=== PATIENT | female | born 1965 | race Two or more races ===

== ENCOUNTER 2018-08-15 09:27 | Inpatient (IN) | payer MEDICARE, MEDICAID ==
[~2018-08-15] VITALS: Ht 149.9 cm; Wt 43.1 kg
[2018-08-15 09:24] VITALS: BP 175/76
--- NOTE | 2018-08-15 09:27 | NUR ---
ED Nurse Note: PT BROUGHT IN BY RA 68 DUE TO SEVERE HEADACHE AND ELEVATED BLOOD PRESSURE 190/90MMHG. PT IS ON DIALYSIS M/W/F. LAST SESSION WAS YESTERDAY. PT IS AAO X4 AMBULATORY WITH NON LABORED BREATHING. AV FISTULA NOTED ON RIGHT FOREARM.
[2018-08-15] MEDS ORDERED: Morphine Sulfate 4mg/ml Inj (IV USE ONLY) IVP ONE (09:30)
[2018-08-15] MEDS ORDERED: DiphenhydrAMINE 50mg/ml Inj IVP ONE (09:30)
--- NOTE | 2018-08-15 09:33 | Emergency Room Report ---
History of Present Illness General Chief Complaint: Headache Source: Patient Present Illness HPI Patient presents emergency department today complaining of headache. Patient states that she has had some headache intermittently for the last couple weeks but it progressively became worse since yesterday. The headache is localized to the left side of her face involving the back of her head and part of her left neck. She denies any trauma. Denies sudden onset of headache. Denies any prior history of headache this severe. Denies any fever. Complains of nausea but denies vomiting. Denies any chest pain or shortness of breath. Complains of some chills. She does have photophobia. No other complaints are noted. Symptoms noted to be severe. Patient has not had prior work-up for this in the past. Patient has not had a CT scan. Patient denies any other complaints. Patient does have a history of renal failure and is on dialysis Sunday. Patient had dialysis yesterday. Patient is usually followed up at [facility]. No other modifying factors. No other associated signs and symptoms. No other complaints were noted. Allergies: Coded Allergies: No Known Allergies (Unverified , 08/15/18) Patient History Past Medical History: DM, HTN, renal disease, dialysis - Right upper extremity AV fistula Past Surgical History: other - Right upper extremity AV fistula Social History: Denies: smoking, alcohol use, drug use Now: No Reviewed Nursing Documentation: PMH: Agreed; PSxH: Agreed Nursing Documentation-PM Past Medical History: No History, Except For Hx Cardiac Problems: No - CKD Hx Hypertension: Yes Hx Diabetes: Yes Review of Systems All Other Systems: negative except mentioned in HPI Physical Exam Vital Signs Date Time Temp Pulse Resp B/P (MAP) Pulse Ox O2 Delivery O2 Flow Rate FiO2 08/15/18 09:14 97.9 66 19 190/90 (123) 95 Room Air Sp02 EP Interpretation: reviewed, normal General Appearance: alert, moderate distress Head: atraumatic Eyes: bilateral eye normal inspection ENT: normal ENT inspection, hearing grossly normal, normal voice Neck: normal inspection, full range of motion, supple, no bony tend Respiratory: normal inspection, lungs clear, normal breath sounds, no respiratory distress, no retraction, no wheezing Cardiovascular #1: regular rate, rhythm, no edema Gastrointestinal: normal inspection, normal bowel sounds, non tender, soft, no guarding, no hernia Genitourinary: no CVA tenderness Musculoskeletal: normal inspection, back normal, normal range of motion, other - Right upper extremity AV fistula Neurologic: normal inspection, alert, responsive, speech normal Psychiatric: normal inspection, judgement/insight normal, depressed affect, anxious Skin: normal inspection, normal color, no rash Medical Decision Making Diagnostic Impression: Primary Impression: Intractable headache ER Course Patient presents to the emergency department today complaining of severe headache. Differential diagnoses include acute migraine headache, meningitis, subarachnoid hemorrhage, intracranial hemorrhage just name a few. Given the severity of the patient's presentation I felt this is a highly complex patient. This patient required extensive workup. Patient's laboratory work-up was not impressive. Head CT was negative. Patient was given pain medications with some improvement in symptoms. Given patient's persistent headache however I feel the patient require admission for pain control. Patient did not have a sudden onset headache and CAT scan again was negative therefore I do not feel that a lumbar puncture is indicated at this time. However I felt the patient require admission and evaluation and observation. Patient will be placed on observation status. Labs Test 08/15/18 09:35 White Blood Count 5.8 K/UL (4.8-10.8) Red Blood Count 4.44 M/UL (4.20-5.40) Hemoglobin 11.9 G/DL (12.0-16.0) Hematocrit 40.2 % (37.0-47.0) Mean Corpuscular Volume 90 FL (80-99) Mean Corpuscular Hemoglobin 26.7 PG (27.0-31.0) Mean Corpuscular Hemoglobin Concent 29.5 G/DL (32.0-36.0) Red Cell Distribution Width 15.5 % (11.6-14.8) Platelet Count 108 K/UL (150-450) Mean Platelet Volume 9.9 FL (6.5-10.1) Neutrophils (%) (Auto) 71.4 % (45.0-75.0) Lymphocytes (%) (Auto) 14.9 % (20.0-45.0) Monocytes (%) (Auto) 9.8 % (1.0-10.0) Eosinophils (%) (Auto) 3.2 % (0.0-3.0) Basophils (%) (Auto) 0.6 % (0.0-2.0) Prothrombin Time 12.4 SEC (9.30-11.50) Prothromb Time International Ratio 1.2 (0.9-1.1) Activated Partial Thromboplast Time 27 SEC (23-33) Sodium Level 140 MMOL/L (136-145) Potassium Level 4.8 MMOL/L (3.5-5.1) Chloride Level 102 MMOL/L (98-107) Carbon Dioxide Level 29 MMOL/L (21-32) Anion Gap 10 mmol/L (5-15) Blood Urea Nitrogen 36 mg/dL (7-18) Creatinine 6.9 MG/DL (0.55-1.30) Estimat Glomerular Filtration Rate 6.2 mL/min (>60) Glucose Level 101 MG/DL (74-106) Calcium Level 9.1 MG/DL (8.5-10.1) Total Bilirubin 0.9 MG/DL (0.2-1.0) Aspartate Amino Transf (AST/SGOT) 21 U/L (15-37) Alanine Aminotransferase (ALT/SGPT) 16 U/L (12-78) Alkaline Phosphatase 216 U/L (46-116) Total Protein 8.5 G/DL (6.4-8.2) Albumin 3.6 G/DL (3.4-5.0) Globulin 4.9 g/dL Albumin/Globulin Ratio 0.7 (1.0-2.7) EKG Diagnostic Results Rate: normal Rhythm: NSR ST Segments: no acute changes Rhythm Strip Diag. Results EP Interpretation: yes Rate: 61 Rhythm: NSR, no PVC's, no ectopy CT/MRI/US Diagnostic Results CT/MRI/US Diagnostic Results : Imaging Test Ordered: CT head: Negative Last Vital Signs Date Time Temp Pulse Resp B/P (MAP) Pulse Ox O2 Delivery O2 Flow Rate FiO2 08/15/18 09:24 97.9 64 13 175/76 98 Room Air Status: improved Disposition: PLACE IN OBSERVATION Condition: Serious Justin Sandoval MD August 15, 2018 09:33
--- NOTE | 2018-08-15 09:40 | NUR ---
ED Nurse Note: COLLECTED BLOOD THEN SENT TO LAB.
--- NOTE | 2018-08-15 09:44 | NUR ---
ED Nurse Note: PT TAKEN TO CT VIA MERNA. MEDS GIVEN.
[2018-08-15 09:52] LABS: BASOPHILS % (AUTO) 0.6 % (0.0-2.0); EOSINOPHILS % (AUTO) 3.2 % (0.0-3.0); HEMATOCRIT 40.2 % (37.0-47.0); HEMOGLOBIN 11.9 G/DL (12.0-16.0); LYMPHOCYTES % (AUTO) 14.9 % (20.0-45.0); MEAN CORPUSCULAR VOLUME 90 FL (80-99); MONOCYTES % (AUTO) 9.8 % (1.0-10.0); NEUTROPHILS % (AUTO) 71.4 % (45.0-75.0); PLATELET COUNT 108 K/UL (150-450); RED BLOOD COUNT 4.44 M/UL (4.20-5.40); RED CELL DISTRIBUTION WIDTH 15.5 % (11.6-14.8); WHITE BLOOD COUNT 5.8 K/UL (4.8-10.8)
--- NOTE | 2018-08-15 10:04 | NUR ---
ED Nurse Note: PT CAME BACK FROM CT. STILL IN PAIN AND WAITING FOR BLOOD RESULTS TO COME BACK.
[2018-08-15 10:14] LABS: INR 1.2 (0.9-1.1)
[2018-08-15 10:18] LABS: ANION GAP 10 mmol/L (5-15); BLOOD UREA NITROGEN 36 mg/dL (7-18); CALCIUM 9.1 MG/DL (8.5-10.1); CARBON DIOXIDE 29 MMOL/L (21-32); CHLORIDE 102 MMOL/L (98-107); CREATININE 6.9 MG/DL (0.55-1.30); POTASSIUM 4.8 MMOL/L (3.5-5.1); SODIUM 140 MMOL/L (136-145)
[2018-08-15] MEDS ORDERED: RENVELA0.8 GM ORAL (10:21)
[2018-08-15 10:22] LABS: ALANINE AMINOTRANSFERASE 16 U/L (12-78); ALBUMIN 3.6 G/DL (3.4-5.0); ALBUMIN/GLOBULIN RATIO 0.7 (1.0-2.7); ALKALINE PHOSPHATASE 216 U/L (46-116); ASPARTATE AMINO TRANSFERASE 21 U/L (15-37); BILIRUBIN,TOTAL 0.9 MG/DL (0.2-1.0)
--- NOTE | 2018-08-15 10:23 | Diagnostic Imaging Report ---
Indications: Headache Technique: Spiral acquisitions obtained through the brain. Angled axial and coronal 5 x 5 mm slices were reconstructed. Total dose length product 1319.38 mGycm. CTDI vol(s) 70.38 mGy. Dose reduction achieved using automated exposure control Comparison: None. Findings: No acute intracranial hemorrhage nor edema. No mass effect nor midline shift. There is mild age-related prominence of the ventricles and extra axial CSF spaces. There is periventricular low-attenuation. Otherwise normal hare-white differentiation. In intact calvarium. Visualized orbits are unremarkable. There is left sphenoid sinus disease Impression: Cerebral volume loss and periventricular deep white matter low-attenuation, somewhat advanced for patient age. Negative for acute intracranial bleed or mass effect Minimal sinus disease The CT scanner at [facility] is accredited by the [employer] and the scans are performed using protocols designed to limit radiation exposure to as low as reasonably achievable to attain images of sufficient resolution adequate for diagnostic evaluation.
[2018-08-15] MEDS ORDERED: ACETAMINOPHEN325 M1 ORAL (10:25)
[2018-08-15] MEDS ORDERED: CALCIUM500 M3 PO (10:25)
[2018-08-15] MEDS ORDERED: ZOLOFT50 MG ORAL (10:25)
[2018-08-15] MEDS ORDERED: ATORVASTATIN CA80 MG ORAL (10:25)
[2018-08-15] MEDS ORDERED: REGLAN5 MG ORAL (10:25)
[2018-08-15] MEDS ORDERED: BIDIL TABLET1 EACH PO (10:25)
[2018-08-15] MEDS ORDERED: IMODIUM2 MG ORAL (10:27)
[2018-08-15] MEDS ORDERED: NORCO 5-325 TA1 EACH ORAL (10:27)
[2018-08-15] MEDS ORDERED: GABAPENTIN400 MG ORAL (10:27)
[2018-08-15] MEDS ORDERED: CARVEDILOL12.5 MG ORAL (10:27)
[2018-08-15 11:05] VITALS: BP 148/61
--- NOTE | 2018-08-15 11:10 | NUR ---
HAND-OFF: Report given to zunilda WING.
--- NOTE | 2018-08-15 12:07 | NUR ---
ED Nurse Note: report given to MACIEJ colon from [facility].
--- NOTE | 2018-08-15 12:27 | NUR ---
ED Nurse Note: PT TRANSFERRED TO [facility], ALL BELONGINGS SENT W/ PT, VSS, IV INTACT AND PATENT, CARE ENDORSED TO MACIEJ SOARES.
--- NOTE | 2018-08-15 13:00 | NUR ---
NURSE NOTES: Pt received from ER with of of SAMANTHA on 2 liters . Dialysis pt dialyzed yesterday, [employer] speaker . Desires vaccinations on discharge
[2018-08-15] MEDS ORDERED: Loperamide 2mg cap ORAL PRN (14:00)
[2018-08-15] MEDS ORDERED: LORazepam Inj 2mg/ml 1ml IV PRN (14:00)
[2018-08-15] MEDS ORDERED: oxyCODONE HCL/Acetaminophen 5/325mg ORAL PRN (14:00)
--- NOTE | 2018-08-15 14:08 | History and Physical ---
History of Present Illness General Date patient seen: August 15, 2018 Time patient seen: 14:00 Reason for Hospitalization: Headache Present Illness HPI 53 year old woman with ESRD on HD MWF, HTN, type 2 DM who presented to the ED today with complaints of headache. Patient states that she has had some headache intermittently for the last couple weeks but it progressively became worse since yesterday. The headache is localized to the left side of her face involving the back of her head and part of her left neck. Pain reported to be severe and sharp She denies any trauma. Denies sudden onset of headache. Denies any prior history of headache this severe. Denies any fever or chills. Complains of nausea, vomiting and diarrhea Denies any chest pain or shortness of breath. She does have photophobia. No other complaints are noted. Social Hx: No alcohol or tobacco Family History: No CAD Allergies: Coded Allergies: No Known Allergies (Unverified , 08/15/18) Medication History Scheduled Atorvastatin Calcium* (Lipitor*), 80 MG ORAL BEDTIME, (Reported) Carvedilol* (Carvedilol*), 12.5 MG ORAL EVERY 12 HOURS, (Reported) Gabapentin* (Gabapentin*), 400 MG ORAL THREE TIMES A DAY, (Reported) Hydrocodone Bit/Acetaminophen 5-325* (Aurora 5-325*), 1 TAB ORAL TWICE A DAY, ( Reported) Loperamide HCl (Loperamide), 2 MG ORAL Q4H, (Reported) Metoclopramide Hcl* (Reglan*), 5 MG ORAL EVERY 6 HOURS, (Reported) Sertraline Hcl* (Zoloft*), 150 MG ORAL DAILY, (Reported) Sevelamer Carbonate* (Renvela*), 800 MG ORAL THREE TIMES A DAY, (Reported) Scheduled PRN Acetaminophen* (Acetaminophen 325MG Tablet*), 325 MG ORAL Q6H PRN for For Pain, (Reported) Miscellaneous Medications Calcium Carbonate (Calcium), 500 MG PO, (Reported) Isosorb Dinit/Hydralazine Hcl (Bidil Tablet), 1 EACH PO, (Reported) Patient History Healthcare decision maker Resuscitation status Advanced Directive on File Review of Systems Constitutional: Denies: chills Eye: Denies: eye pain, blurred vision, tearing ENT: Denies: ear pain Respiratory: Denies: cough Cardiovascular: Denies: chest pain, edema Gastrointestinal: Reports: diarrhea, nausea; Denies: abdominal pain Genitourinary: Denies: discharge, dysuria Musculoskeletal: Denies: back pain Physical Exam General Appearance: no apparent distress, alert HEENT: atraumatic, anicteric Neck: normal alignment, supple Respiratory/Chest: lungs clear, normal breath sounds, no respiratory distress Cardiovascular/Chest: normal rate, regular rhythm Abdomen: soft, no organomegaly, other - Mild diffuse tenderness Extremities: non-tender, normal inspection Neurologic: tombstone polisher II-XII grossly normal, no motor/sensory deficits, alert, oriented x 3, responsive Last 24 Hour Vital Signs Date Time Temp Pulse Resp B/P (MAP) Pulse Ox O2 Delivery O2 Flow Rate FiO2 08/15/18 11:05 98.2 57 18 148/61 100 Room Air 08/15/18 11:00 98.2 08/15/18 09:24 97.9 64 13 175/76 98 Room Air 08/15/18 09:14 97.9 66 19 190/90 (123) 95 Room Air Laboratory Tests Test 08/15/18 09:35 White Blood Count 5.8 K/UL (4.8-10.8) Red Blood Count 4.44 M/UL (4.20-5.40) Hemoglobin 11.9 G/DL (12.0-16.0) L Hematocrit 40.2 % (37.0-47.0) Mean Corpuscular Volume 90 FL (80-99) Mean Corpuscular Hemoglobin 26.7 PG (27.0-31.0) L Mean Corpuscular Hemoglobin Concent 29.5 G/DL (32.0-36.0) L Red Cell Distribution Width 15.5 % (11.6-14.8) H Platelet Count 108 K/UL (150-450) L Mean Platelet Volume 9.9 FL (6.5-10.1) Neutrophils (%) (Auto) 71.4 % (45.0-75.0) Lymphocytes (%) (Auto) 14.9 % (20.0-45.0) L Monocytes (%) (Auto) 9.8 % (1.0-10.0) Eosinophils (%) (Auto) 3.2 % (0.0-3.0) H Basophils (%) (Auto) 0.6 % (0.0-2.0) Prothrombin Time 12.4 SEC (9.30-11.50) H Prothromb Time International Ratio 1.2 (0.9-1.1) H Activated Partial Thromboplast Time 27 SEC (23-33) Sodium Level 140 MMOL/L (136-145) Potassium Level 4.8 MMOL/L (3.5-5.1) Chloride Level 102 MMOL/L (98-107) Carbon Dioxide Level 29 MMOL/L (21-32) Anion Gap 10 mmol/L (5-15) Blood Urea Nitrogen 36 mg/dL (7-18) H Creatinine 6.9 MG/DL (0.55-1.30) H Estimat Glomerular Filtration Rate 6.2 mL/min (>60) Glucose Level 101 MG/DL (74-106) Calcium Level 9.1 MG/DL (8.5-10.1) Total Bilirubin 0.9 MG/DL (0.2-1.0) Aspartate Amino Transf (AST/SGOT) 21 U/L (15-37) Alanine Aminotransferase (ALT/SGPT) 16 U/L (12-78) Alkaline Phosphatase 216 U/L (46-116) H Total Protein 8.5 G/DL (6.4-8.2) H Albumin 3.6 G/DL (3.4-5.0) Globulin 4.9 g/dL Albumin/Globulin Ratio 0.7 (1.0-2.7) L Height (Feet): 5 Weight (Pounds): 95 Medications Current Medications Medications (Trade) Dose Ordered Sig/Rogelio Route PRN Reason Start Time Stop Time Status Last Admin Dose Admin Heparin Sodium (Porcine) (Heparin 5000 units/ml) 5,000 units EVERY 12 HOURS SUBQ 08/15/18 21:00 09/14/18 20:59 UNV Sodium Chloride 1,000 ml @ 75 mls/hr [id number] IVLG 08/15/18 14:47 09/14/18 14:46 UNV Assessment/Plan Assessment/Plan: #Intractable headache, status migrainosus -admit to medical service -supportive care with anti-emetics, Percocet prn -Neurology eval requested #Nausea, vomiting and diarrhea, more chronic in duration -check stool studies including C. difficile #ESRD on HD -Nephrology consulted for HD management -continue Renagel #HTN #HL -continue Coreg and Lipitor #Type 2 DM -lispro SS #Depression -continue Zoloft Full Code VTE PPx Heparin Ispent 70 minutes on this patient's case, and 35 minutes was dedicated to counseling and/or care coordination. Doug Purvis MD August 15, 2018 14:08
[2018-08-15 16:00] VITALS: BP 149/105
--- NOTE | 2018-08-15 16:00 | NUR ---
NURSE NOTES: Dr Miller here seen pt aware that pt is a dialysis pt, stated he would put orders in. Dr Sierra also here to visit pt verbalized onset of symptoms. Pt states that she takes her blood pressure medicine everyday and does not know why her blood pressure is elevated
--- NOTE | 2018-08-15 16:17 | Consultation ---
Consult Note Consult Note Asked to [facility] at the request of Dr Schultz for dialysis management Patient to ER for RAMÍREZ and high BP ER: Patient presents emergency department today complaining of headache. Patient states that she has had some headache intermittently for the last couple weeks but it progressively became worse since yesterday. The headache is localized to the left side of her face involving the back of her head and part of her left neck. She denies any trauma. Denies sudden onset of headache. Denies any prior history of headache this severe. Denies any fever. Complains of nausea but denies vomiting. Denies any chest pain or shortness of breath. Complains of some chills. She does have photophobia. No other complaints are noted. Symptoms noted to be severe. Patient has not had prior work-up for this in the past. Patient has not had a CT scan. Patient denies any other complaints. Patient does have a history of renal failure and is on dialysis Sunday. Patient had dialysis yesterday. Patient is usually followed up at [facility]. No other modifying factors. No other associated signs and symptoms. No other complaints were noted. No Known Allergies (Unverified , 08/15/18) Past Medical History: DM, HTN, renal disease, dialysis - Right upper extremity AV fistula Past Surgical History: other - Right upper extremity AV fistula dialysis M W Fr interviewed via passenger flagman examined data reviewed discussed with RN . Assessment/Plan ESRD HTN Headache DM ii Nausea, vomiting and diarrhea, more chronic in duration BP meds adjustment Pain meds HD in am per orders Renal diet with medium CHO James Bower MD August 15, 2018 16:17
[2018-08-15] MEDS: NovoLOG Insulin Flexpen SUBQ SCH ×2 (16:30→21:00)
[2018-08-15] MEDS ORDERED: Metoclopramide 10mg/2ml Inj IVP PRN (16:30)
[2018-08-15] MEDS ORDERED: HydrALAZINE 25mg tab ORAL PRN (16:45)
--- NOTE | 2018-08-15 17:17 | NUR ---
percocet reassessed information not saved verbalized effectiveness
--- NOTE | 2018-08-15 18:00 | NUR ---
NURSE NOTES: Pt in stable condition , assisted to restroom also had an incontinent episode of urine. Current plan of care will be followed
[2018-08-15] MEDS: Renvela 800mg Pkt ORAL SCH (18:38)
[2018-08-15] MEDS: Docusate 100mg cap ORAL SCH (18:38)
[2018-08-15] MEDS: D5 1/2NS 1,000 ML IV SCH (18:39)
[2018-08-15 20:00] VITALS: BP 132/62
[2018-08-15 20:01] VITALS: BP 132/62
--- NOTE | 2018-08-15 20:15 | NUR ---
NURSE NOTES: Patient received from Jayne DayPatient Albanian Speaking. family members at bedside.P patient denies any pain . no s/s of distress .LFAg#20 with D5 1/2 ns at 50 cc/hr infusing well Right forearm with shunt . call light within reach .bed in low position . will continue to monitor.
--- NOTE | 2018-08-15 20:15 | NUR ---
HAND-OFF: Report given to Shabana WING.
[2018-08-15] MEDS: Atorvastatin 80mg tab ORAL SCH (20:31)
[2018-08-15] MEDS: Carvedilol 12.5mg tab ORAL SCH (20:32)
[2018-08-15] MEDS: Heparin 5000 units/ml inj SUBQ SCH (20:33)
[2018-08-15] MEDS ORDERED: Carvedilol 12.5mg tab ORAL SCH (21:00)
[2018-08-15] MEDS ORDERED: Docusate 100mg cap ORAL SCH (21:00)
[2018-08-16] VITALS (7 sets, daily range): BP systolic 137–166; BP diastolic 58–70
--- NOTE | 2018-08-16 06:00 | NUR ---
NURSE NOTES:Patient blood sugar 119 patient refused insulin novolog coverage . Explained patient the risk and benefits. will continue to monitor
[2018-08-16 06:28] LABS: HEMATOCRIT 35.5 % (37.0-47.0); HEMOGLOBIN 10.6 G/DL (12.0-16.0); MEAN CORPUSCULAR VOLUME 91 FL (80-99); PLATELET COUNT 79 K/UL (150-450); RED CELL DISTRIBUTION WIDTH 15.6 % (11.6-14.8); WHITE BLOOD COUNT 5.3 K/UL (4.8-10.8)
[2018-08-16] MEDS: NovoLOG Insulin Flexpen SUBQ SCH ×4 (06:30→21:00)
--- NOTE | 2018-08-16 07:10 | NUR ---
NURSE NOTES: Report received from Shabana DUNBAR, rounds made. Patient sleeping in supine position, in bed. No distress noted on O2 2LNC. IVF infusing to LFA at 50 ml/hr. RFA shunt noted, +bruit/thrill. Skin warm. Call light in reach, bed in lowest position, will continue to monitor.
[2018-08-16 07:12] LABS: ALANINE AMINOTRANSFERASE 10 U/L (12-78); ALBUMIN 3.1 G/DL (3.4-5.0); ALBUMIN/GLOBULIN RATIO 0.7 (1.0-2.7); ALKALINE PHOSPHATASE 175 U/L (46-116); ANION GAP 8 mmol/L (5-15); ASPARTATE AMINO TRANSFERASE 15 U/L (15-37); BILIRUBIN,TOTAL 1.1 MG/DL (0.2-1.0); BLOOD UREA NITROGEN 42 mg/dL (7-18); CALCIUM 8.7 MG/DL (8.5-10.1); CARBON DIOXIDE 27 MMOL/L (21-32); CHLORIDE 100 MMOL/L (98-107); CHOLESTEROL 91 MG/DL (< 200); CREATININE 7.5 MG/DL (0.55-1.30); FERRITIN 400 NG/ML (8-388); GAMMA GLUTAMYL TRANSPEPTIDASE 112 U/L (5-85); HDL CHOLESTEROL 56 MG/DL (40-60); PHOSPHORUS 4.2 MG/DL (2.5-4.9); SODIUM 137 MMOL/L (136-145); TRIGLYCERIDES 69 MG/DL (30-150)
[2018-08-16 07:21] LABS: BILIRUBIN,DIRECT 0.4 MG/DL (0.0-0.3)
--- NOTE | 2018-08-16 07:25 | NUR ---
NURSE NOTES: Critical level called from [facility] in LAB, K 6.0. Notified Dr. Sierra of K 6.0, Platelets 79 and Mg 2.6. Orders to hold Heparin SQ. see order.
--- NOTE | 2018-08-16 07:30 | NUR ---
HAND-OFF: Report given to Sydnie Day
[2018-08-16 07:31] LABS: % IRON SATURATION 8 % (15-50); IRON 14 ug/dL (50-175); TOTAL IRON BINDING CAPACITY 180 ug/dL (250-450)
[2018-08-16] MEDS: Docusate 100mg cap ORAL SCH ×3 (08:32→18:59)
[2018-08-16] MEDS: Carvedilol 12.5mg tab ORAL SCH (08:32)
[2018-08-16] MEDS: Renvela 800mg Pkt ORAL SCH ×3 (08:33→18:59)
[2018-08-16] MEDS: Heparin 5000 units/ml inj SUBQ SCH ×2 (08:33→21:00)
[2018-08-16] MEDS: Sertraline 50mg tab ORAL SCH (08:33)
[2018-08-16] MEDS: HYDROmorphone 1mg/ml Carpuject IVP PRN (08:43)
--- NOTE | 2018-08-16 09:27 | NUR ---
CHARGE NURSE NOTES: For urgent hemodialysis today. [facility] called & spoke w/ Semaj.
--- NOTE | 2018-08-16 11:09 | Consultation ---
History of Present Illness General Chief Complaint: Headache Present Illness Allergies: Coded Allergies: No Known Allergies (Unverified , 08/15/18) Medication History Scheduled Atorvastatin Calcium* (Lipitor*), 80 MG ORAL BEDTIME, (Reported) Carvedilol* (Carvedilol*), 12.5 MG ORAL EVERY 12 HOURS, (Reported) Gabapentin* (Gabapentin*), 400 MG ORAL THREE TIMES A DAY, (Reported) Hydrocodone Bit/Acetaminophen 5-325* (Tracy 5-325*), 1 TAB ORAL TWICE A DAY, ( Reported) Loperamide HCl (Loperamide), 2 MG ORAL Q4H, (Reported) Metoclopramide Hcl* (Reglan*), 5 MG ORAL EVERY 6 HOURS, (Reported) Sertraline Hcl* (Zoloft*), 150 MG ORAL DAILY, (Reported) Sevelamer Carbonate* (Renvela*), 800 MG ORAL THREE TIMES A DAY, (Reported) Scheduled PRN Acetaminophen* (Acetaminophen 325MG Tablet*), 325 MG ORAL Q6H PRN for For Pain, (Reported) Miscellaneous Medications Calcium Carbonate (Calcium), 500 MG PO, (Reported) Isosorb Dinit/Hydralazine Hcl (Bidil Tablet), 1 EACH PO, (Reported) Patient History Healthcare decision maker Resuscitation status Full Code Advanced Directive on File No Physical Exam Last 24 Hour Vital Signs Date Time Temp Pulse Resp B/P (MAP) Pulse Ox O2 Delivery O2 Flow Rate FiO2 08/16/18 08:32 62 137/65 08/16/18 08:00 99.8 62 19 137/65 (89) 92 08/16/18 04:00 98.2 57 20 138/70 (92) 97 08/16/18 01:20 98 Nasal Cannula 2.0 28 08/16/18 00:01 98.0 58 18 140/70 (93) 97 08/15/18 21:00 Room Air 08/15/18 20:32 54 132/62 08/15/18 20:01 97.0 54 20 132/62 (85) 97 08/15/18 16:00 97.6 76 20 149/105 (120) 97 08/15/18 12:27 Nasal Cannula 2.0 08/15/18 12:27 98.2 59 18 118/59 100 Nasal Cannula 1.5 08/15/18 11:05 98.2 57 18 148/61 100 Room Air 08/15/18 11:00 98.2 Intake and Output 08/15/18 08/16/18 19:00 07:00 Intake Total 860 ml 1060 ml Balance 860 ml 1060 ml Intake Oral 360 ml 460 ml IV Total 500 ml 600 ml # Voids 1 Laboratory Tests Test 08/16/18 05:30 White Blood Count 5.3 K/UL (4.8-10.8) Red Blood Count 3.90 M/UL (4.20-5.40) L Hemoglobin 10.6 G/DL (12.0-16.0) L Hematocrit 35.5 % (37.0-47.0) L Mean Corpuscular Volume 91 FL (80-99) Mean Corpuscular Hemoglobin 27.0 PG (27.0-31.0) Mean Corpuscular Hemoglobin Concent 29.7 G/DL (32.0-36.0) L Red Cell Distribution Width 15.6 % (11.6-14.8) H Platelet Count 79 K/UL (150-450) L Mean Platelet Volume 8.6 FL (6.5-10.1) Neutrophils (%) (Auto) % (45.0-75.0) Lymphocytes (%) (Auto) % (20.0-45.0) Monocytes (%) (Auto) % (1.0-10.0) Eosinophils (%) (Auto) % (0.0-3.0) Basophils (%) (Auto) % (0.0-2.0) Differential Total Cells Counted 100 Neutrophils % (Manual) 85 % (45-75) H Lymphocytes % (Manual) 7 % (20-45) L Monocytes % (Manual) 7 % (1-10) Eosinophils % (Manual) 1 % (0-3) Basophils % (Manual) 0 % (0-2) Band Neutrophils 0 % (0-8) Platelet Estimate Decreased L Platelet Morphology Normal Hypochromasia 1+ Sodium Level 137 MMOL/L (136-145) Potassium Level 6.0 MMOL/L (3.5-5.1) *H Chloride Level 100 MMOL/L (98-107) Carbon Dioxide Level 27 MMOL/L (21-32) Anion Gap 8 mmol/L (5-15) Blood Urea Nitrogen 42 mg/dL (7-18) H Creatinine 7.5 MG/DL (0.55-1.30) H Estimat Glomerular Filtration Rate 5.6 mL/min (>60) Glucose Level 116 MG/DL (74-106) H Hemoglobin A1c 5.7 % (4.3-6.0) Uric Acid 3.7 MG/DL (2.6-7.2) Calcium Level 8.7 MG/DL (8.5-10.1) Phosphorus Level 4.2 MG/DL (2.5-4.9) Magnesium Level 2.6 MG/DL (1.8-2.4) H Iron Level 14 ug/dL (50-175) L Total Iron Binding Capacity 180 ug/dL (250-450) L Percent Iron Saturation 8 % (15-50) L Unsaturated Iron Binding 166 ug/dL (112-346) Ferritin 400 NG/ML (8-388) H Total Bilirubin 1.1 MG/DL (0.2-1.0) H Direct Bilirubin 0.4 MG/DL (0.0-0.3) H Gamma Glutamyl Transpeptidase 112 U/L (5-85) H Aspartate Amino Transf (AST/SGOT) 15 U/L (15-37) Alanine Aminotransferase (ALT/SGPT) 10 U/L (12-78) L Alkaline Phosphatase 175 U/L (46-116) H C-Reactive Protein, Quantitative 1.2 mg/dL (0.00-0.90) H Pro-B-Type Natriuretic Peptide > 38846 pg/mL (0-125) H Total Protein 7.7 G/DL (6.4-8.2) Albumin 3.1 G/DL (3.4-5.0) L Globulin 4.6 g/dL Albumin/Globulin Ratio 0.7 (1.0-2.7) L Triglycerides Level 69 MG/DL (30-150) Cholesterol Level 91 MG/DL (< 200) LDL Cholesterol 23 mg/dL (<100) HDL Cholesterol 56 MG/DL (40-60) Cholesterol/HDL Ratio 1.6 (3.3-4.4) L Vitamin B12 Level 796 PG/ML (193-986) Folate 9.8 NG/ML (8.6-58.9) Thyroid Stimulating Hormone (TSH) 4.271 uiU/mL (0.358-3.740) Height (Feet): 4 Height (Inches): 11.00 Weight (Pounds): 95 Medications Current Medications Medications (Trade) Dose Ordered Sig/Rogelio Route PRN Reason Start Time Stop Time Status Last Admin Dose Admin Acetaminophen (Tylenol) 650 mg Q4H PRN ORAL Mild Pain (Pain Scale 1-3) 08/15/18 14:00 09/14/18 13:59 Atorvastatin Calcium (Lipitor) 80 mg BEDTIME ORAL 08/15/18 21:00 09/14/18 20:59 08/15/18 20:31 Carvedilol (Coreg) 12.5 mg EVERY 12 HOURS ORAL 08/15/18 21:00 09/14/18 20:59 08/16/18 08:32 Dextrose (Dextrose 50%) 25 ml Q30M PRN IV Hypoglycemia 08/15/18 14:00 09/14/18 13:59 Dextrose (Dextrose 50%) 50 ml Q30M PRN IV Hypoglycemia 08/15/18 14:00 09/14/18 13:59 Dextrose/Sodium Chloride 1,000 ml @ 50 mls/hr Q20H IV 08/15/18 16:30 09/14/18 16:29 08/15/18 18:39 Diphenhydramine HCl (Benadryl) 25 mg Q6H PRN ORAL Itching/Pruritis 08/15/18 14:00 09/14/18 13:59 Docusate Sodium (Colace) 100 mg TID ORAL 08/15/18 18:00 09/14/18 20:59 08/16/18 08:32 Gabapentin (Neurontin) 400 mg THREE TIMES A DAY ORAL 08/15/18 18:00 09/14/18 17:59 08/16/18 08:32 Heparin Sodium (Porcine) (Heparin 5000 units/ml) 5,000 units EVERY 12 HOURS SUBQ 08/15/18 21:00 09/14/18 20:59 Hydralazine HCl (Apresoline) 25 mg Q4H PRN ORAL for bp over 160 syst 08/15/18 16:45 09/14/18 16:44 Hydromorphone HCl (Dilaudid) 0.5 mg Q4H PRN IVP For Pain 7- 10 08/15/18 16:30 08/22/18 16:29 08/16/18 08:43 Insulin Aspart (NovoLOG) BEFORE MEALS AND HS SUBQ 08/15/18 16:30 09/14/18 16:29 Loperamide HCl (Imodium) 2 mg Q4H PRN ORAL DIARRHEA 08/15/18 14:00 09/14/18 13:59 Lorazepam (Ativan 2mg/ml 1ml) 0.5 mg Q4H PRN IV For Anxiety 08/15/18 14:00 08/22/18 13:59 Metoclopramide HCl (Reglan) 5 mg QHS ORAL 08/15/18 21:00 09/14/18 20:59 08/15/18 20:32 Metoclopramide HCl (Reglan) 5 mg TIAC ORAL 08/15/18 16:30 09/14/18 17:59 08/16/18 06:51 Metoclopramide HCl (Reglan) 10 mg Q6H PRN IVP Nausea & Vomiting 08/15/18 16:30 09/14/18 16:29 Pantoprazole (Protonix) 40 mg EVERY 12 HOURS ORAL 08/15/18 21:00 09/14/18 20:59 08/16/18 08:32 Sertraline HCl (Zoloft) 150 mg DAILY ORAL 08/16/18 09:00 09/15/18 08:59 08/16/18 08:33 Sevelamer Carbonate (Renvela) 800 mg THREE TIMES A DAY ORAL 08/15/18 18:00 09/14/18 17:59 08/16/18 08:33 Tramadol HCl (Ultram) 50 mg Q6H PRN ORAL pain 4-6 08/15/18 16:30 08/22/18 16:29 Assessment/Plan Status: stable Assessment/Plan: HEMATOLOGY/ONCOLOGY CONSULTATION DATE OF CONSULT: 08/16/2017 REFERRING PHYSICIAN: Malini Monique REASON FOR CONSULT: Anemia, thrombocytopenia ID [id number] year old woman with ESRD on HD MWF, HTN, type 2 DM who presented to the ED today with complaints of headache. Patient states that she has had some headache intermittently for the last couple weeks but it progressively became worse since yesterday. The headache is localized to the left side of her face involving the back of her head and part of her left neck. Denies any prior history of headache this severe. Denies any fever or chills. Complains of nausea, vomiting and diarrhea. Denies any chest pain or shortness of breath. CBC revealed an Hgb of 10.6 and Plt count of 79. Hematology services were consulted for the evaluation of anemia and thrombocytopenia. Past Medical History: DM, HTN, renal disease, dialysis - Right upper extremity AV fistula Past Surgical History: other - Right upper extremity AV fistula SOCIAL HX: No alcohol or tobacco FAMILY HX: Noncontributory Allergies: No Known Allergies Medication History Scheduled Atorvastatin Calcium* (Lipitor*), 80 MG ORAL BEDTIME, (Reported) Carvedilol* (Carvedilol*), 12.5 MG ORAL EVERY 12 HOURS, (Reported) Gabapentin* (Gabapentin*), 400 MG ORAL THREE TIMES A DAY, (Reported) Hydrocodone Bit/Acetaminophen 5-325* (Tracy 5-325*), 1 TAB ORAL TWICE A DAY, ( Reported) Loperamide HCl (Loperamide), 2 MG ORAL Q4H, (Reported) Metoclopramide Hcl* (Reglan*), 5 MG ORAL EVERY 6 HOURS, (Reported) Sertraline Hcl* (Zoloft*), 150 MG ORAL DAILY, (Reported) Sevelamer Carbonate* (Renvela*), 800 MG ORAL THREE TIMES A DAY, (Reported) Scheduled PRN Acetaminophen* (Acetaminophen 325MG Tablet*), 325 MG ORAL Q6H PRN for For Pain, (Reported) Miscellaneous Medications Calcium Carbonate (Calcium), 500 MG PO, (Reported) Isosorb Dinit/Hydralazine Hcl (Bidil Tablet), 1 EACH PO, (Reported) ROS Constitutional: Denies: chills Eye: Denies: eye pain, blurred vision, tearing ENT: Denies: ear pain Respiratory: Denies: cough Cardiovascular: Denies: chest pain, edema Gastrointestinal: Reports: diarrhea, nausea; Denies: abdominal pain Genitourinary: Denies: discharge, dysuria Musculoskeletal: Denies: back pain PE General Appearance: no apparent distress, alert HEENT: atraumatic, anicteric Neck: normal alignment, supple Respiratory/Chest: lungs clear, normal breath sounds, no respiratory distress Cardiovascular/Chest: normal rate, regular rhythm Abdomen: soft, no organomegaly, other - Mild diffuse tenderness Extremities: non-tender, normal inspection Neurologic: multiple cut off saw operator II-XII grossly normal, no motor/sensory deficits, alert, oriented x 3, responsive IMAGIN/30: CT head --> Cerebral volume loss and periventricular deep white matter low -attenuation, somewhat advanced for patient age. Negative for acute intracranial bleed or mass effect. Minimal sinus disease LABS: 08/16: wbc 5.3 hgb 10.6 plt 79 Assessment/Plan: # Thrombocytopenia - potential causes multifactorial, evaluate liver and viral etiologies to begin, also could be related to underlying medications patient has received. --> Hep panel and HIV ordered --> US abd to evaluate for cirrhosis and hsm ordered --> Peripheral smear ordered to evaluate for blasts /schistocytes --> abx and other meds have been reviewed --> ok for ppx if plt >50k w/ either heparin or lovenox --> Transfuse if Plt < 20k and fever, or if Plt < 10k without fever # Anemia of chronic disease due to underlying chronic medical issues, multifactorial --> Ferritin 400 --> Anemia workup has been ordered, rule out gi bleed --> No evidence of hemolysis is noted, peripheral smear has been reviewed. --> Hgb goal >7. Transfuse prn. --> Epogen or iron at this time is not particularly indicated --> Medications have been reviewed --> low threshold for gi evaluation in case has occult + --> bone marrow biopsy is not indicated given the other more likely causes # Intractable headache, status migrainosus. --> admit to medical service --> supportive care with anti-emetics, Percocet prn --> Neurology eval requested # Nausea, vomiting and diarrhea, more chronic in duration --> check stool studies including C. difficile # ESRD on HD --> Nephrology is following, appreciate recs. Hd as per renal --> continue Renagel # HTN # HL --> continue Coreg and Lipitor # Type 2 DM --> lispro SS # Depression --> continue Zoloft The time note was entered does not reflect time patient was examined. GREATLY APPRECIATE CONSULTATION. Mumtaz Herrera MD August 16, 2018 11:09
[2018-08-16] MEDS: D5 1/2NS 1,000 ML IV SCH (12:11)
--- NOTE | 2018-08-16 12:30 | NUR ---
NURSE NOTES: Patient sleeping, easily arousable, c/o headache, refusing oral pain medication, provided ice pack for head/neck. Will continue to monitor.
--- NOTE | 2018-08-16 13:24 | Nephrology Progress Note ---
Assessment/Plan Problem List: (1) ESRD (end stage renal disease) (2) Hypertensive kidney disease (3) Anemia in CKD (chronic kidney disease) Assessment ESRD HTN Headache DM ii Nausea, vomiting and diarrhea, more chronic in duration Plan DC IV fluids BP meds adjustment Pain meds HD 08/16 per orders Renal diet with medium CHO Subjective ROS Limited/Unobtainable: No Constitutional: Reports: malaise Objective Objective Last 24 Hour Vital Signs Date Time Temp Pulse Resp B/P (MAP) Pulse Ox O2 Delivery O2 Flow Rate FiO2 08/16/18 12:00 99.1 58 18 146/69 (94) 100 08/16/18 09:00 Room Air 2.0 08/16/18 08:32 62 137/65 08/16/18 08:00 99.8 62 19 137/65 (89) 92 08/16/18 04:00 98.2 57 20 138/70 (92) 97 08/16/18 01:20 98 Nasal Cannula 2.0 28 08/16/18 00:01 98.0 58 18 140/70 (93) 97 08/15/18 21:00 Room Air 08/15/18 20:32 54 132/62 08/15/18 20:01 97.0 54 20 132/62 (85) 97 08/15/18 16:00 97.6 76 20 149/105 (120) 97 Intake and Output 08/15/18 08/16/18 19:00 07:00 Intake Total 860 ml 1060 ml Balance 860 ml 1060 ml Intake Oral 360 ml 460 ml IV Total 500 ml 600 ml # Voids 1 Laboratory Tests 08/16/18 05:30: White Blood Count 5.3, Red Blood Count 3.90L, Hemoglobin 10.6L, Hematocrit 35.5L , Mean Corpuscular Volume 91, Mean Corpuscular Hemoglobin 27.0, Mean Corpuscular Hemoglobin Concent 29.7L, Red Cell Distribution Width 15.6H, Platelet Count 79L, Mean Platelet Volume 8.6, Neutrophils (%) (Auto) , Lymphocytes (%) (Auto) , Monocytes (%) (Auto) , Eosinophils (%) (Auto) , Basophils (%) (Auto) , Differential Total Cells Counted 100, Neutrophils % ( Manual) 85H, Lymphocytes % (Manual) 7L, Monocytes % (Manual) 7, Eosinophils % ( Manual) 1, Basophils % (Manual) 0, Band Neutrophils 0, Platelet Estimate DecreasedL, Platelet Morphology Normal, Hypochromasia 1+, Sodium Level 137, Potassium Level 6.0*H, Chloride Level 100, Carbon Dioxide Level 27, Anion Gap 8 , Blood Urea Nitrogen 42H, Creatinine 7.5H, Estimat Glomerular Filtration Rate 5.6, Glucose Level 116H, Hemoglobin A1c 5.7, Uric Acid 3.7, Calcium Level 8.7, Phosphorus Level 4.2, Magnesium Level 2.6H, Iron Level 14L, Total Iron Binding Capacity 180L, Percent Iron Saturation 8L, Unsaturated Iron Binding 166, Ferritin 400H, Total Bilirubin 1.1H, Direct Bilirubin 0.4H, Gamma Glutamyl Transpeptidase 112H, Aspartate Amino Transf (AST/SGOT) 15, Alanine Aminotransferase (ALT/SGPT) 10L, Alkaline Phosphatase 175H, C-Reactive Protein, Quantitative 1.2H, Pro-B-Type Natriuretic Peptide > 93105L, Total Protein 7.7, Albumin 3.1L, Globulin 4.6, Albumin/Globulin Ratio 0.7L, Triglycerides Level 69 , Cholesterol Level 91, LDL Cholesterol 23, HDL Cholesterol 56, Cholesterol/HDL Ratio 1.6L, Vitamin B12 Level 796, Folate 9.8, Thyroid Stimulating Hormone (TSH ) 4.271H Height (Feet): 4 Height (Inches): 11.00 Weight (Pounds): 95 General Appearance: no apparent distress Cardiovascular: bradycardia Respiratory/Chest: decreased breath sounds Abdomen: soft James Bower MD August 16, 2018 13:24
--- NOTE | 2018-08-16 15:55 | Consultation ---
History of Present Illness General Date patient seen: August 15, 2018 Chief Complaint: Headache Referring physician: Dr Monique Present Illness HPI Daina Guzman is a 53 year old woman with a PMH of ESRD on HD MWF, HTN, type 2 DM and migraine who presented to the ED today with complaints of unilateral headache with photophobia. Patient states that she has had some headache intermittently for the last couple weeks but it progressively became worse since yesterday. The headache is localized to the left side of her face involving the back of her head and part of her left neck. Pain reported to be severe and sharp. She denies any trauma. She is neurologically intact and reporting severe headache, photophobia, and nausea with stomach cramping. Allergies: Coded Allergies: No Known Allergies (Unverified , 08/15/18) Medication History Scheduled Atorvastatin Calcium* (Lipitor*), 80 MG ORAL BEDTIME, (Reported) Bacitracin Zinc* (Bacitracin Zinc*), 1 APPLIC TOPIC THREE TIMES A DAY, (Reported ) Calcium Acetate (Calcium Acetate), 1,334 MG PO TID, (Reported) Carvedilol* (Carvedilol*), 12.5 MG ORAL EVERY 12 HOURS, (Reported) Gabapentin* (Gabapentin*), 400 MG ORAL THREE TIMES A DAY, (Reported) Isosorb Dinit/Hydralazine Hcl (Bidil Tablet), 1 EACH PO THREE TIMES A DAY, ( Reported) Sertraline Hcl* (Zoloft*), 150 MG ORAL DAILY, (Reported) Sevelamer Hcl (Renagel), 800 MG ORAL THREE TIMES A DAY, (Reported) Valsartan (Diovan), 80 MG ORAL BID, (Reported) Scheduled PRN Acetaminophen* (Acetaminophen 325MG Tablet*), 325 MG ORAL Q6H PRN for For Pain, (Reported) Docusate Sodium* (Docusate Sodium*), 100 MG ORAL TWICE A DAY PRN for Constipation, (Reported) Hydrocodone Bit/Acetaminophen 5-325* ([place] 5-325*), 1 TAB ORAL BID PRN for For Pain, (Reported) Loperamide Hcl (Loperamide), 2 MG PO QID PRN for Diarrhea, (Reported) Metoclopramide Hcl* (Metoclopramide Hcl*), 5 MG ORAL EVERY 6 HOURS PRN for Nausea & Vomiting, (Reported) Discontinued Medications Calcium Carbonate (Calcium), 500 MG PO, (Reported) Discontinued Reason: Pt stopped taking med Patient History History Provided By: Patient, Medical Record Healthcare decision maker Resuscitation status Full Code Advanced Directive on File No Past Medical/Surgical History Past Medical/Surgical History: (1) History of migraine headaches Review of Systems Constitutional: Reports: malaise, weakness; Denies: no symptoms, see HPI, chills, sweats, fever, other Eye: Denies: no symptoms, see HPI, eye pain, blurred vision, tearing, double vision, nose pain, nose congestion, acuity changes, discharge, other ENT: Denies: no symptoms, see HPI, ear pain, ear discharge, nose pain, nose congestion, throat pain, throat swelling, mouth pain, hearing loss, nasal discharge, other Respiratory: Denies: no symptoms, see HPI, cough, orthopnea, shortness of breath, stridor, wheezing, ABBOTT, sputum, other Cardiovascular: Denies: no symptoms, see HPI, chest pain, edema, palpitations, syncope, PND, other Gastrointestinal: Reports: nausea, vomiting; Denies: no symptoms, see HPI, abdominal pain, constipation, diarrhea, melena, hematemesis, other Genitourinary: Denies: no symptoms, see HPI, discharge, dysuria, frequency, hematuria, pain, retention, incontinence, urgency, vag bleed/dc, other Musculoskeletal: Denies: no symptoms, see HPI, back pain, gout, joint pain, joint swelling, muscle pain, muscle stiffness, other Skin: Denies: no symptoms, see HPI, rash, change in color, change in hair/nails , dryness, lesions, other Psychiatric: Denies: no symptoms, see HPI, prior hx, anxiety, depressed feelings, emotional problems, SI, HI, hallucinations, other Neurological: Reports: headache; Denies: no symptoms, see HPI, numbness, paresthesia, seizure, tingling, tremors, focal weakness, syncope, dizziness, other Endocrine: Denies: no symptoms, see HPI, excessive sweating, flushing, intolerance to temperature, increased thirst, increased urine, unexplained weight loss, other Hematologic/Lymphatic: Denies: no symptoms, see HPI, anemia, blood clots, easy bleeding, easy bruising, swollen glands, diathesis, other Physical Exam General Appearance: WD/WN, alert, moderate distress, thin Lines, tubes and drains: peripheral HEENT: normocephalic, atraumatic, anicteric, mucous membranes moist, PERRL, EOMI, pharynx normal, supple, no JVD Neck: non-tender, normal alignment, supple, normal inspection Respiratory/Chest: normal breath sounds, no respiratory distress, no accessory muscle use Abdomen: guarding, tender Extremities: normal range of motion, non-tender, normal inspection, no calf tenderness, normal capillary refill, non-pitting, no edema, no cyanosis Skin Exam: normal pigmentation, warm/dry, no diaphoresis Neurologic: jury consultant II-XII grossly normal, no motor/sensory deficits, alert, oriented x 3, responsive, normal mood/affect Last 24 Hour Vital Signs Date Time Temp Pulse Resp B/P (MAP) Pulse Ox O2 Delivery O2 Flow Rate FiO2 08/16/18 12:00 99.1 58 18 146/69 (94) 100 08/16/18 09:00 Room Air 2.0 08/16/18 08:32 62 137/65 08/16/18 08:00 99.8 62 19 137/65 (89) 92 08/16/18 04:00 98.2 57 20 138/70 (92) 97 08/16/18 01:20 98 Nasal Cannula 2.0 28 08/16/18 00:01 98.0 58 18 140/70 (93) 97 08/15/18 21:00 Room Air 08/15/18 20:32 54 132/62 08/15/18 20:01 97.0 54 20 132/62 (85) 97 08/15/18 16:00 97.6 76 20 149/105 (120) 97 Intake and Output 08/15/18 08/16/18 19:00 07:00 Intake Total 860 ml 1060 ml Balance 860 ml 1060 ml Intake Oral 360 ml 460 ml IV Total 500 ml 600 ml # Voids 1 Laboratory Tests Test 08/16/18 05:30 White Blood Count 5.3 K/UL (4.8-10.8) Red Blood Count 3.90 M/UL (4.20-5.40) L Hemoglobin 10.6 G/DL (12.0-16.0) L Hematocrit 35.5 % (37.0-47.0) L Mean Corpuscular Volume 91 FL (80-99) Mean Corpuscular Hemoglobin 27.0 PG (27.0-31.0) Mean Corpuscular Hemoglobin Concent 29.7 G/DL (32.0-36.0) L Red Cell Distribution Width 15.6 % (11.6-14.8) H Platelet Count 79 K/UL (150-450) L Mean Platelet Volume 8.6 FL (6.5-10.1) Neutrophils (%) (Auto) % (45.0-75.0) Lymphocytes (%) (Auto) % (20.0-45.0) Monocytes (%) (Auto) % (1.0-10.0) Eosinophils (%) (Auto) % (0.0-3.0) Basophils (%) (Auto) % (0.0-2.0) Differential Total Cells Counted 100 Neutrophils % (Manual) 85 % (45-75) H Lymphocytes % (Manual) 7 % (20-45) L Monocytes % (Manual) 7 % (1-10) Eosinophils % (Manual) 1 % (0-3) Basophils % (Manual) 0 % (0-2) Band Neutrophils 0 % (0-8) Platelet Estimate Decreased L Platelet Morphology Normal Hypochromasia 1+ Sodium Level 137 MMOL/L (136-145) Potassium Level 6.0 MMOL/L (3.5-5.1) *H Chloride Level 100 MMOL/L (98-107) Carbon Dioxide Level 27 MMOL/L (21-32) Anion Gap 8 mmol/L (5-15) Blood Urea Nitrogen 42 mg/dL (7-18) H Creatinine 7.5 MG/DL (0.55-1.30) H Estimat Glomerular Filtration Rate 5.6 mL/min (>60) Glucose Level 116 MG/DL (74-106) H Hemoglobin A1c 5.7 % (4.3-6.0) Uric Acid 3.7 MG/DL (2.6-7.2) Calcium Level 8.7 MG/DL (8.5-10.1) Phosphorus Level 4.2 MG/DL (2.5-4.9) Magnesium Level 2.6 MG/DL (1.8-2.4) H Iron Level 14 ug/dL (50-175) L Total Iron Binding Capacity 180 ug/dL (250-450) L Percent Iron Saturation 8 % (15-50) L Unsaturated Iron Binding 166 ug/dL (112-346) Ferritin 400 NG/ML (8-388) H Total Bilirubin 1.1 MG/DL (0.2-1.0) H Direct Bilirubin 0.4 MG/DL (0.0-0.3) H Gamma Glutamyl Transpeptidase 112 U/L (5-85) H Aspartate Amino Transf (AST/SGOT) 15 U/L (15-37) Alanine Aminotransferase (ALT/SGPT) 10 U/L (12-78) L Alkaline Phosphatase 175 U/L (46-116) H C-Reactive Protein, Quantitative 1.2 mg/dL (0.00-0.90) H Pro-B-Type Natriuretic Peptide > 11226 pg/mL (0-125) H Total Protein 7.7 G/DL (6.4-8.2) Albumin 3.1 G/DL (3.4-5.0) L Globulin 4.6 g/dL Albumin/Globulin Ratio 0.7 (1.0-2.7) L Triglycerides Level 69 MG/DL (30-150) Cholesterol Level 91 MG/DL (< 200) LDL Cholesterol 23 mg/dL (<100) HDL Cholesterol 56 MG/DL (40-60) Cholesterol/HDL Ratio 1.6 (3.3-4.4) L Vitamin B12 Level 796 PG/ML (193-986) Folate 9.8 NG/ML (8.6-58.9) Thyroid Stimulating Hormone (TSH) 4.271 uiU/mL (0.358-3.740) Hepatitis A IgM Antibody Pending Hepatitis B Surface Antigen Pending Hepatitis B Core IgM Antibody Pending Hepatitis C Antibody Pending HIV (1&2) Antibody Rapid Negative (NEGATIVE) Height (Feet): 4 Height (Inches): 11.00 Weight (Pounds): 95 Medications Current Medications Medications (Trade) Dose Ordered Sig/Rogelio Route PRN Reason Start Time Stop Time Status Last Admin Dose Admin Acetaminophen (Tylenol) 650 mg Q4H PRN ORAL Mild Pain (Pain Scale 1-3) 08/15/18 14:00 09/14/18 13:59 Atorvastatin Calcium (Lipitor) 80 mg BEDTIME ORAL 08/15/18 21:00 09/14/18 20:59 5/30/19 20:31 Carvedilol (Coreg) 3.125 mg EVERY 12 HOURS ORAL 08/17/18 09:00 09/14/18 20:59 Dextrose (Dextrose 50%) 25 ml Q30M PRN IV Hypoglycemia 08/15/18 14:00 09/14/18 13:59 Dextrose (Dextrose 50%) 50 ml Q30M PRN IV Hypoglycemia 08/15/18 14:00 09/14/18 13:59 Diphenhydramine HCl (Benadryl) 25 mg Q6H PRN ORAL Itching/Pruritis 08/15/18 14:00 09/14/18 13:59 Docusate Sodium (Colace) 100 mg TID ORAL 08/15/18 18:00 09/14/18 20:59 08/16/18 12:09 Gabapentin (Neurontin) 400 mg THREE TIMES A DAY ORAL 08/15/18 18:00 09/14/18 17:59 08/16/18 12:09 Heparin Sodium (Porcine) (Heparin 5000 units/ml) 5,000 units EVERY 12 HOURS SUBQ 08/15/18 21:00 09/14/18 20:59 Hydralazine HCl (Apresoline) 25 mg Q4H PRN ORAL for bp over 160 syst 08/15/18 16:45 09/14/18 16:44 Hydralazine HCl (Apresoline) 25 mg Q8HR ORAL 08/16/18 14:00 09/15/18 13:59 Hydromorphone HCl (Dilaudid) 0.5 mg Q4H PRN IVP For Pain 7- 10 08/15/18 16:30 08/22/18 16:29 08/16/18 08:43 Insulin Aspart (NovoLOG) BEFORE MEALS AND HS SUBQ 08/15/18 16:30 09/14/18 16:29 Loperamide HCl (Imodium) 2 mg Q4H PRN ORAL DIARRHEA 08/15/18 14:00 09/14/18 13:59 Lorazepam (Ativan 2mg/ml 1ml) 0.5 mg Q4H PRN IV For Anxiety 08/15/18 14:00 08/22/18 13:59 Metoclopramide HCl (Reglan) 5 mg QHS ORAL 08/15/18 21:00 09/14/18 20:59 08/15/18 20:32 Metoclopramide HCl (Reglan) 5 mg TIAC ORAL 08/15/18 16:30 09/14/18 17:59 08/16/18 12:09 Metoclopramide HCl (Reglan) 10 mg Q6H PRN IVP Nausea & Vomiting 08/15/18 16:30 09/14/18 16:29 Pantoprazole (Protonix) 40 mg EVERY 12 HOURS ORAL 08/15/18 21:00 09/14/18 20:59 08/16/18 08:32 Sertraline HCl (Zoloft) 150 mg DAILY ORAL 08/16/18 09:00 09/15/18 08:59 08/16/18 08:33 Sevelamer Carbonate (Renvela) 800 mg THREE TIMES A DAY ORAL 08/15/18 18:00 09/14/18 17:59 08/16/18 12:09 Tramadol HCl (Ultram) 50 mg Q6H PRN ORAL pain 4-6 08/15/18 16:30 08/22/18 16:29 Assessment/Plan Problem List: (1) ESRD (end stage renal disease) ICD Codes: N18.6 - End stage renal disease SNOMED: 88515893 (2) Hypertensive kidney disease ICD Codes: I12.9 - Hypertensive chronic kidney disease with stage 1 through stage 4 chronic kidney disease, or unspecified chronic kidney disease SNOMED: 74851975 (3) Status migrainosus Assessment & Plan: Recommend Triptan Rescue therapy with Imitrex injection 6mg , with one repeated dose of 6mg per day allowed. Maintain : Q4 Hour Neuro Obs Normoglycemia with ISS Muscle Relaxants TID - Soma or Baclofen for muscle spasm in neck and abdomen. Na 135-145 Maintain SBP<140 ICD Codes: G43.901 - Migraine, unspecified, not intractable, with status migrainosus SNOMED: 816710733 (4) History of migraine headaches ICD Codes: Z86.69 - Personal history of other diseases of the nervous system and sense organs SNOMED: 727824547 (5) Anemia in CKD (chronic kidney disease) ICD Codes: N18.9 - Chronic kidney disease, unspecified; D63.1 - Anemia in chronic kidney disease SNOMED: 430975847 Jyoti Blanco.P. August 16, 2018 15:54
--- NOTE | 2018-08-16 16:09 | General Progress Note ---
Assessment/Plan Status: stable Assessment/Plan: #Intractable headache, status migrainosus -continue inpatient level of care -supportive care with anti-emetics, Percocet prn -Neurology eval #Nausea, vomiting and diarrhea, more chronic in duration -no further diarrhea #ESRD on HD #Hyperkalemia -HD today -continue Renagel #HTN #HL -continue Coreg and Lipitor #Type 2 DM -lispro SS #Depression -continue Zoloft Full Code VTE PPx Heparin Subjective Date patient seen: August 16, 2018 Time patient seen: 12:05 ROS Limited/Unobtainable: No Constitutional: Denies: chills Cardiovascular: Denies: chest pain Respiratory: Denies: cough Gastrointestinal/Abdominal: Denies: abdominal pain Allergies: Coded Allergies: No Known Allergies (Unverified , 08/15/18) Subjective Medicine followup for intractable headache, hyperkalemia. Persistent headache Objective Last 24 Hour Vital Signs Date Time Temp Pulse Resp B/P (MAP) Pulse Ox O2 Delivery O2 Flow Rate FiO2 08/16/18 12:00 99.1 58 18 146/69 (94) 100 08/16/18 09:00 Room Air 2.0 08/16/18 08:32 62 137/65 08/16/18 08:00 99.8 62 19 137/65 (89) 92 08/16/18 04:00 98.2 57 20 138/70 (92) 97 08/16/18 01:20 98 Nasal Cannula 2.0 28 08/16/18 00:01 98.0 58 18 140/70 (93) 97 08/15/18 21:00 Room Air 08/15/18 20:32 54 132/62 08/15/18 20:01 97.0 54 20 132/62 (85) 97 08/15/18 16:00 97.6 76 20 149/105 (120) 97 Intake and Output 08/15/18 08/16/18 19:00 07:00 Intake Total 860 ml 1060 ml Balance 860 ml 1060 ml Intake Oral 360 ml 460 ml IV Total 500 ml 600 ml # Voids 1 Laboratory Tests 08/16/18 05:30: White Blood Count 5.3, Red Blood Count 3.90L, Hemoglobin 10.6L, Hematocrit 35.5L , Mean Corpuscular Volume 91, Mean Corpuscular Hemoglobin 27.0, Mean Corpuscular Hemoglobin Concent 29.7L, Red Cell Distribution Width 15.6H, Platelet Count 79L, Mean Platelet Volume 8.6, Neutrophils (%) (Auto) , Lymphocytes (%) (Auto) , Monocytes (%) (Auto) , Eosinophils (%) (Auto) , Basophils (%) (Auto) , Differential Total Cells Counted 100, Neutrophils % ( Manual) 85H, Lymphocytes % (Manual) 7L, Monocytes % (Manual) 7, Eosinophils % ( Manual) 1, Basophils % (Manual) 0, Band Neutrophils 0, Platelet Estimate DecreasedL, Platelet Morphology Normal, Hypochromasia 1+, Sodium Level 137, Potassium Level 6.0*H, Chloride Level 100, Carbon Dioxide Level 27, Anion Gap 8 , Blood Urea Nitrogen 42H, Creatinine 7.5H, Estimat Glomerular Filtration Rate 5.6, Glucose Level 116H, Hemoglobin A1c 5.7, Uric Acid 3.7, Calcium Level 8.7, Phosphorus Level 4.2, Magnesium Level 2.6H, Iron Level 14L, Total Iron Binding Capacity 180L, Percent Iron Saturation 8L, Unsaturated Iron Binding 166, Ferritin 400H, Total Bilirubin 1.1H, Direct Bilirubin 0.4H, Gamma Glutamyl Transpeptidase 112H, Aspartate Amino Transf (AST/SGOT) 15, Alanine Aminotransferase (ALT/SGPT) 10L, Alkaline Phosphatase 175H, C-Reactive Protein, Quantitative 1.2H, Pro-B-Type Natriuretic Peptide > 38457H, Total Protein 7.7, Albumin 3.1L, Globulin 4.6, Albumin/Globulin Ratio 0.7L, Triglycerides Level 69 , Cholesterol Level 91, LDL Cholesterol 23, HDL Cholesterol 56, Cholesterol/HDL Ratio 1.6L, Vitamin B12 Level 796, Folate 9.8, Thyroid Stimulating Hormone (TSH ) 4.271H, Hepatitis A IgM Antibody [Pending], Hepatitis B Surface Antigen [ Pending], Hepatitis B Core IgM Antibody [Pending], Hepatitis C Antibody [Pending ], HIV (1&2) Antibody Rapid Negative Height (Feet): 4 Height (Inches): 11.00 Weight (Pounds): 95 General Appearance: no apparent distress, alert Neck: normal alignment, supple Cardiovascular: normal rate, regular rhythm Respiratory/Chest: lungs clear, normal breath sounds, no respiratory distress Abdomen: non tender, soft Molazadeh-Yazdi,Doug MD August 16, 2018 16:09
--- NOTE | 2018-08-16 16:30 | NUR ---
NURSE NOTES: Hemodialysis started at 1445. Patient sleeping throughout session, no distress. Patient informed to maintain NPO until 1900 for US of ABD, verbalized understanding. Will continue to monitor.
--- NOTE | 2018-08-16 16:57 | NUR ---
CASE MANAGEMENT:REVIEW 53 YR OLD FEMALE BIBA FROM [facility] CC: HEADACHE SI: INTRACTABLE HEADACHE 97.8 66 19 190/90 95% ON RA [id number] IS: IV MORPHINE PERCOCET PO IV ZOFRAN IV BENADRYL CT HEAD : TO TELEMETRY
[2018-08-16] MEDS: HydrALAZINE 25mg tab ORAL SCH ×2 (18:59→22:28)
--- NOTE | 2018-08-16 19:30 | NUR ---
NURSE NOTES: Received report from MACIEJ Otoole. Patient asleep. Reported that patient hasn't eaten much today. Bed in low position, call light within reach. No distress noted.
--- NOTE | 2018-08-16 20:15 | NUR ---
HAND-OFF: Report given to Jessica WING.
--- NOTE | 2018-08-16 21:40 | NUR ---
NURSE NOTES: Patient alert, oriented x4, communicating with nurse in Danish. IV saline lock in LFA, intact, patent. RFA shunt, bruit/thrill positive. Encouraged to eat some of dinner, had cup of fruit. Will continue to monitor.
[2018-08-16] MEDS: Atorvastatin 80mg tab ORAL SCH (22:27)
--- NOTE | 2018-08-16 23:35 | Neurology Progress Note ---
Interim History Interim History ROS Limited/Unobtainable: No Complaints: Migraine Events: Improvement overall with symptoms following Imitrex Interim History This visit was conducted on Aug [address] Adriano Gaines. Objective Physical Exam Last Vital Signs Date Time Temp Pulse Resp B/P (MAP) Pulse Ox O2 Delivery O2 Flow Rate FiO2 08/16/18 22:28 162/69 08/16/18 20:00 95 Room Air 21 08/16/18 15:50 99.0 58 20 08/16/18 09:00 2.0 Laboratory Tests Test 08/16/18 05:30 White Blood Count 5.3 K/UL (4.8-10.8) Red Blood Count 3.90 M/UL (4.20-5.40) L Hemoglobin 10.6 G/DL (12.0-16.0) L Hematocrit 35.5 % (37.0-47.0) L Mean Corpuscular Volume 91 FL (80-99) Mean Corpuscular Hemoglobin 27.0 PG (27.0-31.0) Mean Corpuscular Hemoglobin Concent 29.7 G/DL (32.0-36.0) L Red Cell Distribution Width 15.6 % (11.6-14.8) H Platelet Count 79 K/UL (150-450) L Mean Platelet Volume 8.6 FL (6.5-10.1) Neutrophils (%) (Auto) % (45.0-75.0) Lymphocytes (%) (Auto) % (20.0-45.0) Monocytes (%) (Auto) % (1.0-10.0) Eosinophils (%) (Auto) % (0.0-3.0) Basophils (%) (Auto) % (0.0-2.0) Differential Total Cells Counted 100 Neutrophils % (Manual) 85 % (45-75) H Lymphocytes % (Manual) 7 % (20-45) L Monocytes % (Manual) 7 % (1-10) Eosinophils % (Manual) 1 % (0-3) Basophils % (Manual) 0 % (0-2) Band Neutrophils 0 % (0-8) Platelet Estimate Decreased L Platelet Morphology Normal Hypochromasia 1+ Sodium Level 137 MMOL/L (136-145) Potassium Level 6.0 MMOL/L (3.5-5.1) *H Chloride Level 100 MMOL/L (98-107) Carbon Dioxide Level 27 MMOL/L (21-32) Anion Gap 8 mmol/L (5-15) Blood Urea Nitrogen 42 mg/dL (7-18) H Creatinine 7.5 MG/DL (0.55-1.30) H Estimat Glomerular Filtration Rate 5.6 mL/min (>60) Glucose Level 116 MG/DL (74-106) H Hemoglobin A1c 5.7 % (4.3-6.0) Uric Acid 3.7 MG/DL (2.6-7.2) Calcium Level 8.7 MG/DL (8.5-10.1) Phosphorus Level 4.2 MG/DL (2.5-4.9) Magnesium Level 2.6 MG/DL (1.8-2.4) H Iron Level 14 ug/dL (50-175) L Total Iron Binding Capacity 180 ug/dL (250-450) L Percent Iron Saturation 8 % (15-50) L Unsaturated Iron Binding 166 ug/dL (112-346) Ferritin 400 NG/ML (8-388) H Total Bilirubin 1.1 MG/DL (0.2-1.0) H Direct Bilirubin 0.4 MG/DL (0.0-0.3) H Gamma Glutamyl Transpeptidase 112 U/L (5-85) H Aspartate Amino Transf (AST/SGOT) 15 U/L (15-37) Alanine Aminotransferase (ALT/SGPT) 10 U/L (12-78) L Alkaline Phosphatase 175 U/L (46-116) H C-Reactive Protein, Quantitative 1.2 mg/dL (0.00-0.90) H Pro-B-Type Natriuretic Peptide > 06770 pg/mL (0-125) H Total Protein 7.7 G/DL (6.4-8.2) Albumin 3.1 G/DL (3.4-5.0) L Globulin 4.6 g/dL Albumin/Globulin Ratio 0.7 (1.0-2.7) L Triglycerides Level 69 MG/DL (30-150) Cholesterol Level 91 MG/DL (< 200) LDL Cholesterol 23 mg/dL (<100) HDL Cholesterol 56 MG/DL (40-60) Cholesterol/HDL Ratio 1.6 (3.3-4.4) L Vitamin B12 Level 796 PG/ML (193-986) Folate 9.8 NG/ML (8.6-58.9) Thyroid Stimulating Hormone (TSH) 4.271 uiU/mL (0.358-3.740) Hepatitis A IgM Antibody Pending Hepatitis B Surface Antigen Pending Hepatitis B Core IgM Antibody Pending Hepatitis C Antibody Pending HIV (1&2) Antibody Rapid Negative (NEGATIVE) General: well nourished Head: normocophalic Neck: other EENT: benign Neurologic Exam Mental Status: awake, alert, oriented x4, normal cognition, good mathematical skills, normal recent memory, normal remote memory, preserved visuospatial function Speech: normal speech, no dysarthia Language: normal language, no aphasia Cranial Nerve II: fundus normal, visual ramos, no papilledema Cranial Nerves III, IV, : PERRLA, EOMI, pupils Cranial Nerve V: normal facial sensations, temporales function normal, masseters function normal, pterygoids function normal Cranial Nerve VII: no facial asymmetry, normal facial expressions Cranial Nerve VIII: normal hearing, no nystagmus Cranial Nerve IX: normal palate elevation, gag response Cranial Nerve X: no voice hoarseness Cranial Nerve XI: SCM symmetric, trapezii function normal Cranial Nerve XII: tongue midline, no tongue atrophy/fasciculations Motor System: normal muscle tone, strength 5/5, no involuntary movement, no muscle wasting Sensory: normal pinprick, normal light touch, normal position sense, normal graphesthesia Coordination: normal finger to nose bilaterally, normal heel to viveros bilaterally, negative Romberg test Deep Tendon Reflexes: 2+ bicep (L), 2+ bicep (R), 2+ tricep (L), 2+ tricep (R) , 2+ brachioradialis (L), 2+ brachioradialis (R), 2+ knee (L), 2+ knee (R), 2+ ankle (L), 2+ ankle (R) Stance: normal Gait: stable, normal regular, heel + toe gait Objective Improving neck spasm Impression/Recommendations Status: stable Recommendations Continue Neuro Obs Discuss daily Magnesium 400mg daily SBP<140 Na 135-145 Triptan therapies for rescue SAMIRA when RAMÍREZ strikes. Jyoti Blanco N.P. August 16, 2018 23:35
[2018-08-17] VITALS (8 sets, daily range): BP systolic 123–166; BP diastolic 65–83
--- NOTE | 2018-08-17 01:00 | NUR ---
NURSE NOTES: Pt c/o headache 08/26. Given medication, see eMAR. Applied icepack to head, lights off. Wishes to keep tv on, states it distracts her from her pain. Will continue to monitor.
[2018-08-17] MEDS: traMADol 50mg tab ORAL PRN ×2 (01:01→16:38)
[2018-08-17] MEDS ORDERED: SUMAtriptan 6mg/0.5ml Inj SUBQ PRN (01:30)
--- NOTE | 2018-08-17 01:55 | NUR ---
NURSE NOTES: States feels better, dozing off.
[2018-08-17] MEDS: HydrALAZINE 25mg tab ORAL SCH ×3 (06:20→21:55)
[2018-08-17] MEDS: NovoLOG Insulin Flexpen SUBQ SCH ×4 (06:30→21:00)
--- NOTE | 2018-08-17 07:30 | NUR ---
HAND-OFF: Report given to MACIEJ Pond.
--- NOTE | 2018-08-17 07:43 | NUR ---
NURSE NOTES: ASLEEP. IN NO APPARENT DISTRESS.
[2018-08-17] MEDS: Docusate 100mg cap ORAL SCH ×3 (08:46→17:26)
[2018-08-17] MEDS: Heparin 5000 units/ml inj SUBQ SCH ×2 (08:46→20:42)
[2018-08-17] MEDS: Sertraline 50mg tab ORAL SCH (08:46)
[2018-08-17] MEDS: Renvela 800mg Pkt ORAL SCH ×3 (08:46→17:26)
--- NOTE | 2018-08-17 13:45 | General Progress Note ---
Assessment/Plan Status: stable Assessment/Plan: #Intractable headache, status migrainosus, symptoms improving -continue inpatient level of care -Neurology eval appreciated, continue Imitrex #Nausea, vomiting and diarrhea, more chronic in duration -no further diarrhea #ESRD on HD M/W/F #Hyperkalemia -check BMP today -continue Renagel #HTN #HL -continue Coreg and Lipitor #Type 2 DM -lispro SS #Depression -continue Zoloft Full Code VTE PPx Heparin Subjective Date patient seen: Aug 17, 2018 Time patient seen: 13:32 ROS Limited/Unobtainable: Yes Cardiovascular: Denies: chest pain Respiratory: Denies: cough Gastrointestinal/Abdominal: Denies: abdomen distended, abdominal pain Allergies: Coded Allergies: No Known Allergies (Unverified , 08/15/18) Subjective Medicine followup for intractable headache, hyperkalemia. Headache improved today Had HD yesterday, labs pending for today Objective Last 24 Hour Vital Signs Date Time Temp Pulse Resp B/P (MAP) Pulse Ox O2 Delivery O2 Flow Rate FiO2 08/17/18 12:00 98.7 63 15 166/75 (105) 96 08/17/18 09:27 Nasal Cannula 2.0 08/17/18 08:46 60 150/74 08/17/18 08:00 98.3 60 18 150/74 (99) 98 08/17/18 06:30 123/83 (96) 08/17/18 06:20 123/83 08/17/18 04:00 99.0 61 20 146/69 (94) 96 08/17/18 01:00 98.4 61 18 158/65 (96) 99 08/16/18 22:28 162/69 08/16/18 21:00 98.5 63 16 162/69 (100) 99 08/16/18 21:00 Nasal Cannula 2.0 08/16/18 20:00 95 Room Air 21 08/16/18 18:59 176/70 08/16/18 15:50 99.0 58 20 166/58 (94) 99 Intake and Output 08/16/18 08/17/18 19:00 07:00 Intake Total 1020 ml 240 ml Balance 1020 ml 240 ml Intake Oral 720 ml 240 ml IV Total 300 ml # Bowel Movements 1 Height (Feet): 4 Height (Inches): 11.00 Weight (Pounds): 95 General Appearance: no apparent distress, alert Neck: normal alignment, supple Cardiovascular: normal rate, regular rhythm Respiratory/Chest: lungs clear, normal breath sounds Abdomen: non tender, soft Doug Purvis MD Aug 17, 2018 13:45
--- NOTE | 2018-08-17 14:20 | Nephrology Progress Note ---
Assessment/Plan Problem List: (1) ESRD (end stage renal disease) (2) Hypertensive kidney disease (3) Anemia in CKD (chronic kidney disease) Assessment ESRD HTN Headache DM ii Nausea, vomiting and diarrhea, more chronic in duration Plan DC IV fluids BP meds adjustment Pain meds HD 08/16 per orders Renal diet with medium CHO Subjective ROS Limited/Unobtainable: No Constitutional: Reports: malaise Objective Objective Last 24 Hour Vital Signs Date Time Temp Pulse Resp B/P (MAP) Pulse Ox O2 Delivery O2 Flow Rate FiO2 08/17/18 14:16 63 134/75 (94) 08/17/18 14:15 134/75 08/17/18 12:00 98.7 63 15 166/75 (105) 96 08/17/18 09:27 Nasal Cannula 2.0 08/17/18 08:46 60 150/74 08/17/18 08:00 98.3 60 18 150/74 (99) 98 08/17/18 06:30 123/83 (96) 08/17/18 06:20 123/83 08/17/18 04:00 99.0 61 20 146/69 (94) 96 08/17/18 01:00 98.4 61 18 158/65 (96) 99 08/16/18 22:28 162/69 08/16/18 21:00 98.5 63 16 162/69 (100) 99 08/16/18 21:00 Nasal Cannula 2.0 08/16/18 20:00 95 Room Air 21 08/16/18 18:59 176/70 08/16/18 15:50 99.0 58 20 166/58 (94) 99 Intake and Output 08/16/18 08/17/18 19:00 07:00 Intake Total 1020 ml 240 ml Balance 1020 ml 240 ml Intake Oral 720 ml 240 ml IV Total 300 ml # Bowel Movements 1 Height (Feet): 4 Height (Inches): 11.00 Weight (Pounds): 95 General Appearance: no apparent distress Objective no change James Bower MD Aug 17, 2018 14:20
[2018-08-17 15:10] LABS: ANION GAP 10 mmol/L (5-15); BLOOD UREA NITROGEN 31 mg/dL (7-18); CALCIUM 8.7 MG/DL (8.5-10.1); CARBON DIOXIDE 33 MMOL/L (21-32); CHLORIDE 94 MMOL/L (98-107); CREATININE 6.2 MG/DL (0.55-1.30); POTASSIUM 5.3 MMOL/L (3.5-5.1); SODIUM 137 MMOL/L (136-145)
[2018-08-17] MEDS ORDERED: D5 1/2NS 1000ml IV ONE (16:56)
--- NOTE | 2018-08-17 19:00 | NUR ---
NURSE NOTES: resting. in no distress.
--- NOTE | 2018-08-17 19:00 | NUR ---
NURSE NOTES: resting. in no apparent distress.
--- NOTE | 2018-08-17 19:20 | NUR ---
HAND-OFF: Report given to keri jack rn.
--- NOTE | 2018-08-17 19:21 | NUR ---
NURSE NOTES: dr galaviz called re lab results. left message to return call.
--- NOTE | 2018-08-17 19:27 | NUR ---
HAND-OFF: Report given to DONALDO WING. Addendum: 08/17/18 at 1931 by HENRY CARRASCO RN REPORT GIVEN TO Amarilys NUNEZ RN
--- NOTE | 2018-08-17 19:30 | NUR ---
NURSE NOTES: Received report from MACIEJ Pond. Received pt laying in bed c/o headache 10/26, pt denies dizziness, no nausea or vomiting. Pt is Hebrew speaking only, able to make needs known without any problems. Pt states "I don't like pills because it hurts my stomach". Will medicate for pain. R FA AV shunt with good bruit and thrill. IV L FA # 20 patent and intact, no distress noted. Safety measures maintained. Will continue to monitor.
[2018-08-17] MEDS: HYDROmorphone 1mg/ml Carpuject IVP PRN (19:31)
--- NOTE | 2018-08-17 19:31 | NUR ---
NURSE NOTES: DR MARTINEZ RETURNED CALL GIVEN PT'S LAB RESULTS NO NEW ORDER.
[2018-08-17] MEDS ORDERED: DIOVAN80 MG ORAL (20:01)
[2018-08-17] MEDS ORDERED: METOCLOPRAMIDE H5 M1 ORAL (20:01)
[2018-08-17] MEDS ORDERED: CALCIUM ACETAT667 M1 PO (20:01)
[2018-08-17] MEDS ORDERED: DOCUSATE SODIU100 MG ORAL (20:01)
[2018-08-17] MEDS ORDERED: BACITRACIN ZIN1 EACH TOPIC (20:01)
[2018-08-17] MEDS ORDERED: BIDIL TABLET1 EACH PO (20:01)
[2018-08-17] MEDS ORDERED: RENAGEL800 MG ORAL (20:01)
[2018-08-17] MEDS ORDERED: LOPERAMIDE2 MG PO (20:01)
[2018-08-17] MEDS ORDERED: NORCO 5-325 TA1 EACH ORAL (20:02)
[2018-08-17] MEDS: Atorvastatin 80mg tab ORAL SCH (20:39)
[2018-08-18] VITALS (7 sets, daily range): BP systolic 121–167; BP diastolic 58–77
[2018-08-18] MEDS: HydrALAZINE 25mg tab ORAL SCH ×3 (05:48→22:32)
[2018-08-18] MEDS: NovoLOG Insulin Flexpen SUBQ SCH ×4 (05:50→21:00)
[2018-08-18 06:45] LABS: BASOPHILS % (AUTO) 0.5 % (0.0-2.0); EOSINOPHILS % (AUTO) 1.1 % (0.0-3.0); HEMATOCRIT 39.9 % (37.0-47.0); HEMOGLOBIN 11.8 G/DL (12.0-16.0); LYMPHOCYTES % (AUTO) 12.8 % (20.0-45.0); MEAN CORPUSCULAR VOLUME 91 FL (80-99); MONOCYTES % (AUTO) 9.9 % (1.0-10.0); NEUTROPHILS % (AUTO) 75.7 % (45.0-75.0); PLATELET COUNT 100 K/UL (150-450); RED BLOOD COUNT 4.39 M/UL (4.20-5.40); RED CELL DISTRIBUTION WIDTH 15.6 % (11.6-14.8); WHITE BLOOD COUNT 6.1 K/UL (4.8-10.8)
[2018-08-18 07:15] LABS: ALANINE AMINOTRANSFERASE 10 U/L (12-78); ALBUMIN 3.2 G/DL (3.4-5.0); ALBUMIN/GLOBULIN RATIO 0.7 (1.0-2.7); ALKALINE PHOSPHATASE 169 U/L (46-116); ANION GAP 9 mmol/L (5-15); ASPARTATE AMINO TRANSFERASE 18 U/L (15-37); BILIRUBIN,TOTAL 1.1 MG/DL (0.2-1.0); BLOOD UREA NITROGEN 39 mg/dL (7-18); CALCIUM 8.9 MG/DL (8.5-10.1); CARBON DIOXIDE 31 MMOL/L (21-32); CHLORIDE 94 MMOL/L (98-107); PHOSPHORUS 5.9 MG/DL (2.5-4.9); POTASSIUM 5.6 MMOL/L (3.5-5.1); SODIUM 134 MMOL/L (136-145)
[2018-08-18 07:20] LABS: BILIRUBIN,DIRECT 0.5 MG/DL (0.0-0.3)
--- NOTE | 2018-08-18 07:33 | NUR ---
HAND-OFF: Report written and left for MACIEJ Sepulveda. Pt in stable condition.
--- NOTE | 2018-08-18 08:00 | NUR ---
NURSE NOTES: Received written report from MACIEJ Concepcion. Patient is asleep. Bed in lowest position, call light within reach. Will continue to monitor.
[2018-08-18] MEDS: Heparin 5000 units/ml inj SUBQ SCH ×2 (09:00→21:01)
[2018-08-18] MEDS: Docusate 100mg cap ORAL SCH ×3 (09:01→18:00)
[2018-08-18] MEDS: Sertraline 50mg tab ORAL SCH (09:02)
[2018-08-18] MEDS: Renvela 800mg Pkt ORAL SCH ×3 (09:02→18:00)
--- NOTE | 2018-08-18 10:46 | NUR ---
NURSE NOTES: BP was elevated 167/76 0800 and hydralazine 25mg po was given as MD ordered. BP 166/[address] Sierra aware.
--- NOTE | 2018-08-18 11:16 | General Progress Note ---
Assessment/Plan Status: stable Assessment/Plan: #Intractable headache, status migrainosus -continue inpatient level of care -Neurology eval appreciated, continue Imitrex prn #Nausea, vomiting and diarrhea, more chronic in duration -no further diarrhea #ESRD on HD M/W/F #Hyperkalemia -monitor labs -HD in AM -continue Renagel #HTN, uncontrolled #HL -continue Coreg and Lipitor -add amlodipine #Type 2 DM -lispro SS #Depression -continue Zoloft Full Code VTE PPx Heparin Subjective Date patient seen: Aug 18, 2018 Time patient seen: 11:09 ROS Limited/Unobtainable: No HEENT: Denies: eye pain Cardiovascular: Denies: chest pain Respiratory: Denies: cough Gastrointestinal/Abdominal: Denies: abdomen distended Neurologic/Psychiatric: Denies: anxiety Allergies: Coded Allergies: No Known Allergies (Unverified , 08/15/18) Subjective Medicine followup for intractable headache, hyperkalemia. Headache somewhat improved BP elevated Objective Last 24 Hour Vital Signs Date Time Temp Pulse Resp B/P (MAP) Pulse Ox O2 Delivery O2 Flow Rate FiO2 08/18/18 10:30 166/77 (106) 08/18/18 09:02 64 167/76 08/18/18 09:02 167/76 08/18/18 09:00 Nasal Cannula 2.0 08/18/18 08:00 98.2 64 16 167/76 (106) 97 08/18/18 05:48 158/74 08/18/18 04:00 99.9 66 18 158/74 (102) 97 08/18/18 00:00 99.3 62 18 130/68 (88) 97 08/17/18 21:55 128/60 08/17/18 21:00 Nasal Cannula 2.0 08/17/18 20:39 64 152/71 08/17/18 20:00 99.4 64 20 152/71 (98) 98 08/17/18 17:08 98.7 08/17/18 16:00 98.7 63 16 147/73 (97) 96 08/17/18 14:16 63 134/75 (94) 08/17/18 14:15 134/75 08/17/18 12:00 98.7 63 15 166/75 (105) 96 Intake and Output 08/17/18 08/18/18 18:59 06:59 Intake Total 300 ml 120 ml Output Total 0 ml Balance 300 ml 120 ml Intake Oral 300 ml 120 ml Output Urine Total 0 ml # Bowel Movements 1 Laboratory Tests 08/17/18 14:20: Sodium Level 137, Potassium Level 5.3H, Chloride Level 94L, Carbon Dioxide Level 33H, Anion Gap 10, Blood Urea Nitrogen 31H, Creatinine 6.2H, Estimat Glomerular Filtration Rate 7.0, Glucose Level 116H, Calcium Level 8.7 08/18/18 04:45: Sodium Level 134L, Potassium Level 5.6H, Chloride Level 94L, Carbon Dioxide Level 31, Anion Gap 9, Blood Urea Nitrogen 39H, Creatinine 7.0H, Estimat Glomerular Filtration Rate 6.2, Glucose Level 92, Calcium Level 8.9, White Blood Count 6.1, Red Blood Count 4.39, Hemoglobin 11.8L, Hematocrit 39.9, Mean Corpuscular Volume 91, Mean Corpuscular Hemoglobin 26.9L, Mean Corpuscular Hemoglobin Concent 29.7L, Red Cell Distribution Width 15.6H, Platelet Count 100L , Mean Platelet Volume 8.3, Neutrophils (%) (Auto) 75.7H, Lymphocytes (%) (Auto ) 12.8L, Monocytes (%) (Auto) 9.9, Eosinophils (%) (Auto) 1.1, Basophils (%) ( Auto) 0.5, Uric Acid 4.3, Phosphorus Level 5.9H, Magnesium Level 2.4, Total Bilirubin 1.1H, Direct Bilirubin 0.5H, Aspartate Amino Transf (AST/SGOT) 18, Alanine Aminotransferase (ALT/SGPT) 10L, Alkaline Phosphatase 169H, Total Protein 7.8, Albumin 3.2L, Globulin 4.6, Albumin/Globulin Ratio 0.7L Height (Feet): 4 Height (Inches): 11.00 Weight (Pounds): 95 General Appearance: alert Neck: normal alignment, supple, normal inspection Cardiovascular: normal rate, regular rhythm Respiratory/Chest: lungs clear, normal breath sounds Abdomen: non tender, soft Doug Purvis MD Aug 18, 2018 11:16
--- NOTE | 2018-08-18 11:27 | NUR ---
NURSE NOTES: MRSA (+) from nares which was collected on 08/15/2018. Dr. Schultz was notified.
--- NOTE | 2018-08-18 12:39 | Cardiology Report ---
APPROVED REPORT EXAM: Two-dimensional and M-mode echocardiogram with Doppler and color Doppler. INDICATION Congestive Heart Failure M-Mode DIMENSIONS IVSd1.0 (0.7-1.1cm)Left Atrium (MM)4.0 (1.6-4.0cm) LVDd4.9 (3.5-5.6cm)Aortic Root2.5 (2.0-3.7cm) PWd1.6 (0.7-1.1cm)Aortic Cusp Exc.1.6 (1.5-2.0cm) IVSs1.7 cm LVDs3.1 (2.5-4.0cm) PWs1.9 cm Normal left ventricular chamber size, reduced systolic function and wall motion. Left ventricular ejection fraction estimated to be 50-55%. No evidence of left ventricular hypertrophy . No evidence of pericardial effusion Mild bi-atrial enlargement . Right ventricular size at upper limits of normal. Aortic valve calcification with normal cusp excursion . Mildly thickened mitral valve leaflets with normal excursion. Mild mitral annulus and aortic root calcification. Pulmonic valve not well visualized. IVC dilated at 2.2 cm without physiologic collapse suggestive of increased RA pressure. A color flow and spectral Doppler study was performed and revealed: Trace aortic insufficiency . Mitral inflow velocities indicates possible pseudo normalization pattern implying moderately elevated left atrial pressure (Grade II ) Mild mitral regurgitation. Moderate tricuspid regurgitation. Tricuspid systolic velocities suggests peak right ventricular systolic pressure of 42mmHg,consistent with mild pulmonary hypertension . Trace pulmonic regurgitation .
--- NOTE | 2018-08-18 12:42 | NUR ---
NURSE NOTES: Called [facility] Nephrology and spoke with Riky, [place] customs and border officer regarding that pt will get HD tomorrow.
[2018-08-18] MEDS ORDERED: Sodium Polystyrene Sulfonate 15gm Powder ORAL SCH (12:45)
--- NOTE | 2018-08-18 14:32 | Hematology/Onc Progress Note ---
Assessment/Plan Assessment/Plan Assessment/Plan: # Thrombocytopenia - potential causes multifactorial, evaluate liver and viral etiologies to begin, also could be related to underlying medications patient has received. --> Hep panel and HIV reviewed, both negative --> US abd to evaluate for cirrhosis and hsm --> results pending --> Peripheral smear reviewed to evaluate for blasts /schistocytes: none found --> abx and other meds have been reviewed --> ok for ppx if plt >50k w/ either heparin or lovenox --> Transfuse if Plt < 20k and fever, or if Plt < 10k without fever --> plt trend: 100 # Anemia of chronic disease due to underlying chronic medical issues, multifactorial --> Ferritin 400 --> Anemia workup has been ordered, rule out gi bleed --> No evidence of hemolysis is noted, peripheral smear has been reviewed. --> Hgb goal >7. Transfuse prn. --> Epogen or iron at this time is not particularly indicated --> Medications have been reviewed --> low threshold for gi evaluation in case has occult + --> bone marrow biopsy is not indicated given the other more likely causes # Intractable headache, status migrainosus. --> admit to medical service --> supportive care with anti-emetics, Percocet prn --> Neurology eval requested # Nausea, vomiting and diarrhea, more chronic in duration --> check stool studies including C. difficile # ESRD on HD --> Nephrology is following, appreciate recs. Hd as per renal --> continue Renagel # HTN # HL --> continue Coreg and Lipitor # Type 2 DM --> lispro SS # Depression --> continue Zoloft The time note was entered does not reflect time patient was examined. GREATLY APPRECIATE CONSULTATION. Subjective Allergies: Coded Allergies: No Known Allergies (Unverified , 08/15/18) Subjective 08/18: Pt seen and examined. No acute events Objective Objective Current Medications Medications (Trade) Dose Ordered Sig/Rogelio Route PRN Reason Start Time Stop Time Status Last Admin Dose Admin Acetaminophen (Tylenol) 650 mg Q4H PRN ORAL Mild Pain (Pain Scale 1-3) 08/15/18 14:00 09/14/18 13:59 08/18/18 11:37 Amlodipine Besylate (Norvasc) 5 mg DAILY ORAL 08/18/18 11:30 09/17/18 11:29 08/18/18 11:37 Atorvastatin Calcium (Lipitor) 80 mg BEDTIME ORAL 08/15/18 21:00 09/14/18 20:59 08/17/18 20:39 Carvedilol (Coreg) 3.125 mg EVERY 12 HOURS ORAL 08/17/18 09:00 09/14/18 20:59 08/18/18 09:02 Dextrose (Dextrose 50%) 25 ml Q30M PRN IV Hypoglycemia 08/15/18 14:00 09/14/18 13:59 Dextrose (Dextrose 50%) 50 ml Q30M PRN IV Hypoglycemia 08/15/18 14:00 09/14/18 13:59 Diphenhydramine HCl (Benadryl) 25 mg Q6H PRN ORAL Itching/Pruritis 08/15/18 14:00 09/14/18 13:59 08/17/18 01:00 Docusate Sodium (Colace) 100 mg TID ORAL 08/15/18 18:00 09/14/18 20:59 08/18/18 13:41 Gabapentin (Neurontin) 400 mg THREE TIMES A DAY ORAL 08/15/18 18:00 09/14/18 17:59 08/18/18 13:42 Heparin Sodium (Porcine) (Heparin 5000 units/ml) 5,000 units EVERY 12 HOURS SUBQ 08/15/18 21:00 09/14/18 20:59 Hydralazine HCl (Apresoline) 25 mg Q4H PRN ORAL for bp over 160 syst 08/15/18 16:45 09/14/18 16:44 08/18/18 09:02 Hydralazine HCl (Apresoline) 25 mg Q8HR ORAL 08/16/18 14:00 09/15/18 13:59 08/18/18 13:41 Hydromorphone HCl (Dilaudid) 0.5 mg Q4H PRN IVP For Pain 7- 10 08/15/18 16:30 08/22/18 16:29 08/17/18 19:31 Insulin Aspart (NovoLOG) BEFORE MEALS AND HS SUBQ 08/15/18 16:30 09/14/18 16:29 Loperamide HCl (Imodium) 2 mg Q4H PRN ORAL DIARRHEA 08/15/18 14:00 09/14/18 13:59 Lorazepam (Ativan 2mg/ml 1ml) 0.5 mg Q4H PRN IV For Anxiety 08/15/18 14:00 08/22/18 13:59 Metoclopramide HCl (Reglan) 5 mg QHS ORAL 08/15/18 21:00 09/14/18 20:59 08/17/18 20:39 Metoclopramide HCl (Reglan) 5 mg TIAC ORAL 08/15/18 16:30 09/14/18 17:59 08/18/18 11:37 Metoclopramide HCl (Reglan) 10 mg Q6H PRN IVP Nausea & Vomiting 08/15/18 16:30 09/14/18 16:29 Pantoprazole (Protonix) 40 mg EVERY 12 HOURS ORAL 08/15/18 21:00 09/14/18 20:59 08/18/18 09:01 Sertraline HCl (Zoloft) 150 mg DAILY ORAL 08/16/18 09:00 09/15/18 08:59 08/18/18 09:02 Sevelamer Carbonate (Renvela) 800 mg THREE TIMES A DAY ORAL 08/15/18 18:00 09/14/18 17:59 08/18/18 13:42 Sumatriptan Succinate (Imitrex) 6 mg DAILY PRN SUBQ For Headache 08/17/18 01:30 09/16/18 01:29 08/17/18 04:23 Tramadol HCl (Ultram) 50 mg Q6H PRN ORAL pain 4-6 08/15/18 16:30 08/22/18 16:29 08/17/18 16:38 Last 24 Hour Vital Signs Date Time Temp Pulse Resp B/P (MAP) Pulse Ox O2 Delivery O2 Flow Rate FiO2 08/18/18 13:41 167/77 08/18/18 13:30 98.5 62 16 167/77 (107) 98 08/18/18 11:37 64 166/77 08/18/18 10:30 166/77 (106) 08/18/18 09:02 64 167/76 08/18/18 09:02 167/76 08/18/18 09:00 Nasal Cannula 2.0 08/18/18 08:00 98.2 64 16 167/76 (106) 97 08/18/18 05:48 158/74 08/18/18 04:00 99.9 66 18 158/74 (102) 97 08/18/18 00:00 99.3 62 18 130/68 (88) 97 08/17/18 21:55 128/60 08/17/18 21:00 Nasal Cannula 2.0 08/17/18 20:39 64 152/71 08/17/18 20:00 99.4 64 20 152/71 (98) 98 08/17/18 17:08 98.7 08/17/18 16:00 98.7 63 16 147/73 (97) 96 08/17/18 14:16 63 134/75 (94) 08/17/18 14:15 134/75 08/17/18 12:00 98.7 63 15 166/75 (105) 96 08/17/18 09:27 Nasal Cannula 2.0 08/17/18 08:46 60 150/74 08/17/18 08:00 98.3 60 18 150/74 (99) 98 08/17/18 06:30 123/83 (96) 08/17/18 06:20 123/83 08/17/18 04:00 99.0 61 20 146/69 (94) 96 08/17/18 01:00 98.4 61 18 158/65 (96) 99 08/16/18 22:28 162/69 08/16/18 21:00 98.5 63 16 162/69 (100) 99 08/16/18 21:00 Nasal Cannula 2.0 08/16/18 20:00 95 Room Air 21 08/16/18 18:59 176/70 08/16/18 15:50 99.0 58 20 166/58 (94) 99 Intake and Output 08/17/18 08/18/18 19:00 07:00 Intake Total 300 ml 120 ml Output Total 0 ml Balance 300 ml 120 ml Intake Oral 300 ml 120 ml Output Urine Total 0 ml # Bowel Movements 1 Labs Test 08/16/18 05:30 08/17/18 14:20 08/18/18 04:45 White Blood Count 5.3 K/UL (4.8-10.8) 6.1 K/UL (4.8-10.8) Red Blood Count 3.90 M/UL (4.20-5.40) 4.39 M/UL (4.20-5.40) Hemoglobin 10.6 G/DL (12.0-16.0) 11.8 G/DL (12.0-16.0) Hematocrit 35.5 % (37.0-47.0) 39.9 % (37.0-47.0) Mean Corpuscular Volume 91 FL (80-99) 91 FL (80-99) Mean Corpuscular Hemoglobin 27.0 PG (27.0-31.0) 26.9 PG (27.0-31.0) Mean Corpuscular Hemoglobin Concent 29.7 G/DL (32.0-36.0) 29.7 G/DL (32.0-36.0) Red Cell Distribution Width 15.6 % (11.6-14.8) 15.6 % (11.6-14.8) Platelet Count 79 K/UL (150-450) 100 K/UL (150-450) Mean Platelet Volume 8.6 FL (6.5-10.1) 8.3 FL (6.5-10.1) Neutrophils (%) (Auto) % (45.0-75.0) 75.7 % (45.0-75.0) Lymphocytes (%) (Auto) % (20.0-45.0) 12.8 % (20.0-45.0) Monocytes (%) (Auto) % (1.0-10.0) 9.9 % (1.0-10.0) Eosinophils (%) (Auto) % (0.0-3.0) 1.1 % (0.0-3.0) Basophils (%) (Auto) % (0.0-2.0) 0.5 % (0.0-2.0) Differential Total Cells Counted 100 Neutrophils % (Manual) 85 % (45-75) Lymphocytes % (Manual) 7 % (20-45) Monocytes % (Manual) 7 % (1-10) Eosinophils % (Manual) 1 % (0-3) Basophils % (Manual) 0 % (0-2) Band Neutrophils 0 % (0-8) Platelet Estimate Decreased Platelet Morphology Normal Hypochromasia 1+ Sodium Level 137 MMOL/L (136-145) 137 MMOL/L (136-145) 134 MMOL/L (136-145) Potassium Level 6.0 MMOL/L (3.5-5.1) 5.3 MMOL/L (3.5-5.1) 5.6 MMOL/L (3.5-5.1) Chloride Level 100 MMOL/L (98-107) 94 MMOL/L (98-107) 94 MMOL/L (98-107) Carbon Dioxide Level 27 MMOL/L (21-32) 33 MMOL/L (21-32) 31 MMOL/L (21-32) Anion Gap 8 mmol/L (5-15) 10 mmol/L (5-15) 9 mmol/L (5-15) Blood Urea Nitrogen 42 mg/dL (7-18) 31 mg/dL (7-18) 39 mg/dL (7-18) Creatinine 7.5 MG/DL (0.55-1.30) 6.2 MG/DL (0.55-1.30) 7.0 MG/DL (0.55-1.30) Estimat Glomerular Filtration Rate 5.6 mL/min (>60) 7.0 mL/min (>60) 6.2 mL/min (>60) Glucose Level 116 MG/DL (74-106) 116 MG/DL (74-106) 92 MG/DL (74-106) Hemoglobin A1c 5.7 % (4.3-6.0) Uric Acid 3.7 MG/DL (2.6-7.2) 4.3 MG/DL (2.6-7.2) Calcium Level 8.7 MG/DL (8.5-10.1) 8.7 MG/DL (8.5-10.1) 8.9 MG/DL (8.5-10.1) Phosphorus Level 4.2 MG/DL (2.5-4.9) 5.9 MG/DL (2.5-4.9) Magnesium Level 2.6 MG/DL (1.8-2.4) 2.4 MG/DL (1.8-2.4) Iron Level 14 ug/dL (50-175) Total Iron Binding Capacity 180 ug/dL (250-450) Percent Iron Saturation 8 % (15-50) Unsaturated Iron Binding 166 ug/dL (112-346) Ferritin 400 NG/ML (8-388) Total Bilirubin 1.1 MG/DL (0.2-1.0) 1.1 MG/DL (0.2-1.0) Direct Bilirubin 0.4 MG/DL (0.0-0.3) 0.5 MG/DL (0.0-0.3) Gamma Glutamyl Transpeptidase 112 U/L (5-85) Aspartate Amino Transf (AST/SGOT) 15 U/L (15-37) 18 U/L (15-37) Alanine Aminotransferase (ALT/SGPT) 10 U/L (12-78) 10 U/L (12-78) Alkaline Phosphatase 175 U/L (46-116) 169 U/L (46-116) C-Reactive Protein, Quantitative 1.2 mg/dL (0.00-0.90) Pro-B-Type Natriuretic Peptide > 87613 pg/mL (0-125) Total Protein 7.7 G/DL (6.4-8.2) 7.8 G/DL (6.4-8.2) Albumin 3.1 G/DL (3.4-5.0) 3.2 G/DL (3.4-5.0) Globulin 4.6 g/dL 4.6 g/dL Albumin/Globulin Ratio 0.7 (1.0-2.7) 0.7 (1.0-2.7) Triglycerides Level 69 MG/DL (30-150) Cholesterol Level 91 MG/DL (< 200) LDL Cholesterol 23 mg/dL (<100) HDL Cholesterol 56 MG/DL (40-60) Cholesterol/HDL Ratio 1.6 (3.3-4.4) Vitamin B12 Level 796 PG/ML (193-986) Folate 9.8 NG/ML (8.6-58.9) Thyroid Stimulating Hormone (TSH) 4.271 uiU/mL (0.358-3.740) Hepatitis A IgM Antibody Negative (Negative) Hepatitis B Surface Antigen Negative (Negative) Hepatitis B Core IgM Antibody Negative (Negative) Hepatitis C Antibody <0.1 s/co ratio HIV (1&2) Antibody Rapid Negative (NEGATIVE) Height (Feet): 4 Height (Inches): 11.00 Weight (Pounds): 95 Objective PE General Appearance: no apparent distress, alert HEENT: atraumatic, anicteric Neck: normal alignment, supple Respiratory/Chest: lungs clear, normal breath sounds, no respiratory distress Cardiovascular/Chest: normal rate, regular rhythm Abdomen: soft, no organomegaly, other - Mild diffuse tenderness Extremities: non-tender, normal inspection Neurologic: staffing director II-XII grossly normal, no motor/sensory deficits, alert, oriented x 3, responsive Mumtaz Herrera MD Aug 18, 2018 14:32
--- NOTE | 2018-08-18 15:11 | Nephrology Progress Note ---
Assessment/Plan Problem List: (1) ESRD (end stage renal disease) (2) Hypertensive kidney disease (3) Anemia in CKD (chronic kidney disease) Assessment ESRD HTN Headache DM ii Nausea, vomiting and diarrhea, more chronic in duration Plan DC IV fluids kayexelate po BP meds adjustment Pain meds HD 08/16 next 08/19 per orders Renal diet with medium CHO Subjective ROS Limited/Unobtainable: No Constitutional: Reports: malaise Objective Objective Last 24 Hour Vital Signs Date Time Temp Pulse Resp B/P (MAP) Pulse Ox O2 Delivery O2 Flow Rate FiO2 08/18/18 13:41 167/77 08/18/18 13:30 98.5 62 16 167/77 (107) 98 08/18/18 11:37 64 166/77 08/18/18 10:30 166/77 (106) 08/18/18 09:02 64 167/76 08/18/18 09:02 167/76 08/18/18 09:00 Nasal Cannula 2.0 08/18/18 08:00 98.2 64 16 167/76 (106) 97 08/18/18 05:48 158/74 08/18/18 04:00 99.9 66 18 158/74 (102) 97 08/18/18 00:00 99.3 62 18 130/68 (88) 97 08/17/18 21:55 128/60 08/17/18 21:00 Nasal Cannula 2.0 08/17/18 20:39 64 152/71 08/17/18 20:00 99.4 64 20 152/71 (98) 98 08/17/18 17:08 98.7 08/17/18 16:00 98.7 63 16 147/73 (97) 96 Intake and Output 08/17/18 08/18/18 19:00 07:00 Intake Total 300 ml 120 ml Output Total 0 ml Balance 300 ml 120 ml Intake Oral 300 ml 120 ml Output Urine Total 0 ml # Bowel Movements 1 Laboratory Tests 08/18/18 04:45: White Blood Count 6.1, Red Blood Count 4.39, Hemoglobin 11.8L, Hematocrit 39.9, Mean Corpuscular Volume 91, Mean Corpuscular Hemoglobin 26.9L, Mean Corpuscular Hemoglobin Concent 29.7L, Red Cell Distribution Width 15.6H, Platelet Count 100L , Mean Platelet Volume 8.3, Neutrophils (%) (Auto) 75.7H, Lymphocytes (%) (Auto ) 12.8L, Monocytes (%) (Auto) 9.9, Eosinophils (%) (Auto) 1.1, Basophils (%) ( Auto) 0.5, Sodium Level 134L, Potassium Level 5.6H, Chloride Level 94L, Carbon Dioxide Level 31, Anion Gap 9, Blood Urea Nitrogen 39H, Creatinine 7.0H, Estimat Glomerular Filtration Rate 6.2, Glucose Level 92, Uric Acid 4.3, Calcium Level 8.9, Phosphorus Level 5.9H, Magnesium Level 2.4, Total Bilirubin 1.1H, Direct Bilirubin 0.5H, Aspartate Amino Transf (AST/SGOT) 18, Alanine Aminotransferase (ALT/SGPT) 10L, Alkaline Phosphatase 169H, Total Protein 7.8, Albumin 3.2L, Globulin 4.6, Albumin/Globulin Ratio 0.7L Height (Feet): 4 Height (Inches): 11.00 Weight (Pounds): 95 General Appearance: no apparent distress Objective no change James Bower MD Aug 18, 2018 15:11
--- NOTE | 2018-08-18 16:10 | NUR ---
NURSE NOTES: REC'D FROM 3E A53 YR OLD FEMALE WITH DX OF HEADACHE. AWAKE /ALERT. NO C/O PAIN. IN NO DISTRESS.
--- NOTE | 2018-08-18 16:10 | NUR ---
NURSE NOTES: Patient transferred to room 418-2 in stable condition. Report was given to MACIEJ Pond.
--- NOTE | 2018-08-18 19:05 | NUR ---
NURSE NOTES: RESTING QUIETLY IN BED. IN NO DISTRESS.
--- NOTE | 2018-08-18 19:24 | NUR ---
NURSE NOTES: PATIENT IN BED, ASLEEP, AROUSABLE TO NAME. IV INTACT. NO S/S DISTRESS OR PAIN NOTED. BED IN LOWEST POSITION, CALL LIGHT WITHIN REACH. WILL CONTINUE TO MONITOR.
[2018-08-18] MEDS: Atorvastatin 80mg tab ORAL SCH (20:55)
--- NOTE | 2018-08-18 21:16 | NUR ---
NURSE NOTES: PATIENT ABLE TO SPEAK/UNDERSTAND SIMPLE LAO. BLOOD SUGAR WAS 125, PATIENT REFUSED NOVOLOG. NURSE EXPLAINED BENEFITS VS/ RISKS, PATIENT STILL REFUSED.
[2018-08-19 00:45] VITALS: BP 154/66
[2018-08-19] MEDS: HYDROmorphone 1mg/ml Carpuject IVP PRN (04:57)
[2018-08-19 04:59] VITALS: BP 167/72
[2018-08-19] MEDS: HydrALAZINE 25mg tab ORAL SCH ×2 (05:10→13:35)
[2018-08-19] MEDS: NovoLOG Insulin Flexpen SUBQ SCH ×2 (05:29→11:30)
--- NOTE | 2018-08-19 07:25 | NUR ---
HAND-OFF: Report given to HERMINOI CRUZ RN .
--- NOTE | 2018-08-19 07:48 | NUR ---
NURSE NOTES: Patient received in stable condition, ambulating with steady gait in room. Alert and oriented. Denies SOB or pain at this time. IV site on left arm observed. Call light placed within reach, bed locked in lowest position. Will continue to monitor.
[2018-08-19 08:00] VITALS: BP 155/77
[2018-08-19] MEDS: Sertraline 50mg tab ORAL SCH (08:13)
[2018-08-19] MEDS: Renvela 800mg Pkt ORAL SCH ×2 (08:13→13:35)
[2018-08-19] MEDS: Docusate 100mg cap ORAL SCH ×2 (08:13→13:35)
[2018-08-19] MEDS: Heparin 5000 units/ml inj SUBQ SCH (08:14)
--- NOTE | 2018-08-19 09:26 | Diagnostic Imaging Report ---
Indication: Abdominal pain Technique: Grayscale and duplex Doppler imaging of the abdomen performed. Comparison: None Findings: The liver is unremarkable. Doppler interrogation of the main portal vein shows patency with hepatopedal, monophasic flow. There is no intrahepatic biliary ductal dilitation identified. The CBD measures 3 mm. The gallbladder is unremarkable. There are no gallstones or wall thickening identified. Sonographic arevalo's sign was negative per technologist. The demonstrated part of the pancreas, aorta and IVC show no abnormalities. Kidneys are echogenic bilaterally. There is no hydronephrosis. The spleen is normal in size, contour and echogenicity. There is minimal free fluid adjacent to the liver. IMPRESSION: Trace ascites. Medical renal disease.
--- NOTE | 2018-08-19 10:48 | Nephrology Progress Note ---
Assessment/Plan Problem List: (1) ESRD (end stage renal disease) (2) Hypertensive kidney disease (3) Anemia in CKD (chronic kidney disease) Assessment ESRD HTN Headache DM ii Nausea, vomiting and diarrhea, more chronic in duration Plan On HD now- tolerating well kayexelate po /2 BP meds adjustment Pain meds per orders Renal diet with medium CHO DC planning Subjective ROS Limited/Unobtainable: No Objective Objective Last 24 Hour Vital Signs Date Time Temp Pulse Resp B/P (MAP) Pulse Ox O2 Delivery O2 Flow Rate FiO2 08/19/18 09:00 Nasal Cannula 2.0 08/19/18 08:13 61 167/72 08/19/18 08:13 61 167/72 08/19/18 08:00 97.8 63 19 155/77 (103) 99 08/19/18 05:27 97.5 08/19/18 04:59 97.5 61 18 167/72 (103) 98 08/19/18 00:45 99.1 60 18 154/66 (95) 98 08/18/18 22:32 164/75 08/18/18 21:44 Nasal Cannula 2.0 08/18/18 20:55 60 145/60 08/18/18 20:00 98.4 60 18 145/60 (88) 94 08/18/18 19:44 98 Room Air 21 08/18/18 16:00 98.3 60 18 121/58 (79) 94 08/18/18 13:41 167/77 08/18/18 13:30 98.5 62 16 167/77 (107) 98 08/18/18 11:37 64 166/77 Intake and Output 08/18/18 08/19/18 18:59 06:59 Intake Total 500 ml 370 ml Balance 500 ml 370 ml Intake Oral 500 ml 370 ml # Bowel Movements 2 1 Height (Feet): 4 Height (Inches): 11.00 Weight (Pounds): 95 General Appearance: no apparent distress Cardiovascular: normal rate Respiratory/Chest: decreased breath sounds Abdomen: soft Objective no change James Bower MD Aug 19, 2018 10:48
--- NOTE | 2018-08-19 11:35 | Discharge Summary ---
Discharge Summary Hospital Course Date of Admission August 15, 2018 at 11:00 Date of Discharge 08/19/18 Admitting Diagnosis intractable headache HPI Daina Guzman is a 53 year old female who was admitted on August 15, 2018 at 11 :00 for Headache Consultations Neurology,Nephrology Procedures None Hospital Course #Intractable headache, status migrainosus -Seen by Neurology treated with Imitrex and tramadol with near resolution of symptoms -Patient instructed to follow up with PCP next week #Nausea, vomiting and diarrhea, more chronic in duration -resolved #ESRD on HD M/W/ #Hyperkalemia -Seen by Nephrology, underwent HD as per nephrology recs #HTN, uncontrolled initially #HL -continue Coreg and Lipitor -added Norvasc #Type 2 DM -to continue diabetic diet as outpatient #Depression -continue Zoloft Discharge Medications Continued Medications: Acetaminophen* (Acetaminophen 325MG Tablet*) 325 Mg Tablet 325 MG ORAL Q6H PRN for For Pain, TAB Atorvastatin Calcium* (Lipitor*) 80 Mg Tablet 80 MG ORAL BEDTIME, TAB Bacitracin Zinc* (Bacitracin Zinc*) 1 Each Packet 1 APPLIC TOPIC THREE TIMES A DAY, PACKET Calcium Acetate (Calcium Acetate) 667 Mg Capsule 1334 MG PO TID for supplement, CAP Carvedilol* (Carvedilol*) 12.5 Mg Tablet 12.5 MG ORAL EVERY 12 HOURS, TAB Docusate Sodium* (Docusate Sodium*) 100 Mg Capsule 100 MG ORAL TWICE A DAY PRN for Constipation, CAP Gabapentin* (Gabapentin*) 400 Mg Capsule 400 MG ORAL THREE TIMES A DAY, CAP 0 Refills Hydrocodone Bit/Acetaminophen 5-325* ([place] 5-325*) 1 Each Tablet 1 TAB ORAL BID PRN for For Pain, TAB 0 Refills Isosorb Dinit/Hydralazine Hcl (Bidil Tablet) 1 Each Tablet 1 EACH PO THREE TIMES A DAY, TAB Loperamide Hcl (Loperamide) 2 Mg Capsule 2 MG PO QID PRN for Diarrhea, CAP Metoclopramide Hcl* (Metoclopramide Hcl*) 5 Mg Tablet 5 MG ORAL EVERY 6 HOURS PRN for Nausea & Vomiting, TAB Sertraline Hcl* (Zoloft*) 50 Mg Tablet 150 MG ORAL DAILY, TAB Sevelamer Hcl (Renagel) 800 Mg Tablet 800 MG ORAL THREE TIMES A DAY, #90 TAB 0 Refills Valsartan (Diovan) 80 Mg Tab 80 MG ORAL BID, TAB Discharge Condition Upon Discharge: stable Discharge Disposition Patient was discharged to home with home health Discharge Diagnoses: (1) Status migrainosus (2) ESRD (end stage renal disease) (3) Hypertensive kidney disease (4) Anemia in CKD (chronic kidney disease) Doug Purvis MD Aug 19, 2018 11:35
[2018-08-19 12:00] VITALS: BP 174/74
--- NOTE | 2018-08-19 12:05 | NUR ---
CASE MANAGEMENT:REVIEW 08/19/18 SI: N/V/D. ERSD. UNCONTROLLED HTN 98.0 58 19 174/74 97% ON 2L/NC IS: NORVASC PO QD COREG PO Q12 HYDRALAZINE PO Q8HRS ZOLOFT PO QD HEPARIN SQ Q12 REGLAN PO QHS PROTONIX PO Q12 : MED/SURG STATUS 4 EAST DCP: RETURN TO PRIOR LIVING ARRANGEMENTS
--- NOTE | 2018-08-19 12:19 | NUR ---
Social Service Note VICKY contacted [facility] [phone] opt. 3 and spoke with Callie. VICKY confirmed patient can return to housing program via taxi today after dialysis. Per Callie patient's information doesn't require to be faxed, discharge instructions to be provided to patient. No prescriptions provided. Homeless check list provided to charge nurse. Patient will dc via taxi to [address] [facility], [place] [address].
[2018-08-19 16:00] VITALS: BP 159/82
--- NOTE | 2018-08-19 17:29 | NUR ---
NURSE NOTES: Patient discharged to [facility]. Per MD, home health services not necessary. Belongings reviewed and confirmed by the bedside. IV site safely removed, covered with gauze and tape. Patient accompanied downstairs with her personal walker, transported by taxi service [employer].
--- NOTE | 2018-08-21 14:50 | Cardiology Report ---
APPROVED REPORT EKG Measurement Heart [id number] Normal sinus rhythm Rightward axis Nonspecific ST and T wave abnormality Prolonged QT Abnormal ECG
== END 2018-08-19 17:26 | disposition home health service (06) | DRG 102 ==
LOC: EDBD 09:27 → EMR 10:07 → UNDOADMOB 11:00 → INTOOBSV 11:00 → 3E 11:00 → OBSVTOIN 11:00 → EDBEDREQ 11:33 → 3E 08-18 15:49 → 4E 08-18 15:52
PROC: 5A1D70Z Performance of Urinary Filtration, Intermittent, Less than 6 Hours Per Day (ICD-10-PCS; principal; 2018-08-16)
PROC: 5A1D70Z Performance of Urinary Filtration, Intermittent, Less than 6 Hours Per Day (ICD-10-PCS; 2018-08-17)
DX: G43.911 Migraine, unspecified, intractable, with status migrainosus (principal); N18.6 End stage renal disease; I12.0 Hypertensive chronic kidney disease with stage 5 chronic kidney disease or end stage renal disease; E11.22 Type 2 diabetes mellitus with diabetic chronic kidney disease; Z99.2 Dependence on renal dialysis; E87.5 Hyperkalemia; R11.2 Nausea with vomiting, unspecified; R19.7 Diarrhea, unspecified; F32.9 Major depressive disorder, single episode, unspecified; D69.6 Thrombocytopenia, unspecified; D63.1 Anemia in chronic kidney disease
CPT/HCPCS: 36415; 70450; 76700; 80048; 80053; 80061; 82248; 82607; 82728; 82746; 82962; 82977; 83036; 83540; 83550; 83735; 83880; 84100; 84443; 84550; 85007; 85025; 85610; 85730; 86140; 86703; 86705; 86709; 86803; 87081; 87324; 87340; 93005; 93306; 96374; 96375; 99285; J1815; J2405

== ENCOUNTER 2018-09-16 13:07 | Inpatient (IN) | payer MEDICARE, MEDICAID ==
[~2018-09-16] VITALS: Ht 157.5 cm; Wt 63.0 kg
[~2018-09-16 13:07] MED LIST: ACETAMINOPHEN325 M1 ORAL; ATORVASTATIN CA80 MG ORAL; BACITRACIN ZIN1 EACH TOPIC; BIDIL TABLET1 EACH PO; CALCIUM ACETAT667 M1 PO; CALCIUM500 M3 PO; CARVEDILOL12.5 MG ORAL; DIOVAN80 MG ORAL; DOCUSATE SODIU100 MG ORAL; GABAPENTIN400 MG ORAL; IMODIUM2 MG ORAL; LOPERAMIDE2 MG PO; METOCLOPRAMIDE H5 M1 ORAL; NORCO 5-325 TA1 EACH ORAL; REGLAN5 MG ORAL; RENAGEL800 MG ORAL; RENVELA0.8 GM ORAL; ZOLOFT50 MG ORAL
[2018-09-16] MEDS ORDERED: ZOFRAN4 M1 ORAL (13:15)
[2018-09-16] MEDS ORDERED: LOSARTAN POTASS50 MG ORAL (13:15)
[2018-09-16] MEDS ORDERED: ASPIRIN-LOW81 MG ORAL (13:15)
[2018-09-16] MEDS ORDERED: Morphine Sulfate 2mg/ml Inj(IV/IM USE ONLY) IVP ONE (13:15)
[2018-09-16] MEDS ORDERED: Lidocaine 2% Visc 15ml soln ORAL ONE (13:15)
[2018-09-16] MEDS ORDERED: Mylanta II UD 30ml ORAL ONE (13:15)
[2018-09-16] MEDS ORDERED: Dicyclomine HCl 10mg/5ml oral soln ORAL ONE (13:15)
[2018-09-16] MEDS ORDERED: ZETIA10 MG ORAL (13:15)
[2018-09-16] MEDS ORDERED: AMLODIPINE BESYL5 MG ORAL (13:15)
[2018-09-16] MEDS ORDERED: RENVELA0.8 GM ORAL (13:15)
--- NOTE | 2018-09-16 13:24 | NUR ---
ED Nurse Note: PT. AAOX4. AMBULATORY. BROUGHT IN BY AMBULANCE DUE TO CP AND ABD PAIN X COUPLE HOURS AGO. PT. WAS COMING FROM A TEMPORARY HOUSING. PT. STATED SHE MISSED HER DIALYSIS 3X DUE TO CONFLICT WITH THE TRANSITION MGR RN. SKIN IS INTACT AND WARM. NO S/S OF RESPIRATORY DISTRESS NOTED AT THIS TIME. DIALYSIS SCHEDULE :M,W,F. DIALYSIS ACCESS ON THE R FOREARM
[2018-09-16 13:28] VITALS: BP 150/68
[2018-09-16 13:40] LABS: HEMATOCRIT 37.6 % (37.0-47.0); MEAN CORPUSCULAR VOLUME 89 FL (80-99); PLATELET COUNT 93 K/UL (150-450); RED BLOOD COUNT 4.21 M/UL (4.20-5.40); RED CELL DISTRIBUTION WIDTH 16.4 % (11.6-14.8); WHITE BLOOD COUNT 5.5 K/UL (4.8-10.8)
--- NOTE | 2018-09-16 13:48 | NUR ---
ED Nurse Note: pt medicated for pain. pending labs. pt resting in room with eyes closed
[2018-09-16 13:49] VITALS: BP 171/72
--- NOTE | 2018-09-16 13:55 | NUR ---
ED Nurse Note: pt requests to have NC O2 given O2 sat 96-98% placed on 2L O2 for pt comfort
--- NOTE | 2018-09-16 14:30 | NUR ---
ED Nurse Note: lab requesting pt to have redrawn chemistry labs as K+ level is 9. md aware and lab notified that pt is a dialysis pt that has missed dialysis x 4 sessions. per md no redraw needed
[2018-09-16] MEDS ORDERED: Sodium Polystyrene Sulfonate 15gm Powder ORAL ONE (14:45)
[2018-09-16] MEDS ORDERED: Insulin Human Regular 100units/ml 3ml IV ONE (14:45)
[2018-09-16] MEDS ORDERED: Calcium Gluconate 1gm/10ml vial IVP ONE (14:45)
--- NOTE | 2018-09-16 14:48 | NUR ---
ED Nurse Note: repeat chemistry drawn and sent per md. pt tolerates well. pt to have meds to correct K= prior to resulted chenistry per
[2018-09-16 15:00] VITALS: BP 175/73
[2018-09-16 15:21] LABS: ALANINE AMINOTRANSFERASE 21 U/L (12-78); ALBUMIN 3.5 G/DL (3.4-5.0); ALBUMIN/GLOBULIN RATIO 0.9 (1.0-2.7); ALKALINE PHOSPHATASE 190 U/L (46-116); ANION GAP 15 mmol/L (5-15); ASPARTATE AMINO TRANSFERASE 19 U/L (15-37); BILIRUBIN,TOTAL 0.7 MG/DL (0.2-1.0); BLOOD UREA NITROGEN 118 mg/dL (7-18); CALCIUM 8.6 MG/DL (8.5-10.1); CARBON DIOXIDE 21 MMOL/L (21-32); CHLORIDE 98 MMOL/L (98-107); CKMB 2.4 NG/ML (0.0-3.6); CREATINE KINASE 83 U/L (26-308); CREATININE 14.5 MG/DL (0.55-1.30); SODIUM 135 MMOL/L (136-145)
--- NOTE | 2018-09-16 15:33 | NUR ---
ED Nurse Note: pt with meds sent to [facility]. pt prepared for admission. admission swabs sent
[2018-09-16 15:34] LABS: POTASSIUM 8.5 MMOL/L (3.5-5.1)
--- NOTE | 2018-09-16 15:49 | Diagnostic Imaging Report ---
Indication: Cough Technique: One view of the chest Comparison: none Findings: The heart is enlarged. There is mild interstitial congestion. No focal airspace consolidation. Pleural spaces are clear. Impression: Cardiomegaly. Borderline interstitial congestion
--- NOTE | 2018-09-16 15:49 | Emergency Room Report ---
History of Present Illness General Chief Complaint: Chest Pain Source: Patient Present Illness HPI 53-year-old female presents ED for evaluation. Complaining of chest pain which started today. History of end-stage renal disease. Gets dialysis Sunday. States that she has not had dialysis for over a week because she got into argument with the nurse. Chest pain is sharp, midsternal, 5 out of 10, nonradiating. Denies shortness of breath. Denies fevers or chills. No other aggravating relieving factors. Denies any other associated symptoms Allergies: Coded Allergies: No Known Allergies (Unverified , 08/15/18) Patient History Past Medical History: DM, HTN, renal disease, dialysis Past Surgical History: none Pertinent Family History: none Social History: Denies: smoking, alcohol use, drug use Now: No Immunizations: UTD Reviewed Nursing Documentation: PMH: Agreed; PSxH: Agreed Nursing Documentation-PMH Hx Cardiac Problems: Yes Hx Hypertension: Yes Hx Diabetes: Yes Hx Dialysis: Yes - M,W,F Hx Headaches: Yes Review of Systems All Other Systems: negative except mentioned in HPI Physical Exam Vital Signs Date Time Temp Pulse Resp B/P (MAP) Pulse Ox O2 Delivery O2 Flow Rate FiO2 09/16/18 12:46 97.9 94 19 161/73 (102) 97 Room Air Sp02 EP Interpretation: reviewed, normal General Appearance: no apparent distress, alert, GCS 15, non-toxic Head: normocephalic, atraumatic Eyes: bilateral eye normal inspection, bilateral eye PERRL ENT: hearing grossly normal, normal pharynx, no angioedema, normal voice Neck: full range of motion, supple/symm/no masses Respiratory: chest non-tender, lungs clear, normal breath sounds, speaking full sentences Cardiovascular #1: regular rate, rhythm, no edema Cardiovascular #2: 2+ carotid (R), 2+ carotid (L), 2+ radial (R), 2+ radial (L) , 2+ dorsalis pedis (R), 2+ dorsalis pedis (L) Gastrointestinal: normal bowel sounds, non tender, soft, non-distended, no guarding, no rebound Rectal: deferred Genitourinary: normal inspection, no CVA tenderness Musculoskeletal: back normal, gait/station normal, normal range of motion, non- tender Neurologic: alert, oriented x3, responsive, motor strength/tone normal, sensory intact, speech normal Psychiatric: judgement/insight normal, memory normal, mood/affect normal, no suicidal/homicidal ideation Reflexes: 3+ bicep (R), 3+ bicep (L), 3+ tricep (R), 3+ tricep (L), 3+ knee (R) , 3+ knee (L) Lymphatic: no adenopathy Procedures Critical Care Time Critical Care Time i. I feel this is a highly complex case requiring extensive working including EKG/Rhythm strip, Xray/CT/US, Blood/urine lab work, repeat exams while in ED, and administration of strong opiates/narcotics for pain control, admission to hospital or close patient follow up. Total time: 30 min bedside evaluation and treatment excludes procedures (EKG). Reason for critical care: hyperkalemia Possible complications: hypotension, hypertension, TX, shock, arrhythmias, metabolic acidosis, end organ damage, respiratory failure. Interventions - labs, EKG, CXR, morphien, insulin, calcium, kayexelate, aspirin Course: Presenting with chest pain. History of end-stage renal disease. Missed dialysis x1 week. Potassium 8.5. No peak T waves on EKG. Given calcium , given insulin/D50/Kayexalate. Given aspirin. Consultations: nursing staff, EMS, family Performed by: Dr Judd Tolerated well condition = serious j. because of unstable vital signs this patient had a condition that could potentially threaten life or limb. I feel this is a critical patient who required my full attention while patient was considered critical. Total Critical Care Time excluding procedures was greater than 35 minutes Medical Decision Making Diagnostic Impression: Primary Impression: ESRD (end stage renal disease) Additional Impression: Hyperkalemia, diminished renal excretion ER Course Hospital Course 53 yo F presents with chest pain. missed dialysis x 1 week Differential diagnoses include: TX/unstable angina, V. tach, bradycardia, hyperkalemia, fluid overload Clinical course Patient placed on stretcher. on desk monitor. After initial history and physical I ordered labs, EKG, pain meds labs reviewed- potassium 8.5. BUN/Cr elevated. Hemoglobin/hematocrit normal. EKG - NSR, no acute ischemic changes interpreted by me CXR - no acute process Given Kayexalate and calcium, insulin/D50. Case discussed with Dr. Pratt and he agreed to accept the patient to his service for further care and support I. I feel this is a highly complex case requiring extensive working including EKG/Rhythm strip, Xray/CT/US, Blood/urine lab work, repeat exams while in ED, and administration of strong opiates/narcotics for pain control, admission to hospital or close patient follow up. Diagnosis - hyperkalemia, ESRD admitted to telemetry in serious condition Labs Test 09/16/18 13:15 09/16/18 14:45 White Blood Count 5.5 K/UL (4.8-10.8) Red Blood Count 4.21 M/UL (4.20-5.40) Hemoglobin 11.0 G/DL (12.0-16.0) Hematocrit 37.6 % (37.0-47.0) Mean Corpuscular Volume 89 FL (80-99) Mean Corpuscular Hemoglobin 26.2 PG (27.0-31.0) Mean Corpuscular Hemoglobin Concent 29.3 G/DL (32.0-36.0) Red Cell Distribution Width 16.4 % (11.6-14.8) Platelet Count 93 K/UL (150-450) Mean Platelet Volume 9.1 FL (6.5-10.1) Neutrophils (%) (Auto) % (45.0-75.0) Lymphocytes (%) (Auto) % (20.0-45.0) Monocytes (%) (Auto) % (1.0-10.0) Eosinophils (%) (Auto) % (0.0-3.0) Basophils (%) (Auto) % (0.0-2.0) Differential Total Cells Counted 100 Neutrophils % (Manual) 71 % (45-75) Lymphocytes % (Manual) 16 % (20-45) Monocytes % (Manual) 9 % (1-10) Eosinophils % (Manual) 3 % (0-3) Basophils % (Manual) 1 % (0-2) Band Neutrophils 0 % (0-8) Platelet Estimate Decreased Platelet Morphology Normal Hypochromasia 1+ Anisocytosis 1+ Troponin I 0.018 ng/mL (0.000-0.056) Sodium Level 135 MMOL/L (136-145) Potassium Level 8.5 MMOL/L (3.5-5.1) Chloride Level 98 MMOL/L (98-107) Carbon Dioxide Level 21 MMOL/L (21-32) Anion Gap 15 mmol/L (5-15) Blood Urea Nitrogen 118 mg/dL (7-18) Creatinine 14.5 MG/DL (0.55-1.30) Estimat Glomerular Filtration Rate 2.7 mL/min (>60) Glucose Level 110 MG/DL (74-106) Calcium Level 8.6 MG/DL (8.5-10.1) Total Bilirubin 0.7 MG/DL (0.2-1.0) Aspartate Amino Transf (AST/SGOT) 19 U/L (15-37) Alanine Aminotransferase (ALT/SGPT) 21 U/L (12-78) Alkaline Phosphatase 190 U/L (46-116) Total Creatine Kinase 83 U/L (26-308) Creatine Kinase MB 2.4 NG/ML (0.0-3.6) Creatine Kinase MB Relative Index 2.8 Pro-B-Type Natriuretic Peptide > 97709 pg/mL (0-125) Total Protein 7.4 G/DL (6.4-8.2) Albumin 3.5 G/DL (3.4-5.0) Globulin 3.9 g/dL Albumin/Globulin Ratio 0.9 (1.0-2.7) EKG Diagnostic Results Rate: normal Rhythm: NSR ST Segments: no acute changes ASA given to the pt in ED: Yes Rhythm Strip Diag. Results EP Interpretation: yes Rhythm: NSR, no PVC's, no ectopy Chest X-Ray Diagnostic Results Chest X-Ray Diagnostic Results : Chest X-Ray Ordered: Yes # of Views/Limited/Complete: 1 View Indication: Chest Pain EP Interpretation: Yes Interpretation: no consolidation, no effusion, no pneumothorax, no acute cardiopulmonary disease Impression: No acute disease Electronically Signed by: Electronically signed by Douglas Judd MD Last Vital Signs Date Time Temp Pulse Resp B/P (MAP) Pulse Ox O2 Delivery O2 Flow Rate FiO2 09/16/18 13:49 57 22 171/72 95 Room Air 09/16/18 13:28 97.9 Status: improved Disposition: ADMITTED INPATIENT Condition: Serious Referrals: NON PHYSICIAN (PCP) Douglas Judd MD Sep 16, 2018 15:49
--- NOTE | 2018-09-16 15:52 | NUR ---
ED Nurse Note: report given to nicole on sdu awaits pt. pt prepared for admission
[2018-09-16 16:56] VITALS: BP 151/67
[2018-09-16] MEDS ORDERED: Metoclopramide 10mg/2ml Inj IVP PRN (17:00)
--- NOTE | 2018-09-16 17:01 | Consultation ---
Consult Note Consult Note asked to eval at the request of Dr Woodall ( [facility]) for urgent dialysis management Patient with ESRD past 4-5 years- Did not receive dialysis for one week presents with K of 8 and bradycardia 53-year-old female presents ED for evaluation. Complaining of chest pain which started today. History of end-stage renal disease. Gets dialysis Sunday. States that she has not had dialysis for over a week because she got into argument with the nurse. Chest pain is sharp, midsternal, 5 out of 10, nonradiating. Denies shortness of breath. Denies fevers or chills. No other aggravating relieving factors. Denies any other associated symptoms No Known Allergies (Unverified , 08/15/18) Past Medical History: DM, HTN, renal disease, dialysis Hx Cardiac Problems: Yes Hx Hypertension: Yes Hx Diabetes: Yes Hx Dialysis: Yes - M,W,F Hx Headaches: Yes examined interviewed data reviewed Assessment/Plan ESRD- ni HD one week presents with high K and bradycardia stat HD ordered Hydralazine for high BP Kayexelate until after HD per orders James Bower MD Sep 16, 2018 17:00
[2018-09-16] MEDS: Docusate 100mg cap ORAL SCH (18:06)
[2018-09-16] MEDS: Sodium Polystyrene Sulfonate 15gm Powder ORAL SCH (18:06)
[2018-09-16] MEDS: Renvela 800mg Pkt ORAL SCH (18:07)
--- NOTE | 2018-09-16 19:25 | NUR ---
HAND-OFF: Report given to HE WING, pt still on HD, tolerate well.
--- NOTE | 2018-09-16 19:26 | NUR ---
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
--- NOTE | 2018-09-16 19:30 | NUR ---
NURSE NOTES: Pt c/o headache,Tylenol given and Hydralizine PRN d/t BP 180/94,dialysis nurse at bedside will continue to monitor
[2018-09-16 20:00] VITALS: BP 158/78
--- NOTE | 2018-09-16 20:24 | NUR ---
NURSE NOTES: Rechecked patient's B/P 138/64,tolerated HD well,2L fluid taken out
--- NOTE | 2018-09-16 22:29 | History and Physical ---
History of Present Illness General Date patient seen: Sep 16, 2018 Reason for Hospitalization: Chest Pain Present Illness HPI 53-year-old female with PMH ESRD presented with complaints of chest pain and SOB x 1 day. States chest pain is midsternal, sharp, nonradiating, 4/10, no exacerbating or alleviating factors. States she had missed her hd sessions 3 times due to work obligations. In the ED, pt noted to be in fluid overload, hyperkalemia, Renal consulted and emergent HD ordered. Pt denies fevers, chills , n/v/c/d, abdominal complaints or urinary complaints. Allergies: Coded Allergies: No Known Allergies (Unverified , 08/15/18) Medication History Scheduled Amlodipine Besylate* (Amlodipine Besylate*), 5 MG ORAL DAILY, (Reported) Aspirin (Aspirin EC), 81 MG ORAL DAILY, (Reported) Atorvastatin Calcium* (Lipitor*), 80 MG ORAL BEDTIME, (Reported) Bacitracin Zinc* (Bacitracin Zinc*), 1 APPLIC TOPIC THREE TIMES A DAY, (Reported ) Calcium Acetate (Calcium Acetate), 1,334 MG PO TID, (Reported) Carvedilol* (Carvedilol*), 12.5 MG ORAL EVERY 12 HOURS, (Reported) Ezetimibe (Zetia*), 10 MG ORAL BEDTIME, (Reported) Gabapentin* (Gabapentin*), 400 MG ORAL THREE TIMES A DAY, (Reported) Isosorb Dinit/Hydralazine Hcl (Bidil Tablet), 1 EACH PO THREE TIMES A DAY, ( Reported) Losartan Potassium* (Losartan Potassium*), 50 MG ORAL DAILY, (Reported) Sertraline Hcl* (Zoloft*), 150 MG ORAL DAILY, (Reported) Sevelamer Carbonate* (Renvela*), 500 MG ORAL THREE TIMES A DAY, (Reported) Sevelamer Hcl (Renagel), 800 MG ORAL THREE TIMES A DAY, (Reported) Valsartan (Diovan), 80 MG ORAL BID, (Reported) Scheduled PRN Acetaminophen* (Acetaminophen 325MG Tablet*), 325 MG ORAL Q6H PRN for For Pain, (Reported) Docusate Sodium* (Docusate Sodium*), 100 MG ORAL TWICE A DAY PRN for Constipation, (Reported) Hydrocodone Bit/Acetaminophen 5-325* ([place] 5-325*), 1 TAB ORAL BID PRN for For Pain, (Reported) Loperamide Hcl (Loperamide), 2 MG PO QID PRN for Diarrhea, (Reported) Metoclopramide Hcl* (Metoclopramide Hcl*), 5 MG ORAL EVERY 6 HOURS PRN for Nausea & Vomiting, (Reported) Ondansetron (Zofran), 4 MG ORAL Q6H PRN for Nausea & Vomiting, (Reported) Patient History Healthcare decision maker Resuscitation status Advanced Directive on File No Review of Systems Constitutional: Reports: weakness Eye: Reports: no symptoms ENT: Reports: no symptoms Respiratory: Reports: orthopnea, shortness of breath Cardiovascular: Reports: chest pain Gastrointestinal: Reports: no symptoms Genitourinary: Reports: no symptoms Musculoskeletal: Reports: no symptoms Skin: Reports: no symptoms Psychiatric: Reports: no symptoms Neurological: Reports: no symptoms Endocrine: Reports: no symptoms Hematologic/Lymphatic: Reports: no symptoms Physical Exam General Appearance: WD/WN, alert, mild distress Lines, tubes and drains: peripheral HEENT: normocephalic, atraumatic Neck: non-tender, normal alignment, supple Respiratory/Chest: chest wall non-tender, normal breath sounds, no respiratory distress Cardiovascular/Chest: normal peripheral pulses, normal rate, regular rhythm Abdomen: normal bowel sounds, non tender, soft, no organomegaly Extremities: normal range of motion, other - AV fistula R forearm Skin Exam: normal pigmentation 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 Last 24 Hour Vital Signs Date Time Temp Pulse Resp B/P (MAP) Pulse Ox O2 Delivery O2 Flow Rate FiO2 09/16/18 20:00 98.8 68 18 158/78 (104) 97 09/16/18 20:00 Nasal Cannula 2.0 09/16/18 20:00 2.0 09/16/18 19:32 192/89 09/16/18 19:27 61 09/16/18 18:45 Nasal Cannula 2.0 09/16/18 17:00 55 09/16/18 16:56 97.5 55 19 151/67 (95) 99 09/16/18 15:59 58 14 174/72 98 Nasal Cannula 2.0 09/16/18 15:00 57 22 175/73 97 Nasal Cannula 2.0 09/16/18 13:49 57 22 171/72 95 Room Air 09/16/18 13:28 97.9 57 10 150/68 95 Room Air 09/16/18 13:28 57 10 Room Air 09/16/18 12:46 97.9 94 19 161/73 (102) 97 Room Air Laboratory Tests Test 09/16/18 13:15 09/16/18 14:45 White Blood Count 5.5 K/UL (4.8-10.8) Red Blood Count 4.21 M/UL (4.20-5.40) Hemoglobin 11.0 G/DL (12.0-16.0) L Hematocrit 37.6 % (37.0-47.0) Mean Corpuscular Volume 89 FL (80-99) Mean Corpuscular Hemoglobin 26.2 PG (27.0-31.0) L Mean Corpuscular Hemoglobin Concent 29.3 G/DL (32.0-36.0) L Red Cell Distribution Width 16.4 % (11.6-14.8) H Platelet Count 93 K/UL (150-450) L Mean Platelet Volume 9.1 FL (6.5-10.1) Neutrophils (%) (Auto) % (45.0-75.0) Lymphocytes (%) (Auto) % (20.0-45.0) Monocytes (%) (Auto) % (1.0-10.0) Eosinophils (%) (Auto) % (0.0-3.0) Basophils (%) (Auto) % (0.0-2.0) Differential Total Cells Counted 100 Neutrophils % (Manual) 71 % (45-75) Lymphocytes % (Manual) 16 % (20-45) L Monocytes % (Manual) 9 % (1-10) Eosinophils % (Manual) 3 % (0-3) Basophils % (Manual) 1 % (0-2) Band Neutrophils 0 % (0-8) Platelet Estimate Decreased L Platelet Morphology Normal Hypochromasia 1+ Anisocytosis 1+ Troponin I 0.018 ng/mL (0.000-0.056) Sodium Level 135 MMOL/L (136-145) L Potassium Level 8.5 MMOL/L (3.5-5.1) *H Chloride Level 98 MMOL/L (98-107) Carbon Dioxide Level 21 MMOL/L (21-32) Anion Gap 15 mmol/L (5-15) Blood Urea Nitrogen 118 mg/dL (7-18) H Creatinine 14.5 MG/DL (0.55-1.30) H Estimat Glomerular Filtration Rate 2.7 mL/min (>60) Glucose Level 110 MG/DL (74-106) H Calcium Level 8.6 MG/DL (8.5-10.1) Total Bilirubin 0.7 MG/DL (0.2-1.0) Aspartate Amino Transf (AST/SGOT) 19 U/L (15-37) Alanine Aminotransferase (ALT/SGPT) 21 U/L (12-78) Alkaline Phosphatase 190 U/L (46-116) H Total Creatine Kinase 83 U/L (26-308) Creatine Kinase MB 2.4 NG/ML (0.0-3.6) Creatine Kinase MB Relative Index 2.8 Pro-B-Type Natriuretic Peptide > 30544 pg/mL (0-125) H Total Protein 7.4 G/DL (6.4-8.2) Albumin 3.5 G/DL (3.4-5.0) Globulin 3.9 g/dL Albumin/Globulin Ratio 0.9 (1.0-2.7) L Height (Feet): 5 Height (Inches): 2.00 Weight (Pounds): 151 Medications Current Medications Medications (Trade) Dose Ordered Sig/Rogelio Route PRN Reason Start Time Stop Time Status Last Admin Dose Admin Acetaminophen (Tylenol) 650 mg Q6H PRN ORAL For Pain 09/16/18 17:15 10/16/18 17:14 09/16/18 19:33 Amlodipine Besylate (Norvasc) 5 mg DAILY ORAL 09/17/18 09:00 10/17/18 08:59 Aspirin (Ecotrin) 81 mg DAILY ORAL 09/17/18 09:00 10/17/18 08:59 Docusate Sodium (Colace) 100 mg TID ORAL 09/16/18 18:00 10/16/18 17:59 09/16/18 18:06 Hydralazine HCl (Apresoline) 10 mg Q4H PRN IV bp over 160 syst 09/16/18 17:00 10/16/18 16:59 09/16/18 19:32 Metoclopramide HCl (Reglan) 10 mg Q6H PRN IVP Nausea & Vomiting 09/16/18 17:00 10/16/18 16:59 Pantoprazole (Protonix) 40 mg Q12HR ORAL 09/16/18 21:00 10/17/18 08:59 09/16/18 21:40 Sertraline HCl (Zoloft) 150 mg DAILY ORAL 09/17/18 09:00 10/17/18 08:59 Sevelamer Carbonate (Renvela) 800 mg THREE TIMES A DAY ORAL 09/16/18 18:00 10/16/18 17:59 09/16/18 18:07 Sodium Polystyrene Sulfonate (Kayexalate) 30 gm Q6HR ORAL 09/16/18 18:00 09/17/18 06:00 09/16/18 18:06 Assessment/Plan Assessment/Plan: 53 year old F with PMH of HTN and ESRD on HD admitted for fluid overload and hyperkalemia 2/2 missed HD session #Fluid overload 2/2 ESRD noncomplaince with HD -missed 3 sessions -Renal consult appreciated -urgent HD ordered #Hyperkalemia -2/2 missed HD -received calcium, insulin and kayexcelate -HD today -CTM #ESRD on HD -Nephrology consulted for HD management -continue Renagel #HTN #HL -continue Coreg and Lipitor - cont norvasc #Type 2 DM -lispro SS #Depression -continue Zoloft Full Code VTE PPx Heparin Chloé Nam MD Sep 16, 2018 22:29
--- NOTE | 2018-09-16 23:56 | Consultation ---
History of Present Illness General Date patient seen: Sep 16, 2018 Chief Complaint: Headache Referring physician: Dr. Monique Present Illness HPI Daina Guzman is a 53 year old woman with a history of migraines and ESRD ( on dialysis MWF) who presents with significant unilateral headache, abdominal pain and chest pain [place] [facility] She reports that the chest pain started today, is sharp, midsternal, 5 out of 10, and nonradiating. Of note, she also reports that she has not had dialysis for over a week because she got into argument with the nurse. Her headache is only mildly photophobic but she is exhibiting a mild right lateral gaze nystagmus. However she does endorse unilateral right sided headache at this time. Allergies: Coded Allergies: No Known Allergies (Unverified , 08/15/18) Medication History Scheduled Amlodipine Besylate* (Amlodipine Besylate*), 5 MG ORAL DAILY, (Reported) Aspirin (Aspirin EC), 81 MG ORAL DAILY, (Reported) Atorvastatin Calcium* (Lipitor*), 80 MG ORAL BEDTIME, (Reported) Bacitracin Zinc* (Bacitracin Zinc*), 1 APPLIC TOPIC THREE TIMES A DAY, (Reported ) Calcium Acetate (Calcium Acetate), 1,334 MG PO TID, (Reported) Carvedilol* (Carvedilol*), 12.5 MG ORAL EVERY 12 HOURS, (Reported) Ezetimibe (Zetia*), 10 MG ORAL BEDTIME, (Reported) Gabapentin* (Gabapentin*), 400 MG ORAL THREE TIMES A DAY, (Reported) Isosorb Dinit/Hydralazine Hcl (Bidil Tablet), 1 EACH PO THREE TIMES A DAY, ( Reported) Losartan Potassium* (Losartan Potassium*), 50 MG ORAL DAILY, (Reported) Sertraline Hcl* (Zoloft*), 150 MG ORAL DAILY, (Reported) Sevelamer Carbonate* (Renvela*), 500 MG ORAL THREE TIMES A DAY, (Reported) Sevelamer Hcl (Renagel), 800 MG ORAL THREE TIMES A DAY, (Reported) Valsartan (Diovan), 80 MG ORAL BID, (Reported) Scheduled PRN Acetaminophen* (Acetaminophen 325MG Tablet*), 325 MG ORAL Q6H PRN for For Pain, (Reported) Docusate Sodium* (Docusate Sodium*), 100 MG ORAL TWICE A DAY PRN for Constipation, (Reported) Hydrocodone Bit/Acetaminophen 5-325* ([place] 5-325*), 1 TAB ORAL BID PRN for For Pain, (Reported) Loperamide Hcl (Loperamide), 2 MG PO QID PRN for Diarrhea, (Reported) Metoclopramide Hcl* (Metoclopramide Hcl*), 5 MG ORAL EVERY 6 HOURS PRN for Nausea & Vomiting, (Reported) Ondansetron (Zofran), 4 MG ORAL Q6H PRN for Nausea & Vomiting, (Reported) Patient History History Provided By: Patient, Medical Record Healthcare decision maker Resuscitation status Advanced Directive on File No Past Medical/Surgical History Past Medical/Surgical History: (1) History of migraine headaches (2) ESRD (end stage renal disease) (3) Hypertensive kidney disease (4) Anemia in CKD (chronic kidney disease) Review of Systems Constitutional: Reports: weakness; Denies: no symptoms, see HPI, chills, sweats , fever, malaise, other Eye: Reports: blurred vision ENT: Denies: no symptoms, see HPI, ear pain, ear discharge, nose pain, nose congestion, throat pain, throat swelling, mouth pain, hearing loss, nasal discharge, other Respiratory: Denies: no symptoms, see HPI, cough, orthopnea, shortness of breath, stridor, wheezing, ABBOTT, sputum, other Cardiovascular: Reports: chest pain; Denies: no symptoms, see HPI, edema, palpitations, syncope, PND, other Gastrointestinal: Reports: abdominal pain, nausea; Denies: no symptoms, see HPI , constipation, diarrhea, vomiting, melena, hematemesis, other Genitourinary: Denies: no symptoms, see HPI, discharge, dysuria, frequency, hematuria, pain, retention, incontinence, urgency, vag bleed/dc, other Musculoskeletal: Denies: no symptoms, see HPI, back pain, gout, joint pain, joint swelling, muscle pain, muscle stiffness, other Neurological: Reports: see HPI, headache; Denies: no symptoms, numbness, paresthesia, seizure, tingling, tremors, focal weakness, syncope, dizziness, other Endocrine: Denies: no symptoms, see HPI, excessive sweating, flushing, intolerance to temperature, increased thirst, increased urine, unexplained weight loss, other Hematologic/Lymphatic: Denies: no symptoms, see HPI, anemia, blood clots, easy bleeding, easy bruising, swollen glands, diathesis, other Physical Exam General Appearance: WD/WN, alert, mild distress, alert oriented x3 Lines, tubes and drains: peripheral HEENT: normocephalic, atraumatic, anicteric, mucous membranes moist, PERRL, EOMI, pharynx normal, supple, no JVD Neck: non-tender, normal alignment, supple, normal inspection Respiratory/Chest: no respiratory distress, no accessory muscle use Cardiovascular/Chest: normal peripheral pulses Extremities: normal range of motion, normal inspection, no calf tenderness, no edema, no cyanosis Skin Exam: normal pigmentation, warm/dry, no diaphoresis 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, no motor/sensory deficits, alert, oriented x 3, responsive, normal mood/affect, other Musculoskeletal: normal muscle bulk, no effusion Last 24 Hour Vital Signs Date Time Temp Pulse Resp B/P (MAP) Pulse Ox O2 Delivery O2 Flow Rate FiO2 09/16/18 20:00 98.8 68 18 158/78 (104) 97 09/16/18 20:00 Nasal Cannula 2.0 09/16/18 20:00 2.0 09/16/18 19:32 192/89 09/16/18 19:27 61 09/16/18 18:45 Nasal Cannula 2.0 09/16/18 17:00 55 09/16/18 16:56 97.5 55 19 151/67 (95) 99 09/16/18 15:59 58 14 174/72 98 Nasal Cannula 2.0 09/16/18 15:00 57 22 175/73 97 Nasal Cannula 2.0 09/16/18 13:49 57 22 171/72 95 Room Air 09/16/18 13:28 97.9 57 10 150/68 95 Room Air 09/16/18 13:28 57 10 Room Air 09/16/18 12:46 97.9 94 19 161/73 (102) 97 Room Air Laboratory Tests Test 09/16/18 13:15 09/16/18 14:45 White Blood Count 5.5 K/UL (4.8-10.8) Red Blood Count 4.21 M/UL (4.20-5.40) Hemoglobin 11.0 G/DL (12.0-16.0) L Hematocrit 37.6 % (37.0-47.0) Mean Corpuscular Volume 89 FL (80-99) Mean Corpuscular Hemoglobin 26.2 PG (27.0-31.0) L Mean Corpuscular Hemoglobin Concent 29.3 G/DL (32.0-36.0) L Red Cell Distribution Width 16.4 % (11.6-14.8) H Platelet Count 93 K/UL (150-450) L Mean Platelet Volume 9.1 FL (6.5-10.1) Neutrophils (%) (Auto) % (45.0-75.0) Lymphocytes (%) (Auto) % (20.0-45.0) Monocytes (%) (Auto) % (1.0-10.0) Eosinophils (%) (Auto) % (0.0-3.0) Basophils (%) (Auto) % (0.0-2.0) Differential Total Cells Counted 100 Neutrophils % (Manual) 71 % (45-75) Lymphocytes % (Manual) 16 % (20-45) L Monocytes % (Manual) 9 % (1-10) Eosinophils % (Manual) 3 % (0-3) Basophils % (Manual) 1 % (0-2) Band Neutrophils 0 % (0-8) Platelet Estimate Decreased L Platelet Morphology Normal Hypochromasia 1+ Anisocytosis 1+ Troponin I 0.018 ng/mL (0.000-0.056) Sodium Level 135 MMOL/L (136-145) L Potassium Level 8.5 MMOL/L (3.5-5.1) *H Chloride Level 98 MMOL/L (98-107) Carbon Dioxide Level 21 MMOL/L (21-32) Anion Gap 15 mmol/L (5-15) Blood Urea Nitrogen 118 mg/dL (7-18) H Creatinine 14.5 MG/DL (0.55-1.30) H Estimat Glomerular Filtration Rate 2.7 mL/min (>60) Glucose Level 110 MG/DL (74-106) H Calcium Level 8.6 MG/DL (8.5-10.1) Total Bilirubin 0.7 MG/DL (0.2-1.0) Aspartate Amino Transf (AST/SGOT) 19 U/L (15-37) Alanine Aminotransferase (ALT/SGPT) 21 U/L (12-78) Alkaline Phosphatase 190 U/L (46-116) H Total Creatine Kinase 83 U/L (26-308) Creatine Kinase MB 2.4 NG/ML (0.0-3.6) Creatine Kinase MB Relative Index 2.8 Pro-B-Type Natriuretic Peptide > 01954 pg/mL (0-125) H Total Protein 7.4 G/DL (6.4-8.2) Albumin 3.5 G/DL (3.4-5.0) Globulin 3.9 g/dL Albumin/Globulin Ratio 0.9 (1.0-2.7) L Height (Feet): 5 Height (Inches): 2.00 Weight (Pounds): 151 Medications Current Medications Medications (Trade) Dose Ordered Sig/Rogelio Route PRN Reason Start Time Stop Time Status Last Admin Dose Admin Acetaminophen (Tylenol) 650 mg Q6H PRN ORAL For Pain 09/16/18 17:15 10/16/18 17:14 09/16/18 19:33 Amlodipine Besylate (Norvasc) 5 mg DAILY ORAL 09/17/18 09:00 10/17/18 08:59 Aspirin (Ecotrin) 81 mg DAILY ORAL 09/17/18 09:00 10/17/18 08:59 Docusate Sodium (Colace) 100 mg TID ORAL 09/16/18 18:00 10/16/18 17:59 09/16/18 18:06 Hydralazine HCl (Apresoline) 10 mg Q4H PRN IV bp over 160 syst 09/16/18 17:00 10/16/18 16:59 09/16/18 19:32 Metoclopramide HCl (Reglan) 10 mg Q6H PRN IVP Nausea & Vomiting 09/16/18 17:00 10/16/18 16:59 Pantoprazole (Protonix) 40 mg Q12HR ORAL 09/16/18 21:00 10/17/18 08:59 09/16/18 21:40 Sertraline HCl (Zoloft) 150 mg DAILY ORAL 09/17/18 09:00 10/17/18 08:59 Sevelamer Carbonate (Renvela) 800 mg THREE TIMES A DAY ORAL 09/16/18 18:00 10/16/18 17:59 09/16/18 18:07 Sodium Polystyrene Sulfonate (Kayexalate) 30 gm Q6HR ORAL 09/16/18 18:00 09/17/18 06:00 09/16/18 18:06 Assessment/Plan Problem List: (1) Hyperkalemia, diminished renal excretion ICD Codes: E87.5 - Hyperkalemia SNOMED: 78981811 (2) ESRD (end stage renal disease) ICD Codes: N18.6 - End stage renal disease SNOMED: 49051040 (3) Hypertensive kidney disease ICD Codes: I12.9 - Hypertensive chronic kidney disease with stage 1 through stage 4 chronic kidney disease, or unspecified chronic kidney disease SNOMED: 16055066 (4) Anemia in CKD (chronic kidney disease) ICD Codes: N18.9 - Chronic kidney disease, unspecified; D63.1 - Anemia in chronic kidney disease SNOMED: 473933003 (5) Status migrainosus ICD Codes: G43.901 - Migraine, unspecified, not intractable, with status migrainosus SNOMED: 712125715 (6) History of migraine headaches ICD Codes: Z86.69 - Personal history of other diseases of the nervous system and sense organs SNOMED: 746838749 (7) Dehydration ICD Codes: E86.0 - Dehydration SNOMED: 26283612 (8) Diarrhea ICD Codes: R19.7 - Diarrhea, unspecified SNOMED: 78809435 (9) Electrolyte imbalance ICD Codes: E87.8 - Other disorders of electrolyte and fluid balance, not elsewhere classified SNOMED: 299151535 (10) Abdominal pain ICD Codes: R10.9 - Unspecified abdominal pain SNOMED: 54361373 Assessment/Plan: DDx Migraine vs Tension Type RAMÍREZ Continue pain mgmt SBP< 140 HD SAMIRA Continue Neuro Obs Treat nausea, consider meclizine/ compazine May also consider Triptan rescue therapy if traditional pain / symptom mgmt unsuccessful in resolving symptoms. Jyoti Blanco N.P. Sep 16, 2018 23:56
[2018-09-17] MEDS: Sodium Polystyrene Sulfonate 15gm Powder ORAL SCH ×2 (00:06→05:38)
[2018-09-17 04:00] VITALS: BP 137/65
[2018-09-17 06:16] LABS: HEMATOCRIT 36.1 % (37.0-47.0); HEMOGLOBIN 10.9 G/DL (12.0-16.0); MEAN CORPUSCULAR VOLUME 87 FL (80-99); PLATELET COUNT 85 K/UL (150-450); RED BLOOD COUNT 4.13 M/UL (4.20-5.40); RED CELL DISTRIBUTION WIDTH 16.3 % (11.6-14.8); WHITE BLOOD COUNT 4.4 K/UL (4.8-10.8)
--- NOTE | 2018-09-17 07:24 | NUR ---
HAND-OFF: Report given to MACIEJ Mendoza.Patient stable,sleeping.
[2018-09-17 07:25] LABS: ALANINE AMINOTRANSFERASE 22 U/L (12-78); ALBUMIN 2.9 G/DL (3.4-5.0); ALBUMIN/GLOBULIN RATIO 0.7 (1.0-2.7); ALKALINE PHOSPHATASE 180 U/L (46-116); ANION GAP 15 mmol/L (5-15); ASPARTATE AMINO TRANSFERASE 19 U/L (15-37); BILIRUBIN,TOTAL 0.7 MG/DL (0.2-1.0); BLOOD UREA NITROGEN 56 mg/dL (7-18); CALCIUM 8.4 MG/DL (8.5-10.1); CARBON DIOXIDE 25 MMOL/L (21-32); CHLORIDE 100 MMOL/L (98-107); CHOLESTEROL 110 MG/DL (< 200); CREATINE KINASE 55 U/L (26-308); CREATININE 9.2 MG/DL (0.55-1.30); FERRITIN 573 NG/ML (8-388); GAMMA GLUTAMYL TRANSPEPTIDASE 153 U/L (5-85); HDL CHOLESTEROL 50 MG/DL (40-60); PHOSPHORUS 5.7 MG/DL (2.5-4.9); POTASSIUM 4.1 MMOL/L (3.5-5.1); SODIUM 140 MMOL/L (136-145); TRIGLYCERIDES 70 MG/DL (30-150)
[2018-09-17 08:00] VITALS: BP 157/84
--- NOTE | 2018-09-17 08:15 | NUR ---
NURSE NOTES: received pt in the bed, awake, alert, oriented, vital signs stable, no co pain, no SOB, skin warm and dry to touch, AV shunt on RT FA, HD done on 09/16 out 2000cc, K 4.1, bed in low position, call light within reach.
[2018-09-17 08:21] LABS: % IRON SATURATION 36 % (15-50); IRON 67 ug/dL (50-175); TOTAL IRON BINDING CAPACITY 184 ug/dL (250-450)
[2018-09-17] MEDS: Renvela 800mg Pkt ORAL SCH ×3 (08:46→18:06)
[2018-09-17] MEDS: Docusate 100mg cap ORAL SCH ×3 (08:46→18:07)
[2018-09-17] MEDS ORDERED: Aspirin EC 81mg tab ORAL SCH (09:00)
[2018-09-17] MEDS ORDERED: Sertraline 50mg tab ORAL SCH (09:00)
--- NOTE | 2018-09-17 10:41 | NUR ---
CASE MANAGEMENT: INITIAL REVIEW 53 YO F RETA FROM [facility] CC: CP PMHx: ESRD. HD MWF. DM .HTN. SI:CP. ACS. ESRD. T 97.9 HR 94 RR 19 B/P 161/73 SATS 97% ON RA K 8.5 BUN 118 CR 14.5 GLU 110 ALP 190 BNP >35K IS: DICYCLOMINE PO X1 MORPHINE IV X1 PEPCID IV X1 CXR Impression: Cardiomegaly. Borderline interstitial congestion PATIENT ADMITTED TO SDU 09/16/2018 @ 4011 DCP: PATIENT TO BE DISCHARGED TO HOME ONCE MEDICALLY CLEARED. PLAN OF CARE: NEPHRO CONSULT >>> MISSED 3 SESSIONS OF HD 2D ECHO Addendum: 09/17/18 at 1303 by Kika Guillen CM INTERQUAL MET
--- NOTE | 2018-09-17 10:48 | Nephrology Progress Note ---
Assessment/Plan Problem List: (1) Hypertensive kidney disease (2) Anemia in CKD (chronic kidney disease) (3) ESRD (end stage renal disease) (4) Hyperkalemia, diminished renal excretion Plan HD 09/16 now K corrected HD in am 09/18 Adjust BP meds to med surg per orders Subjective ROS Limited/Unobtainable: No Constitutional: Reports: malaise Objective Objective Last 24 Hour Vital Signs Date Time Temp Pulse Resp B/P (MAP) Pulse Ox O2 Delivery O2 Flow Rate FiO2 09/17/18 08:46 69 157/84 09/17/18 08:00 Nasal Cannula 2.0 09/17/18 08:00 68 09/17/18 08:00 98.5 69 20 157/84 (108) 96 09/17/18 04:00 Nasal Cannula 2.0 09/17/18 04:00 97.8 65 16 137/65 (89) 96 09/17/18 03:22 67 09/17/18 00:00 Nasal Cannula 2.0 09/16/18 23:27 68 09/16/18 20:00 98.8 68 18 158/78 (104) 97 09/16/18 20:00 Nasal Cannula 2.0 09/16/18 20:00 2.0 09/16/18 19:32 192/89 09/16/18 19:27 61 09/16/18 18:45 Nasal Cannula 2.0 09/16/18 17:00 55 09/16/18 16:56 97.5 55 19 151/67 (95) 99 09/16/18 15:59 58 14 174/72 98 Nasal Cannula 2.0 09/16/18 15:00 57 22 175/73 97 Nasal Cannula 2.0 09/16/18 13:49 57 22 171/72 95 Room Air 09/16/18 13:28 97.9 57 10 150/68 95 Room Air 09/16/18 13:28 57 10 Room Air 09/16/18 12:46 97.9 94 19 161/73 (102) 97 Room Air Intake and Output 09/16/18 09/17/18 19:00 07:00 Intake Total 240 ml Output Total 0 ml 4000 ml Balance 0 ml -3760 ml Intake Oral 240 ml Output Urine Total 0 ml Hemodialysis UF 4000 ml # Voids 1 1 # Bowel Movements 6 Laboratory Tests 09/16/18 13:15: White Blood Count 5.5, Red Blood Count 4.21, Hemoglobin 11.0L, Hematocrit 37.6, Mean Corpuscular Volume 89, Mean Corpuscular Hemoglobin 26.2L, Mean Corpuscular Hemoglobin Concent 29.3L, Red Cell Distribution Width 16.4H, Platelet Count 93L , Mean Platelet Volume 9.1, Neutrophils (%) (Auto) , Lymphocytes (%) (Auto) , Monocytes (%) (Auto) , Eosinophils (%) (Auto) , Basophils (%) (Auto) , Differential Total Cells Counted 100, Neutrophils % (Manual) 71, Lymphocytes % ( Manual) 16L, Monocytes % (Manual) 9, Eosinophils % (Manual) 3, Basophils % ( Manual) 1, Band Neutrophils 0, Platelet Estimate DecreasedL, Platelet Morphology Normal, Hypochromasia 1+, Anisocytosis 1+, Troponin I 0.018 09/16/18 14:45: Sodium Level 135L, Potassium Level 8.5*H, Chloride Level 98, Carbon Dioxide Level 21, Anion Gap 15, Blood Urea Nitrogen 118H, Creatinine 14.5H, Estimat Glomerular Filtration Rate 2.7, Glucose Level 110H, Calcium Level 8.6, Total Bilirubin 0.7, Aspartate Amino Transf (AST/SGOT) 19, Alanine Aminotransferase ( ALT/SGPT) 21, Alkaline Phosphatase 190H, Total Creatine Kinase 83, Creatine Kinase MB 2.4, Creatine Kinase MB Relative Index 2.8, Pro-B-Type Natriuretic Peptide > 79984B, Total Protein 7.4, Albumin 3.5, Globulin 3.9, Albumin/ Globulin Ratio 0.9L 09/17/18 05:16: White Blood Count 4.4L, Red Blood Count 4.13L, Hemoglobin 10.9L, Hematocrit 36.1L, Mean Corpuscular Volume 87, Mean Corpuscular Hemoglobin 26.4L, Mean Corpuscular Hemoglobin Concent 30.2L, Red Cell Distribution Width 16.3H, Platelet Count 85L, Mean Platelet Volume 9.1, Neutrophils (%) (Auto) , Lymphocytes (%) (Auto) , Monocytes (%) (Auto) , Eosinophils (%) (Auto) , Basophils (%) (Auto) , Differential Total Cells Counted 100, Neutrophils % ( Manual) 66, Lymphocytes % (Manual) 16L, Monocytes % (Manual) 12H, Eosinophils % (Manual) 6H, Basophils % (Manual) 0, Band Neutrophils 0, Platelet Estimate DecreasedL, Platelet Morphology Normal, Hypochromasia 1+, Anisocytosis 1+, Troponin I 0.038, Sodium Level 140, Potassium Level 4.1#, Chloride Level 100, Carbon Dioxide Level 25, Anion Gap 15, Blood Urea Nitrogen 56H, Creatinine 9.2H , Estimat Glomerular Filtration Rate 4.5, Glucose Level 102, Calcium Level 8.4L , Total Bilirubin 0.7, Aspartate Amino Transf (AST/SGOT) 19, Alanine Aminotransferase (ALT/SGPT) 22, Alkaline Phosphatase 180H, Total Creatine Kinase 55, Pro-B-Type Natriuretic Peptide > 67020Q, Total Protein 7.3, Albumin 2.9L, Globulin 4.4, Albumin/Globulin Ratio 0.7L, Hemoglobin A1c 5.9, Uric Acid 3.7, Phosphorus Level 5.7H, Magnesium Level 2.6H, Iron Level 67, Total Iron Binding Capacity 184L, Percent Iron Saturation 36, Unsaturated Iron Binding 117 , Ferritin 573H, Gamma Glutamyl Transpeptidase 153H, C-Reactive Protein, Quantitative < 0.4, Triglycerides Level 70, Cholesterol Level 110, LDL Cholesterol 41, HDL Cholesterol 50, Cholesterol/HDL Ratio 2.2L, Vitamin B12 Level 718, Folate 12.4, Thyroid Stimulating Hormone (TSH) 7.392H Height (Feet): 5 Height (Inches): 2.00 Weight (Pounds): 151 General Appearance: no apparent distress Cardiovascular: normal rate Respiratory/Chest: lungs clear Abdomen: tender - mild James Bower MD Sep 17, 2018 10:48
[2018-09-17 12:00] VITALS: BP 154/71
--- NOTE | 2018-09-17 12:30 | NUR ---
NURSE NOTES: pt transferred to asordered, condition stable, report given to LISETH WING.
--- NOTE | 2018-09-17 12:42 | NUR ---
NURSE NOTES: Patient transferred from [facility]. Report received from MACIEJ Roberts. Belongings reviewed and accounted for. Patient is alert and oriented. No reports of distress at the moment. Call light is within reach. Patient is on 2 liters oxygen via nasal cannula. Will continue to monitor.
[2018-09-17] MEDS ORDERED: Renvela 800mg Pkt ORAL SCH (13:00)
--- NOTE | 2018-09-17 15:06 | NUR ---
NURSE NOTES:WOUND CARE NOTES:Pt presented on admission with reabsorbing blood blister distal/lateral L foot. Pt stated having wound for 4 months .Periwound without erythema ,induration or fluctuance. Pt denied pain when affected area palpated. No other skin concerns noted. Recommendations: Swab wound lateral L foot with Betadine swabs .Cover with Optifoam drsg Daily and PRN.
--- NOTE | 2018-09-17 15:20 | NUR ---
Social Service Note VICKY received a call from Osmani Breaux [phone] (c) [email or web address]. Osmani states [facility] [employer] will not accept patient back into their housing program. VICKY spoke with Arlyn at [facility] who states patient requires a higher level of care [phone] opt. 3. Arlyn also provided Osmani's supervisors contact Zuleika Tan [phone] or [phone]. Message left, no return call at this time.
--- NOTE | 2018-09-17 15:23 | Cardiology Report ---
APPROVED REPORT EXAM: Two-dimensional and M-mode echocardiogram with Doppler and color Doppler. INDICATION Congestive Heart Failure M-Mode DIMENSIONS IVSd1.4 (0.7-1.1cm)Left Atrium (MM)4.4 (1.6-4.0cm) LVDd3.9 (3.5-5.6cm)Aortic Root2.8 (2.0-3.7cm) PWd1.2 (0.7-1.1cm)Aortic Cusp Exc.1.6 (1.5-2.0cm) LVDs2.8 (2.5-4.0cm) PWs1.3 cm Normal left ventricular chamber size, systolic function and wall motion. Left ventricular ejection fraction estimated to be 55 %. Mild left ventricular hypertrophy by 2-D. Trivial posterior pericardial effusion. Right atrial size at upper limits of normal. All other cardiac chamber sizes are within normal limits. Mild focal aortic valve sclerosis with adequate cusp excursion. Mildly thickened mitral valve leaflets with normal excursion. Mild mitral annulus and aortic root calcification. Normal pulmonic valve structure. Normal tricuspid valve structure. IVC dilated at 2.4 cm without physiologic collapse suggestive of increased RA pressure. A color flow and spectral Doppler study was performed and revealed: No aortic regurgitation. Mild mitral regurgitation. Mitral diastolic velocities suggest normal left ventricular diastolic function. Moderate tricuspid regurgitation. Tricuspid systolic velocities suggests peak right ventricular systolic pressure of 59 mmHg, consistent with moderate to severe pulmonary hypertension. Pulmonic regurgitation present.
[2018-09-17 16:00] VITALS: BP 153/71
[2018-09-17] MEDS ORDERED: Metoclopramide 10mg/2ml Inj IVP PRN (17:00)
--- NOTE | 2018-09-17 19:18 | NUR ---
HAND-OFF: Report given to MACIEJ Cowart.
[2018-09-17 20:06] VITALS: BP 178/77
--- NOTE | 2018-09-17 21:00 | General Progress Note ---
Assessment/Plan Assessment/Plan: 53 year old F with PMH of HTN and ESRD on HD admitted for fluid overload and hyperkalemia 2/2 missed HD session #Fluid overload 2/2 ESRD noncomplaince with HD - symptoms improved -missed 3 sessions -Renal consult appreciated -s/p HD yesterday -plan for HD in AM #Hyperkalemia - improved -2/2 missed HD -received calcium, insulin and kayexcelate -HD yesterday -CTM #ESRD on HD -Nephrology consulted for HD management -continue Renagel #HTN #HL -continue Coreg and Lipitor - cont norvasc #Type 2 DM -lispro SS #Depression -continue Zoloft Full Code VTE PPx Heparin Subjective Date patient seen: Sep 17, 2018 Allergies: Coded Allergies: No Known Allergies (Unverified , 08/15/18) All Systems: reviewed and negative except above Subjective s/p HD session last night, states she feels better, plan for HD again in AM, K normalized Objective Last 24 Hour Vital Signs Date Time Temp Pulse Resp B/P (MAP) Pulse Ox O2 Delivery O2 Flow Rate FiO2 09/17/18 20:06 99.2 72 17 178/77 (110) 96 09/17/18 18:07 69 153/71 09/17/18 16:00 98.3 69 18 153/71 (98) 97 09/17/18 12:00 98.4 71 21 154/71 (98) 93 09/17/18 12:00 70 09/17/18 12:00 Nasal Cannula 2.0 09/17/18 11:01 98.5 09/17/18 08:46 69 157/84 09/17/18 08:00 Nasal Cannula 2.0 09/17/18 08:00 68 09/17/18 08:00 98.5 69 20 157/84 (108) 96 09/17/18 04:00 Nasal Cannula 2.0 09/17/18 04:00 97.8 65 16 137/65 (89) 96 09/17/18 03:22 67 09/17/18 00:00 Nasal Cannula 2.0 09/16/18 23:27 68 Intake and Output 09/16/18 09/17/18 19:00 07:00 Intake Total 240 ml Output Total 0 ml 4000 ml Balance 0 ml -3760 ml Intake Oral 240 ml Output Urine Total 0 ml Hemodialysis UF 4000 ml # Voids 1 1 # Bowel Movements 6 Laboratory Tests 09/17/18 05:16: White Blood Count 4.4L, Red Blood Count 4.13L, Hemoglobin 10.9L, Hematocrit 36.1L, Mean Corpuscular Volume 87, Mean Corpuscular Hemoglobin 26.4L, Mean Corpuscular Hemoglobin Concent 30.2L, Red Cell Distribution Width 16.3H, Platelet Count 85L, Mean Platelet Volume 9.1, Neutrophils (%) (Auto) , Lymphocytes (%) (Auto) , Monocytes (%) (Auto) , Eosinophils (%) (Auto) , Basophils (%) (Auto) , Differential Total Cells Counted 100, Neutrophils % ( Manual) 66, Lymphocytes % (Manual) 16L, Monocytes % (Manual) 12H, Eosinophils % (Manual) 6H, Basophils % (Manual) 0, Band Neutrophils 0, Platelet Estimate DecreasedL, Platelet Morphology Normal, Hypochromasia 1+, Anisocytosis 1+, Sodium Level 140, Potassium Level 4.1#, Chloride Level 100, Carbon Dioxide Level 25, Anion Gap 15, Blood Urea Nitrogen 56H, Creatinine 9.2H, Estimat Glomerular Filtration Rate 4.5, Glucose Level 102, Hemoglobin A1c 5.9, Uric Acid 3.7, Calcium Level 8.4L, Phosphorus Level 5.7H, Magnesium Level 2.6H, Iron Level 67, Total Iron Binding Capacity 184L, Percent Iron Saturation 36, Unsaturated Iron Binding 117, Ferritin 573H, Total Bilirubin 0.7, Gamma Glutamyl Transpeptidase 153H, Aspartate Amino Transf (AST/SGOT) 19, Alanine Aminotransferase (ALT/SGPT) 22, Alkaline Phosphatase 180H, Total Creatine Kinase 55, Troponin I 0.038, C-Reactive Protein, Quantitative < 0.4, Pro-B-Type Natriuretic Peptide > 94746D, Total Protein 7.3, Albumin 2.9L, Globulin 4.4, Albumin/Globulin Ratio 0.7L, Triglycerides Level 70, Cholesterol Level 110, LDL Cholesterol 41, HDL Cholesterol 50, Cholesterol/HDL Ratio 2.2L, Vitamin B12 Level 718, Folate 12.4, Thyroid Stimulating Hormone (TSH) 7.392H Height (Feet): 5 Height (Inches): 2.00 Weight (Pounds): 151 Objective General Appearance: WD/WN, alert, mild distress Lines, tubes and drains: peripheral HEENT: normocephalic, atraumatic Neck: non-tender, normal alignment, supple Respiratory/Chest: chest wall non-tender, normal breath sounds, no respiratory distress Cardiovascular/Chest: normal peripheral pulses, normal rate, regular rhythm Abdomen: normal bowel sounds, non tender, soft, no organomegaly Extremities: normal range of motion, other - AV fistula R forearm Skin Exam: normal pigmentation 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
[2018-09-17] MEDS: Atorvastatin 80mg tab ORAL SCH (21:14)
[2018-09-17] MEDS: Carvedilol 12.5mg tab ORAL SCH (21:14)
[2018-09-18] VITALS (7 sets, daily range): BP systolic 139–204; BP diastolic 63–83
--- NOTE | 2018-09-18 07:08 | NUR ---
HAND-OFF: Report given to Omid Saez RN.
--- NOTE | 2018-09-18 08:06 | NUR ---
NURSE NOTES: PT SLEEPING IN BED, AROUSABLE TO VOICE. IN NO APPARENT DISTRESS AT THIS TIME. BED IN LOWEST POSITION WITH BEDSIDE RAILS X2 RAISED. CALL LIGHT WITHIN REACH. WILL CONTINUE TO MONITOR.
--- NOTE | 2018-09-18 08:25 | Neurology Progress Note ---
Interim History Interim History ROS Limited/Unobtainable: Yes Complaints: Reproting worse RAMÍREZ this am Interim History headache worse with valsalva complicated by abd pain Objective Physical Exam Last Vital Signs Date Time Temp Pulse Resp B/P (MAP) Pulse Ox O2 Delivery O2 Flow Rate FiO2 09/18/18 04:08 98.3 64 16 139/63 (88) 96 09/17/18 21:00 Nasal Cannula 2.0 Impression/Recommendations Problems: (1) Status migrainosus (2) History of migraine headaches (3) Hyperkalemia, diminished renal excretion (4) ESRD (end stage renal disease) (5) Hypertensive kidney disease (6) Anemia in CKD (chronic kidney disease) Status: stable Diagnostic Impression Acute encephalopathy - improving Tension type headache Delirium precautions Tylenol PRn for RAMÍREZ Will follow peripherally Adriano Gaines MD Sep 18, 2018 08:25
[2018-09-18] MEDS: Carvedilol 12.5mg tab ORAL SCH ×2 (09:00→21:02)
[2018-09-18] MEDS: Aspirin EC 81mg tab ORAL SCH (09:06)
[2018-09-18] MEDS: Docusate 100mg cap ORAL SCH ×4 (09:06→17:10)
[2018-09-18] MEDS: Renvela 800mg Pkt ORAL SCH ×3 (09:07→17:10)
[2018-09-18] MEDS: Sertraline 50mg tab ORAL SCH (09:07)
--- NOTE | 2018-09-18 09:37 | Nephrology Progress Note ---
Assessment/Plan Problem List: (1) Hypertensive kidney disease (2) Anemia in CKD (chronic kidney disease) (3) ESRD (end stage renal disease) (4) Hyperkalemia, diminished renal excretion Plan HD 09/16 now K corrected HD again 09/18 Adjust BP meds- Add zestril to med surg per orders Subjective ROS Limited/Unobtainable: No Constitutional: Reports: malaise Objective Objective Last 24 Hour Vital Signs Date Time Temp Pulse Resp B/P (MAP) Pulse Ox O2 Delivery O2 Flow Rate FiO2 09/18/18 09:00 64 161/74 09/18/18 09:00 64 161/74 09/18/18 08:00 97.8 64 17 161/74 (103) 95 09/18/18 04:08 98.3 64 16 139/63 (88) 96 09/18/18 00:00 98.2 65 16 151/67 (95) 98 09/17/18 21:14 72 178/77 09/17/18 21:00 Nasal Cannula 2.0 09/17/18 20:06 99.2 72 17 178/77 (110) 96 09/17/18 18:07 69 153/71 09/17/18 16:00 98.3 69 18 153/71 (98) 97 09/17/18 12:00 98.4 71 21 154/71 (98) 93 09/17/18 12:00 70 09/17/18 12:00 Nasal Cannula 2.0 09/17/18 11:01 98.5 Intake and Output 09/17/18 09/18/18 19:00 07:00 Intake Total 240 ml 360 ml Balance 240 ml 360 ml Intake Oral 240 ml 360 ml # Voids 1 4 # Bowel Movements 2 Height (Feet): 5 Height (Inches): 2.00 Weight (Pounds): 146 General Appearance: no apparent distress Objective no change James Bower MD Sep 18, 2018 09:37
[2018-09-18] MEDS: Lisinopril 10mg tab ORAL SCH (09:45)
--- NOTE | 2018-09-18 12:14 | NUR ---
Social Service Note VICKY left second message for Osmani [phone], no return call. VICKY placed follow up call to Zuleika Mcginnis [phone]. Per Zuleika housing option has not be identified at this time. Zuleika requesting PT eval to determine level of service. Patient to show independence with ambulation, possible ability to walk up and down stairs and if DME is required. This will determine placement option. Zuleika inquired if patient could have short stay SNF placement. VICKY discuss possible barriers but CM would explore that option. If patient is unable to be placed in SNF Zuleika can be contacted on her cell at [phone] on Sunday for possible placement. VICKY spoke with charge nurse to obtain an order for PT eval and treat.
--- NOTE | 2018-09-18 15:07 | NUR ---
NURSE NOTES: PT COMPLAINS OF DISCOMFORT FROM DIARRHEA. RN LEFT MESSAGE FOR DR TINAJERO FOR PRN MEDICATIONS FOR DIARRHEA. RN LEFT HAT IN TOILET TO COLLECT STOOL PER C DIFF PROTOCOL. PT CALM AND RESTING IN BED. RECEIVING DIALYSIS AT THIS TIME. IN NO APPARENT DISTRESS AT THIS TIME. WILL CONTINUE TO MONITOR.
--- NOTE | 2018-09-18 15:52 | NUR ---
NURSE NOTES: RN LEFT MESSAGE FOR DR KHOA TINAJERO'S EXCHANGE REGARDING ELEVATED BP 204/83, HEART RATE 63 DURING DIALYSIS.
--- NOTE | 2018-09-18 16:10 | NUR ---
NURSE NOTES: RECEIVED ORDERS FROM DR TINAJERO FOR HYDRALAZINE 25MG PO Q6H PRN SBP>160 AND COLLECT C DIFF FOR DIARRHEA.
--- NOTE | 2018-09-18 16:12 | Cardiology Report ---
APPROVED REPORT EKG Measurement Heart [id number] Sinus bradycardia Right bundle branch block Lateral infarct, age undetermined Abnormal ECG
--- NOTE | 2018-09-18 16:17 | Consultation ---
History of Present Illness General Chief Complaint: Chest Pain Present Illness Allergies: Coded Allergies: No Known Allergies (Unverified , 08/15/18) Medication History Scheduled Amlodipine Besylate* (Amlodipine Besylate*), 5 MG ORAL DAILY, (Reported) Aspirin (Aspirin EC), 81 MG ORAL DAILY, (Reported) Atorvastatin Calcium* (Lipitor*), 80 MG ORAL BEDTIME, (Reported) Bacitracin Zinc* (Bacitracin Zinc*), 1 APPLIC TOPIC THREE TIMES A DAY, (Reported ) Calcium Acetate (Calcium Acetate), 1,334 MG PO TID, (Reported) Carvedilol* (Carvedilol*), 12.5 MG ORAL EVERY 12 HOURS, (Reported) Ezetimibe (Zetia*), 10 MG ORAL BEDTIME, (Reported) Gabapentin* (Gabapentin*), 400 MG ORAL THREE TIMES A DAY, (Reported) Isosorb Dinit/Hydralazine Hcl (Bidil Tablet), 1 EACH PO THREE TIMES A DAY, ( Reported) Losartan Potassium* (Losartan Potassium*), 50 MG ORAL DAILY, (Reported) Sertraline Hcl* (Zoloft*), 150 MG ORAL DAILY, (Reported) Sevelamer Carbonate* (Renvela*), 500 MG ORAL THREE TIMES A DAY, (Reported) Sevelamer Hcl (Renagel), 800 MG ORAL THREE TIMES A DAY, (Reported) Valsartan (Diovan), 80 MG ORAL BID, (Reported) Scheduled PRN Acetaminophen* (Acetaminophen 325MG Tablet*), 325 MG ORAL Q6H PRN for For Pain, (Reported) Docusate Sodium* (Docusate Sodium*), 100 MG ORAL TWICE A DAY PRN for Constipation, (Reported) Hydrocodone Bit/Acetaminophen 5-325* (Herman 5-325*), 1 TAB ORAL BID PRN for For Pain, (Reported) Loperamide Hcl (Loperamide), 2 MG PO QID PRN for Diarrhea, (Reported) Metoclopramide Hcl* (Metoclopramide Hcl*), 5 MG ORAL EVERY 6 HOURS PRN for Nausea & Vomiting, (Reported) Ondansetron (Zofran), 4 MG ORAL Q6H PRN for Nausea & Vomiting, (Reported) Patient History Healthcare decision maker Resuscitation status Advanced Directive on File No Physical Exam Last 24 Hour Vital Signs Date Time Temp Pulse Resp B/P (MAP) Pulse Ox O2 Delivery O2 Flow Rate FiO2 09/18/18 12:00 98.4 63 17 151/71 (97) 94 09/18/18 09:45 161/74 09/18/18 09:00 64 161/74 09/18/18 09:00 64 161/74 09/18/18 09:00 Nasal Cannula 2.0 09/18/18 08:00 97.8 64 17 161/74 (103) 95 09/18/18 04:08 98.3 64 16 139/63 (88) 96 09/18/18 00:00 98.2 65 16 151/67 (95) 98 09/17/18 21:14 72 178/77 09/17/18 21:00 Nasal Cannula 2.0 09/17/18 20:06 99.2 72 17 178/77 (110) 96 09/17/18 18:07 69 153/71 Intake and Output 09/17/18 09/18/18 19:00 07:00 Intake Total 240 ml 360 ml Balance 240 ml 360 ml Intake Oral 240 ml 360 ml # Voids 1 4 # Bowel Movements 2 Laboratory Tests Test 09/18/18 06:00 Hepatitis B Surface Antigen Pending Height (Feet): 5 Height (Inches): 2.00 Weight (Pounds): 146 Medications Current Medications Medications (Trade) Dose Ordered Sig/Rogelio Route PRN Reason Start Time Stop Time Status Last Admin Dose Admin Acetaminophen (Tylenol) 650 mg Q6H PRN ORAL For Pain 09/17/18 17:15 10/16/18 17:14 09/18/18 12:28 Amlodipine Besylate (Norvasc) 5 mg BID ORAL 09/17/18 18:00 10/17/18 08:59 09/17/18 18:07 Aspirin (Ecotrin) 81 mg DAILY ORAL 09/18/18 09:00 10/17/18 08:59 09/18/18 09:06 Atorvastatin Calcium (Lipitor) 80 mg BEDTIME ORAL 09/17/18 21:00 10/17/18 20:59 09/17/18 21:14 Carvedilol (Coreg) 12.5 mg EVERY 12 HOURS ORAL 09/17/18 21:00 10/17/18 20:59 09/17/18 21:14 Docusate Sodium (Colace) 100 mg TID ORAL 09/17/18 13:00 10/16/18 17:59 09/18/18 09:06 Gabapentin (Neurontin) 100 mg THREE TIMES A DAY ORAL 09/17/18 13:00 10/17/18 12:59 09/18/18 12:26 Hydralazine HCl (Apresoline) 25 mg Q6H PRN ORAL SBP>160 09/18/18 16:15 10/18/18 16:14 Levothyroxine Sodium (Synthroid) 50 mcg DAILY@0630 ORAL 09/19/18 06:30 10/19/18 06:29 Lisinopril (Zestril) 10 mg DAILY ORAL 09/18/18 09:45 10/18/18 09:44 Metoclopramide HCl (Reglan) 10 mg Q6H PRN IVP Nausea & Vomiting 09/17/18 17:00 10/16/18 16:59 Pantoprazole (Protonix) 40 mg Q12HR ORAL 09/17/18 21:00 10/17/18 08:59 09/18/18 09:06 Sertraline HCl (Zoloft) 150 mg DAILY ORAL 09/18/18 09:00 10/17/18 08:59 09/18/18 09:07 Sevelamer Carbonate (Renvela) 1,600 mg THREE TIMES A DAY ORAL 09/17/18 13:00 10/16/18 17:59 09/18/18 12:26 Assessment/Plan Assessment/Plan: HEMATOLOGY/ONCOLOGY CONSULTATION DATE OF CONSULT: 09/18/2018 REFERRING PHYSICIAN; irving Nam REASON FOR CONSULT: Anemia, thrombocytopenia ID 53 year old woman with ESRD on HD MWF, HTN, type 2 DM who presented to the ED today with complaints of chest pain x 1 day. Patient states that she has had some headache intermittently for the last couple weeks but it progressively became worse since yesterday. Denies any prior history of headache this severe. Denies any fever or chills. Complains of nausea, vomiting and diarrhea. Denies any chest pain or shortness of breath. CBC revealed an Hgb of 10.6 and Plt count of 79. Hematology services were consulted for the evaluation of anemia and thrombocytopenia. I saw her before and she yang s a history of pancytopenia from prior admission. Past Medical History: DM, HTN, renal disease, dialysis - Right upper extremity AV fistula Past Surgical History: other - Right upper extremity AV fistula SOCIAL HX: No alcohol or tobacco FAMILY HX: Noncontributory Allergies: No Known Allergies Medication History Scheduled Atorvastatin Calcium* (Lipitor*), 80 MG ORAL BEDTIME, (Reported) Carvedilol* (Carvedilol*), 12.5 MG ORAL EVERY 12 HOURS, (Reported) Gabapentin* (Gabapentin*), 400 MG ORAL THREE TIMES A DAY, (Reported) Hydrocodone Bit/Acetaminophen 5-325* (Herman 5-325*), 1 TAB ORAL TWICE A DAY, ( Reported) Loperamide HCl (Loperamide), 2 MG ORAL Q4H, (Reported) Metoclopramide Hcl* (Reglan*), 5 MG ORAL EVERY 6 HOURS, (Reported) Sertraline Hcl* (Zoloft*), 150 MG ORAL DAILY, (Reported) Sevelamer Carbonate* (Renvela*), 800 MG ORAL THREE TIMES A DAY, (Reported) Scheduled PRN Acetaminophen* (Acetaminophen 325MG Tablet*), 325 MG ORAL Q6H PRN for For Pain, (Reported) Miscellaneous Medications Calcium Carbonate (Calcium), 500 MG PO, (Reported) Isosorb Dinit/Hydralazine Hcl (Bidil Tablet), 1 EACH PO, (Reported) ROS Constitutional: Denies: chills Eye: Denies: eye pain, blurred vision, tearing ENT: Denies: ear pain Respiratory: Denies: cough Cardiovascular: Denies: chest pain, edema Gastrointestinal: Reports: diarrhea, nausea; Denies: abdominal pain Genitourinary: Denies: discharge, dysuria Musculoskeletal: Denies: back pain PE General Appearance: no apparent distress, alert HEENT: atraumatic, anicteric Neck: normal alignment, supple Respiratory/Chest: lungs clear, normal breath sounds, no respiratory distress Cardiovascular/Chest: normal rate, regular rhythm Abdomen: soft, no organomegaly, other - Mild diffuse tenderness Extremities: non-tender, normal inspection 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 Negative for acute intracranial bleed or mass effect. Minimal sinus disease LABS: 08/16: wbc 5.3 hgb 10.6 plt 79 Assessment/Plan: # Pancytopenia - potential causes multifactorial, evaluate liver and viral etiologies to begin, also could be related to underlying medications patient has received. Appears to be chronic, hepatitis and hiv are noth negative. US abd to evaluate for cirrhosis and hsm ordered from prior admission shows no cirrhosis --> Peripheral smear ordered to evaluate for blasts /schistocytes --> abx and other meds have been reviewed --> ok for ppx if plt >50k w/ either heparin or lovenox --> Transfuse if Plt < 20k and fever, or if Plt < 10k without fever --> wbc 5.5-->4.4 --> 93-->98k # Anemia of chronic disease due to underlying chronic medical issues, multifactorial --> Ferritin 400 --> Anemia workup has been ordered, rule out gi bleed --> No evidence of hemolysis is noted, peripheral smear has been reviewed. --> Hgb goal >7. Transfuse prn. --> Epogen or iron at this time is not particularly indicated --> Medications have been reviewed --> low threshold for gi evaluation in case has occult + # Intractable headache, status migrainosus. --> admit to medical service --> supportive care with anti-emetics, Percocet prn --> Neurology eval requested # Nausea, vomiting and diarrhea, more chronic in duration --> check stool studies including C. difficile # ESRD on HD --> Nephrology is following, appreciate recs. Hd as per renal --> continue Renagel # HTN # HL --> continue Coreg and Lipitor # Type 2 DM --> lispro SS # Depression --> continue Zoloft The time note was entered does not reflect time patient was examined. GREATLY APPRECIATE CONSULTATION. Mumtaz Herrera MD Sep 18, 2018 16:17
[2018-09-18] MEDS: HydrALAZINE 25mg tab ORAL PRN (16:18)
--- NOTE | 2018-09-18 18:00 | NUR ---
NURSE NOTES: PT FINISHED WITH DIALYSIS. 2L TAKEN OUT.
--- NOTE | 2018-09-18 19:05 | NUR ---
NURSE NOTES: DR TINAJERO MADE AWARE OF BP TRENDING DOWN. CURRENT BP 183/77, PULSE 69 WITH SCHEDULED COREG AT 2100HRS AND PRN HYDRALAZINE DUE AT 2200HRS. NO NEW ORDERS PER DR TINAJERO. MACIEJ DICKENS, MADE AWARE OF ELEVATED BP AND NO NEW ORDERS FROM DR TINAJERO.
--- NOTE | 2018-09-18 19:46 | NUR ---
HAND-OFF: Report given to Sarah MCINTYRE RN.
[2018-09-18] MEDS: Atorvastatin 80mg tab ORAL SCH (21:03)
--- NOTE | 2018-09-18 23:04 | General Progress Note ---
Assessment/Plan Status: stable Assessment/Plan: 53 year old F with PMH of HTN and ESRD on HD admitted for fluid overload and hyperkalemia 2/2 missed HD session #Fluid overload 2/2 ESRD noncomplaince with HD - symptoms improved -missed 3 sessions -Renal consult appreciated -s/p HD today #Hyperkalemia - improved -2/2 missed HD -received calcium, insulin and kayexcelate -HD yesterday -CTM #ESRD on HD -Nephrology consulted for HD management -continue Renagel #HTN #HL -continue Coreg and Lipitor - cont norvasc -Lisinopril added per renal #Type 2 DM -lispro SS #Depression -continue Zoloft Full Code VTE PPx Heparin Subjective Date patient seen: Sep 18, 2018 Allergies: Coded Allergies: No Known Allergies (Unverified , 08/15/18) Subjective s/p HD session last night, states she feels better, hypertensive during HD, hydralazine given with improvement, has no complaints Objective Last 24 Hour Vital Signs Date Time Temp Pulse Resp B/P (MAP) Pulse Ox O2 Delivery O2 Flow Rate FiO2 09/18/18 21:07 Nasal Cannula 2.0 09/18/18 21:02 69 183/81 09/18/18 20:24 98.0 69 18 183/81 (115) 96 09/18/18 18:00 69 183/77 (112) 09/18/18 17:10 64 204/83 09/18/18 16:18 204/83 09/18/18 15:45 64 204/83 (123) 09/18/18 12:00 98.4 63 17 151/71 (97) 94 09/18/18 09:45 161/74 09/18/18 09:00 64 161/74 09/18/18 09:00 64 161/74 09/18/18 09:00 Nasal Cannula 2.0 09/18/18 08:00 97.8 64 17 161/74 (103) 95 09/18/18 04:08 98.3 64 16 139/63 (88) 96 09/18/18 00:00 98.2 65 16 151/67 (95) 98 Intake and Output 09/17/18 09/18/18 19:00 07:00 Intake Total 240 ml 360 ml Balance 240 ml 360 ml Intake Oral 240 ml 360 ml # Voids 1 4 # Bowel Movements 2 Laboratory Tests 09/18/18 06:00: Hepatitis B Surface Antigen [Pending], Hepatitis B Surface Antibody, Quant [ Pending], Hepatitis C Antibody [Pending] Height (Feet): 5 Height (Inches): 2.00 Weight (Pounds): 146 Objective General Appearance: WD/WN, alert, mild distress Lines, tubes and drains: peripheral HEENT: normocephalic, atraumatic Neck: non-tender, normal alignment, supple Respiratory/Chest: chest wall non-tender, normal breath sounds, no respiratory distress Cardiovascular/Chest: normal peripheral pulses, normal rate, regular rhythm Abdomen: normal bowel sounds, non tender, soft, no organomegaly Extremities: normal range of motion, other - AV fistula R forearm Skin Exam: normal pigmentation 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
[2018-09-19 00:25] VITALS: BP 184/79
[2018-09-19] MEDS: HydrALAZINE 25mg tab ORAL PRN (00:29)
[2018-09-19 04:00] VITALS: BP 149/58
[2018-09-19 06:28] LABS: HEMATOCRIT 35.9 % (37.0-47.0); HEMOGLOBIN 10.7 G/DL (12.0-16.0); MEAN CORPUSCULAR VOLUME 89 FL (80-99); PLATELET COUNT 82 K/UL (150-450); RED BLOOD COUNT 4.05 M/UL (4.20-5.40); RED CELL DISTRIBUTION WIDTH 16.5 % (11.6-14.8); WHITE BLOOD COUNT 4.8 K/UL (4.8-10.8)
[2018-09-19 07:01] LABS: ALANINE AMINOTRANSFERASE 7 U/L (12-78); ALBUMIN 3.2 G/DL (3.4-5.0); ALBUMIN/GLOBULIN RATIO 0.8 (1.0-2.7); ALKALINE PHOSPHATASE 162 U/L (46-116); ANION GAP 11 mmol/L (5-15); ASPARTATE AMINO TRANSFERASE 17 U/L (15-37); BILIRUBIN,TOTAL 0.8 MG/DL (0.2-1.0); BLOOD UREA NITROGEN 33 mg/dL (7-18); CALCIUM 8.6 MG/DL (8.5-10.1); CARBON DIOXIDE 30 MMOL/L (21-32); CHLORIDE 96 MMOL/L (98-107); CREATININE 7.2 MG/DL (0.55-1.30); PHOSPHORUS 4.4 MG/DL (2.5-4.9); POTASSIUM 4.3 MMOL/L (3.5-5.1); SODIUM 136 MMOL/L (136-145)
--- NOTE | 2018-09-19 07:10 | NUR ---
HAND-OFF: Report given to Florencia Boyd RN.
--- NOTE | 2018-09-19 07:40 | NUR ---
NURSE NOTES: Received report from MACIEJ Jensen. Pt in bed, asleep, respiration unlabored, no apparent distress noted, bed in lowest position, call light within reach.
[2018-09-19 08:00] VITALS: BP 167/74
[2018-09-19] MEDS: Sertraline 50mg tab ORAL SCH (08:11)
[2018-09-19] MEDS: Renvela 800mg Pkt ORAL SCH ×3 (08:12→16:44)
[2018-09-19] MEDS: Aspirin EC 81mg tab ORAL SCH (08:12)
[2018-09-19] MEDS: Carvedilol 12.5mg tab ORAL SCH ×2 (08:13→21:26)
[2018-09-19] MEDS: Lisinopril 10mg tab ORAL SCH (08:14)
[2018-09-19] MEDS: Docusate 100mg cap ORAL SCH ×3 (08:14→16:44)
--- NOTE | 2018-09-19 10:46 | NUR ---
NURSE NOTES: 0935: Pt states she has urge to eat dirt and has been eating dirt for the last 2 years. She is complaining of abdominal pain and diarrhea. Pt did not eat breakfast this am, discussed importance of eating especially with HD medications. Pt agreed to eat yogurt. Called [facility] for yogurt. Administered Tylenol for pain. 1030: Asked Dr. Bowre for Lactobacillus order, order entered. 1045: Notified Dr. Nam of pt's situation in regards to above, asked about nutrition consult and any other orders. Notified Dr. Nam of last iron level 67 TIBC 184 as of 09/17/2018
--- NOTE | 2018-09-19 11:59 | Nephrology Progress Note ---
Assessment/Plan Problem List: (1) Hypertensive kidney disease (2) Anemia in CKD (chronic kidney disease) (3) ESRD (end stage renal disease) (4) Hyperkalemia, diminished renal excretion Plan HD 09/16 now K corrected HD again 09/18 and 09/20 Adjust BP meds- Add zestril to med surg per orders Subjective ROS Limited/Unobtainable: No Objective Objective Last 24 Hour Vital Signs Date Time Temp Pulse Resp B/P (MAP) Pulse Ox O2 Delivery O2 Flow Rate FiO2 09/19/18 10:03 98.5 09/19/18 09:00 Nasal Cannula 2.0 09/19/18 08:14 167/74 09/19/18 08:13 66 167/74 09/19/18 08:13 66 167/74 09/19/18 08:00 98.5 66 18 167/74 (105) 94 09/19/18 04:00 98.2 64 18 149/58 (88) 94 09/19/18 00:29 184/79 09/19/18 00:25 98.8 70 20 184/79 (114) 96 09/18/18 21:07 Nasal Cannula 2.0 09/18/18 21:02 69 183/81 09/18/18 20:24 98.0 69 18 183/81 (115) 96 09/18/18 18:00 69 183/77 (112) 09/18/18 17:10 64 204/83 09/18/18 16:18 204/83 09/18/18 15:45 64 204/83 (123) 09/18/18 12:00 98.4 63 17 151/71 (97) 94 Intake and Output 09/18/18 09/19/18 19:00 07:00 Intake Total 720 ml Balance 720 ml Intake Oral 720 ml # Voids 2 2 Laboratory Tests 09/19/18 05:12: White Blood Count 4.8, Red Blood Count 4.05L, Hemoglobin 10.7L, Hematocrit 35.9L , Mean Corpuscular Volume 89, Mean Corpuscular Hemoglobin 26.3L, Mean Corpuscular Hemoglobin Concent 29.7L, Red Cell Distribution Width 16.5H, Platelet Count 82L, Mean Platelet Volume 9.2, Neutrophils (%) (Auto) , Lymphocytes (%) (Auto) , Monocytes (%) (Auto) , Eosinophils (%) (Auto) , Basophils (%) (Auto) , Differential Total Cells Counted 100, Neutrophils % ( Manual) 62, Lymphocytes % (Manual) 25, Monocytes % (Manual) 10, Eosinophils % ( Manual) 2, Basophils % (Manual) 1, Band Neutrophils 0, Platelet Estimate DecreasedL, Platelet Morphology Normal, Hypochromasia 1+, Anisocytosis 1+, Sodium Level 136, Potassium Level 4.3, Chloride Level 96L, Carbon Dioxide Level 30, Anion Gap 11, Blood Urea Nitrogen 33H, Creatinine 7.2H, Estimat Glomerular Filtration Rate 5.9, Glucose Level 117H, Uric Acid 2.8, Calcium Level 8.6, Phosphorus Level 4.4, Total Bilirubin 0.8, Aspartate Amino Transf (AST/SGOT) 17 , Alanine Aminotransferase (ALT/SGPT) 7L, Alkaline Phosphatase 162H, C-Reactive Protein, Quantitative < 0.4, Pro-B-Type Natriuretic Peptide > 95670B, Total Protein 7.3, Albumin 3.2L, Globulin 4.1, Albumin/Globulin Ratio 0.8L Height (Feet): 5 Height (Inches): 2.00 Weight (Pounds): 144 General Appearance: no apparent distress Cardiovascular: normal rate Respiratory/Chest: lungs clear Abdomen: soft Objective no change James Bower MD Sep 19, 2018 11:59
[2018-09-19 12:00] VITALS: BP 137/79
[2018-09-19] MEDS: Lactobacillus-GG tablet ORAL SCH ×2 (12:18→16:43)
--- NOTE | 2018-09-19 12:45 | General Progress Note ---
Assessment/Plan Status: stable Assessment/Plan: 53 year old F with PMH of HTN and ESRD on HD admitted for fluid overload and hyperkalemia 2/2 missed HD session #Fluid overload 2/2 ESRD noncomplaince with HD - symptoms improved -missed 3 sessions -Renal consult appreciated -HD per renal #Hyperkalemia - resolved -2/2 missed HD -received calcium, insulin and kayexcelate -HD yesterday -CTM #ESRD on HD -Nephrology consulted for HD management -continue Renagel #HTN #HL -continue Coreg and Lipitor - cont norvasc -Lisinopril added per renal #Type 2 DM -lispro SS #Depression -continue Zoloft Dispo -DC in Am with Full Code VTE PPx Heparin Subjective Date patient seen: Sep 19, 2018 Allergies: Coded Allergies: No Known Allergies (Unverified , 08/15/18) Subjective s/p HD session yesterday, states she feels better, BP improved, has no complaints, plan for DC in AM with Objective Last 24 Hour Vital Signs Date Time Temp Pulse Resp B/P (MAP) Pulse Ox O2 Delivery O2 Flow Rate FiO2 09/19/18 12:00 98.5 70 19 137/79 (98) 96 09/19/18 10:03 98.5 09/19/18 09:00 Nasal Cannula 2.0 09/19/18 08:14 167/74 09/19/18 08:13 66 167/74 09/19/18 08:13 66 167/74 09/19/18 08:00 98.5 66 18 167/74 (105) 94 09/19/18 04:00 98.2 64 18 149/58 (88) 94 09/19/18 00:29 184/79 09/19/18 00:25 98.8 70 20 184/79 (114) 96 09/18/18 21:07 Nasal Cannula 2.0 09/18/18 21:02 69 183/81 09/18/18 20:24 98.0 69 18 183/81 (115) 96 09/18/18 18:00 69 183/77 (112) 09/18/18 17:10 64 204/83 09/18/18 16:18 204/83 09/18/18 15:45 64 204/83 (123) Intake and Output 09/18/18 09/19/18 19:00 07:00 Intake Total 720 ml Balance 720 ml Intake Oral 720 ml # Voids 2 2 Laboratory Tests 09/19/18 05:12: White Blood Count 4.8, Red Blood Count 4.05L, Hemoglobin 10.7L, Hematocrit 35.9L , Mean Corpuscular Volume 89, Mean Corpuscular Hemoglobin 26.3L, Mean Corpuscular Hemoglobin Concent 29.7L, Red Cell Distribution Width 16.5H, Platelet Count 82L, Mean Platelet Volume 9.2, Neutrophils (%) (Auto) , Lymphocytes (%) (Auto) , Monocytes (%) (Auto) , Eosinophils (%) (Auto) , Basophils (%) (Auto) , Differential Total Cells Counted 100, Neutrophils % ( Manual) 62, Lymphocytes % (Manual) 25, Monocytes % (Manual) 10, Eosinophils % ( Manual) 2, Basophils % (Manual) 1, Band Neutrophils 0, Platelet Estimate DecreasedL, Platelet Morphology Normal, Hypochromasia 1+, Anisocytosis 1+, Sodium Level 136, Potassium Level 4.3, Chloride Level 96L, Carbon Dioxide Level 30, Anion Gap 11, Blood Urea Nitrogen 33H, Creatinine 7.2H, Estimat Glomerular Filtration Rate 5.9, Glucose Level 117H, Uric Acid 2.8, Calcium Level 8.6, Phosphorus Level 4.4, Total Bilirubin 0.8, Aspartate Amino Transf (AST/SGOT) 17 , Alanine Aminotransferase (ALT/SGPT) 7L, Alkaline Phosphatase 162H, C-Reactive Protein, Quantitative < 0.4, Pro-B-Type Natriuretic Peptide > 15669U, Total Protein 7.3, Albumin 3.2L, Globulin 4.1, Albumin/Globulin Ratio 0.8L Height (Feet): 5 Height (Inches): 2.00 Weight (Pounds): 144 Objective General Appearance: WD/WN, alert, mild distress Lines, tubes and drains: peripheral HEENT: normocephalic, atraumatic Neck: non-tender, normal alignment, supple Respiratory/Chest: chest wall non-tender, normal breath sounds, no respiratory distress Cardiovascular/Chest: normal peripheral pulses, normal rate, regular rhythm Abdomen: normal bowel sounds, non tender, soft, no organomegaly Extremities: normal range of motion, other - AV fistula R forearm Skin Exam: normal pigmentation 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
--- NOTE | 2018-09-19 14:25 | NUR ---
NURSE NOTES: Called [facility] for scheduled Dialysis tomorrow
[2018-09-19 16:00] VITALS: BP 141/83
--- NOTE | 2018-09-19 18:53 | Neurology Progress Note ---
Interim History Interim History ROS Limited/Unobtainable: Yes Complaints: RAMÍREZ improved, reports weakness generalied Review of Systems All Systems: reviewed and negative except above Objective Physical Exam Last Vital Signs Date Time Temp Pulse Resp B/P (MAP) Pulse Ox O2 Delivery O2 Flow Rate FiO2 09/19/18 16:43 76 141/83 09/19/18 16:00 98.8 19 96 09/19/18 09:00 Nasal Cannula 2.0 Laboratory Tests Test 09/19/18 05:12 White Blood Count 4.8 K/UL (4.8-10.8) Red Blood Count 4.05 M/UL (4.20-5.40) L Hemoglobin 10.7 G/DL (12.0-16.0) L Hematocrit 35.9 % (37.0-47.0) L Mean Corpuscular Volume 89 FL (80-99) Mean Corpuscular Hemoglobin 26.3 PG (27.0-31.0) L Mean Corpuscular Hemoglobin Concent 29.7 G/DL (32.0-36.0) L Red Cell Distribution Width 16.5 % (11.6-14.8) H Platelet Count 82 K/UL (150-450) L Mean Platelet Volume 9.2 FL (6.5-10.1) Neutrophils (%) (Auto) % (45.0-75.0) Lymphocytes (%) (Auto) % (20.0-45.0) Monocytes (%) (Auto) % (1.0-10.0) Eosinophils (%) (Auto) % (0.0-3.0) Basophils (%) (Auto) % (0.0-2.0) Differential Total Cells Counted 100 Neutrophils % (Manual) 62 % (45-75) Lymphocytes % (Manual) 25 % (20-45) Monocytes % (Manual) 10 % (1-10) Eosinophils % (Manual) 2 % (0-3) Basophils % (Manual) 1 % (0-2) Band Neutrophils 0 % (0-8) Platelet Estimate Decreased L Platelet Morphology Normal Hypochromasia 1+ Anisocytosis 1+ Sodium Level 136 MMOL/L (136-145) Potassium Level 4.3 MMOL/L (3.5-5.1) Chloride Level 96 MMOL/L (98-107) L Carbon Dioxide Level 30 MMOL/L (21-32) Anion Gap 11 mmol/L (5-15) Blood Urea Nitrogen 33 mg/dL (7-18) H Creatinine 7.2 MG/DL (0.55-1.30) H Estimat Glomerular Filtration Rate 5.9 mL/min (>60) Glucose Level 117 MG/DL (74-106) H Uric Acid 2.8 MG/DL (2.6-7.2) Calcium Level 8.6 MG/DL (8.5-10.1) Phosphorus Level 4.4 MG/DL (2.5-4.9) Total Bilirubin 0.8 MG/DL (0.2-1.0) Aspartate Amino Transf (AST/SGOT) 17 U/L (15-37) Alanine Aminotransferase (ALT/SGPT) 7 U/L (12-78) L Alkaline Phosphatase 162 U/L (46-116) H C-Reactive Protein, Quantitative < 0.4 mg/dL (0.00-0.90) Pro-B-Type Natriuretic Peptide > 53437 pg/mL (0-125) H Total Protein 7.3 G/DL (6.4-8.2) Albumin 3.2 G/DL (3.4-5.0) L Globulin 4.1 g/dL Albumin/Globulin Ratio 0.8 (1.0-2.7) L Impression/Recommendations Problems: (1) Status migrainosus (2) History of migraine headaches (3) Hyperkalemia, diminished renal excretion (4) ESRD (end stage renal disease) (5) Hypertensive kidney disease (6) Anemia in CKD (chronic kidney disease) Status: stable Diagnostic Impression Acute encephalopathy - improving Tension type headache PT OT Delirium precautions Tylenol PRn for RAMÍREZ Will follow peripherally Adriano Gaines MD Sep 19, 2018 18:53
--- NOTE | 2018-09-19 19:30 | NUR ---
NURSE NOTES: RECEIVED PATIENT LYING IN BED,AWAKE,ALERT/ORIENTED X3, VERBALLY RESPONSIVE, SAMMARINESE SPEAKING, ABLE TO SIMPLE NEEDS KNOWN IN SAMMARINESE, DENIES CHEST PAIN. HD PATIENT/RIGHT FOREARM AV SHUNT, BRUIT AUDIBLE/THRILL PALPABLE, DRESSING DRY AND INTACT, NO SIGNS OF BLEEDING. HD SCHEDULED 09/20/18, PATIENT AWARE. ABDOMEN SOFT/NON DISTENDED, C/O DIARRHEA, MD AWARE, C DIFF NEGATIVE. DRESSING DRY AND INTACT TO LEFT LATERAL FOOT, NURSE REPORTED INTACT BLISTER. CONTINUE WITH CURRENT PLAN OF CARE. SIDE RAILS UP X3/BED IN LOWEST POSITION FOR SAFETY. CALL LIGHT WITHIN REACH. NAD.
--- NOTE | 2018-09-19 19:32 | NUR ---
HAND-OFF: Report given to MANJINDER Hernandez.
[2018-09-19 20:00] VITALS: BP_SYST 116; BP_SYST 157; BP_DIAS 77; BP_DIAS 78
[2018-09-19] MEDS: Atorvastatin 80mg tab ORAL SCH (21:26)
[2018-09-20] VITALS (7 sets, daily range): BP systolic 130–172; BP diastolic 68–77
--- NOTE | 2018-09-20 01:15 | Consultation ---
DATE OF CONSULTATION: 09/19/2018 HISTORY OF PRESENT ILLNESS: The patient is a 53-year-old female with a history of depression. She is Slovenian Speaking. I was asked by Dr. Khalil to see the patient. The patient is presenting with depressed mood, anhedonia, worthlessness, hopelessness, and decreased energy. The patient is having anxiety and is withdrawn. Denied any suicidal or homicidal ideations. No psychotic symptoms. The patient stated that her life "is a mess." The patient is hopeless and helpless. Denied any suicidal or homicidal ideations. PAST PSYCHIATRIC HISTORY: Depression. The patient has been on Zoloft. The patient is denying any suicide attempt. PAST MEDICAL HISTORY: Significant for hyperkalemia, ESRD, hypertensive kidney disease, anemia, and migraine headaches. ALLERGIES: No known drug allergies. SUBSTANCE ABUSE HISTORY: No known history of illicit drug use or alcohol. MENTAL STATUS EXAMINATION: The patient is alert and oriented times self, place, and situation. She is Slovenian speaking. Mood is depressed and anxious. Affect is constricted. Congruent with mood. Thought process is concrete. Thought content, no suicidal or homicidal ideations. ASSESSMENT: AXIS I: Major depressive disorder. PLAN: 1. We will continue with the Zoloft 150 mg in the morning. 2. Start the patient on Wellbutrin 150 mg in the morning. 3. Provide the patient with reality orientation and supportive therapy. 4. We will continue follow and readjust the medications. Edward Jacobo M.D. DR: Shantanu JOB#: [id number] CC:
--- NOTE | 2018-09-20 06:43 | NUR ---
NURSE NOTES: RESTED WELL, NO SIGNIFICANT CHANGE OF CONDITION NOTED THROUGHOUT THE NIGHT. SAFETY MAINTAINED. NAD.
--- NOTE | 2018-09-20 07:30 | NUR ---
NURSE NOTES: RECEIVED PATIENT LYING IN BED,AWAKE,ALERT/ORIENTED X3, ABLE TO VERBALIZE NEEDS. DUTCH SPEAKING, DENIES CHEST PAIN. HD PATIENT/RIGHT FOREARM AV SHUNT, BRUIT AUDIBLE/THRILL PALPABLE PRESENT. DRESSING DRY AND INTACT, NO SIGNS OF BLEEDING. HD SCHEDULED TODAY 09/20/18, PATIENT AWARE. ABDOMEN SOFT/NON DISTENDED, DRESSING DRY AND INTACT TO LEFT LATERAL FOOT, SIDE RAILS UP X3/BED IN LOWEST POSITION FOR SAFETY. CALL LIGHT WITHIN REACH. WILL CONTINUE WITH CURRENT PLAN OF CARE.
--- NOTE | 2018-09-20 07:38 | NUR ---
HAND-OFF: Report given to MANJINDER BREEN.
[2018-09-20] MEDS: Docusate 100mg cap ORAL SCH ×3 (08:48→17:04)
[2018-09-20] MEDS: Carvedilol 12.5mg tab ORAL SCH ×2 (08:48→21:22)
[2018-09-20] MEDS: Lactobacillus-GG tablet ORAL SCH ×3 (08:49→17:03)
[2018-09-20] MEDS: Renvela 800mg Pkt ORAL SCH ×3 (08:50→17:03)
[2018-09-20] MEDS: Lisinopril 10mg tab ORAL SCH (09:00)
[2018-09-20] MEDS: BuPROPion XL 150mg tab ORAL SCH (09:00)
[2018-09-20] MEDS: Aspirin EC 81mg tab ORAL SCH (09:00)
[2018-09-20] MEDS: Sertraline 50mg tab ORAL SCH (09:00)
--- NOTE | 2018-09-20 09:18 | NUR ---
PLUSH BRUSHERRN [employer]GR[employer] SI:FLUID OVERLOAD . ESRD VS: BP 152/73, 62, T 99.3, RR 18, SpO2 92 RBC 4.05, H&H 10.7/35.9, BUN 33, CR 7.2 IS:SYNTHROID 50mcg LIPITOR 80mg ZESTRIL 10mg ZOLOFT 150mg APRESOLINE 25mg MED/SURG STATUS
[2018-09-20] MEDS: Nephrovite tab (Rena-Vite) ORAL SCH (10:45)
--- NOTE | 2018-09-20 11:48 | GI Initial Consult Note ---
History of Present Illness General Date patient seen: Sep 20, 2018 Time patient seen: 11:44 Reason for Hospitalization: Chest Pain Referring physician: CASSI Reason for Consultation: DIARRHEA Present Illness HPI 53-year-old female presents ED for evaluation. Complaining of chest pain which started today. History of end-stage renal disease. Gets dialysis Sunday. States that she has not had dialysis for over a week because she got into argument with the nurse. Chest pain is sharp, midsternal, 5 out of 10, nonradiating. Denies shortness of breath. Denies fevers or chills. No other aggravating relieving factors. Denies any other associated symptoms GI consulted for persistent diarrhea. Patient seen, awake alert no apparent distress with no active signs or symptoms of nausea vomiting. Reported that the patient has been having persistent diarrhea. C. difficile was negative. Labs reviewed; H&H 10.7 and 35.9, alkaline phosphatase 162. Unknown history of endoscopic colonoscopy. Home Meds Reported Medications Sevelamer Carbonate* (RENVELA*) 0.8 Gm Powd.pack, 500 MG ORAL THREE TIMES A DAY , PACK 09/16/18 Losartan Potassium* (LOSARTAN POTASSIUM*) 50 Mg Tablet, 50 MG ORAL DAILY, TAB 09/16/18 Ondansetron (Zofran) 4 Mg Tablet, 4 MG ORAL Q6H PRN for Nausea & Vomiting, TAB 09/16/18 Aspirin (Aspirin EC) 81 Mg Tablet.dr, 81 MG ORAL DAILY, TAB 09/16/18 Ezetimibe (ZETIA*) 10 Mg Tablet, 10 MG ORAL BEDTIME, TAB 09/16/18 Amlodipine Besylate* (AMLODIPINE BESYLATE*) 5 Mg Tablet, 5 MG ORAL DAILY, TAB 09/16/18 Hydrocodone Bit/Acetaminophen 5-325* (NORCO 5-325*) 1 Each Tablet, 1 TAB ORAL BID PRN for For Pain, TAB 0 Refills 08/17/18 Isosorb Dinit/Hydralazine Hcl (BIDIL TABLET) 1 Each Tablet, 1 EACH PO THREE TIMES A DAY, TAB 08/17/18 Loperamide Hcl (LOPERAMIDE) 2 Mg Capsule, 2 MG PO QID PRN for Diarrhea, CAP 08/17/18 Metoclopramide Hcl* (METOCLOPRAMIDE HCL*) 5 Mg Tablet, 5 MG ORAL EVERY 6 HOURS PRN for Nausea & Vomiting, TAB 08/17/18 Sevelamer Hcl (RENAGEL) 800 Mg Tablet, 800 MG ORAL THREE TIMES A DAY, #90 TAB 0 Refills 08/17/18 Docusate Sodium* (DOCUSATE SODIUM*) 100 Mg Capsule, 100 MG ORAL TWICE A DAY PRN for Constipation, CAP 08/17/18 Valsartan (DIOVAN) 80 Mg Tab, 80 MG ORAL BID, TAB 08/17/18 Bacitracin Zinc* (BACITRACIN ZINC*) 1 Each Packet, 1 APPLIC TOPIC THREE TIMES A DAY, PACKET 08/17/18 Calcium Acetate (CALCIUM ACETATE) 667 Mg Capsule, 1334 MG PO TID for supplement , CAP 08/17/18 Carvedilol* (CARVEDILOL*) 12.5 Mg Tablet, 12.5 MG ORAL EVERY 12 HOURS, TAB 08/15/18 Gabapentin* (GABAPENTIN*) 400 Mg Capsule, 400 MG ORAL THREE TIMES A DAY, CAP 0 Refills 08/15/18 Sertraline Hcl* (ZOLOFT*) 50 Mg Tablet, 150 MG ORAL DAILY, TAB 08/15/18 Acetaminophen* (ACETAMINOPHEN 325MG TABLET*) 325 Mg Tablet, 325 MG ORAL Q6H PRN for For Pain, TAB 08/15/18 Atorvastatin Calcium* (LIPITOR*) 80 Mg Tablet, 80 MG ORAL BEDTIME, TAB 08/15/18 Med list reviewed/reconciled: Yes Allergies: Coded Allergies: No Known Allergies (Unverified , 08/15/18) Patient History Limited by: medical condition History Provided By: Medical Record PMH Narrative Past Medical History: DM, HTN, renal disease, dialysis Past Surgical History: none Pertinent Family History: none Social History: Denies: smoking, alcohol use, drug use Now: No Immunizations: UTD Reviewed Nursing Documentation: PMH: Agreed; PSxH: Agreed Nursing Documentation-PMH Hx Cardiac Problems: Yes Hx Hypertension: Yes Hx Diabetes: Yes Hx Dialysis: Yes - M,W,F Hx Headaches: Yes Social History: Denies: smoking, alcohol use, drug use, other Review of Systems All Other Systems: negative except mentioned in HPI Physical Exam Vital Signs Date Time Temp Pulse Resp B/P (MAP) Pulse Ox O2 Delivery O2 Flow Rate FiO2 09/16/18 12:46 97.9 94 19 161/73 (102) 97 Room Air 09/16/18 15:00 2.0 Sp02 EP Interpretation: reviewed, normal General Appearance: well appearing, no apparent distress, alert Head: normocephalic EENT: PERRL/EOMI, normal ENT inspection Neck: supple Respiratory: normal breath sounds, no respiratory distress Cardiovascular: normal rate Gastrointestinal: normal inspection, non tender, soft, normal bowel sounds, non -distended Rectal: deferred Genitourinary: no CVA tenderness Musculoskeletal: normal inspection, back normal Neurologic: normal inspection, alert, oriented x3, responsive Psychiatric: normal inspection, judgement/insight normal, memory normal Skin: normal inspection, normal color, no rash, warm/dry, palpation normal, well hydrated Lymphatic: normal inspection, no adenopathy Current Medications Current Medications Medications (Trade) Dose Ordered Sig/Rogelio Route PRN Reason Start Time Stop Time Status Last Admin Dose Admin Acetaminophen (Tylenol) 650 mg Q6H PRN ORAL For Pain 09/17/18 17:15 10/16/18 17:14 09/19/18 09:33 Amlodipine Besylate (Norvasc) 5 mg BID ORAL 09/17/18 18:00 10/17/18 08:59 09/19/18 16:43 Aspirin (Ecotrin) 81 mg DAILY ORAL 09/18/18 09:00 10/17/18 08:59 09/19/18 08:12 Atorvastatin Calcium (Lipitor) 80 mg BEDTIME ORAL 09/17/18 21:00 10/17/18 20:59 09/19/18 21:26 Bupropion HCl (Wellbutrin XL) 150 mg DAILY ORAL 09/20/18 09:00 10/20/18 08:59 Carvedilol (Coreg) 12.5 mg EVERY 12 HOURS ORAL 09/17/18 21:00 10/17/18 20:59 09/19/18 21:26 Docusate Sodium (Colace) 100 mg TID ORAL 09/17/18 13:00 10/16/18 17:59 09/18/18 09:06 Gabapentin (Neurontin) 100 mg THREE TIMES A DAY ORAL 09/17/18 13:00 10/17/18 12:59 09/19/18 16:43 Hydralazine HCl (Apresoline) 25 mg Q6H PRN ORAL SBP>160 09/18/18 16:15 10/18/18 16:14 09/19/18 00:29 Lactobacillus Acidophilus (Culturelle) 1 tab THREE TIMES A DAY ORAL 09/19/18 13:00 10/19/18 12:59 09/19/18 16:43 Levothyroxine Sodium (Synthroid) 50 mcg DAILY@0630 ORAL 09/19/18 06:30 10/19/18 06:29 09/20/18 06:42 Lisinopril (Zestril) 10 mg DAILY ORAL 09/18/18 09:45 10/18/18 09:44 09/19/18 08:14 Loperamide HCl (Imodium) 2 mg Q4H PRN ORAL Diarrhea 09/20/18 11:00 10/20/18 10:59 Metoclopramide HCl (Reglan) 10 mg Q6H PRN IVP Nausea & Vomiting 09/17/18 17:00 10/16/18 16:59 Pantoprazole (Protonix) 40 mg Q12HR ORAL 09/17/18 21:00 10/17/18 08:59 09/19/18 21:26 Sertraline HCl (Zoloft) 150 mg DAILY ORAL 09/18/18 09:00 10/17/18 08:59 09/19/18 08:11 Sevelamer Carbonate (Renvela) 1,600 mg THREE TIMES A DAY ORAL 09/17/18 13:00 10/16/18 17:59 09/19/18 16:44 Vitamin B Complex/ Vit C/Folic Acid (Nephrovite) 1 tab DAILY ORAL 09/20/18 10:45 10/20/18 10:44 GI: Plan Problems: (1) Diarrhea (2) Dehydration (3) Electrolyte imbalance (4) Anemia in CKD (chronic kidney disease) Plan C. difficile negative Imodium as needed, Lomotil for persistent diarrhea Will consider colonoscopy if still inpatient IV and p.o. hydration Electrolyte correction per nephro Zofran as needed Pain management Discussed with Dr. Go. Thank you for this patient referral, we will follow. The patient was seen and examined at bedside and all new and available data was reviewed in the patients chart. I agree with the above findings, impression and plan. (Patient seen earlier today. Signature stamp does not reflect patient encounter time.). - MD Marge [facility] Sep 20, 2018 11:48
[2018-09-20] MEDS ORDERED: Loperamide 2mg cap ORAL PRN (12:00)
--- NOTE | 2018-09-20 12:01 | Nephrology Progress Note ---
Assessment/Plan Problem List: (1) Hypertensive kidney disease (2) Anemia in CKD (chronic kidney disease) (3) ESRD (end stage renal disease) (4) Hyperkalemia, diminished renal excretion Plan HD 09/16 now K corrected HD again 09/18 and 09/20 next HD 09/23 Adjust BP meds- Add zestril to med surg per orders Subjective ROS Limited/Unobtainable: No Objective Objective Last 24 Hour Vital Signs Date Time Temp Pulse Resp B/P (MAP) Pulse Ox O2 Delivery O2 Flow Rate FiO2 09/20/18 09:00 152/73 09/20/18 09:00 Nasal Cannula 2.0 09/20/18 08:49 60 152/73 09/20/18 08:48 60 152/73 09/20/18 08:00 97.6 60 18 152/73 (99) 92 09/20/18 04:00 98.6 60 18 136/68 (90) 97 09/20/18 01:22 99.3 62 18 132/71 (91) 96 09/20/18 00:00 99.3 62 18 132/71 (91) 96 09/19/18 21:26 62 157/77 09/19/18 20:32 Nasal Cannula 2.0 09/19/18 20:00 98.3 62 19 157/77 (103) 98 09/19/18 16:43 76 141/83 09/19/18 16:00 98.8 76 19 141/83 (102) 96 09/19/18 12:00 98.5 70 19 137/79 (98) 96 Intake and Output 09/19/18 09/20/18 18:59 06:59 Intake Total 800 ml 180 ml Balance 800 ml 180 ml Intake Oral 800 ml 180 ml # Voids 3 # Bowel Movements 1 1 Height (Feet): 5 Height (Inches): 2.00 Weight (Pounds): 138 General Appearance: no apparent distress Cardiovascular: normal rate Respiratory/Chest: decreased breath sounds Abdomen: soft Objective no change James Bower MD Sep 20, 2018 12:01
--- NOTE | 2018-09-20 12:59 | Neurology Progress Note ---
Interim History Interim History ROS Limited/Unobtainable: No Complaints: RAMÍREZ improved, reports weakness generalied Interim History no RAMÍREZ today undergoing HD Oriented Objective Physical Exam Last Vital Signs Date Time Temp Pulse Resp B/P (MAP) Pulse Ox O2 Delivery O2 Flow Rate FiO2 09/20/18 09:00 152/73 09/20/18 09:00 Nasal Cannula 2.0 09/20/18 08:49 60 09/20/18 08:00 97.6 18 92 Impression/Recommendations Problems: (1) Status migrainosus (2) History of migraine headaches (3) Hyperkalemia, diminished renal excretion (4) ESRD (end stage renal disease) (5) Hypertensive kidney disease (6) Anemia in CKD (chronic kidney disease) Status: stable Diagnostic Impression Acute encephalopathy - improving Tension type headache PT OT Delirium precautions Tylenol PRn for RAMÍREZ Will follow peripherally Adriano Gaines MD Sep 20, 2018 12:59
[2018-09-20] MEDS: HydrALAZINE 25mg tab ORAL PRN ×2 (13:03→20:13)
--- NOTE | 2018-09-20 14:10 | Consultation ---
History of Present Illness General Date patient seen: Sep 20, 2018 Reason for Hospitalization: Chest Pain Present Illness HPI This is a very pleasant 53 year old female who presented with CT and headache. Admitted for care and management. during admission began to develop abdominal pain. Intermittent nausea, no emesis. Surgery called to evaluate and assist with care. patient seen, chart reviewed, patient examined. currently states not very hungry. pain cramping abdominal discomfort. labs noted. states has been having diarrhea for a few days now and discomfort mainly with diarrhea. states after meals has diarrhea soon after. Allergies: Coded Allergies: No Known Allergies (Unverified , 08/15/18) Medication History Scheduled Amlodipine Besylate* (Amlodipine Besylate*), 5 MG ORAL DAILY, (Reported) Aspirin (Aspirin EC), 81 MG ORAL DAILY, (Reported) Atorvastatin Calcium* (Lipitor*), 80 MG ORAL BEDTIME, (Reported) Bacitracin Zinc* (Bacitracin Zinc*), 1 APPLIC TOPIC THREE TIMES A DAY, (Reported ) Calcium Acetate (Calcium Acetate), 1,334 MG PO TID, (Reported) Carvedilol* (Carvedilol*), 12.5 MG ORAL EVERY 12 HOURS, (Reported) Ezetimibe (Zetia*), 10 MG ORAL BEDTIME, (Reported) Gabapentin* (Gabapentin*), 400 MG ORAL THREE TIMES A DAY, (Reported) Isosorb Dinit/Hydralazine Hcl (Bidil Tablet), 1 EACH PO THREE TIMES A DAY, ( Reported) Losartan Potassium* (Losartan Potassium*), 50 MG ORAL DAILY, (Reported) Sertraline Hcl* (Zoloft*), 150 MG ORAL DAILY, (Reported) Sevelamer Carbonate* (Renvela*), 500 MG ORAL THREE TIMES A DAY, (Reported) Sevelamer Hcl (Renagel), 800 MG ORAL THREE TIMES A DAY, (Reported) Valsartan (Diovan), 80 MG ORAL BID, (Reported) Scheduled PRN Acetaminophen* (Acetaminophen 325MG Tablet*), 325 MG ORAL Q6H PRN for For Pain, (Reported) Docusate Sodium* (Docusate Sodium*), 100 MG ORAL TWICE A DAY PRN for Constipation, (Reported) Hydrocodone Bit/Acetaminophen 5-325* (Sumner 5-325*), 1 TAB ORAL BID PRN for For Pain, (Reported) Loperamide Hcl (Loperamide), 2 MG PO QID PRN for Diarrhea, (Reported) Metoclopramide Hcl* (Metoclopramide Hcl*), 5 MG ORAL EVERY 6 HOURS PRN for Nausea & Vomiting, (Reported) Ondansetron (Zofran), 4 MG ORAL Q6H PRN for Nausea & Vomiting, (Reported) Patient History History Provided By: Patient, Medical Record, PMD Healthcare decision maker Resuscitation status Advanced Directive on File No Past Medical/Surgical History Past Medical/Surgical History: (1) Abdominal pain (2) Hyperkalemia, diminished renal excretion (3) ESRD (end stage renal disease) (4) Hypertensive kidney disease (5) Anemia in CKD (chronic kidney disease) (6) Status migrainosus (7) History of migraine headaches (8) Dehydration (9) Diarrhea (10) Electrolyte imbalance Review of Systems Review of Symptoms General ROS: no weight loss or fever Psychological ROS: no depression or mood changes, no memory loss Ophthalmic ROS: no visual changes or eye irritation ENT ROS: no nasal congestion, hearing loss, dizziness Allergy and Immunology ROS: no allergic symptoms or urticaria Hematological and Lymphatic ROS: no swollen glands, unusual bleeding or bruising Endocrine ROS: no polyuria, polydipsia, weight changes, temperature intolerance Respiratory ROS: no cough, shortness of breath, or wheezing Cardiovascular ROS: no chest pain or dyspnea on exertion Gastrointestinal ROS: abdominal pain, diarrhea Musculoskeletal ROS: no myalgias or arthralgias Neurological ROS: no TIA or stroke symptoms Dermatological ROS: no new or changing skin lesions, rashes or pruritis Physical Exam Physical Exam General appearance: alert, cooperative, no distress, appears stated age Head: Normocephalic, without obvious abnormality, atraumatic Eyes: conjunctivae/corneas clear. PERRL, EOM's intact. Fundi benign Throat: Lips, mucosa, and tongue normal. Teeth and gums normal Neck: supple, symmetrical, trachea midline, no adenopathy, thyroid: not enlarged, symmetric, no tenderness/mass/nodules, no carotid bruit and no JVD Lungs: clear to auscultation bilaterally Heart: regular rate and rhythm, S1, S2 normal, no murmur, click, rub or gallop Abdomen: soft, non-tender. Bowel sounds normal. No masses, no organomegaly Extremities: extremities normal, atraumatic, no cyanosis or edema Pulses: 2+ and symmetric Skin: Skin color, texture, turgor normal. No rashes or lesions Neurologic: Grossly normal Last 24 Hour Vital Signs Date Time Temp Pulse Resp B/P (MAP) Pulse Ox O2 Delivery O2 Flow Rate FiO2 09/20/18 13:03 170/84 09/20/18 09:00 152/73 09/20/18 09:00 Nasal Cannula 2.0 09/20/18 08:49 60 152/73 09/20/18 08:48 60 152/73 09/20/18 08:00 97.6 60 18 152/73 (99) 92 09/20/18 04:00 98.6 60 18 136/68 (90) 97 09/20/18 01:22 99.3 62 18 132/71 (91) 96 09/20/18 00:00 99.3 62 18 132/71 (91) 96 09/19/18 21:26 62 157/77 09/19/18 20:32 Nasal Cannula 2.0 09/19/18 20:00 98.3 62 19 157/77 (103) 98 09/19/18 16:43 76 141/83 09/19/18 16:00 98.8 76 19 141/83 (102) 96 Intake and Output 09/19/18 09/20/18 19:00 07:00 Intake Total 800 ml 180 ml Balance 800 ml 180 ml Intake Oral 800 ml 180 ml # Voids 3 # Bowel Movements 1 1 Height (Feet): 5 Height (Inches): 2.00 Weight (Pounds): 138 Medications Current Medications Medications (Trade) Dose Ordered Sig/Rogelio Route PRN Reason Start Time Stop Time Status Last Admin Dose Admin Acetaminophen (Tylenol) 650 mg Q6H PRN ORAL For Pain 09/17/18 17:15 10/16/18 17:14 09/19/18 09:33 Amlodipine Besylate (Norvasc) 5 mg BID ORAL 09/17/18 18:00 10/17/18 08:59 09/19/18 16:43 Aspirin (Ecotrin) 81 mg DAILY ORAL 09/18/18 09:00 10/17/18 08:59 09/19/18 08:12 Atorvastatin Calcium (Lipitor) 80 mg BEDTIME ORAL 09/17/18 21:00 10/17/18 20:59 09/19/18 21:26 Bupropion HCl (Wellbutrin XL) 150 mg DAILY ORAL 09/20/18 09:00 10/20/18 08:59 Carvedilol (Coreg) 12.5 mg EVERY 12 HOURS ORAL 09/17/18 21:00 10/17/18 20:59 09/19/18 21:26 Docusate Sodium (Colace) 100 mg TID ORAL 09/17/18 13:00 10/16/18 17:59 09/18/18 09:06 Gabapentin (Neurontin) 100 mg THREE TIMES A DAY ORAL 09/17/18 13:00 10/17/18 12:59 09/19/18 16:43 Hydralazine HCl (Apresoline) 25 mg Q6H PRN ORAL SBP>160 09/18/18 16:15 10/18/18 16:14 09/20/18 13:03 Lactobacillus Acidophilus (Culturelle) 1 tab THREE TIMES A DAY ORAL 09/19/18 13:00 10/19/18 12:59 09/19/18 16:43 Levothyroxine Sodium (Synthroid) 50 mcg DAILY@0630 ORAL 09/19/18 06:30 10/19/18 06:29 09/20/18 06:42 Lisinopril (Zestril) 10 mg DAILY ORAL 09/18/18 09:45 10/18/18 09:44 09/19/18 08:14 Loperamide HCl (Imodium) 2 mg Q4H PRN ORAL Diarrhea 09/20/18 11:00 10/20/18 10:59 Metoclopramide HCl (Reglan) 10 mg Q6H PRN IVP Nausea & Vomiting 09/17/18 17:00 10/16/18 16:59 Pantoprazole (Protonix) 40 mg Q12HR ORAL 09/17/18 21:00 10/17/18 08:59 09/19/18 21:26 Sertraline HCl (Zoloft) 150 mg DAILY ORAL 09/18/18 09:00 10/17/18 08:59 09/19/18 08:11 Sevelamer Carbonate (Renvela) 1,600 mg THREE TIMES A DAY ORAL 09/17/18 13:00 10/16/18 17:59 09/19/18 16:44 Vitamin B Complex/ Vit C/Folic Acid (Nephrovite) 1 tab DAILY ORAL 09/20/18 10:45 10/20/18 10:44 Assessment/Plan Problem List: (1) Hyperkalemia, diminished renal excretion ICD Codes: E87.5 - Hyperkalemia SNOMED: 10620156 (2) ESRD (end stage renal disease) ICD Codes: N18.6 - End stage renal disease SNOMED: 36773300 (3) Hypertensive kidney disease ICD Codes: I12.9 - Hypertensive chronic kidney disease with stage 1 through stage 4 chronic kidney disease, or unspecified chronic kidney disease SNOMED: 75828692 (4) Anemia in CKD (chronic kidney disease) ICD Codes: N18.9 - Chronic kidney disease, unspecified; D63.1 - Anemia in chronic kidney disease SNOMED: 083776047 (5) Status migrainosus ICD Codes: G43.901 - Migraine, unspecified, not intractable, with status migrainosus SNOMED: 630437157 (6) History of migraine headaches ICD Codes: Z86.69 - Personal history of other diseases of the nervous system and sense organs SNOMED: 278363888 (7) Dehydration ICD Codes: E86.0 - Dehydration SNOMED: 04214206 (8) Diarrhea Assessment & Plan: C diff negative possible dietary stop all softeners GI input noted will monitor ICD Codes: R19.7 - Diarrhea, unspecified SNOMED: 79841603 (9) Electrolyte imbalance ICD Codes: E87.8 - Other disorders of electrolyte and fluid balance, not elsewhere classified SNOMED: 584525036 (10) Abdominal pain Assessment & Plan: cramping abdominal discomfort abd soft, nt/nd, bs + Imaging ordered will follow with serial exams thank you ICD Codes: R10.9 - Unspecified abdominal pain SNOMED: 27041720 Jeffy Corona Sep 20, 2018 14:10
--- NOTE | 2018-09-20 14:11 | NUR ---
[employer] REFUGE MANAGER NOTES CALLED [place] NICKERSON [phone] AND CONFIRMED PATIENT HAS DIALYSIS -- AT 3:30pm
--- NOTE | 2018-09-20 15:20 | NUR ---
P.T NOTE: P.T EVALUATION COMPLETED. PATIENT IS INDEPENDENT WITH ADL/FUNCTIONAL MOBILITIES AND GAIT/AMBULATION USING THE FWW. PATIENT'S CURRENT FUNCTIONAL STATUS DOES NOT WARRANT SKILLED P.T SERVICES PATIENT IS BASELINE INDEPENDENT. NO FURTHER SKILLED P.T FOLLOW UP NEEDED . D/C P.T SERVICES. THANK YOU FOR THIS REFERRAL.
[2018-09-20] MEDS: Loperamide 2mg cap ORAL PRN ×2 (17:03→23:24)
--- NOTE | 2018-09-20 18:01 | General Progress Note ---
Assessment/Plan Status: stable Assessment/Plan: 53 year old F with PMH of HTN and ESRD on HD admitted for fluid overload and hyperkalemia 2/2 missed HD session #Fluid overload 2/2 ESRD noncomplaince with HD - symptoms improved -missed 3 sessions -Renal consult appreciated -HD per renal #Hyperkalemia - resolved -2/2 missed HD -received calcium, insulin and kayexcelate -HD per renal -CTM #ESRD on HD -Nephrology consulted for HD management -continue Renagel #HTN #HL -continue Coreg and Lipitor - cont norvasc -Lisinopril added per renal #Type 2 DM -lispro SS #Depression -continue Zoloft Dispo -Placement Full Code VTE PPx Heparin Subjective Date patient seen: Sep 20, 2018 Allergies: Coded Allergies: No Known Allergies (Unverified , 08/15/18) Subjective States she feels better, BP improved, has no complaints, pt unable to go back to custodial due to complex health issues, CM consulted for placement, pt in agreeance. Objective Last 24 Hour Vital Signs Date Time Temp Pulse Resp B/P (MAP) Pulse Ox O2 Delivery O2 Flow Rate FiO2 09/20/18 17:03 68 158/77 09/20/18 16:00 98.2 68 18 158/77 (104) 93 09/20/18 14:00 97.5 62 18 130/75 (93) 95 09/20/18 13:03 170/84 09/20/18 09:00 152/73 09/20/18 09:00 Nasal Cannula 2.0 09/20/18 08:49 60 152/73 09/20/18 08:48 60 152/73 09/20/18 08:00 97.6 60 18 152/73 (99) 92 09/20/18 04:00 98.6 60 18 136/68 (90) 97 09/20/18 01:22 99.3 62 18 132/71 (91) 96 09/20/18 00:00 99.3 62 18 132/71 (91) 96 09/19/18 21:26 62 157/77 09/19/18 20:32 Nasal Cannula 2.0 09/19/18 20:00 98.3 62 19 157/77 (103) 98 Intake and Output 7/4/19 7/5/19 19:00 07:00 Intake Total 800 ml 180 ml Balance 800 ml 180 ml Intake Oral 800 ml 180 ml # Voids 3 # Bowel Movements 1 1 Height (Feet): 5 Height (Inches): 2.00 Weight (Pounds): 138 Objective General Appearance: WD/WN, alert, mild distress Lines, tubes and drains: peripheral HEENT: normocephalic, atraumatic Neck: non-tender, normal alignment, supple Respiratory/Chest: chest wall non-tender, normal breath sounds, no respiratory distress Cardiovascular/Chest: normal peripheral pulses, normal rate, regular rhythm Abdomen: normal bowel sounds, non tender, soft, no organomegaly Extremities: normal range of motion, other - AV fistula R forearm Skin Exam: normal pigmentation 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
--- NOTE | 2018-09-20 19:19 | NUR ---
HAND-OFF: Report given to Dina.
--- NOTE | 2018-09-20 19:45 | NUR ---
NURSE NOTES: RECEIVED PATIENT STANDING IN ROOM, ALERT/ORIENTED X3, VERBALLY RESPONSIVE. S/P HEMODIALYSIS, DRESSING DRY AND INTACT TO AV SHUNT, NO EVIDENCE OF BLEEDING. NO SIGNS AND SYMPTOMS OF ACUTE CARDIO RESPIRATORY DISTRESS/SHORTNESS OF BREATH, DENIES CHEST PAIN, NO PERIPHERAL EDEMA NOTED. NO REPORT OF GI DISCOMFORT, NO NAUSEA/VOMITING. DRESSING TO LEFT LATERAL FOOT DRY AND INTACT. ENCOURAGED PATIENT TO UTILIZE CALL LIGHT FOR ASSISTANCE, VERBALIZED UNDERSTANDING. NAD. CONTINUE WITH CURRENT PLAN OF CARE.
[2018-09-20] MEDS: Atorvastatin 80mg tab ORAL SCH (21:22)
--- NOTE | 2018-09-20 22:28 | NUR ---
NURSE NOTES: PATIENT WITH COMPLAINTS OF VAGINAL BLEEDING, UPON ASSESSMENT, NOTED MINIMAL AMOUNT OF PALE RED SUBSTANCE ON TISSUE, NO CLOTS NOTED; TELEPHONE CALL PLACED TO , TAMMIE COOLEY ROLL WEIGHER; STATED THAT PMD WILL OBTAIN SETTER UP CONSULT IN AM/GAVE ONE TIME ORDER FOR NORCO 5/325MG, PATIENT MADE AWARE, MD ALSO MADE AWARE THAT KUB IN AM SECONDARY TO ABDOMINAL PAIN.
[2018-09-20] MEDS ORDERED: HYDROcodone/Acetamin 5/325 tab ORAL SCH (22:30)
--- NOTE | 2018-09-20 23:33 | NUR ---
HAND-OFF: Report given to MACIEJ PETIT.
[2018-09-21] VITALS: BP 161/73
--- NOTE | 2018-09-21 00:30 | Progress Note ---
DATE: 09/20/2018 SUBJECTIVE: The patient is presenting with depressed mood, anhedonia, worthlessness, hopelessness, low energy, poor memory. MENTAL STATUS EXAMINATION: The patient is alert and oriented times self, place, and situation. Mood is dysphoric. Affect is constricted. Congruent with mood. Thought process is linear. Thought content, no suicidal or homicidal ideation. ASSESSMENT: 1. We will continue the current medication. 2. Continue the Wellbutrin. 3. Provide the patient with reality orientation and supportive therapy. Edward Jacobo M.D. DR: Shantanu JOB#: [id number] CC:
[2018-09-21] MEDS: HydrALAZINE 25mg tab ORAL PRN (02:06)
[2018-09-21 04:00] VITALS: BP 139/71
--- NOTE | 2018-09-21 07:20 | NUR ---
RD ASSESSMENT & RECOMMENDATIONS SEE CARE ACTIVITY FOR COMPLETE ASSESSMENT DAILY ESTIMATED NEEDS: Needs based on HD/ 65kg 25-30 kcals/kg 7762-2426 total kcals 1.2-1.8 g protein/kg 78-117 g total protein 20-22 mL/kg 7825-3345 total fluid mLs NUTRITION DIAGNOSIS: * Altered nutrition related lab values R/T ESRD as evidenced by critically elev K upon adm (8.5*-> now wnl), elev creat (7.2), elev BNP (>21133) * Altered GI function R/T possibly PICA (eating dirt) x 2-3 yrs per pt, as evidenced by c/o persistent diarrhea. CURRENT DIET:RENAL PO DIET RECOMMENDATIONS: RENAL + NEPRO BID + HIGH PROT SNACKS IN B/W MEALS ADDITIONAL RECOMMENDATIONS: * Standing wt for accurate CBW, obtain dry wt post HD * Psych eval for PICA (pt reports eating dirt x 2-3 yrs, about 3-4 times a day, last consumed 09/14) * Monitor renal fxn and lytes * Nephrovite x 1
--- NOTE | 2018-09-21 07:23 | NUR ---
HAND-OFF: Report given to MANJINDER Hutton.
[2018-09-21 07:33] LABS: HEMATOCRIT 38.3 % (37.0-47.0); HEMOGLOBIN 11.3 G/DL (12.0-16.0); MEAN CORPUSCULAR VOLUME 89 FL (80-99); PLATELET COUNT 89 K/UL (150-450); RED BLOOD COUNT 4.29 M/UL (4.20-5.40); RED CELL DISTRIBUTION WIDTH 16.2 % (11.6-14.8); WHITE BLOOD COUNT 5.3 K/UL (4.8-10.8)
--- NOTE | 2018-09-21 07:38 | NUR ---
NURSE NOTES: RECEIVED PATIENT A/A/OX4, VERBALLY RESPONSIVE. ABLE TO AMBULATE WITH STEADY GAIT THOUGH INSTRUCTED TO PRESS THE CALL LIGHT FOR ASSISTANCE. KEPT BED IN THE LOWEST POSITION. SIDERAILS ARE UP X2. AV SHUNT IS INTACT AND BRUIT PRESENT AND PALPATED. NO ACUTE RESP DISTRESS NOTED, NO PAIN/DISCOMFORT NOTED @ THIS TIME. WILL CONT TO MONITOR.
[2018-09-21 08:00] VITALS: BP 153/67
[2018-09-21 08:34] LABS: ALANINE AMINOTRANSFERASE 11 U/L (12-78); ALBUMIN 3.1 G/DL (3.4-5.0); ALBUMIN/GLOBULIN RATIO 0.8 (1.0-2.7); ALKALINE PHOSPHATASE 169 U/L (46-116); ANION GAP 7 mmol/L (5-15); ASPARTATE AMINO TRANSFERASE 17 U/L (15-37); BILIRUBIN,TOTAL 0.8 MG/DL (0.2-1.0); BLOOD UREA NITROGEN 25 mg/dL (7-18); CALCIUM 8.4 MG/DL (8.5-10.1); CARBON DIOXIDE 33 MMOL/L (21-32); CHLORIDE 97 MMOL/L (98-107); CREATININE 5.9 MG/DL (0.55-1.30); POTASSIUM 3.8 MMOL/L (3.5-5.1); SODIUM 137 MMOL/L (136-145)
[2018-09-21] MEDS: Aspirin EC 81mg tab ORAL SCH (08:50)
[2018-09-21] MEDS: Lisinopril 10mg tab ORAL SCH (08:50)
[2018-09-21] MEDS: Sertraline 50mg tab ORAL SCH (08:50)
[2018-09-21] MEDS: Lactobacillus-GG tablet ORAL SCH ×3 (08:51→17:28)
[2018-09-21] MEDS: Nephrovite tab (Rena-Vite) ORAL SCH (08:51)
[2018-09-21] MEDS: Carvedilol 12.5mg tab ORAL SCH ×2 (08:51→20:26)
[2018-09-21] MEDS: BuPROPion XL 150mg tab ORAL SCH (08:51)
[2018-09-21] MEDS: Renvela 800mg Pkt ORAL SCH ×3 (08:51→17:28)
[2018-09-21] MEDS: Docusate 100mg cap ORAL SCH ×3 (08:54→17:21)
--- NOTE | 2018-09-21 11:00 | Hematology/Onc Progress Note ---
Assessment/Plan Assessment/Plan Assessment/Plan: LATE ENTRY 09/20/2018 # Pancytopenia - potential causes multifactorial, evaluate liver and viral etiologies to begin, also could be related to underlying medications patient has received. Appears to be chronic, hepatitis and hiv are noth negative. US abd to evaluate for cirrhosis and hsm ordered from prior admission shows no cirrhosis --> Peripheral smear ordered to evaluate for blasts /schistocytes --> abx and other meds have been reviewed --> ok for ppx if plt >50k w/ either heparin or lovenox --> Transfuse if Plt < 20k and fever, or if Plt < 10k without fever --> wbc 5.5-->4.4 --> 93-->98k # Anemia of chronic disease due to underlying chronic medical issues, multifactorial --> Ferritin 400 --> Anemia workup has been ordered, rule out gi bleed --> No evidence of hemolysis is noted, peripheral smear has been reviewed. --> Hgb goal >7. Transfuse prn. --> Epogen or iron at this time is not particularly indicated --> Medications have been reviewed --> low threshold for gi evaluation in case has occult + # Intractable headache, status migrainosus. --> admit to medical service --> supportive care with anti-emetics, Percocet prn --> Neurology eval requested # Nausea, vomiting and diarrhea, more chronic in duration --> check stool studies including C. difficile # ESRD on HD --> Nephrology is following, appreciate recs. Hd as per renal --> continue Renagel # HTN # HL --> continue Coreg and Lipitor # Type 2 DM --> lispro SS # Depression --> continue Zoloft The time note was entered does not reflect time patient was examined. GREATLY APPRECIATE CONSULTATION. Subjective Allergies: Coded Allergies: No Known Allergies (Unverified , 08/15/18) Subjective Subjective: 09/20: pt resting in bed, no acute events. Objective Objective Current Medications Medications (Trade) Dose Ordered Sig/Rogelio Route PRN Reason Start Time Stop Time Status Last Admin Dose Admin Acetaminophen (Tylenol) 650 mg Q6H PRN ORAL For Pain 09/17/18 17:15 10/16/18 17:14 09/19/18 09:33 Amlodipine Besylate (Norvasc) 5 mg BID ORAL 09/17/18 18:00 10/17/18 08:59 09/21/18 08:51 Aspirin (Ecotrin) 81 mg DAILY ORAL 09/18/18 09:00 10/17/18 08:59 09/21/18 08:50 Atorvastatin Calcium (Lipitor) 80 mg BEDTIME ORAL 09/17/18 21:00 10/17/18 20:59 09/20/18 21:22 Bupropion HCl (Wellbutrin XL) 150 mg DAILY ORAL 09/20/18 09:00 10/20/18 08:59 09/21/18 08:51 Carvedilol (Coreg) 12.5 mg EVERY 12 HOURS ORAL 09/17/18 21:00 10/17/18 20:59 09/21/18 08:51 Docusate Sodium (Colace) 100 mg TID ORAL 09/17/18 13:00 10/16/18 17:59 09/18/18 09:06 Gabapentin (Neurontin) 100 mg THREE TIMES A DAY ORAL 09/17/18 13:00 10/17/18 12:59 09/21/18 08:51 Hydralazine HCl (Apresoline) 25 mg Q6H PRN ORAL SBP>160 09/18/18 16:15 10/18/18 16:14 09/21/18 02:06 Lactobacillus Acidophilus (Culturelle) 1 tab THREE TIMES A DAY ORAL 09/19/18 13:00 10/19/18 12:59 09/21/18 08:51 Levothyroxine Sodium (Synthroid) 50 mcg DAILY@0630 ORAL 09/19/18 06:30 10/19/18 06:29 09/21/18 05:58 Lisinopril (Zestril) 10 mg DAILY ORAL 09/18/18 09:45 10/18/18 09:44 09/21/18 08:50 Loperamide HCl (Imodium) 2 mg Q4H PRN ORAL Diarrhea 09/20/18 11:00 10/20/18 10:59 09/20/18 23:24 Metoclopramide HCl (Reglan) 10 mg Q6H PRN IVP Nausea & Vomiting 09/17/18 17:00 10/16/18 16:59 Pantoprazole (Protonix) 40 mg Q12HR ORAL 09/17/18 21:00 10/17/18 08:59 09/21/18 08:50 Sertraline HCl (Zoloft) 150 mg DAILY ORAL 09/18/18 09:00 10/17/18 08:59 09/21/18 08:50 Sevelamer Carbonate (Renvela) 1,600 mg THREE TIMES A DAY ORAL 09/17/18 13:00 10/16/18 17:59 09/21/18 08:51 Vitamin B Complex/ Vit C/Folic Acid (Nephrovite) 1 tab DAILY ORAL 09/20/18 10:45 10/20/18 10:44 09/21/18 08:51 Last 24 Hour Vital Signs Date Time Temp Pulse Resp B/P (MAP) Pulse Ox O2 Delivery O2 Flow Rate FiO2 09/21/18 09:00 Nasal Cannula 2.0 09/21/18 08:51 69 153/67 09/21/18 08:51 69 153/67 09/21/18 08:50 153/67 09/21/18 08:00 97.3 69 18 153/67 (95) 94 09/21/18 04:00 97.7 66 18 139/71 (93) 98 09/21/18 02:06 165/78 09/21/18 00:00 98.0 68 20 161/73 (102) 98 09/20/18 23:51 99.0 09/20/18 21:22 72 165/78 09/20/18 21:00 Nasal Cannula 2.0 09/20/18 20:13 177/75 09/20/18 20:00 99.0 69 18 172/75 (107) 94 09/20/18 17:03 68 158/77 09/20/18 16:00 98.2 68 18 158/77 (104) 93 09/20/18 14:00 97.5 62 18 130/75 (93) 95 09/20/18 13:03 170/84 09/20/18 09:00 152/73 09/20/18 09:00 Nasal Cannula 2.0 09/20/18 08:49 60 152/73 09/20/18 08:48 60 152/73 09/20/18 08:00 97.6 60 18 152/73 (99) 92 09/20/18 04:00 98.6 60 18 136/68 (90) 97 09/20/18 01:22 99.3 62 18 132/71 (91) 96 09/20/18 00:00 99.3 62 18 132/71 (91) 96 09/19/18 21:26 62 157/77 09/19/18 20:32 Nasal Cannula 2.0 09/19/18 20:00 98.3 62 19 157/77 (103) 98 09/19/18 16:43 76 141/83 09/19/18 16:00 98.8 76 19 141/83 (102) 96 09/19/18 12:00 98.5 70 19 137/79 (98) 96 Intake and Output 09/20/18 09/21/18 18:59 06:59 Intake Total 240 ml 240 ml Balance 240 ml 240 ml Intake Oral 240 ml 240 ml # Bowel Movements 1 1 Labs Test 09/19/18 05:12 09/21/18 05:25 White Blood Count 4.8 K/UL (4.8-10.8) 5.3 K/UL (4.8-10.8) Red Blood Count 4.05 M/UL (4.20-5.40) 4.29 M/UL (4.20-5.40) Hemoglobin 10.7 G/DL (12.0-16.0) 11.3 G/DL (12.0-16.0) Hematocrit 35.9 % (37.0-47.0) 38.3 % (37.0-47.0) Mean Corpuscular Volume 89 FL (80-99) 89 FL (80-99) Mean Corpuscular Hemoglobin 26.3 PG (27.0-31.0) 26.3 PG (27.0-31.0) Mean Corpuscular Hemoglobin Concent 29.7 G/DL (32.0-36.0) 29.5 G/DL (32.0-36.0) Red Cell Distribution Width 16.5 % (11.6-14.8) 16.2 % (11.6-14.8) Platelet Count 82 K/UL (150-450) 89 K/UL (150-450) Mean Platelet Volume 9.2 FL (6.5-10.1) 8.6 FL (6.5-10.1) Neutrophils (%) (Auto) % (45.0-75.0) % (45.0-75.0) Lymphocytes (%) (Auto) % (20.0-45.0) % (20.0-45.0) Monocytes (%) (Auto) % (1.0-10.0) % (1.0-10.0) Eosinophils (%) (Auto) % (0.0-3.0) % (0.0-3.0) Basophils (%) (Auto) % (0.0-2.0) % (0.0-2.0) Differential Total Cells Counted 100 100 Neutrophils % (Manual) 62 % (45-75) 66 % (45-75) Lymphocytes % (Manual) 25 % (20-45) 22 % (20-45) Monocytes % (Manual) 10 % (1-10) 7 % (1-10) Eosinophils % (Manual) 2 % (0-3) 5 % (0-3) Basophils % (Manual) 1 % (0-2) 0 % (0-2) Band Neutrophils 0 % (0-8) 0 % (0-8) Platelet Estimate Decreased Decreased Platelet Morphology Normal Normal Hypochromasia 1+ 1+ Anisocytosis 1+ 1+ Sodium Level 136 MMOL/L (136-145) 137 MMOL/L (136-145) Potassium Level 4.3 MMOL/L (3.5-5.1) 3.8 MMOL/L (3.5-5.1) Chloride Level 96 MMOL/L (98-107) 97 MMOL/L (98-107) Carbon Dioxide Level 30 MMOL/L (21-32) 33 MMOL/L (21-32) Anion Gap 11 mmol/L (5-15) 7 mmol/L (5-15) Blood Urea Nitrogen 33 mg/dL (7-18) 25 mg/dL (7-18) Creatinine 7.2 MG/DL (0.55-1.30) 5.9 MG/DL (0.55-1.30) Estimat Glomerular Filtration Rate 5.9 mL/min (>60) 7.5 mL/min (>60) Glucose Level 117 MG/DL (74-106) 82 MG/DL (74-106) Uric Acid 2.8 MG/DL (2.6-7.2) Calcium Level 8.6 MG/DL (8.5-10.1) 8.4 MG/DL (8.5-10.1) Phosphorus Level 4.4 MG/DL (2.5-4.9) 4.0 MG/DL (2.5-4.9) Total Bilirubin 0.8 MG/DL (0.2-1.0) 0.8 MG/DL (0.2-1.0) Aspartate Amino Transf (AST/SGOT) 17 U/L (15-37) 17 U/L (15-37) Alanine Aminotransferase (ALT/SGPT) 7 U/L (12-78) 11 U/L (12-78) Alkaline Phosphatase 162 U/L (46-116) 169 U/L (46-116) C-Reactive Protein, Quantitative < 0.4 mg/dL (0.00-0.90) Pro-B-Type Natriuretic Peptide > 75985 pg/mL (0-125) Total Protein 7.3 G/DL (6.4-8.2) 6.8 G/DL (6.4-8.2) Albumin 3.2 G/DL (3.4-5.0) 3.1 G/DL (3.4-5.0) Globulin 4.1 g/dL 3.7 g/dL Albumin/Globulin Ratio 0.8 (1.0-2.7) 0.8 (1.0-2.7) Magnesium Level 2.2 MG/DL (1.8-2.4) Height (Feet): 5 Height (Inches): 2.00 Weight (Pounds): 136 Objective PE General Appearance: no apparent distress, alert HEENT: atraumatic, anicteric Neck: normal alignment, supple Respiratory/Chest: lungs clear, normal breath sounds, no respiratory distress Cardiovascular/Chest: normal rate, regular rhythm Abdomen: soft, no organomegaly, other - Mild diffuse tenderness Extremities: non-tender, normal inspection 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
--- NOTE | 2018-09-21 11:28 | General Progress Note ---
Assessment/Plan Status: stable Assessment/Plan: Assessment/Plan Status: stable Assessment/Plan: 53 year old F with PMH of HTN and ESRD on HD admitted for fluid overload and hyperkalemia 2/2 missed HD session #Fluid overload 2/2 ESRD non complaince with HD - symptoms improved -missed 3 sessions -Renal consult appreciated -HD per renal #Hyperkalemia - resolved -2/2 missed HD and k was > 8 on admission -received calcium, insulin and kayexalate -HD per renal -CTM #ESRD on HD -Nephrology consulted for HD management, next session 09/23 -continue Renagel #HTN #HL -continue Coreg and Lipitor - cont norvasc 5 mg BID -Lisinopril added per renal, will increase dose as SBP in the 150 mmHg range. Patient is dialysis dependent. #Type 2 DM -lispro SS #Depression -continue Zoloft Dispo -Placement will be needed. Full Code VTE PPx Heparin Subjective ROS Limited/Unobtainable: Yes Allergies: Coded Allergies: No Known Allergies (Unverified , 08/15/18) Objective Last 24 Hour Vital Signs Date Time Temp Pulse Resp B/P (MAP) Pulse Ox O2 Delivery O2 Flow Rate FiO2 09/21/18 09:00 Nasal Cannula 2.0 09/21/18 08:51 69 153/67 09/21/18 08:51 69 153/67 09/21/18 08:50 153/67 09/21/18 08:00 97.3 69 18 153/67 (95) 94 09/21/18 04:00 97.7 66 18 139/71 (93) 98 09/21/18 02:06 165/78 09/21/18 00:00 98.0 68 20 161/73 (102) 98 09/20/18 23:51 99.0 09/20/18 21:22 72 165/78 09/20/18 21:00 Nasal Cannula 2.0 09/20/18 20:13 177/75 09/20/18 20:00 99.0 69 18 172/75 (107) 94 09/20/18 17:03 68 158/77 09/20/18 16:00 98.2 68 18 158/77 (104) 93 09/20/18 14:00 97.5 62 18 130/75 (93) 95 09/20/18 13:03 170/84 Intake and Output 09/20/18 09/21/18 18:59 06:59 Intake Total 240 ml 240 ml Balance 240 ml 240 ml Intake Oral 240 ml 240 ml # Bowel Movements 1 1 Laboratory Tests 09/21/18 05:25: White Blood Count 5.3, Red Blood Count 4.29, Hemoglobin 11.3L, Hematocrit 38.3, Mean Corpuscular Volume 89, Mean Corpuscular Hemoglobin 26.3L, Mean Corpuscular Hemoglobin Concent 29.5L, Red Cell Distribution Width 16.2H, Platelet Count 89L , Mean Platelet Volume 8.6, Neutrophils (%) (Auto) , Lymphocytes (%) (Auto) , Monocytes (%) (Auto) , Eosinophils (%) (Auto) , Basophils (%) (Auto) , Differential Total Cells Counted 100, Neutrophils % (Manual) 66, Lymphocytes % ( Manual) 22, Monocytes % (Manual) 7, Eosinophils % (Manual) 5H, Basophils % ( Manual) 0, Band Neutrophils 0, Platelet Estimate DecreasedL, Platelet Morphology Normal, Hypochromasia 1+, Anisocytosis 1+, Sodium Level 137, Potassium Level 3.8, Chloride Level 97L, Carbon Dioxide Level 33H, Anion Gap 7, Blood Urea Nitrogen 25H, Creatinine 5.9H, Estimat Glomerular Filtration Rate 7.5 , Glucose Level 82, Calcium Level 8.4L, Phosphorus Level 4.0, Magnesium Level 2.2, Total Bilirubin 0.8, Aspartate Amino Transf (AST/SGOT) 17, Alanine Aminotransferase (ALT/SGPT) 11L, Alkaline Phosphatase 169H, Total Protein 6.8, Albumin 3.1L, Globulin 3.7, Albumin/Globulin Ratio 0.8L Height (Feet): 5 Height (Inches): 2.00 Weight (Pounds): 136 General Appearance: WD/WN, no apparent distress EENT: PERRL/EOMI, normal ENT inspection Neck: non-tender Cardiovascular: normal peripheral pulses, normal rate Respiratory/Chest: lungs clear, normal breath sounds Abdomen: non tender Edema: trace edema 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
[2018-09-21 12:00] VITALS: BP 138/70
[2018-09-21 16:00] VITALS: BP 144/66
--- NOTE | 2018-09-21 16:23 | Nephrology Progress Note ---
Assessment/Plan Problem List: (1) Hypertensive kidney disease (2) Anemia in CKD (chronic kidney disease) (3) ESRD (end stage renal disease) (4) Hyperkalemia, diminished renal excretion Plan HD 09/16 now K corrected HD again 09/18 and 09/20 next HD 09/23 Adjust BP meds- Add zestril to med surg per orders Subjective ROS Limited/Unobtainable: No Constitutional: Reports: malaise Objective Objective Last 24 Hour Vital Signs Date Time Temp Pulse Resp B/P (MAP) Pulse Ox O2 Delivery O2 Flow Rate FiO2 09/21/18 12:00 96.8 61 18 138/70 (92) 94 09/21/18 09:00 Nasal Cannula 2.0 09/21/18 08:51 69 153/67 09/21/18 08:51 69 153/67 09/21/18 08:50 153/67 09/21/18 08:00 97.3 69 18 153/67 (95) 94 09/21/18 04:00 97.7 66 18 139/71 (93) 98 09/21/18 02:06 165/78 09/21/18 00:00 98.0 68 20 161/73 (102) 98 09/20/18 23:51 99.0 09/20/18 21:22 72 165/78 09/20/18 21:00 Nasal Cannula 2.0 09/20/18 20:13 177/75 09/20/18 20:00 99.0 69 18 172/75 (107) 94 09/20/18 17:03 68 158/77 Intake and Output 09/20/18 09/21/18 18:59 06:59 Intake Total 240 ml 240 ml Balance 240 ml 240 ml Intake Oral 240 ml 240 ml # Bowel Movements 1 1 Laboratory Tests 09/21/18 05:25: White Blood Count 5.3, Red Blood Count 4.29, Hemoglobin 11.3L, Hematocrit 38.3, Mean Corpuscular Volume 89, Mean Corpuscular Hemoglobin 26.3L, Mean Corpuscular Hemoglobin Concent 29.5L, Red Cell Distribution Width 16.2H, Platelet Count 89L , Mean Platelet Volume 8.6, Neutrophils (%) (Auto) , Lymphocytes (%) (Auto) , Monocytes (%) (Auto) , Eosinophils (%) (Auto) , Basophils (%) (Auto) , Differential Total Cells Counted 100, Neutrophils % (Manual) 66, Lymphocytes % ( Manual) 22, Monocytes % (Manual) 7, Eosinophils % (Manual) 5H, Basophils % ( Manual) 0, Band Neutrophils 0, Platelet Estimate DecreasedL, Platelet Morphology Normal, Hypochromasia 1+, Anisocytosis 1+, Sodium Level 137, Potassium Level 3.8, Chloride Level 97L, Carbon Dioxide Level 33H, Anion Gap 7, Blood Urea Nitrogen 25H, Creatinine 5.9H, Estimat Glomerular Filtration Rate 7.5 , Glucose Level 82, Calcium Level 8.4L, Phosphorus Level 4.0, Magnesium Level 2.2, Total Bilirubin 0.8, Aspartate Amino Transf (AST/SGOT) 17, Alanine Aminotransferase (ALT/SGPT) 11L, Alkaline Phosphatase 169H, Total Protein 6.8, Albumin 3.1L, Globulin 3.7, Albumin/Globulin Ratio 0.8L Height (Feet): 5 Height (Inches): 2.00 Weight (Pounds): 136 General Appearance: no apparent distress Objective no change James Bower MD Sep 21, 2018 16:23
--- NOTE | 2018-09-21 16:31 | Surgery Progress Note ---
Surgery Progress Note Subjective Additional Comments Patient seen and examined bedside. No acute events. States she is doing well. No nausea vomiting fever chills. Labs identified. States she still having diarrhea. Had 2 episodes yesterday. Objective Last 24 Hour Vital Signs Date Time Temp Pulse Resp B/P (MAP) Pulse Ox O2 Delivery O2 Flow Rate FiO2 09/21/18 12:00 96.8 61 18 138/70 (92) 94 09/21/18 09:00 Nasal Cannula 2.0 09/21/18 08:51 69 153/67 09/21/18 08:51 69 153/67 09/21/18 08:50 153/67 09/21/18 08:00 97.3 69 18 153/67 (95) 94 09/21/18 04:00 97.7 66 18 139/71 (93) 98 09/21/18 02:06 165/78 09/21/18 00:00 98.0 68 20 161/73 (102) 98 09/20/18 23:51 99.0 09/20/18 21:22 72 165/78 09/20/18 21:00 Nasal Cannula 2.0 09/20/18 20:13 177/75 09/20/18 20:00 99.0 69 18 172/75 (107) 94 09/20/18 17:03 68 158/77 I&O Intake and Output 09/20/18 09/21/18 18:59 06:59 Intake Total 240 ml 240 ml Balance 240 ml 240 ml Intake Oral 240 ml 240 ml # Bowel Movements 1 1 Dressing: dry Wound: clean Cardiovascular: RSR Respiratory: clear Abdomen: soft, non-tender, present bowel sounds, non-distended Laboratory Tests Test 09/21/18 05:25 White Blood Count 5.3 K/UL (4.8-10.8) Red Blood Count 4.29 M/UL (4.20-5.40) Hemoglobin 11.3 G/DL (12.0-16.0) L Hematocrit 38.3 % (37.0-47.0) Mean Corpuscular Volume 89 FL (80-99) Mean Corpuscular Hemoglobin 26.3 PG (27.0-31.0) L Mean Corpuscular Hemoglobin Concent 29.5 G/DL (32.0-36.0) L Red Cell Distribution Width 16.2 % (11.6-14.8) H Platelet Count 89 K/UL (150-450) L Mean Platelet Volume 8.6 FL (6.5-10.1) Neutrophils (%) (Auto) % (45.0-75.0) Lymphocytes (%) (Auto) % (20.0-45.0) Monocytes (%) (Auto) % (1.0-10.0) Eosinophils (%) (Auto) % (0.0-3.0) Basophils (%) (Auto) % (0.0-2.0) Differential Total Cells Counted 100 Neutrophils % (Manual) 66 % (45-75) Lymphocytes % (Manual) 22 % (20-45) Monocytes % (Manual) 7 % (1-10) Eosinophils % (Manual) 5 % (0-3) H Basophils % (Manual) 0 % (0-2) Band Neutrophils 0 % (0-8) Platelet Estimate Decreased L Platelet Morphology Normal Hypochromasia 1+ Anisocytosis 1+ Sodium Level 137 MMOL/L (136-145) Potassium Level 3.8 MMOL/L (3.5-5.1) Chloride Level 97 MMOL/L (98-107) L Carbon Dioxide Level 33 MMOL/L (21-32) H Anion Gap 7 mmol/L (5-15) Blood Urea Nitrogen 25 mg/dL (7-18) H Creatinine 5.9 MG/DL (0.55-1.30) H Estimat Glomerular Filtration Rate 7.5 mL/min (>60) Glucose Level 82 MG/DL (74-106) Calcium Level 8.4 MG/DL (8.5-10.1) L Phosphorus Level 4.0 MG/DL (2.5-4.9) Magnesium Level 2.2 MG/DL (1.8-2.4) Total Bilirubin 0.8 MG/DL (0.2-1.0) Aspartate Amino Transf (AST/SGOT) 17 U/L (15-37) Alanine Aminotransferase (ALT/SGPT) 11 U/L (12-78) L Alkaline Phosphatase 169 U/L (46-116) H Total Protein 6.8 G/DL (6.4-8.2) Albumin 3.1 G/DL (3.4-5.0) L Globulin 3.7 g/dL Albumin/Globulin Ratio 0.8 (1.0-2.7) L Plan Problems: (1) Hyperkalemia, diminished renal excretion (2) ESRD (end stage renal disease) (3) Hypertensive kidney disease (4) Anemia in CKD (chronic kidney disease) (5) Status migrainosus (6) History of migraine headaches (7) Dehydration (8) Diarrhea Assessment & Plan: C diff negative possible dietary stop all softeners GI input noted will monitor (9) Electrolyte imbalance (10) Abdominal pain Assessment & Plan: cramping abdominal discomfort abd soft, nt/nd, bs + Imaging ordered will follow with serial exams thank you Jeffy Corona Sep 21, 2018 16:31
--- NOTE | 2018-09-21 18:56 | NUR ---
HAND-OFF: Report given to [facility].
--- NOTE | 2018-09-21 19:37 | NUR ---
NURSE NOTES: Received patient awake in bed, no s/s of acute distress, c/o mild pain at this time. BRP noted. Fall and safety precautions taken.
[2018-09-21 20:00] VITALS: BP 147/69
--- NOTE | 2018-09-21 20:02 | Hematology/Onc Progress Note ---
Assessment/Plan Assessment/Plan Assessment/Plan: # Pancytopenia - potential causes multifactorial, evaluate liver and viral etiologies to begin, also could be related to underlying medications patient has received. Appears to be chronic, hepatitis and hiv are noth negative. US abd to evaluate for cirrhosis and hsm ordered from prior admission shows no cirrhosis --> Peripheral smear ordered to evaluate for no blasts/schistocytes -none --> abx and other meds have been reviewed --> ok for ppx if plt >50k w/ either heparin or lovenox --> Transfuse if Plt < 20k and fever, or if Plt < 10k without fever --> wbc 5.5-->4.4--> 5.3 --> Plt 93-->98k--> 89k # Anemia of chronic disease due to underlying chronic medical issues, multifactorial --> Ferritin 400 --> Anemia workup has been reviewed, rule out gi bleed --> No evidence of hemolysis is noted, peripheral smear has been reviewed. --> Hgb goal >7. Transfuse prn.HGB 11.3 --> Epogen or iron at this time is not particularly indicated --> Medications have been reviewed --> low threshold for gi evaluation in case has occult + # Intractable headache, status migrainosus. --> admit to medical service --> supportive care with anti-emetics, Percocet prn --> Neurology eval requested # Nausea, vomiting and diarrhea, more chronic in duration --> check stool studies including C. difficile # ESRD on HD --> Nephrology is following, appreciate recs. Hd as per renal --> continue Renagel # HTN # HL --> continue Coreg and Lipitor # Type 2 DM --> lispro SS # Depression --> continue Zoloft The time note was entered does not reflect time patient was examined. GREATLY APPRECIATE CONSULTATION. Subjective Allergies: Coded Allergies: No Known Allergies (Unverified , 08/15/18) Subjective Subjective: 09/20: pt resting in bed, no acute events. 09/21:vag bleed yesterday, no further bleeding. Objective Objective Current Medications Medications (Trade) Dose Ordered Sig/Rogelio Route PRN Reason Start Time Stop Time Status Last Admin Dose Admin Acetaminophen (Tylenol) 650 mg Q6H PRN ORAL For Pain 09/17/18 17:15 10/16/18 17:14 09/19/18 09:33 Amlodipine Besylate (Norvasc) 5 mg BID ORAL 09/17/18 18:00 10/17/18 08:59 09/21/18 17:28 Aspirin (Ecotrin) 81 mg DAILY ORAL 09/18/18 09:00 10/17/18 08:59 09/21/18 08:50 Atorvastatin Calcium (Lipitor) 80 mg BEDTIME ORAL 09/17/18 21:00 10/17/18 20:59 09/20/18 21:22 Bupropion HCl (Wellbutrin XL) 150 mg DAILY ORAL 09/20/18 09:00 10/20/18 08:59 09/21/18 08:51 Carvedilol (Coreg) 12.5 mg EVERY 12 HOURS ORAL 09/17/18 21:00 10/17/18 20:59 09/21/18 08:51 Docusate Sodium (Colace) 100 mg TID ORAL 09/17/18 13:00 10/16/18 17:59 09/18/18 09:06 Gabapentin (Neurontin) 100 mg THREE TIMES A DAY ORAL 09/17/18 13:00 10/17/18 12:59 09/21/18 17:28 Hydralazine HCl (Apresoline) 25 mg Q6H PRN ORAL SBP>160 09/18/18 16:15 10/18/18 16:14 09/21/18 02:06 Lactobacillus Acidophilus (Culturelle) 1 tab THREE TIMES A DAY ORAL 09/19/18 13:00 10/19/18 12:59 09/21/18 17:28 Levothyroxine Sodium (Synthroid) 50 mcg DAILY@0630 ORAL 09/19/18 06:30 10/19/18 06:29 09/21/18 05:58 Lisinopril (Zestril) 20 mg DAILY ORAL 09/22/18 09:00 10/18/18 09:44 Loperamide HCl (Imodium) 2 mg Q4H PRN ORAL Diarrhea 09/20/18 11:00 10/20/18 10:59 09/20/18 23:24 Metoclopramide HCl (Reglan) 10 mg Q6H PRN IVP Nausea & Vomiting 09/17/18 17:00 10/16/18 16:59 Pantoprazole (Protonix) 40 mg Q12HR ORAL 09/17/18 21:00 10/17/18 08:59 09/21/18 08:50 Sertraline HCl (Zoloft) 150 mg DAILY ORAL 09/18/18 09:00 10/17/18 08:59 09/21/18 08:50 Sevelamer Carbonate (Renvela) 1,600 mg THREE TIMES A DAY ORAL 09/17/18 13:00 10/16/18 17:59 09/21/18 17:28 Vitamin B Complex/ Vit C/Folic Acid (Nephrovite) 1 tab DAILY ORAL 09/20/18 10:45 10/20/18 10:44 09/21/18 08:51 Last 24 Hour Vital Signs Date Time Temp Pulse Resp B/P (MAP) Pulse Ox O2 Delivery O2 Flow Rate FiO2 09/21/18 17:28 62 144/66 09/21/18 16:00 98.6 62 18 144/66 (92) 93 09/21/18 12:00 96.8 61 18 138/70 (92) 94 09/21/18 09:00 Nasal Cannula 2.0 09/21/18 08:51 69 153/67 09/21/18 08:51 69 153/67 09/21/18 08:50 153/67 09/21/18 08:00 97.3 69 18 153/67 (95) 94 09/21/18 04:00 97.7 66 18 139/71 (93) 98 09/21/18 02:06 165/78 09/21/18 00:00 98.0 68 20 161/73 (102) 98 09/20/18 23:51 99.0 09/20/18 21:22 72 165/78 09/20/18 21:00 Nasal Cannula 2.0 09/20/18 20:13 177/75 09/20/18 20:00 99.0 69 18 172/75 (107) 94 09/20/18 17:03 68 158/77 09/20/18 16:00 98.2 68 18 158/77 (104) 93 09/20/18 14:00 97.5 62 18 130/75 (93) 95 09/20/18 13:03 170/84 09/20/18 09:00 152/73 09/20/18 09:00 Nasal Cannula 2.0 09/20/18 08:49 60 152/73 09/20/18 08:48 60 152/73 09/20/18 08:00 97.6 60 18 152/73 (99) 92 09/20/18 04:00 98.6 60 18 136/68 (90) 97 09/20/18 01:22 99.3 62 18 132/71 (91) 96 09/20/18 00:00 99.3 62 18 132/71 (91) 96 09/19/18 21:26 62 157/77 09/19/18 20:32 Nasal Cannula 2.0 09/19/18 20:00 98.3 62 19 157/77 (103) 98 Intake and Output 09/20/18 09/21/18 19:00 07:00 Intake Total 240 ml 240 ml Balance 240 ml 240 ml Intake Oral 240 ml 240 ml # Bowel Movements 1 1 Labs Test 09/19/18 05:12 09/21/18 05:25 White Blood Count 4.8 K/UL (4.8-10.8) 5.3 K/UL (4.8-10.8) Red Blood Count 4.05 M/UL (4.20-5.40) 4.29 M/UL (4.20-5.40) Hemoglobin 10.7 G/DL (12.0-16.0) 11.3 G/DL (12.0-16.0) Hematocrit 35.9 % (37.0-47.0) 38.3 % (37.0-47.0) Mean Corpuscular Volume 89 FL (80-99) 89 FL (80-99) Mean Corpuscular Hemoglobin 26.3 PG (27.0-31.0) 26.3 PG (27.0-31.0) Mean Corpuscular Hemoglobin Concent 29.7 G/DL (32.0-36.0) 29.5 G/DL (32.0-36.0) Red Cell Distribution Width 16.5 % (11.6-14.8) 16.2 % (11.6-14.8) Platelet Count 82 K/UL (150-450) 89 K/UL (150-450) Mean Platelet Volume 9.2 FL (6.5-10.1) 8.6 FL (6.5-10.1) Neutrophils (%) (Auto) % (45.0-75.0) % (45.0-75.0) Lymphocytes (%) (Auto) % (20.0-45.0) % (20.0-45.0) Monocytes (%) (Auto) % (1.0-10.0) % (1.0-10.0) Eosinophils (%) (Auto) % (0.0-3.0) % (0.0-3.0) Basophils (%) (Auto) % (0.0-2.0) % (0.0-2.0) Differential Total Cells Counted 100 100 Neutrophils % (Manual) 62 % (45-75) 66 % (45-75) Lymphocytes % (Manual) 25 % (20-45) 22 % (20-45) Monocytes % (Manual) 10 % (1-10) 7 % (1-10) Eosinophils % (Manual) 2 % (0-3) 5 % (0-3) Basophils % (Manual) 1 % (0-2) 0 % (0-2) Band Neutrophils 0 % (0-8) 0 % (0-8) Platelet Estimate Decreased Decreased Platelet Morphology Normal Normal Hypochromasia 1+ 1+ Anisocytosis 1+ 1+ Sodium Level 136 MMOL/L (136-145) 137 MMOL/L (136-145) Potassium Level 4.3 MMOL/L (3.5-5.1) 3.8 MMOL/L (3.5-5.1) Chloride Level 96 MMOL/L (98-107) 97 MMOL/L (98-107) Carbon Dioxide Level 30 MMOL/L (21-32) 33 MMOL/L (21-32) Anion Gap 11 mmol/L (5-15) 7 mmol/L (5-15) Blood Urea Nitrogen 33 mg/dL (7-18) 25 mg/dL (7-18) Creatinine 7.2 MG/DL (0.55-1.30) 5.9 MG/DL (0.55-1.30) Estimat Glomerular Filtration Rate 5.9 mL/min (>60) 7.5 mL/min (>60) Glucose Level 117 MG/DL (74-106) 82 MG/DL (74-106) Uric Acid 2.8 MG/DL (2.6-7.2) Calcium Level 8.6 MG/DL (8.5-10.1) 8.4 MG/DL (8.5-10.1) Phosphorus Level 4.4 MG/DL (2.5-4.9) 4.0 MG/DL (2.5-4.9) Total Bilirubin 0.8 MG/DL (0.2-1.0) 0.8 MG/DL (0.2-1.0) Aspartate Amino Transf (AST/SGOT) 17 U/L (15-37) 17 U/L (15-37) Alanine Aminotransferase (ALT/SGPT) 7 U/L (12-78) 11 U/L (12-78) Alkaline Phosphatase 162 U/L (46-116) 169 U/L (46-116) C-Reactive Protein, Quantitative < 0.4 mg/dL (0.00-0.90) Pro-B-Type Natriuretic Peptide > 39241 pg/mL (0-125) Total Protein 7.3 G/DL (6.4-8.2) 6.8 G/DL (6.4-8.2) Albumin 3.2 G/DL (3.4-5.0) 3.1 G/DL (3.4-5.0) Globulin 4.1 g/dL 3.7 g/dL Albumin/Globulin Ratio 0.8 (1.0-2.7) 0.8 (1.0-2.7) Magnesium Level 2.2 MG/DL (1.8-2.4) Height (Feet): 5 Height (Inches): 2.00 Weight (Pounds): 136 Objective PE General Appearance: no apparent distress, alert HEENT: atraumatic, anicteric Neck: normal alignment, supple Respiratory/Chest: lungs clear, normal breath sounds, no respiratory distress Cardiovascular/Chest: normal rate, regular rhythm Abdomen: soft, no organomegaly, other - Mild diffuse tenderness Extremities: non-tender, normal inspection 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
[2018-09-21] MEDS: Atorvastatin 80mg tab ORAL SCH (20:26)
[2018-09-22] VITALS: BP 144/73
[2018-09-22 04:00] VITALS: BP 147/66
--- NOTE | 2018-09-22 05:45 | Progress Note ---
DATE: 09/21/2018 SUBJECTIVE: The patient is presenting with depressed mood, anhedonia, worthlessness, hopelessness, decreased energy, and poor insight. MENTAL STATUS EXAMINATION: The patient is alert, oriented to time, self, place, and situation. Mood is depressed. Affect is constricted. Congruent mood. Thought process is concrete. Thought content, no suicidal or homicidal ideations. ASSESSMENT: Major depressive disorder. PLAN: 1. The patient will be continued on Wellbutrin. 2. Provide the patient with reality orientation and supportive therapy. Edward Jacobo M.D. DR: Kate JOB#: [id number] CC:
--- NOTE | 2018-09-22 06:54 | NUR ---
HAND-OFF: Report given to MANJINDER Quiroz.
--- NOTE | 2018-09-22 07:41 | NUR ---
NURSE NOTES: RECEIVED PATIENT LYING IN BED, CALM AND COMFORTABLE. ALERT/ORIENTEDX3, VERBALLY RESPONSIVE. ABLE TO MAKE THINGS KNOWN. DRESSING DRY AND INTACT TO AV SHUNT. BRUIT PRESENT AND PALPATED, NO EVIDENCE OF BLEEDING. NO SIGNS AND SYMPTOMS OF ACUTE CARDIO-RESPIRATORY DISTRESS/SHORTNESS OF BREATH, DENIES CHEST PAIN, NO PERIPHERAL EDEMA NOTED. NO REPORT OF GI DISCOMFORT, NO NAUSEA/VOMITING. DRESSING TO LEFT LATERAL FOOT DRY AND INTACT. ENCOURAGED PATIENT TO UTILIZE CALL LIGHT FOR ASSISTANCE, VERBALIZED UNDERSTANDING. CONTINUE WITH CURRENT PLAN OF CARE.
[2018-09-22 07:50] LABS: BASOPHILS % (AUTO) 0.6 % (0.0-2.0); HEMATOCRIT 36.5 % (37.0-47.0); HEMOGLOBIN 10.7 G/DL (12.0-16.0); LYMPHOCYTES % (AUTO) 20.5 % (20.0-45.0); MEAN CORPUSCULAR VOLUME 89 FL (80-99); MONOCYTES % (AUTO) 12.4 % (1.0-10.0); NEUTROPHILS % (AUTO) 63.6 % (45.0-75.0); PLATELET COUNT 105 K/UL (150-450); RED CELL DISTRIBUTION WIDTH 16.4 % (11.6-14.8); WHITE BLOOD COUNT 5.3 K/UL (4.8-10.8)
[2018-09-22 08:00] VITALS: BP 126/70
[2018-09-22 08:03] LABS: ANION GAP 8 mmol/L (5-15); BLOOD UREA NITROGEN 36 mg/dL (7-18); CALCIUM 8.6 MG/DL (8.5-10.1); CARBON DIOXIDE 32 MMOL/L (21-32); CHLORIDE 101 MMOL/L (98-107); CREATININE 7.5 MG/DL (0.55-1.30); PHOSPHORUS 4.9 MG/DL (2.5-4.9); POTASSIUM 4.1 MMOL/L (3.5-5.1); SODIUM 141 MMOL/L (136-145)
[2018-09-22] MEDS: Carvedilol 12.5mg tab ORAL SCH ×2 (08:39→22:24)
[2018-09-22] MEDS: BuPROPion XL 150mg tab ORAL SCH (08:40)
[2018-09-22] MEDS: Lisinopril 10mg tab ORAL SCH (08:40)
[2018-09-22] MEDS: Renvela 800mg Pkt ORAL SCH ×3 (08:40→17:24)
[2018-09-22] MEDS: Lactobacillus-GG tablet ORAL SCH ×3 (08:41→17:23)
[2018-09-22] MEDS: Aspirin EC 81mg tab ORAL SCH (08:41)
[2018-09-22] MEDS: Docusate 100mg cap ORAL SCH ×3 (08:41→17:19)
[2018-09-22] MEDS: Nephrovite tab (Rena-Vite) ORAL SCH (08:41)
[2018-09-22] MEDS: Loperamide 2mg cap ORAL PRN (08:41)
[2018-09-22] MEDS: Sertraline 50mg tab ORAL SCH (08:41)
[2018-09-22 12:00] VITALS: BP 132/57
--- NOTE | 2018-09-22 12:11 | Nephrology Progress Note ---
Assessment/Plan Problem List: (1) Hypertensive kidney disease (2) Anemia in CKD (chronic kidney disease) (3) ESRD (end stage renal disease) (4) Hyperkalemia, diminished renal excretion Plan HD 09/16 now K corrected HD again 09/18 and 09/20 next HD 09/23 Adjust BP meds- Add zestril to med surg per orders Subjective ROS Limited/Unobtainable: No Objective Objective Last 24 Hour Vital Signs Date Time Temp Pulse Resp B/P (MAP) Pulse Ox O2 Delivery O2 Flow Rate FiO2 09/22/18 09:00 Nasal Cannula 2.0 09/22/18 08:40 126/70 09/22/18 08:40 65 126/70 09/22/18 08:39 65 126/70 09/22/18 08:00 98.7 65 18 126/70 (88) 97 09/22/18 06:40 98.9 09/22/18 04:00 98.9 63 20 147/66 (93) 97 09/22/18 00:00 97.9 64 20 144/73 (96) 97 09/21/18 22:56 Nasal Cannula 2.0 09/21/18 20:26 62 144/66 09/21/18 20:00 98.2 66 20 147/69 (95) 93 09/21/18 17:28 62 144/66 09/21/18 16:00 98.6 62 18 144/66 (92) 93 Intake and Output 09/21/18 09/22/18 18:59 06:59 Intake Total 240 ml Balance 240 ml Intake Oral 240 ml # Voids 2 # Bowel Movements 1 Laboratory Tests 09/22/18 06:45: White Blood Count 5.3, Red Blood Count 4.10L, Hemoglobin 10.7L, Hematocrit 36.5L , Mean Corpuscular Volume 89, Mean Corpuscular Hemoglobin 26.1L, Mean Corpuscular Hemoglobin Concent 29.4L, Red Cell Distribution Width 16.4H, Platelet Count 105L, Mean Platelet Volume 9.5, Neutrophils (%) (Auto) 63.6, Lymphocytes (%) (Auto) 20.5, Monocytes (%) (Auto) 12.4H, Eosinophils (%) (Auto) 3.0, Basophils (%) (Auto) 0.6, Sodium Level 141, Potassium Level 4.1, Chloride Level 101, Carbon Dioxide Level 32, Anion Gap 8, Blood Urea Nitrogen 36H, Creatinine 7.5H, Estimat Glomerular Filtration Rate 5.6, Glucose Level 79, Calcium Level 8.6, Phosphorus Level 4.9 Height (Feet): 5 Height (Inches): 2.00 Weight (Pounds): 137 General Appearance: no apparent distress Objective no change James Bower MD Sep 22, 2018 12:11
--- NOTE | 2018-09-22 14:32 | Surgery Progress Note ---
Surgery Progress Note Subjective Additional Comments no acute events comfortable stable labs noted no complaints Objective Last 24 Hour Vital Signs Date Time Temp Pulse Resp B/P (MAP) Pulse Ox O2 Delivery O2 Flow Rate FiO2 09/22/18 12:00 98.0 66 18 132/57 (82) 97 09/22/18 09:00 Nasal Cannula 2.0 09/22/18 08:40 126/70 09/22/18 08:40 65 126/70 09/22/18 08:39 65 126/70 09/22/18 08:00 98.7 65 18 126/70 (88) 97 09/22/18 06:40 98.9 09/22/18 04:00 98.9 63 20 147/66 (93) 97 09/22/18 00:00 97.9 64 20 144/73 (96) 97 09/21/18 22:56 Nasal Cannula 2.0 09/21/18 20:26 62 144/66 09/21/18 20:00 98.2 66 20 147/69 (95) 93 09/21/18 17:28 62 144/66 09/21/18 16:00 98.6 62 18 144/66 (92) 93 I&O Intake and Output 09/21/18 09/22/18 18:59 06:59 Intake Total 240 ml Balance 240 ml Intake Oral 240 ml # Voids 2 # Bowel Movements 1 Dressing: other Wound: other Drains: other Cardiovascular: RSR Respiratory: clear Abdomen: soft, present bowel sounds, decreased bowel sounds Extremities: no cyanosis Laboratory Tests Test 09/22/18 06:45 White Blood Count 5.3 K/UL (4.8-10.8) Red Blood Count 4.10 M/UL (4.20-5.40) L Hemoglobin 10.7 G/DL (12.0-16.0) L Hematocrit 36.5 % (37.0-47.0) L Mean Corpuscular Volume 89 FL (80-99) Mean Corpuscular Hemoglobin 26.1 PG (27.0-31.0) L Mean Corpuscular Hemoglobin Concent 29.4 G/DL (32.0-36.0) L Red Cell Distribution Width 16.4 % (11.6-14.8) H Platelet Count 105 K/UL (150-450) L Mean Platelet Volume 9.5 FL (6.5-10.1) Neutrophils (%) (Auto) 63.6 % (45.0-75.0) Lymphocytes (%) (Auto) 20.5 % (20.0-45.0) Monocytes (%) (Auto) 12.4 % (1.0-10.0) H Eosinophils (%) (Auto) 3.0 % (0.0-3.0) Basophils (%) (Auto) 0.6 % (0.0-2.0) Sodium Level 141 MMOL/L (136-145) Potassium Level 4.1 MMOL/L (3.5-5.1) Chloride Level 101 MMOL/L (98-107) Carbon Dioxide Level 32 MMOL/L (21-32) Anion Gap 8 mmol/L (5-15) Blood Urea Nitrogen 36 mg/dL (7-18) H Creatinine 7.5 MG/DL (0.55-1.30) H Estimat Glomerular Filtration Rate 5.6 mL/min (>60) Glucose Level 79 MG/DL (74-106) Calcium Level 8.6 MG/DL (8.5-10.1) Phosphorus Level 4.9 MG/DL (2.5-4.9) Plan Problems: (1) Hyperkalemia, diminished renal excretion (2) ESRD (end stage renal disease) (3) Hypertensive kidney disease (4) Anemia in CKD (chronic kidney disease) (5) Status migrainosus (6) History of migraine headaches (7) Dehydration (8) Diarrhea Assessment & Plan: C diff negative possible dietary stop all softeners GI input noted will monitor (9) Electrolyte imbalance (10) Abdominal pain Assessment & Plan: cramping abdominal discomfort abd soft, nt/nd, bs + Imaging ordered will follow with serial exams thank you Jeffy Corona Sep 22, 2018 14:32
--- NOTE | 2018-09-22 15:21 | General Progress Note ---
Assessment/Plan Status: stable Assessment/Plan: Assessment/Plan Status: stable Assessment/Plan: 53 year old F with PMH of HTN and ESRD on HD admitted for fluid overload and hyperkalemia 2/2 missed HD session #Fluid overload 2/2 ESRD non complaince with HD - symptoms improved -missed 3 sessions -Renal consult appreciated -HD per renal, next session 09/23 #Hyperkalemia - resolved -2/2 missed HD and k was > 8 on admission -received calcium, insulin and kayexalate -HD per renal -CTM #ESRD on HD -Nephrology consulted for HD management, next session 09/23 -continue Renagel #HTN #HL -continue Coreg and Lipitor - cont norvasc 5 mg BID -Lisinopril added per renal, will increase dose as SBP in the 150 mmHg range. Patient is dialysis dependent. #Type 2 DM -lispro SS #Depression -continue Zoloft Dispo -Placement is not needed by PT note. HOWEVER, the patient reported wanted to have a NEW dialysis center and this plan and approval needs to be set prior to discharge. Full Code VTE PPx Heparin Subjective ROS Limited/Unobtainable: No Constitutional: Reports: no symptoms HEENT: Reports: no symptoms Cardiovascular: Reports: no symptoms Respiratory: Reports: no symptoms Gastrointestinal/Abdominal: Reports: no symptoms Genitourinary: Reports: no symptoms Neurologic/Psychiatric: Reports: no symptoms Endocrine: Reports: no symptoms Allergies: Coded Allergies: No Known Allergies (Unverified , 08/15/18) Objective Last 24 Hour Vital Signs Date Time Temp Pulse Resp B/P (MAP) Pulse Ox O2 Delivery O2 Flow Rate FiO2 09/22/18 12:00 98.0 66 18 132/57 (82) 97 09/22/18 09:00 Nasal Cannula 2.0 09/22/18 08:40 126/70 09/22/18 08:40 65 126/70 09/22/18 08:39 65 126/70 09/22/18 08:00 98.7 65 18 126/70 (88) 97 09/22/18 06:40 98.9 09/22/18 04:00 98.9 63 20 147/66 (93) 97 09/22/18 00:00 97.9 64 20 144/73 (96) 97 09/21/18 22:56 Nasal Cannula 2.0 09/21/18 20:26 62 144/66 09/21/18 20:00 98.2 66 20 147/69 (95) 93 09/21/18 17:28 62 144/66 09/21/18 16:00 98.6 62 18 144/66 (92) 93 Intake and Output 09/21/18 09/22/18 18:59 06:59 Intake Total 240 ml Balance 240 ml Intake Oral 240 ml # Voids 2 # Bowel Movements 1 Laboratory Tests 09/22/18 06:45: White Blood Count 5.3, Red Blood Count 4.10L, Hemoglobin 10.7L, Hematocrit 36.5L , Mean Corpuscular Volume 89, Mean Corpuscular Hemoglobin 26.1L, Mean Corpuscular Hemoglobin Concent 29.4L, Red Cell Distribution Width 16.4H, Platelet Count 105L, Mean Platelet Volume 9.5, Neutrophils (%) (Auto) 63.6, Lymphocytes (%) (Auto) 20.5, Monocytes (%) (Auto) 12.4H, Eosinophils (%) (Auto) 3.0, Basophils (%) (Auto) 0.6, Sodium Level 141, Potassium Level 4.1, Chloride Level 101, Carbon Dioxide Level 32, Anion Gap 8, Blood Urea Nitrogen 36H, Creatinine 7.5H, Estimat Glomerular Filtration Rate 5.6, Glucose Level 79, Calcium Level 8.6, Phosphorus Level 4.9 Height (Feet): 5 Height (Inches): 2.00 Weight (Pounds): 137 General Appearance: WD/WN EENT: PERRL/EOMI Neck: non-tender Cardiovascular: normal rate Respiratory/Chest: chest wall non-tender, normal breath sounds Abdomen: normal bowel sounds Extremities: normal range of motion 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
[2018-09-22 16:00] VITALS: BP 140/64
--- NOTE | 2018-09-22 19:08 | NUR ---
HAND-OFF: Report given to Kwasi.
--- NOTE | 2018-09-22 19:20 | NUR ---
NURSE NOTES: Received pt. from MANJINDER Hutton. No acute distress noted. Respiration even and non labored on room air. No sob noted. IV line patent and intact. Bed in lowest position, wheels locked and alarm on. All needs attended and met. Will continue plan of care.
[2018-09-22 20:00] VITALS: BP 132/58
--- NOTE | 2018-09-22 21:07 | Hematology/Onc Progress Note ---
Assessment/Plan Assessment/Plan Assessment/Plan: # Pancytopenia - potential causes multifactorial, evaluate liver and viral etiologies to begin, also could be related to underlying medications patient has received. Appears to be chronic, hepatitis and hiv are noth negative. US abd to evaluate for cirrhosis and hsm ordered from prior admission shows no cirrhosis --> Peripheral smear ordered to evaluate for no blasts/schistocytes -none --> abx and other meds have been reviewed --> ok for ppx if plt >50k w/ either heparin or lovenox --> Transfuse if Plt < 20k and fever, or if Plt < 10k without fever --> wbc 5.5-->4.4--> 5.3 --> Plt 93-->98k--> 89k # Anemia of chronic disease due to underlying chronic medical issues, multifactorial --> Ferritin 400 --> Anemia workup has been reviewed, rule out gi bleed --> No evidence of hemolysis is noted, peripheral smear has been reviewed. --> Hgb goal >7. Transfuse prn.HGB 11.3 --> Epogen or iron at this time is not particularly indicated --> Medications have been reviewed --> low threshold for gi evaluation in case has occult + # Intractable headache, status migrainosus. --> admit to medical service --> supportive care with anti-emetics, Percocet prn --> Neurology eval requested # Nausea, vomiting and diarrhea, more chronic in duration --> check stool studies including C. difficile # ESRD on HD --> Nephrology is following, appreciate recs. Hd as per renal --> continue Renagel # HTN # HL --> continue Coreg and Lipitor # Type 2 DM --> lispro SS # Depression --> continue Zoloft The time note was entered does not reflect time patient was examined. GREATLY APPRECIATE CONSULTATION. Subjective Allergies: Coded Allergies: No Known Allergies (Unverified , 08/15/18) Subjective Subjective: 09/20: pt resting in bed, no acute events. 09/21:vag bleed yesterday, no further bleeding. 09/22: no acute events. no further bleeding. Objective Objective Current Medications Medications (Trade) Dose Ordered Sig/Rogelio Route PRN Reason Start Time Stop Time Status Last Admin Dose Admin Acetaminophen (Tylenol) 650 mg Q6H PRN ORAL For Pain 09/17/18 17:15 10/16/18 17:14 09/22/18 06:10 Amlodipine Besylate (Norvasc) 5 mg BID ORAL 09/17/18 18:00 10/17/18 08:59 09/22/18 17:23 Aspirin (Ecotrin) 81 mg DAILY ORAL 09/18/18 09:00 10/17/18 08:59 09/22/18 08:41 Atorvastatin Calcium (Lipitor) 80 mg BEDTIME ORAL 09/17/18 21:00 10/17/18 20:59 09/21/18 20:26 Bupropion HCl (Wellbutrin XL) 150 mg DAILY ORAL 09/20/18 09:00 10/20/18 08:59 09/22/18 08:40 Carvedilol (Coreg) 12.5 mg EVERY 12 HOURS ORAL 09/17/18 21:00 10/17/18 20:59 09/22/18 08:39 Docusate Sodium (Colace) 100 mg TID ORAL 09/17/18 13:00 10/16/18 17:59 09/18/18 09:06 Gabapentin (Neurontin) 100 mg THREE TIMES A DAY ORAL 09/17/18 13:00 10/17/18 12:59 09/22/18 17:23 Hydralazine HCl (Apresoline) 25 mg Q6H PRN ORAL SBP>160 09/18/18 16:15 10/18/18 16:14 09/21/18 02:06 Lactobacillus Acidophilus (Culturelle) 1 tab THREE TIMES A DAY ORAL 09/19/18 13:00 10/19/18 12:59 09/22/18 17:23 Levothyroxine Sodium (Synthroid) 50 mcg DAILY@0630 ORAL 09/19/18 06:30 10/19/18 06:29 09/22/18 06:10 Lisinopril (Zestril) 20 mg DAILY ORAL 09/22/18 09:00 10/18/18 09:44 09/22/18 08:40 Loperamide HCl (Imodium) 2 mg Q4H PRN ORAL Diarrhea 09/20/18 11:00 10/20/18 10:59 09/22/18 08:41 Metoclopramide HCl (Reglan) 10 mg Q6H PRN IVP Nausea & Vomiting 09/17/18 17:00 10/16/18 16:59 Pantoprazole (Protonix) 40 mg Q12HR ORAL 09/17/18 21:00 10/17/18 08:59 09/22/18 08:40 Sertraline HCl (Zoloft) 150 mg DAILY ORAL 09/18/18 09:00 10/17/18 08:59 09/22/18 08:41 Sevelamer Carbonate (Renvela) 1,600 mg THREE TIMES A DAY ORAL 09/17/18 13:00 10/16/18 17:59 09/22/18 17:24 Vitamin B Complex/ Vit C/Folic Acid (Nephrovite) 1 tab DAILY ORAL 09/20/18 10:45 10/20/18 10:44 09/22/18 08:41 Last 24 Hour Vital Signs Date Time Temp Pulse Resp B/P (MAP) Pulse Ox O2 Delivery O2 Flow Rate FiO2 09/22/18 17:23 63 140/64 09/22/18 16:00 98.1 63 18 140/64 (89) 95 09/22/18 12:00 98.0 66 18 132/57 (82) 97 09/22/18 09:00 Nasal Cannula 2.0 09/22/18 08:40 126/70 09/22/18 08:40 65 126/70 09/22/18 08:39 65 126/70 09/22/18 08:00 98.7 65 18 126/70 (88) 97 09/22/18 06:40 98.9 09/22/18 04:00 98.9 63 20 147/66 (93) 97 09/22/18 00:00 97.9 64 20 144/73 (96) 97 09/21/18 22:56 Nasal Cannula 2.0 09/21/18 20:26 62 144/66 09/21/18 20:00 98.2 66 20 147/69 (95) 93 09/21/18 17:28 62 144/66 09/21/18 16:00 98.6 62 18 144/66 (92) 93 09/21/18 12:00 96.8 61 18 138/70 (92) 94 09/21/18 09:00 Nasal Cannula 2.0 09/21/18 08:51 69 153/67 09/21/18 08:51 69 153/67 09/21/18 08:50 153/67 09/21/18 08:00 97.3 69 18 153/67 (95) 94 09/21/18 04:00 97.7 66 18 139/71 (93) 98 09/21/18 02:06 165/78 09/21/18 00:00 98.0 68 20 161/73 (102) 98 09/20/18 23:51 99.0 09/20/18 21:22 72 165/78 Intake and Output 09/21/18 09/22/18 19:00 07:00 Intake Total 240 ml Balance 240 ml Intake Oral 240 ml # Voids 2 # Bowel Movements 1 Labs Test 09/21/18 05:25 09/22/18 06:45 White Blood Count 5.3 K/UL (4.8-10.8) 5.3 K/UL (4.8-10.8) Red Blood Count 4.29 M/UL (4.20-5.40) 4.10 M/UL (4.20-5.40) Hemoglobin 11.3 G/DL (12.0-16.0) 10.7 G/DL (12.0-16.0) Hematocrit 38.3 % (37.0-47.0) 36.5 % (37.0-47.0) Mean Corpuscular Volume 89 FL (80-99) 89 FL (80-99) Mean Corpuscular Hemoglobin 26.3 PG (27.0-31.0) 26.1 PG (27.0-31.0) Mean Corpuscular Hemoglobin Concent 29.5 G/DL (32.0-36.0) 29.4 G/DL (32.0-36.0) Red Cell Distribution Width 16.2 % (11.6-14.8) 16.4 % (11.6-14.8) Platelet Count 89 K/UL (150-450) 105 K/UL (150-450) Mean Platelet Volume 8.6 FL (6.5-10.1) 9.5 FL (6.5-10.1) Neutrophils (%) (Auto) % (45.0-75.0) 63.6 % (45.0-75.0) Lymphocytes (%) (Auto) % (20.0-45.0) 20.5 % (20.0-45.0) Monocytes (%) (Auto) % (1.0-10.0) 12.4 % (1.0-10.0) Eosinophils (%) (Auto) % (0.0-3.0) 3.0 % (0.0-3.0) Basophils (%) (Auto) % (0.0-2.0) 0.6 % (0.0-2.0) Differential Total Cells Counted 100 Neutrophils % (Manual) 66 % (45-75) Lymphocytes % (Manual) 22 % (20-45) Monocytes % (Manual) 7 % (1-10) Eosinophils % (Manual) 5 % (0-3) Basophils % (Manual) 0 % (0-2) Band Neutrophils 0 % (0-8) Platelet Estimate Decreased Platelet Morphology Normal Hypochromasia 1+ Anisocytosis 1+ Sodium Level 137 MMOL/L (136-145) 141 MMOL/L (136-145) Potassium Level 3.8 MMOL/L (3.5-5.1) 4.1 MMOL/L (3.5-5.1) Chloride Level 97 MMOL/L (98-107) 101 MMOL/L (98-107) Carbon Dioxide Level 33 MMOL/L (21-32) 32 MMOL/L (21-32) Anion Gap 7 mmol/L (5-15) 8 mmol/L (5-15) Blood Urea Nitrogen 25 mg/dL (7-18) 36 mg/dL (7-18) Creatinine 5.9 MG/DL (0.55-1.30) 7.5 MG/DL (0.55-1.30) Estimat Glomerular Filtration Rate 7.5 mL/min (>60) 5.6 mL/min (>60) Glucose Level 82 MG/DL (74-106) 79 MG/DL (74-106) Calcium Level 8.4 MG/DL (8.5-10.1) 8.6 MG/DL (8.5-10.1) Phosphorus Level 4.0 MG/DL (2.5-4.9) 4.9 MG/DL (2.5-4.9) Magnesium Level 2.2 MG/DL (1.8-2.4) Total Bilirubin 0.8 MG/DL (0.2-1.0) Aspartate Amino Transf (AST/SGOT) 17 U/L (15-37) Alanine Aminotransferase (ALT/SGPT) 11 U/L (12-78) Alkaline Phosphatase 169 U/L (46-116) Total Protein 6.8 G/DL (6.4-8.2) Albumin 3.1 G/DL (3.4-5.0) Globulin 3.7 g/dL Albumin/Globulin Ratio 0.8 (1.0-2.7) Height (Feet): 5 Height (Inches): 2.00 Weight (Pounds): 137 Objective PE General Appearance: no apparent distress, alert HEENT: atraumatic, anicteric Neck: normal alignment, supple Respiratory/Chest: lungs clear, normal breath sounds, no respiratory distress Cardiovascular/Chest: normal rate, regular rhythm Abdomen: soft, no organomegaly, other - Mild diffuse tenderness Extremities: non-tender, normal inspection 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
[2018-09-22] MEDS: Atorvastatin 80mg tab ORAL SCH (22:24)
[2018-09-23] VITALS: BP 113/53
[2018-09-23 04:00] VITALS: BP 141/67
--- NOTE | 2018-09-23 07:10 | NUR ---
HAND-OFF: Report given to MACIEJ Don.
--- NOTE | 2018-09-23 07:53 | NUR ---
NURSE NOTES: Received report cf Addendum: 09/23/18 at 0754 by MORRIS PEREZ RN NURSE NOTES: Received report from MACEIJ Villalpando. pt in bed, asleep, respiration regular, no apparent distress noted, bed in lowest position, call light within reach.
[2018-09-23 08:00] VITALS: BP 147/70
[2018-09-23] MEDS: Renvela 800mg Pkt ORAL SCH ×3 (08:50→17:06)
[2018-09-23] MEDS: BuPROPion XL 150mg tab ORAL SCH (08:50)
[2018-09-23] MEDS: Aspirin EC 81mg tab ORAL SCH (08:50)
[2018-09-23] MEDS: Sertraline 50mg tab ORAL SCH (08:50)
[2018-09-23] MEDS: Carvedilol 12.5mg tab ORAL SCH ×2 (08:51→21:30)
[2018-09-23] MEDS: Docusate 100mg cap ORAL SCH ×3 (08:51→17:06)
[2018-09-23] MEDS: Lisinopril 10mg tab ORAL SCH (08:51)
[2018-09-23] MEDS: Nephrovite tab (Rena-Vite) ORAL SCH (08:51)
[2018-09-23] MEDS: Lactobacillus-GG tablet ORAL SCH ×3 (08:51→17:06)
--- NOTE | 2018-09-23 10:39 | Diagnostic Imaging Report ---
Indication: Abdominal pain Technique: Supine view of the abdomen Comparison: 09/21/2018 Findings: Unremarkable bowel gas pattern. No unusual masses or calcifications. No significant interim change Impression: Negative
--- NOTE | 2018-09-23 10:43 | GI Progress Note ---
Assessment/Plan Problems: (1) Diarrhea ICD Codes: R19.7 - Diarrhea, unspecified SNOMED: 30995142 (2) Dehydration ICD Codes: E86.0 - Dehydration SNOMED: 44521314 (3) Abdominal pain ICD Codes: R10.9 - Unspecified abdominal pain SNOMED: 77067484 (4) Electrolyte imbalance ICD Codes: E87.8 - Other disorders of electrolyte and fluid balance, not elsewhere classified SNOMED: 502572258 (5) Anemia in CKD (chronic kidney disease) ICD Codes: N18.9 - Chronic kidney disease, unspecified; D63.1 - Anemia in chronic kidney disease SNOMED: 645849382 Status: unchanged Status Narrative Discussed with Dr. Go. Assessment/Plan C. difficile negative Imodium as needed, Lomotil for persistent diarrhea IV and p.o. hydration Electrolyte correction per nephro Zofran as needed Pain management possible colonoscopy if patient has persistent diarrhea The patient was seen and examined at bedside and all new and available data was reviewed in the patients chart. I agree with the above findings, impression and plan. (Patient seen earlier today. Signature stamp does not reflect patient encounter time.). - Amor Go MD Subjective Subjective Patient states that her diarrhea has improved and Only has urgency after p.o. intake States her last colonoscopy was approximately 3 years ago, unsure of the results Objective Last 24 Hour Vital Signs Date Time Temp Pulse Resp B/P (MAP) Pulse Ox O2 Delivery O2 Flow Rate FiO2 09/23/18 09:00 Nasal Cannula 2.0 09/23/18 08:51 147/70 09/23/18 08:51 64 147/70 09/23/18 08:51 64 147/70 09/23/18 08:00 98.9 64 16 147/70 (95) 98 09/23/18 04:00 98.3 62 20 141/67 (91) 100 09/23/18 00:00 98.4 64 18 113/53 (73) 95 09/22/18 22:24 67 132/58 09/22/18 21:00 Nasal Cannula 2.0 09/22/18 20:00 98.8 67 16 132/58 (82) 93 09/22/18 17:23 63 140/64 09/22/18 16:00 98.1 63 18 140/64 (89) 95 09/22/18 12:00 98.0 66 18 132/57 (82) 97 Intake and Output 09/22/18 09/23/18 19:00 07:00 Intake Total 240 ml 110 ml Balance 240 ml 110 ml Intake Oral 240 ml Other 110 ml # Voids 5 # Bowel Movements 1 Height (Feet): 5 Height (Inches): 2.00 Weight (Pounds): 139 General Appearance: WD/WN, no apparent distress, alert Cardiovascular: normal rate Respiratory/Chest: normal breath sounds, no respiratory distress Abdominal Exam: normal bowel sounds, non tender, soft Extremities: normal range of motion, non-tender Thomas Bird NP Sep 23, 2018 10:43
--- NOTE | 2018-09-23 11:02 | General Progress Note ---
Assessment/Plan Status: unchanged Assessment/Plan: 53 year old F with PMH of HTN and ESRD on HD admitted for fluid overload and hyperkalemia 2/2 missed HD session #Fluid overload 2/2 ESRD non complaince with HD - symptoms improved -missed 3 sessions -Renal consult appreciated -HD per renal #Hyperkalemia - resolved -2/2 missed HD and k was > 8 on admission -received calcium, insulin and kayexalate -HD per renal -CTM #ESRD on HD -Nephrology consulted for HD management, next session 09/23 -continue Renagel #Noninfectious diarrhea -monitor electrolytes -gi consult appreciated -colonoscopy in am -npo mn #HTN #HL -continue Coreg and Lipitor - cont norvasc 5 mg BID -Lisinopril added per renal, will increase dose as SBP in the 150 mmHg range. Patient is dialysis dependent. #Type 2 DM -lispro SS #Depression -continue Zoloft Dispo -Placement is not needed by PT note. HOWEVER, the patient reported wanted to have a NEW dialysis center and this plan and approval needs to be set prior to discharge. Full Code VTE PPx Heparin Subjective Date patient seen: Sep 23, 2018 Allergies: Coded Allergies: No Known Allergies (Unverified , 08/15/18) Subjective States she feels better, BP improved, has no complaints, pt unable to go back to [facility] due to complex health issues, CM consulted for placement, pt in agreeance. colonoscopy in AM, accepted at [facility] Objective Last 24 Hour Vital Signs Date Time Temp Pulse Resp B/P (MAP) Pulse Ox O2 Delivery O2 Flow Rate FiO2 09/23/18 09:00 Nasal Cannula 2.0 09/23/18 08:51 147/70 09/23/18 08:51 64 147/70 09/23/18 08:51 64 147/70 09/23/18 08:00 98.9 64 16 147/70 (95) 98 09/23/18 04:00 98.3 62 20 141/67 (91) 100 09/23/18 00:00 98.4 64 18 113/53 (73) 95 09/22/18 22:24 67 132/58 09/22/18 21:00 Nasal Cannula 2.0 09/22/18 20:00 98.8 67 16 132/58 (82) 93 09/22/18 17:23 63 140/64 7/7/19 16:00 98.1 63 18 140/64 (89) 95 09/22/18 12:00 98.0 66 18 132/57 (82) 97 Intake and Output 09/22/18 09/23/18 19:00 07:00 Intake Total 240 ml 110 ml Balance 240 ml 110 ml Intake Oral 240 ml Other 110 ml # Voids 5 # Bowel Movements 1 Height (Feet): 5 Height (Inches): 2.00 Weight (Pounds): 139 Objective General Appearance: WD/WN, alert, mild distress Lines, tubes and drains: peripheral HEENT: normocephalic, atraumatic Neck: non-tender, normal alignment, supple Respiratory/Chest: chest wall non-tender, normal breath sounds, no respiratory distress Cardiovascular/Chest: normal peripheral pulses, normal rate, regular rhythm Abdomen: normal bowel sounds, non tender, soft, no organomegaly Extremities: normal range of motion, other - AV fistula R forearm Skin Exam: normal pigmentation 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
--- NOTE | 2018-09-23 11:31 | Diagnostic Imaging Report ---
Indication: Abdominal pain Technique: Supine view of the abdomen Comparison: none Findings: Unremarkable bowel gas pattern. No masses or unusual calcifications. Impression: Negative
[2018-09-23 12:00] VITALS: BP 139/69
--- NOTE | 2018-09-23 14:34 | Surgery Progress Note ---
Surgery Progress Note Subjective Symptoms: improved, passing flatus, BM, pain decreased Additional Comments diarrhea slowly improving mainly after po intake but not as frequent now no n/v/f/c. Objective Last 24 Hour Vital Signs Date Time Temp Pulse Resp B/P (MAP) Pulse Ox O2 Delivery O2 Flow Rate FiO2 09/23/18 12:00 98.0 61 18 139/69 (92) 96 09/23/18 09:00 Nasal Cannula 2.0 09/23/18 08:51 147/70 09/23/18 08:51 64 147/70 09/23/18 08:51 64 147/70 09/23/18 08:00 98.9 64 16 147/70 (95) 98 09/23/18 04:00 98.3 62 20 141/67 (91) 100 09/23/18 00:00 98.4 64 18 113/53 (73) 95 09/22/18 22:24 67 132/58 09/22/18 21:00 Nasal Cannula 2.0 09/22/18 20:00 98.8 67 16 132/58 (82) 93 09/22/18 17:23 63 140/64 09/22/18 16:00 98.1 63 18 140/64 (89) 95 I&O Intake and Output 09/22/18 09/23/18 18:59 06:59 Intake Total 240 ml 110 ml Balance 240 ml 110 ml Intake Oral 240 ml Other 110 ml # Voids 5 # Bowel Movements 1 Dressing: dry Wound: clean Cardiovascular: RSR Respiratory: clear Abdomen: soft, flat, non-tender, present bowel sounds Extremities: no cyanosis, other Plan Problems: (1) Hyperkalemia, diminished renal excretion (2) ESRD (end stage renal disease) (3) Hypertensive kidney disease (4) Anemia in CKD (chronic kidney disease) (5) Status migrainosus (6) History of migraine headaches (7) Dehydration (8) Diarrhea Assessment & Plan: C diff negative possible dietary stop all softeners GI input noted will monitor (9) Electrolyte imbalance (10) Abdominal pain Assessment & Plan: cramping abdominal discomfort abd soft, nt/nd, bs + Imaging ordered will follow with serial exams thank you Jeffy Corona Sep 23, 2018 14:34
--- NOTE | 2018-09-23 15:09 | NUR ---
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 DIARRHEA VS: BP 147/70, P 64, T 98.0, RR 20, SpO2 95 IS:GABAPENTIN 100mg RENVELA 1,600mg NORVASC 5mg COREG 12.5mg ZESTRIL 20mg ZOLOFT 150mg SYNTHROID 50mcg PLAN: EGD/COLONOSCOPY 09/24 MED/SURG STATUS
[2018-09-23 16:00] VITALS: BP 151/78
[2018-09-23] MEDS ORDERED: Nulytely 4L ORAL SCH (16:00)
[2018-09-23] MEDS ORDERED: Bisacodyl EC 5mg tab ORAL SCH (16:00)
--- NOTE | 2018-09-23 16:57 | Nephrology Progress Note ---
Assessment/Plan Problem List: (1) Hypertensive kidney disease (2) Anemia in CKD (chronic kidney disease) (3) ESRD (end stage renal disease) (4) Hyperkalemia, diminished renal excretion Plan HD 09/16 now K corrected HD again 09/18 and 09/20 next HD 09/23 Adjust BP meds- Add zestril to med surg per orders Subjective ROS Limited/Unobtainable: No Objective Objective Last 24 Hour Vital Signs Date Time Temp Pulse Resp B/P (MAP) Pulse Ox O2 Delivery O2 Flow Rate FiO2 09/23/18 12:00 98.0 61 18 139/69 (92) 96 09/23/18 09:00 Nasal Cannula 2.0 09/23/18 08:51 147/70 09/23/18 08:51 64 147/70 09/23/18 08:51 64 147/70 09/23/18 08:00 98.9 64 16 147/70 (95) 98 09/23/18 04:00 98.3 62 20 141/67 (91) 100 09/23/18 00:00 98.4 64 18 113/53 (73) 95 09/22/18 22:24 67 132/58 09/22/18 21:00 Nasal Cannula 2.0 09/22/18 20:00 98.8 67 16 132/58 (82) 93 09/22/18 17:23 63 140/64 Intake and Output 09/22/18 09/23/18 18:59 06:59 Intake Total 240 ml 110 ml Balance 240 ml 110 ml Intake Oral 240 ml Other 110 ml # Voids 5 # Bowel Movements 1 Height (Feet): 5 Height (Inches): 2.00 Weight (Pounds): 139 General Appearance: no apparent distress Objective no change James Bower MD Sep 23, 2018 16:57
--- NOTE | 2018-09-23 19:45 | NUR ---
NURSE NOTES: Received report from MACIEJ Don. Patient alert, awake, and verbally responsive to let her needs known. Patient breathing unlabored and evenly without signs of distress, discomfort, or SOB. No pain noted at this time. Patient's right forearm fistula noted with bruit and thrills present. Patient's bed placed at the lowest. Reminded patient about the midnight NPO order. Call light placed within reach. Will continue to monitor and provide care as ordered.
--- NOTE | 2018-09-23 19:49 | NUR ---
HAND-OFF: Report given to MACIEJ Seay.
[2018-09-23 20:00] VITALS: BP 165/82
[2018-09-23] MEDS: Atorvastatin 80mg tab ORAL SCH (21:30)
--- NOTE | 2018-09-23 23:37 | NUR ---
NURSE NOTES: Provided recommended wound care on the left foot open blister, healing. Swabbed with Betadine swab and placed a optifoam to cover the wound. Explained procedure to patient and patient tolerated well. Call light placed within reach. Will continue to monitor and provide care as ordered.
[2018-09-24] VITALS (10 sets, daily range): BP systolic 145–163; BP diastolic 65–74
--- NOTE | 2018-09-24 01:00 | Progress Note ---
DATE: 09/23/2018 SUBJECTIVE: The patient is doing better. Continues to express depressed mood, anhedonia, worthlessness, hopelessness, low energy, however, more hopeful. She is Haitian speaking. No suicidal or homicidal ideation. MENTAL STATUS EXAMINATION: The patient is alert and oriented times to self, place, and situation. Mood is dysphoric. Affect is constricted, congruent with mood. Thought process is linear. Thought content, no suicidal or homicidal ideation. ASSESSMENT: Depression. PLAN: We will continue current medication. No medication changes. Edward Jacobo M.D. DR: MAHSA JOB#: [id number] CC:
[2018-09-24 04:56] LABS: HEMATOCRIT 35.2 % (37.0-47.0); HEMOGLOBIN 10.5 G/DL (12.0-16.0); MEAN CORPUSCULAR VOLUME 88 FL (80-99); PLATELET COUNT 78 K/UL (150-450); RED BLOOD COUNT 4.01 M/UL (4.20-5.40); WHITE BLOOD COUNT 4.9 K/UL (4.8-10.8)
[2018-09-24 05:01] LABS: INR 1.2 (0.9-1.1)
[2018-09-24 05:02] LABS: ANION GAP 9 mmol/L (5-15); BLOOD UREA NITROGEN 33 mg/dL (7-18); CALCIUM 8.9 MG/DL (8.5-10.1); CARBON DIOXIDE 29 MMOL/L (21-32); CHLORIDE 99 MMOL/L (98-107); CREATININE 6.5 MG/DL (0.55-1.30); PHOSPHORUS 3.9 MG/DL (2.5-4.9); POTASSIUM 4.9 MMOL/L (3.5-5.1); SODIUM 137 MMOL/L (136-145)
--- NOTE | 2018-09-24 06:20 | NUR ---
NURSE NOTES: Patient is schedule for colonoscopy and EGD today. Patient took nulytely prescribed but still has small particles/sediments in her liquid stool. Called Dr. Go to notify the finding and to ask for PRN enema, if necessary. Was not able to reach Dr. Go at this time. Left a voice message with information to call back. Will continue to monitor and provide care as ordered.
--- NOTE | 2018-09-24 07:24 | NUR ---
NURSE NOTES: Received call back from Dr. Go. Received an order for tap water enema. Given as ordered. Pt tolerated 16oz of tap water.
--- NOTE | 2018-09-24 07:26 | NUR ---
HAND-OFF: Report given to MACIEJ Jimenez. Endorsed for continuity of bowel prep. Continue to monitor for clear bowels. Also endorsed PNA vaccine.
--- NOTE | 2018-09-24 08:01 | NUR ---
NURSE NOTES: RN received pt in stable condition sleeping in bed. No s/s of acute distress or SOB. Bed in low, locked position, call light within reach. Pt scheduled for colonoscopy and EGD today; bowel prep initiated, will assess morning stool. Consents signed and in the chart. Will continue plan of care.
[2018-09-24] MEDS: Renvela 800mg Pkt ORAL SCH ×3 (09:00→17:15)
[2018-09-24] MEDS: Lactobacillus-GG tablet ORAL SCH ×3 (09:00→17:14)
[2018-09-24] MEDS: Aspirin EC 81mg tab ORAL SCH (09:00)
[2018-09-24] MEDS: Lisinopril 10mg tab ORAL SCH (09:00)
[2018-09-24] MEDS: Carvedilol 12.5mg tab ORAL SCH ×2 (09:00→22:08)
[2018-09-24] MEDS: Docusate 100mg cap ORAL SCH ×3 (09:00→17:14)
[2018-09-24] MEDS: Nephrovite tab (Rena-Vite) ORAL SCH (09:00)
[2018-09-24] MEDS: Sertraline 50mg tab ORAL SCH (09:00)
[2018-09-24] MEDS: BuPROPion XL 150mg tab ORAL SCH (09:00)
[2018-09-24] MEDS ORDERED: Propofol 200mg/20ml IV ONE (10:49)
[2018-09-24] MEDS ORDERED: LR 1000ml ONE (10:49)
--- NOTE | 2018-09-24 10:55 | NUR ---
NURSE NOTES: Pt left floor in stable condition for procedure. Pt stated bowel's clear after bowel prep. IV patent and intact. Consents signed and in chart.
[2018-09-24] MEDS ORDERED: Lidocaine 1% Plain 30 ml INJ ONE (11:00)
[2018-09-24] MEDS ORDERED: NS 500ML IVPB ONE (11:03)
[2018-09-24] MEDS ORDERED: LR 1000ml 1,000 ML IVLG SCH (11:08)
--- NOTE | 2018-09-24 11:13 | Anethesia Preoperative Eval ---
Anesthesia Pre-op PMH/ROS General Date of Evaluation: Sep 24, 2018 Time of Evaluation: 10:54 Anesthesiologist: Azul ASA Score: ASA 3 Mallampati Score Class I : Soft palate, uvula, fauces, pillars visible Class II: Soft palate, uvula, fauces visible Class III: Soft palate, base of uvula visible Class IV: Only hard plate visible Mallampati Classification: Class I Surgeon: Abbi Diagnosis: Abd Pain Surgical Procedure: EGD/ Colonoscopy Anesthesia History: none Family History: no anesthesia problems Allergies: Coded Allergies: No Known Allergies (Unverified , 08/15/18) Medications: see eMAR Patient NPO?: Yes Past Medical History Cardiovascular: Reports: HTN, CAD Gastrointestinal/Genitourinary: Reports: ESRD - M-W-F Endocrine: Reports: DM HEENT: Reports: other - Macular Degeneration Hematology/Immune: Reports: anemia PSxH Narrative: AV Shunt Anesthesia Pre-op Phys. Exam Physician Exam Last Vital Signs Date Time Temp Pulse Resp B/P (MAP) Pulse Ox O2 Delivery O2 Flow Rate FiO2 09/24/18 08:44 67 150/65 09/24/18 08:00 99.1 18 95 09/23/18 21:00 Room Air 09/23/18 09:00 2.0 Constitutional: NAD Neurologic: CN 2-12 intact Cardiovascular: RRR Respiratory: CTA Gastrointestinal: S/NT/ND Airway Exam Mallampati Score: Class I MO: full ROM: limited Teeth: missing, intact Anesthesia Pre-op A/P Labs Hematology Test 09/24/18 04:35 White Blood Count 4.9 K/UL (4.8-10.8) Red Blood Count 4.01 M/UL (4.20-5.40) L Hemoglobin 10.5 G/DL (12.0-16.0) L Hematocrit 35.2 % (37.0-47.0) L Mean Corpuscular Volume 88 FL (80-99) Mean Corpuscular Hemoglobin 26.3 PG (27.0-31.0) L Mean Corpuscular Hemoglobin Concent 29.9 G/DL (32.0-36.0) L Red Cell Distribution Width 16.0 % (11.6-14.8) H Platelet Count 78 K/UL (150-450) L Mean Platelet Volume 10.0 FL (6.5-10.1) Neutrophils (%) (Auto) % (45.0-75.0) Lymphocytes (%) (Auto) % (20.0-45.0) Monocytes (%) (Auto) % (1.0-10.0) Eosinophils (%) (Auto) % (0.0-3.0) Basophils (%) (Auto) % (0.0-2.0) Coagulation Test 09/24/18 04:35 Prothrombin Time 12.6 SEC (9.30-11.50) H Prothromb Time International Ratio 1.2 (0.9-1.1) H Activated Partial Thromboplast Time 32 SEC (23-33) Chemistry Test 09/24/18 04:35 Sodium Level 137 MMOL/L (136-145) Potassium Level 4.9 MMOL/L (3.5-5.1) Chloride Level 99 MMOL/L (98-107) Carbon Dioxide Level 29 MMOL/L (21-32) Anion Gap 9 mmol/L (5-15) Blood Urea Nitrogen 33 mg/dL (7-18) H Creatinine 6.5 MG/DL (0.55-1.30) H Estimat Glomerular Filtration Rate 6.7 mL/min (>60) Glucose Level 76 MG/DL (74-106) Calcium Level 8.9 MG/DL (8.5-10.1) Phosphorus Level 3.9 MG/DL (2.5-4.9) Magnesium Level 2.3 MG/DL (1.8-2.4) Risk Assessment & Plan Assessment: ASA 3 Plan: GA Status Change Before Surgery: Ford Padron MD Sep 24, 2018 11:13
--- NOTE | 2018-09-24 11:14 | Immediate Post-Op Evaluation ---
Immediate Post-Op Evalulation Immediate Post-Op Evalulation Procedure: EGD/Colonoscopy Date of Evaluation: Sep 24, 2018 Time of Evaluation: 11:57 IV Fluids: 400 NS Blood Products: 0 Estimated Blood Loss: 2 Urinary Output: 0 Blood Pressure Systolic: 156 Blood Pressure Diastolic: 73 Pulse Rate: 57 Respiratory Rate: 16 O2 Sat by Pulse Oximetry: 100 Temperature (Fahrenheit): 97.2 Pain Score (1-10): 2 Nausea: No Vomiting: No Complications 0 Patient Status: awake, reacts, patent, none Hydration Status: adequate Ford Liang MD Sep 24, 2018 11:14
[2018-09-24] MEDS ORDERED: HYDROcodone/Acetamin 5/325 tab ORAL PRN (11:15)
[2018-09-24] MEDS ORDERED: Atropine Sulfate 0.4mg/ml inj IVP PRN (11:15)
[2018-09-24] MEDS ORDERED: Hydromorphone 0.5mg/0.5ml inj IVP PRN (11:15)
[2018-09-24] MEDS ORDERED: Midazolam 2mg/2ml Inj IVP PRN (11:15)
[2018-09-24] MEDS ORDERED: oxyCODONE HCL/Acetaminophen 5/325mg ORAL PRN (11:15)
[2018-09-24] MEDS ORDERED: Labetalol 5mg/ml 20ml vial IV PRN (11:15)
[2018-09-24] MEDS ORDERED: LORazepam Inj 2mg/ml 1ml IV PRN (11:15)
[2018-09-24] MEDS ORDERED: DiphenhydrAMINE 50mg/ml Inj IVP PRN (11:15)
[2018-09-24] MEDS ORDERED: HYDROcodone/Acetamin 7.5/325 tab ORAL PRN (11:15)
[2018-09-24] MEDS ORDERED: fentaNYL 100 mcg/2 mL IV PRN (11:15)
--- NOTE | 2018-09-24 11:15 | 48 Hour Post Anesthesia Eval ---
Post Anesthesia Evaluation Procedure: EGD/Colonoscopy Date of Evaluation: Sep 24, 2018 Time of Evaluation: 14:12 Blood Pressure Systolic: 153 0: 72 Pulse Rate: 61 Respiratory Rate: 18 Temperature (Fahrenheit): 98 O2 Sat by Pulse Oximetry: 100 Airway: patent Nausea: No Vomiting: No Pain Intensity: 0 Hydration Status: adequate Cardiopulmonary Status: Stable Mental Status/LOC: patient returned to baseline Follow-up Care/Observations: 0 Post-Anesthesia Complications: 0 Follow-up care needed: N/A Ford Liang MD Sep 24, 2018 11:15
--- NOTE | 2018-09-24 11:18 | Pre-Procedure Note/Attestation ---
Pre-Procedure Note/Attestation Complete Prior to Procedure Planned Procedure: not applicable Procedure Narrative: esophagogastroduodenoscopy and colonoscopy Indications for Procedure Pre-Operative Diagnosis: anemia Attestation I attest that I discussed the nature of the procedure; its benefits; risks and complications; and alternatives (and the risks and benefits of such alternatives ), prior to the procedure, with the patient (or the patient's legal customer engagement representative). I attest that, if there was a reasonable possibility of needing a blood transfusion, the patient (or the patient's legal customer engagement representative) was given the [facility] standardized written summary, pursuant to the Hosea Ciarra Blood Safety Act ([place] Health and Safety Code # 1645, as amended). I attest that I re-evaluated the patient just prior to the surgery and that there has been no change in the patient's H&P, except as documented below: Amor Go MD Sep 24, 2018 11:18
--- NOTE | 2018-09-24 11:35 | Endoscopy Procedure Note ---
Endoscopy Procedure Note General Indication for Procedure: anemia Procedures Performed: EGD, colonoscopy Operative Findings/Diagnosis: gastritis, hemorrhoids Specimen: yes Pt Tolerated Procedure Well: Yes Estimated Blood Loss: none Anesthesia Anesthesiologist: david Anesthesia: MAC Inserted Devices Implant(s) used?: No Quality Quality of Bowel Preparation: Good Did scope reach the cecum?: Yes Was there any complications?: No GI Core Measures 50 yrs or older w/o bx or poly: Not Applicable 10yrs. F/U recommended: Not Applicable Amor Go MD Sep 24, 2018 11:35
--- NOTE | 2018-09-24 12:59 | Hematology/Onc Progress Note ---
Assessment/Plan Assessment/Plan Assessment/Plan: # Pancytopenia - potential causes multifactorial, evaluate liver and viral etiologies to begin, also could be related to underlying medications patient has received. Appears to be chronic, hepatitis and hiv are noth negative. US abd to evaluate for cirrhosis and hsm ordered from prior admission shows no cirrhosis --> Peripheral smear ordered to evaluate for no blasts/schistocytes -none --> abx and other meds have been reviewed --> ok for ppx if plt >50k w/ either heparin or lovenox --> Transfuse if Plt < 20k and fever, or if Plt < 10k without fever --> wbc 5.5-->4.4--> 5.3 --> Plt 93-->98k--> 89k->78k # Anemia of chronic disease due to underlying chronic medical issues, multifactorial --> Ferritin 400 --> Anemia workup has been reviewed, rule out gi bleed --> No evidence of hemolysis is noted, peripheral smear has been reviewed. --> Hgb goal >7. Transfuse prn.HGB 11.3-->10.5 --> Epogen or iron at this time is not particularly indicated --> Medications have been reviewed --> low threshold for gi evaluation in case has occult + # Intractable headache, status migrainosus. --> admit to medical service --> supportive care with anti-emetics, Percocet prn --> Neurology eval requested # Nausea, vomiting and diarrhea, more chronic in duration --> check stool studies including C. difficile # ESRD on HD --> Nephrology is following, appreciate recs. Hd as per renal --> continue Renagel # HTN --> sbp goal <140 # HL --> continue Coreg and Lipitor # Type 2 DM --> lispro SS # Depression --> continue Zoloft The time note was entered does not reflect time patient was examined. GREATLY APPRECIATE CONSULTATION. Subjective Constitutional: Denies: no symptoms, chills, fever, malaise, weakness, other HEENT: Denies: no symptoms, eye pain, blurred vision, tearing, double vision, ear pain, ear discharge, nose pain, nose congestion, throat pain, throat swelling, mouth pain, mouth swelling, other Cardiovascular: Denies: no symptoms, chest pain, edema, irregular heart rate, lightheadedness, palpitations, syncope, other Respiratory: Denies: no symptoms, cough, shortness of breath, SOB with excertion, SOB at rest, sputum, wheezing, other Gastrointestinal/Abdominal: Denies: no symptoms, abdomen distended, abdominal pain, black stools, tarry stools, blood in stool, constipated, diarrhea, difficulty swallowing, nausea, poor appetite, poor fluid intake, rectal bleeding , vomiting, other Genitourinary: Denies: no symptoms, burning, discharge, frequency, flank pain, hematuria, incontinence, pain, urgency, other Endocrine: Denies: no symptoms, excessive sweating, flushing, intolerance to cold, intolerance to heat, increased hunger, increased thirst, increased urine, unexplained weight gain, unexplained weight loss, other Hematologic/Lymphatic: Denies: no symptoms, anemia, easy bleeding, easy bruising, adenopathy, other Allergies: Coded Allergies: No Known Allergies (Unverified , 08/15/18) Subjective Subjective Subjective: 09/20: pt resting in bed, no acute events. 09/21:vag bleed yesterday, no further bleeding. 09/22: no acute events. no further bleeding. 09/24: no events, no bleeding, set to get egd/colo today Objective Objective Current Medications Medications (Trade) Dose Ordered Sig/Rogelio Route PRN Reason Start Time Stop Time Status Last Admin Dose Admin Acetaminophen (Tylenol) 650 mg Q6H PRN ORAL For Pain 09/17/18 17:15 10/16/18 17:14 09/22/18 06:10 Acetaminophen/ Hydrocodone Bitart ([place] 5/325) 1 tab Q1H PRN ORAL Mild Pain (Pain Scale 1-3) 09/24/18 11:15 09/24/18 20:00 Acetaminophen/ Hydrocodone Bitart ([place] 7.5/325) 1 tab Q1H PRN ORAL Moderate Pain (Pain Scale 4-6) 09/24/18 11:15 09/24/18 20:00 Al Hydroxide/Mg Hydroxide (Mylanta) 15 ml Q1H PRN ORAL gi upset 09/24/18 11:15 09/24/18 20:00 Amlodipine Besylate (Norvasc) 5 mg BID ORAL 09/17/18 18:00 10/17/18 08:59 09/24/18 08:44 Aspirin (Ecotrin) 81 mg DAILY ORAL 09/18/18 09:00 10/17/18 08:59 09/23/18 08:50 Atorvastatin Calcium (Lipitor) 80 mg BEDTIME ORAL 09/17/18 21:00 10/17/18 20:59 09/23/18 21:30 Atropine Sulfate (Atropine 0.4mg/ ml) 0.5 mg Q5M PRN IVP HR<40 09/24/18 11:15 09/24/18 20:00 Bupropion HCl (Wellbutrin XL) 150 mg DAILY ORAL 09/20/18 09:00 10/20/18 08:59 09/23/18 08:50 Carvedilol (Coreg) 12.5 mg EVERY 12 HOURS ORAL 09/17/18 21:00 10/17/18 20:59 09/23/18 21:30 Diphenhydramine HCl (Benadryl) 25 mg Q15M PRN IVP Itching 09/24/18 11:15 09/24/18 20:00 Docusate Sodium (Colace) 100 mg TID ORAL 09/17/18 13:00 10/16/18 17:59 09/23/18 17:06 Fentanyl Citrate (Sublimaze 100 mcg/2 mL) 25 mcg Q10M PRN IV Moderate Pain (Pain Scale 4-6) 09/24/18 11:15 09/24/18 20:00 Gabapentin (Neurontin) 100 mg THREE TIMES A DAY ORAL 09/17/18 13:00 10/17/18 12:59 09/23/18 17:06 Hydralazine HCl (Apresoline) 5 mg Q30M PRN IV SBP>160 / DBP>90 09/24/18 11:15 09/24/18 20:00 Hydralazine HCl (Apresoline) 25 mg Q6H PRN ORAL SBP>160 09/18/18 16:15 10/18/18 16:14 09/21/18 02:06 Hydromorphone HCl (Dilaudid) 0.5 mg Q15M PRN IVP Severe Pain (Pain Scale 7-10) 09/24/18 11:15 09/24/18 20:00 Labetalol HCl (Normodyne) 5 mg Q10M PRN IV SBP>160 / DBP>90 09/24/18 11:15 09/24/18 20:00 Lactated Ringer's 1,000 ml @ 10 mls/hr Q24H IVLG 09/24/18 11:08 09/24/18 13:07 Lactobacillus Acidophilus (Culturelle) 1 tab THREE TIMES A DAY ORAL 09/19/18 13:00 10/19/18 12:59 09/23/18 17:06 Levothyroxine Sodium (Synthroid) 50 mcg DAILY@0630 ORAL 09/19/18 06:30 10/19/18 06:29 09/24/18 06:25 Lisinopril (Zestril) 20 mg DAILY ORAL 09/22/18 09:00 10/18/18 09:44 09/23/18 08:51 Loperamide HCl (Imodium) 2 mg Q4H PRN ORAL Diarrhea 09/20/18 11:00 10/20/18 10:59 09/22/18 08:41 Lorazepam (Ativan 2mg/ml 1ml) 1 mg Q15M PRN IV For Anxiety 09/24/18 11:15 09/24/18 20:00 Metoclopramide HCl (Reglan) 10 mg Q6H PRN IVP Nausea & Vomiting 09/17/18 17:00 10/16/18 16:59 Midazolam HCl (Versed 2mg/2ml vial) 1 mg Q15M PRN IVP For Anxiety 09/24/18 11:15 09/24/18 20:00 Ondansetron HCl (Zofran) 4 mg Q1H PRN IVP Nausea & Vomiting 09/24/18 11:15 09/24/18 20:00 Oxycodone/ Acetaminophen (Percocet 5-325) 1 tab Q1H PRN ORAL Severe Pain (Pain Scale 7-10) 09/24/18 11:15 09/24/18 20:00 Pantoprazole (Protonix) 40 mg Q12HR ORAL 09/17/18 21:00 10/17/18 08:59 09/23/18 21:30 Sertraline HCl (Zoloft) 150 mg DAILY ORAL 09/18/18 09:00 10/17/18 08:59 09/23/18 08:50 Sevelamer Carbonate (Renvela) 1,600 mg THREE TIMES A DAY ORAL 09/17/18 13:00 10/16/18 17:59 09/23/18 17:06 Vitamin B Complex/ Vit C/Folic Acid (Nephrovite) 1 tab DAILY ORAL 09/20/18 10:45 10/20/18 10:44 09/23/18 08:51 Last 24 Hour Vital Signs Date Time Temp Pulse Resp B/P (MAP) Pulse Ox O2 Delivery O2 Flow Rate FiO2 09/24/18 12:15 97.8 62 13 145/73 99 Nasal Cannula 3 09/24/18 12:05 63 14 148/71 100 Nasal Cannula 3 09/24/18 11:55 62 16 154/72 100 Simple Mask 6 09/24/18 11:50 61 15 152/73 100 Simple Mask 6 09/24/18 11:48 61 18 100 09/24/18 11:47 57 16 100 09/24/18 11:46 97.2 62 19 155/73 100 Simple Mask 6 09/24/18 09:00 150/65 09/24/18 09:00 67 150/65 09/24/18 09:00 Nasal Cannula 2.0 09/24/18 08:44 67 150/65 09/24/18 08:00 99.1 67 18 150/65 (93) 95 09/24/18 04:00 98.8 67 18 152/66 (94) 92 09/24/18 00:00 97.8 67 20 145/69 (94) 94 09/23/18 21:30 64 165/82 09/23/18 21:00 Room Air 09/23/18 20:00 97.3 64 18 165/82 (109) 98 09/23/18 17:06 64 151/78 09/23/18 16:00 97.6 64 19 151/78 (102) 97 09/23/18 12:00 98.0 61 18 139/69 (92) 96 09/23/18 09:00 Nasal Cannula 2.0 09/23/18 08:51 147/70 09/23/18 08:51 64 147/70 09/23/18 08:51 64 147/70 09/23/18 08:00 98.9 64 16 147/70 (95) 98 09/23/18 04:00 98.3 62 20 141/67 (91) 100 09/23/18 00:00 98.4 64 18 113/53 (73) 95 09/22/18 22:24 67 132/58 09/22/18 21:00 Nasal Cannula 2.0 09/22/18 20:00 98.8 67 16 132/58 (82) 93 09/22/18 17:23 63 140/64 09/22/18 16:00 98.1 63 18 140/64 (89) 95 Intake and Output 09/23/18 09/24/18 19:00 07:00 Intake Total 180 ml Output Total 2000 ml Balance -2000 ml 180 ml Intake Oral 180 ml Hemodialysis UF 2000 ml # Bowel Movements 5 Labs Test 09/22/18 06:45 09/24/18 04:35 White Blood Count 5.3 K/UL (4.8-10.8) 4.9 K/UL (4.8-10.8) Red Blood Count 4.10 M/UL (4.20-5.40) 4.01 M/UL (4.20-5.40) Hemoglobin 10.7 G/DL (12.0-16.0) 10.5 G/DL (12.0-16.0) Hematocrit 36.5 % (37.0-47.0) 35.2 % (37.0-47.0) Mean Corpuscular Volume 89 FL (80-99) 88 FL (80-99) Mean Corpuscular Hemoglobin 26.1 PG (27.0-31.0) 26.3 PG (27.0-31.0) Mean Corpuscular Hemoglobin Concent 29.4 G/DL (32.0-36.0) 29.9 G/DL (32.0-36.0) Red Cell Distribution Width 16.4 % (11.6-14.8) 16.0 % (11.6-14.8) Platelet Count 105 K/UL (150-450) 78 K/UL (150-450) Mean Platelet Volume 9.5 FL (6.5-10.1) 10.0 FL (6.5-10.1) Neutrophils (%) (Auto) 63.6 % (45.0-75.0) % (45.0-75.0) Lymphocytes (%) (Auto) 20.5 % (20.0-45.0) % (20.0-45.0) Monocytes (%) (Auto) 12.4 % (1.0-10.0) % (1.0-10.0) Eosinophils (%) (Auto) 3.0 % (0.0-3.0) % (0.0-3.0) Basophils (%) (Auto) 0.6 % (0.0-2.0) % (0.0-2.0) Sodium Level 141 MMOL/L (136-145) 137 MMOL/L (136-145) Potassium Level 4.1 MMOL/L (3.5-5.1) 4.9 MMOL/L (3.5-5.1) Chloride Level 101 MMOL/L (98-107) 99 MMOL/L (98-107) Carbon Dioxide Level 32 MMOL/L (21-32) 29 MMOL/L (21-32) Anion Gap 8 mmol/L (5-15) 9 mmol/L (5-15) Blood Urea Nitrogen 36 mg/dL (7-18) 33 mg/dL (7-18) Creatinine 7.5 MG/DL (0.55-1.30) 6.5 MG/DL (0.55-1.30) Estimat Glomerular Filtration Rate 5.6 mL/min (>60) 6.7 mL/min (>60) Glucose Level 79 MG/DL (74-106) 76 MG/DL (74-106) Calcium Level 8.6 MG/DL (8.5-10.1) 8.9 MG/DL (8.5-10.1) Phosphorus Level 4.9 MG/DL (2.5-4.9) 3.9 MG/DL (2.5-4.9) Prothrombin Time 12.6 SEC (9.30-11.50) Prothromb Time International Ratio 1.2 (0.9-1.1) Activated Partial Thromboplast Time 32 SEC (23-33) Magnesium Level 2.3 MG/DL (1.8-2.4) Height (Feet): 5 Height (Inches): 2.00 Weight (Pounds): 138 Objective PE General Appearance: no apparent distress, alert HEENT: atraumatic, anicteric Neck: normal alignment, supple Respiratory/Chest: lungs clear, normal breath sounds, no respiratory distress Cardiovascular/Chest: normal rate, regular rhythm Abdomen: soft, no organomegaly, other - Mild diffuse tenderness Extremities: non-tender, normal inspection Neurologic: geophysical computer II-XII grossly normal, no motor/sensory deficits, alert, oriented x 3, responsive Mumtaz Herrera MD Sep 24, 2018 12:59
--- NOTE | 2018-09-24 13:11 | Nephrology Progress Note ---
Assessment/Plan Problem List: (1) Hypertensive kidney disease (2) Anemia in CKD (chronic kidney disease) (3) ESRD (end stage renal disease) (4) Hyperkalemia, diminished renal excretion Plan HD 09/16 now K corrected HD 09/23 next 09/25 Adjust BP meds- Add zestril to med surg per orders Subjective ROS Limited/Unobtainable: No Constitutional: Reports: malaise Objective Objective Last 24 Hour Vital Signs Date Time Temp Pulse Resp B/P (MAP) Pulse Ox O2 Delivery O2 Flow Rate FiO2 09/24/18 12:15 97.8 62 13 145/73 99 Nasal Cannula 3 09/24/18 12:05 63 14 148/71 100 Nasal Cannula 3 09/24/18 11:55 62 16 154/72 100 Simple Mask 6 09/24/18 11:50 61 15 152/73 100 Simple Mask 6 09/24/18 11:48 61 18 100 09/24/18 11:47 57 16 100 09/24/18 11:46 97.2 62 19 155/73 100 Simple Mask 6 09/24/18 09:00 150/65 09/24/18 09:00 67 150/65 09/24/18 09:00 Nasal Cannula 2.0 09/24/18 08:44 67 150/65 09/24/18 08:00 99.1 67 18 150/65 (93) 95 09/24/18 04:00 98.8 67 18 152/66 (94) 92 09/24/18 00:00 97.8 67 20 145/69 (94) 94 09/23/18 21:30 64 165/82 09/23/18 21:00 Room Air 09/23/18 20:00 97.3 64 18 165/82 (109) 98 09/23/18 17:06 64 151/78 09/23/18 16:00 97.6 64 19 151/78 (102) 97 Intake and Output 09/23/18 09/24/18 19:00 07:00 Intake Total 180 ml Output Total 2000 ml Balance -2000 ml 180 ml Intake Oral 180 ml Hemodialysis UF 2000 ml # Bowel Movements 5 Laboratory Tests 09/24/18 04:35: White Blood Count 4.9, Red Blood Count 4.01L, Hemoglobin 10.5L, Hematocrit 35.2L , Mean Corpuscular Volume 88, Mean Corpuscular Hemoglobin 26.3L, Mean Corpuscular Hemoglobin Concent 29.9L, Red Cell Distribution Width 16.0H, Platelet Count 78L, Mean Platelet Volume 10.0, Neutrophils (%) (Auto) , Lymphocytes (%) (Auto) , Monocytes (%) (Auto) , Eosinophils (%) (Auto) , Basophils (%) (Auto) , Prothrombin Time 12.6H, Prothromb Time International Ratio 1.2H, Activated Partial Thromboplast Time 32, Sodium Level 137, Potassium Level 4.9, Chloride Level 99, Carbon Dioxide Level 29, Anion Gap 9, Blood Urea Nitrogen 33H, Creatinine 6.5H, Estimat Glomerular Filtration Rate 6.7, Glucose Level 76, Calcium Level 8.9, Phosphorus Level 3.9, Magnesium Level 2.3 Height (Feet): 5 Height (Inches): 2.00 Weight (Pounds): 138 General Appearance: no apparent distress Objective no change James Bower MD Sep 24, 2018 13:11
--- NOTE | 2018-09-24 15:06 | NUR ---
WEB OPERATIONS SPECIALIST NOTES PATIENT HAS BEEN ACCEPTED AT [facility] ROOM 15A SKILLED. PATIENT AND DAUGHTER AGREES TO DC DAUGHTER CAN BE REACHED [phone]. PATIENT DOES NOT WANT TO RETURN TO [facility] FOR HER DIALYSIS AND DAUGHTER CONFIRMED THIS WELL. PATIENT AGREED TO GO TO [facility] T [phone], F [phone]. CONFIRMED THEY RECEIVED FAX AND THEY WILL BE REPLYING BY TOMORROW REGARDING ACCEPTANCE.
--- NOTE | 2018-09-24 15:59 | Surgery Progress Note ---
Surgery Progress Note Subjective Additional Comments EGD and colonoscopy today with gastritis and hemorrhoids exam stable otherwise well labs noted Objective Last 24 Hour Vital Signs Date Time Temp Pulse Resp B/P (MAP) Pulse Ox O2 Delivery O2 Flow Rate FiO2 09/24/18 12:15 97.8 62 13 145/73 99 Nasal Cannula 3 09/24/18 12:05 63 14 148/71 100 Nasal Cannula 3 09/24/18 11:55 62 16 154/72 100 Simple Mask 6 09/24/18 11:50 61 15 152/73 100 Simple Mask 6 09/24/18 11:48 61 18 100 09/24/18 11:47 57 16 100 09/24/18 11:46 97.2 62 19 155/73 100 Simple Mask 6 09/24/18 09:00 150/65 09/24/18 09:00 67 150/65 09/24/18 09:00 Nasal Cannula 2.0 09/24/18 08:44 67 150/65 09/24/18 08:00 99.1 67 18 150/65 (93) 95 09/24/18 04:00 98.8 67 18 152/66 (94) 92 09/24/18 00:00 97.8 67 20 145/69 (94) 94 09/23/18 21:30 64 165/82 09/23/18 21:00 Room Air 09/23/18 20:00 97.3 64 18 165/82 (109) 98 09/23/18 17:06 64 151/78 09/23/18 16:00 97.6 64 19 151/78 (102) 97 I&O Intake and Output 09/23/18 09/24/18 19:00 07:00 Intake Total 180 ml Output Total 2000 ml Balance -2000 ml 180 ml Intake Oral 180 ml Hemodialysis UF 2000 ml # Bowel Movements 5 Dressing: other Wound: other Drains: other Cardiovascular: RSR Respiratory: clear Abdomen: soft, non-tender, present bowel sounds, non-distended Extremities: no tenderness, no cyanosis Laboratory Tests Test 09/24/18 04:35 White Blood Count 4.9 K/UL (4.8-10.8) Red Blood Count 4.01 M/UL (4.20-5.40) L Hemoglobin 10.5 G/DL (12.0-16.0) L Hematocrit 35.2 % (37.0-47.0) L Mean Corpuscular Volume 88 FL (80-99) Mean Corpuscular Hemoglobin 26.3 PG (27.0-31.0) L Mean Corpuscular Hemoglobin Concent 29.9 G/DL (32.0-36.0) L Red Cell Distribution Width 16.0 % (11.6-14.8) H Platelet Count 78 K/UL (150-450) L Mean Platelet Volume 10.0 FL (6.5-10.1) Neutrophils (%) (Auto) % (45.0-75.0) Lymphocytes (%) (Auto) % (20.0-45.0) Monocytes (%) (Auto) % (1.0-10.0) Eosinophils (%) (Auto) % (0.0-3.0) Basophils (%) (Auto) % (0.0-2.0) Prothrombin Time 12.6 SEC (9.30-11.50) H Prothromb Time International Ratio 1.2 (0.9-1.1) H Activated Partial Thromboplast Time 32 SEC (23-33) Sodium Level 137 MMOL/L (136-145) Potassium Level 4.9 MMOL/L (3.5-5.1) Chloride Level 99 MMOL/L (98-107) Carbon Dioxide Level 29 MMOL/L (21-32) Anion Gap 9 mmol/L (5-15) Blood Urea Nitrogen 33 mg/dL (7-18) H Creatinine 6.5 MG/DL (0.55-1.30) H Estimat Glomerular Filtration Rate 6.7 mL/min (>60) Glucose Level 76 MG/DL (74-106) Calcium Level 8.9 MG/DL (8.5-10.1) Phosphorus Level 3.9 MG/DL (2.5-4.9) Magnesium Level 2.3 MG/DL (1.8-2.4) Plan Problems: (1) Hyperkalemia, diminished renal excretion (2) ESRD (end stage renal disease) (3) Hypertensive kidney disease (4) Anemia in CKD (chronic kidney disease) (5) Status migrainosus (6) History of migraine headaches (7) Dehydration (8) Diarrhea Assessment & Plan: C diff negative possible dietary stop all softeners GI input noted will monitor (9) Electrolyte imbalance (10) Abdominal pain Assessment & Plan: cramping abdominal discomfort abd soft, nt/nd, bs + Imaging ordered will follow with serial exams thank you Jeffy Corona Sep 24, 2018 15:59
--- NOTE | 2018-09-24 17:00 | Procedure Note ---
DATE OF PROCEDURE: 09/24/2018 SURGEON: Amor Go M.D. PROCEDURE: Upper endoscopy with biopsy and colonoscopy. ANESTHESIA: Per Dr. Liang. INSTRUMENT: Olympus adult flexible upper endoscope and colonoscope. INDICATION: Anemia. REASON FOR PROCEDURE: The procedure, risks, benefits, and possible consequences, including hemorrhage, aspiration, perforation and infection, and alternative treatments, were explained to the patient/legal guardian by Dr. Amor Go and the patient/legal guardian understood and accepted these risks. PROCEDURE IN DETAIL: After informed consent was obtained and the patient was adequately sedated, Olympus upper endoscope was advanced from the mouth into second portion of duodenum and retroflexion was performed in the stomach. The patient has some irregularity at the Z-line. In the stomach, there was diffuse gastritis. Random biopsy from antrum was obtained to rule out H. pylori infection. Otherwise, the rest of the upper endoscopic examination was within normal limits. At this time, the upper endoscope was retrieved and the patient was turned over for colonoscopy. First, rectal exam was performed, which showed positive for internal hemorrhoids. Then, the scope was the advanced from the rectum into cecum documented by appendiceal orifice, ileocecal valve, and right upper quadrant palpation. Quality of prep was good. The patient had normal colonoscopy examination. There was at least 4 or 5 diverticula in the ascending colon, but no diverticula was seen in the left colon. Retroflexion of the rectum showed evidence of medium-sized nonbleeding internal hemorrhoids. SUMMARY OF FINDINGS: 1. Gastritis, status post biopsy. 2. Irregular Z-line. 3. Diverticulosis in the right colon. 4. Internal hemorrhoids. RECOMMENDATIONS: Follow up path and treat accordingly. Amor Go M.D. DR: KRISTEL JOB#: [id number] CC:
--- NOTE | 2018-09-24 18:00 | Progress Note ---
SUBJECTIVE: The patient is doing well. Depression is improved. No suicidal or homicidal ideation. The patient is calmer. MENTAL STATUS EXAMINATION: The patient is alert, oriented times self, place, and situation. Mood is dysphoric. Affect is constricted. Congruent with mood. Thought process is concrete. Thought content, no suicidal or homicidal ideation. ASSESSMENT: 1. Major depressive disorder. 2. Anxiety disorder. PLAN: We will continue current medications. Provide the patient with reality orientation and supportive therapy. Edward Jacobo M.D. DR: Shantanu JOB#: [id number] CC: VICKI
--- NOTE | 2018-09-24 19:00 | NUR ---
NURSE NOTES: Received a report from MACIEJ Jimenez. Pt is in stable condition. AAOX4. Able to make needs known. On room air. No c/o pain/discomfort. IV site is patent and intact. AV shunt is on R FA + bruit and thrill. Bed in lowest position. Dressing on the L lateral foot is dry and intact. Call light within reach. Will continue to monitor.
--- NOTE | 2018-09-24 19:16 | NUR ---
HAND-OFF: Report given to MACIEJ Staples.
[2018-09-24] MEDS: Atorvastatin 80mg tab ORAL SCH (22:08)
--- NOTE | 2018-09-24 22:40 | General Progress Note ---
Assessment/Plan Status: unchanged Assessment/Plan: 53 year old F with PMH of HTN and ESRD on HD admitted for fluid overload and hyperkalemia 2/2 missed HD session #Fluid overload 2/2 ESRD non complaince with HD - symptoms improved -missed 3 sessions -Renal consult appreciated -HD per renal #Hyperkalemia - resolved -2/2 missed HD and k was > 8 on admission -received calcium, insulin and kayexalate -HD per renal -CTM #ESRD on HD -Nephrology consulted for HD management, next session 09/23 -continue Renagel #Noninfectious diarrhea -monitor electrolytes -gi consult appreciated -colonoscopy and EGD today -npo mn #HTN #HL -continue Coreg and Lipitor - cont norvasc 5 mg BID -Lisinopril added per renal, will increase dose as SBP in the 150 mmHg range. Patient is dialysis dependent. #Type 2 DM -lispro SS #Depression -continue Zoloft Dispo -plan for DC to SNF after HD génesis Full Code VTE PPx Heparin Subjective Date patient seen: Sep 24, 2018 Allergies: Coded Allergies: No Known Allergies (Unverified , 08/15/18) Subjective States she feels better, BP improved, has no complaints, pt unable to go back to [facility] due to complex health issues, CM consulted for placement, pt in agreeance. colonoscopy and EGD today, accepted at SNF, will dc tomorrow after HD Objective Last 24 Hour Vital Signs Date Time Temp Pulse Resp B/P (MAP) Pulse Ox O2 Delivery O2 Flow Rate FiO2 09/24/18 22:08 72 163/74 09/24/18 20:00 99.1 72 18 163/74 (103) 96 09/24/18 17:45 99.4 09/24/18 17:15 66 156/71 09/24/18 16:00 99.4 66 18 156/71 (99) 99 09/24/18 12:15 97.8 62 13 145/73 99 Nasal Cannula 3 09/24/18 12:05 63 14 148/71 100 Nasal Cannula 3 09/24/18 11:55 62 16 154/72 100 Simple Mask 6 09/24/18 11:50 61 15 152/73 100 Simple Mask 6 09/24/18 11:48 61 18 100 09/24/18 11:47 57 16 100 09/24/18 11:46 97.2 62 19 155/73 100 Simple Mask 6 09/24/18 09:00 150/65 09/24/18 09:00 67 150/65 09/24/18 09:00 Nasal Cannula 2.0 09/24/18 08:44 67 150/65 09/24/18 08:00 99.1 67 18 150/65 (93) 95 09/24/18 04:00 98.8 67 18 152/66 (94) 92 09/24/18 00:00 97.8 67 20 145/69 (94) 94 Intake and Output 09/23/18 09/24/18 18:59 06:59 Intake Total 180 ml Output Total 2000 ml Balance -2000 ml 180 ml Intake Oral 180 ml Hemodialysis UF 2000 ml # Bowel Movements 5 Laboratory Tests 09/24/18 04:35: White Blood Count 4.9, Red Blood Count 4.01L, Hemoglobin 10.5L, Hematocrit 35.2L , Mean Corpuscular Volume 88, Mean Corpuscular Hemoglobin 26.3L, Mean Corpuscular Hemoglobin Concent 29.9L, Red Cell Distribution Width 16.0H, Platelet Count 78L, Mean Platelet Volume 10.0, Neutrophils (%) (Auto) , Lymphocytes (%) (Auto) , Monocytes (%) (Auto) , Eosinophils (%) (Auto) , Basophils (%) (Auto) , Prothrombin Time 12.6H, Prothromb Time International Ratio 1.2H, Activated Partial Thromboplast Time 32, Sodium Level 137, Potassium Level 4.9, Chloride Level 99, Carbon Dioxide Level 29, Anion Gap 9, Blood Urea Nitrogen 33H, Creatinine 6.5H, Estimat Glomerular Filtration Rate 6.7, Glucose Level 76, Calcium Level 8.9, Phosphorus Level 3.9, Magnesium Level 2.3 Height (Feet): 5 Height (Inches): 2.00 Weight (Pounds): 138 Objective General Appearance: WD/WN, alert, mild distress Lines, tubes and drains: peripheral HEENT: normocephalic, atraumatic Neck: non-tender, normal alignment, supple Respiratory/Chest: chest wall non-tender, normal breath sounds, no respiratory distress Cardiovascular/Chest: normal peripheral pulses, normal rate, regular rhythm Abdomen: normal bowel sounds, non tender, soft, no organomegaly Extremities: normal range of motion, other - AV fistula R forearm Skin Exam: normal pigmentation 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
[2018-09-25] VITALS (8 sets, daily range): BP systolic 144–172; BP diastolic 67–83
--- NOTE | 2018-09-25 04:55 | NUR ---
HAND-OFF: Report given to MACIEJ Enriquez.
--- NOTE | 2018-09-25 07:30 | NUR ---
NURSE NOTES: Received pt from MACIEJ MCCRARY. Pt is alert and orient x4. pt is in RA, No SOB or acute respiratory distress noted. pt has intact iv access LFA 20g SL. pt has RFA AV SHUNT. All needs attended, bed is locked and is in the lowest position. call light within easy reach. will continue to monitor.
[2018-09-25 08:55] LABS: HEMATOCRIT 35.5 % (37.0-47.0); HEMOGLOBIN 10.6 G/DL (12.0-16.0); MEAN CORPUSCULAR VOLUME 88 FL (80-99); PLATELET COUNT 83 K/UL (150-450); RED BLOOD COUNT 4.02 M/UL (4.20-5.40); WHITE BLOOD COUNT 6.2 K/UL (4.8-10.8)
[2018-09-25] MEDS ORDERED: Pneumococcal Vaccine 25mcg/0.5ml IM ONE (09:00)
[2018-09-25] MEDS: Lisinopril 10mg tab ORAL SCH (09:00)
[2018-09-25] MEDS: Carvedilol 12.5mg tab ORAL SCH ×2 (09:00→21:04)
[2018-09-25] MEDS: Sertraline 50mg tab ORAL SCH (09:14)
[2018-09-25] MEDS: Docusate 100mg cap ORAL SCH ×3 (09:14→17:03)
[2018-09-25] MEDS: BuPROPion XL 150mg tab ORAL SCH (09:14)
[2018-09-25] MEDS: Lactobacillus-GG tablet ORAL SCH ×3 (09:14→17:03)
[2018-09-25] MEDS: Renvela 800mg Pkt ORAL SCH ×3 (09:15→17:03)
[2018-09-25] MEDS: Aspirin EC 81mg tab ORAL SCH (09:15)
[2018-09-25] MEDS: Nephrovite tab (Rena-Vite) ORAL SCH (09:15)
[2018-09-25 09:30] LABS: ANION GAP 13 mmol/L (5-15); BLOOD UREA NITROGEN 52 mg/dL (7-18); CARBON DIOXIDE 24 MMOL/L (21-32); CHLORIDE 98 MMOL/L (98-107); CREATININE 8.1 MG/DL (0.55-1.30); SODIUM 135 MMOL/L (136-145)
--- NOTE | 2018-09-25 11:10 | GI Progress Note ---
Assessment/Plan Problems: (1) Diarrhea ICD Codes: R19.7 - Diarrhea, unspecified SNOMED: 28276797 (2) Dehydration ICD Codes: E86.0 - Dehydration SNOMED: 11485524 (3) Abdominal pain ICD Codes: R10.9 - Unspecified abdominal pain SNOMED: 60865205 (4) Electrolyte imbalance ICD Codes: E87.8 - Other disorders of electrolyte and fluid balance, not elsewhere classified SNOMED: 389909881 (5) Anemia in CKD (chronic kidney disease) ICD Codes: N18.9 - Chronic kidney disease, unspecified; D63.1 - Anemia in chronic kidney disease SNOMED: 634590082 Status: stable Status Narrative Discussed with Dr. Go. Assessment/Plan SUMMARY OF FINDINGS: 1. Gastritis, status post biopsy. 2. Irregular Z-line. 3. Diverticulosis in the right colon. 4. Internal hemorrhoids. C. difficile negative okay for DC per GI standpoint Imodium as needed, Lomotil for persistent diarrhea IV and p.o. hydration Electrolyte correction per nephro Zofran as needed Pain management fu path The patient was seen and examined at bedside and all new and available data was reviewed in the patients chart. I agree with the above findings, impression and plan. (Patient seen earlier today. Signature stamp does not reflect patient encounter time.). - Amor Go MD Subjective Gastrointestinal/Abdominal: Reports: no symptoms Objective Last 24 Hour Vital Signs Date Time Temp Pulse Resp B/P (MAP) Pulse Ox O2 Delivery O2 Flow Rate FiO2 09/25/18 09:00 158/77 09/25/18 09:00 75 158/77 09/25/18 09:00 75 158/77 09/25/18 08:00 98.9 75 18 158/77 (104) 97 09/25/18 04:00 99.2 18 145/67 (93) 95 09/25/18 00:00 98.8 67 18 144/74 (97) 96 09/24/18 22:08 72 163/74 09/24/18 21:00 Room Air 09/24/18 20:00 99.1 72 18 163/74 (103) 96 09/24/18 17:45 99.4 09/24/18 17:15 66 156/71 09/24/18 16:00 99.4 66 18 156/71 (99) 99 09/24/18 12:15 97.8 62 13 145/73 99 Nasal Cannula 3 09/24/18 12:05 63 14 148/71 100 Nasal Cannula 3 09/24/18 11:55 62 16 154/72 100 Simple Mask 6 09/24/18 11:50 61 15 152/73 100 Simple Mask 6 09/24/18 11:48 61 18 100 09/24/18 11:47 57 16 100 09/24/18 11:46 97.2 62 19 155/73 100 Simple Mask 6 Intake and Output 09/24/18 09/25/18 19:00 07:00 Intake Total 640 ml 100 ml Balance 640 ml 100 ml Intake Oral 240 ml 100 ml IV Total 400 ml # Voids 3 Laboratory Tests Test 09/25/18 08:19 White Blood Count 6.2 K/UL (4.8-10.8) Red Blood Count 4.02 M/UL (4.20-5.40) L Hemoglobin 10.6 G/DL (12.0-16.0) L Hematocrit 35.5 % (37.0-47.0) L Mean Corpuscular Volume 88 FL (80-99) Mean Corpuscular Hemoglobin 26.4 PG (27.0-31.0) L Mean Corpuscular Hemoglobin Concent 29.9 G/DL (32.0-36.0) L Red Cell Distribution Width 16.0 % (11.6-14.8) H Platelet Count 83 K/UL (150-450) L Mean Platelet Volume 8.2 FL (6.5-10.1) Neutrophils (%) (Auto) % (45.0-75.0) Lymphocytes (%) (Auto) % (20.0-45.0) Monocytes (%) (Auto) % (1.0-10.0) Eosinophils (%) (Auto) % (0.0-3.0) Basophils (%) (Auto) % (0.0-2.0) Differential Total Cells Counted 100 Neutrophils % (Manual) 66 % (45-75) Lymphocytes % (Manual) 19 % (20-45) L Monocytes % (Manual) 11 % (1-10) H Eosinophils % (Manual) 4 % (0-3) H Basophils % (Manual) 0 % (0-2) Band Neutrophils 0 % (0-8) Platelet Estimate Decreased L Platelet Morphology Normal Hypochromasia 1+ Anisocytosis 1+ Sodium Level 135 MMOL/L (136-145) L Potassium Level 5.0 MMOL/L (3.5-5.1) Chloride Level 98 MMOL/L (98-107) Carbon Dioxide Level 24 MMOL/L (21-32) Anion Gap 13 mmol/L (5-15) Blood Urea Nitrogen 52 mg/dL (7-18) H Creatinine 8.1 MG/DL (0.55-1.30) H Estimat Glomerular Filtration Rate 5.2 mL/min (>60) Glucose Level 105 MG/DL (74-106) Calcium Level 9.0 MG/DL (8.5-10.1) Height (Feet): 5 Height (Inches): 2.00 Weight (Pounds): 138 General Appearance: WD/WN, no apparent distress, alert Cardiovascular: normal rate Respiratory/Chest: normal breath sounds, no respiratory distress Abdominal Exam: normal bowel sounds, non tender, soft Extremities: normal range of motion, non-tender Thomas Bird NP Sep 25, 2018 11:10
--- NOTE | 2018-09-25 11:14 | Nephrology Progress Note ---
Assessment/Plan Problem List: (1) Hypertensive kidney disease (2) Anemia in CKD (chronic kidney disease) (3) ESRD (end stage renal disease) (4) Hyperkalemia, diminished renal excretion Plan HD 09/16 now K corrected HD 09/25 Adjust BP meds- Add zestril to med surg per orders Subjective ROS Limited/Unobtainable: No Objective Objective Last 24 Hour Vital Signs Date Time Temp Pulse Resp B/P (MAP) Pulse Ox O2 Delivery O2 Flow Rate FiO2 09/25/18 09:00 158/77 09/25/18 09:00 75 158/77 09/25/18 09:00 75 158/77 09/25/18 08:00 98.9 75 18 158/77 (104) 97 09/25/18 04:00 99.2 18 145/67 (93) 95 09/25/18 00:00 98.8 67 18 144/74 (97) 96 09/24/18 22:08 72 163/74 09/24/18 21:00 Room Air 09/24/18 20:00 99.1 72 18 163/74 (103) 96 09/24/18 17:45 99.4 09/24/18 17:15 66 156/71 09/24/18 16:00 99.4 66 18 156/71 (99) 99 09/24/18 12:15 97.8 62 13 145/73 99 Nasal Cannula 3 09/24/18 12:05 63 14 148/71 100 Nasal Cannula 3 09/24/18 11:55 62 16 154/72 100 Simple Mask 6 09/24/18 11:50 61 15 152/73 100 Simple Mask 6 09/24/18 11:48 61 18 100 09/24/18 11:47 57 16 100 09/24/18 11:46 97.2 62 19 155/73 100 Simple Mask 6 Intake and Output 09/24/18 09/25/18 19:00 07:00 Intake Total 640 ml 100 ml Balance 640 ml 100 ml Intake Oral 240 ml 100 ml IV Total 400 ml # Voids 3 Current Medications Medications (Trade) Dose Ordered Sig/Rogelio Route PRN Reason Start Time Stop Time Status Last Admin Dose Admin Acetaminophen (Tylenol) 650 mg Q6H PRN ORAL For Pain 09/17/18 17:15 10/16/18 17:14 09/22/18 06:10 Amlodipine Besylate (Norvasc) 5 mg BID ORAL 09/17/18 18:00 10/17/18 08:59 09/24/18 17:15 Aspirin (Ecotrin) 81 mg DAILY ORAL 09/18/18 09:00 10/17/18 08:59 09/25/18 09:15 Atorvastatin Calcium (Lipitor) 80 mg BEDTIME ORAL 09/17/18 21:00 10/17/18 20:59 09/24/18 22:08 Bupropion HCl (Wellbutrin XL) 150 mg DAILY ORAL 09/20/18 09:00 10/20/18 08:59 09/25/18 09:14 Carvedilol (Coreg) 12.5 mg EVERY 12 HOURS ORAL 09/17/18 21:00 10/17/18 20:59 09/24/18 22:08 Docusate Sodium (Colace) 100 mg TID ORAL 09/17/18 13:00 10/16/18 17:59 09/25/18 09:14 Gabapentin (Neurontin) 100 mg THREE TIMES A DAY ORAL 09/17/18 13:00 10/17/18 12:59 09/25/18 09:14 Hydralazine HCl (Apresoline) 25 mg Q6H PRN ORAL SBP>160 09/18/18 16:15 10/18/18 16:14 09/21/18 02:06 Lactobacillus Acidophilus (Culturelle) 1 tab THREE TIMES A DAY ORAL 09/19/18 13:00 10/19/18 12:59 09/25/18 09:14 Levothyroxine Sodium (Synthroid) 50 mcg DAILY@0630 ORAL 09/19/18 06:30 10/19/18 06:29 09/25/18 06:55 Lisinopril (Zestril) 20 mg DAILY ORAL 09/22/18 09:00 10/18/18 09:44 09/23/18 08:51 Loperamide HCl (Imodium) 2 mg Q4H PRN ORAL Diarrhea 09/20/18 11:00 10/20/18 10:59 09/22/18 08:41 Metoclopramide HCl (Reglan) 10 mg Q6H PRN IVP Nausea & Vomiting 09/17/18 17:00 10/16/18 16:59 Pantoprazole (Protonix) 40 mg Q12HR ORAL 09/17/18 21:00 10/17/18 08:59 09/25/18 09:14 Sertraline HCl (Zoloft) 150 mg DAILY ORAL 09/18/18 09:00 10/17/18 08:59 09/25/18 09:14 Sevelamer Carbonate (Renvela) 1,600 mg THREE TIMES A DAY ORAL 09/17/18 13:00 10/16/18 17:59 09/25/18 09:15 Vitamin B Complex/ Vit C/Folic Acid (Nephrovite) 1 tab DAILY ORAL 09/20/18 10:45 10/20/18 10:44 09/25/18 09:15 Laboratory Tests 09/25/18 08:19: White Blood Count 6.2, Red Blood Count 4.02L, Hemoglobin 10.6L, Hematocrit 35.5L , Mean Corpuscular Volume 88, Mean Corpuscular Hemoglobin 26.4L, Mean Corpuscular Hemoglobin Concent 29.9L, Red Cell Distribution Width 16.0H, Platelet Count 83L, Mean Platelet Volume 8.2, Neutrophils (%) (Auto) , Lymphocytes (%) (Auto) , Monocytes (%) (Auto) , Eosinophils (%) (Auto) , Basophils (%) (Auto) , Differential Total Cells Counted 100, Neutrophils % ( Manual) 66, Lymphocytes % (Manual) 19L, Monocytes % (Manual) 11H, Eosinophils % (Manual) 4H, Basophils % (Manual) 0, Band Neutrophils 0, Platelet Estimate DecreasedL, Platelet Morphology Normal, Hypochromasia 1+, Anisocytosis 1+, Sodium Level 135L, Potassium Level 5.0, Chloride Level 98, Carbon Dioxide Level 24, Anion Gap 13, Blood Urea Nitrogen 52H, Creatinine 8.1H, Estimat Glomerular Filtration Rate 5.2, Glucose Level 105, Calcium Level 9.0 Height (Feet): 5 Height (Inches): 2.00 Weight (Pounds): 138 General Appearance: no apparent distress Cardiovascular: normal rate Respiratory/Chest: lungs clear Abdomen: soft Objective no change James Bower MD Sep 25, 2018 11:14
[2018-09-25] MEDS ORDERED: WELLBUTRIN XL150 M3 ORAL (11:32)
[2018-09-25] MEDS ORDERED: PANTOPRAZOLE SO40 MG ORAL (11:32)
[2018-09-25] MEDS ORDERED: ZESTRIL10 M1 ORAL (11:32)
--- NOTE | 2018-09-25 11:32 | NUR ---
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 HD DAYS SUNDAY,SUNDAY, SUNDAY. CHAIR TIME 0445. WILL SET UP STANDING TRANSPORTATION WITH [facility]. SPOKE WITH DAUGHTER SONAL MTZ TO SEND PT TO [facility]. PROVIDED DAUGHTER WITH CONTACT INFORMATION TO FACILITY AND CONTACT INFORMATION FOR OUTPT HD. PT WILL DC WHEN TRANSPORTATION IS SET UP. [facility] [phone]. Addendum: 09/25/18 at 1619 by CIARAN PINON RN RN PT TO TRANSPORT TO [facility], WITH ETA 1900 NURSE MADE AWARE. PT TO TRANSFER UPON COMPLETION OF HD. OUTPT HD TRANSPORTATION SET UP BY MIRYAM Jimenez THE Facility.
--- NOTE | 2018-09-25 11:33 | Discharge Instructions ---
Discharge Instructions Discharge Instructions Follow up with: pcp Call MD/Return to Hospital if: fevers, intractable vomiting and pain Diet: renal diabetic Resume Normal Activity?: Yes Activity: resume normal activities For Congestive Heart Failure Reminder Report to your physician any weight gain of 5 pounds or more in one week. Chloé Nam MD Sep 25, 2018 11:33
--- NOTE | 2018-09-25 11:41 | NUR ---
RD ASSESSMENT & RECOMMENDATIONS SEE CARE ACTIVITY FOR COMPLETE ASSESSMENT DAILY ESTIMATED NEEDS: Needs based on HD/ 65kg 25-30 kcals/kg 6281-4545 total kcals 1.2-1.8 g protein/kg 78-117 g total protein 20-22 mL/kg 7154-0142 total fluid mLs NUTRITION DIAGNOSIS: * Altered nutrition related lab values R/T ESRD as evidenced by critically elev K upon adm (8.5*-> now wnl), elev creat (8.1), elev BNP (>53212) * Altered GI function R/T possibly PICA (eating dirt) x 2-3 yrs per pt, as evidenced by c/o persistent diarrhea, now subsided. PO DIET RECOMMENDATIONS: RENAL + NEPRO BID + HIGH PROT SNACKS IN B/W MEALS ADDITIONAL RECOMMENDATIONS: * Standing wt for accurate CBW, obtain dry wt post HD -> Adm wt of 151# -> now at 138# -> Please obtain a standing scale wt post HD for accuracy. * Psych eval for PICA (pt reports eating dirt x 2-3 yrs, about 3-4 times a day, last consumed 09/14) * Monitor renal fxn and lytes * Nephrovite x 1
--- NOTE | 2018-09-25 13:56 | Surgery Progress Note ---
Surgery Progress Note Subjective Symptoms: improved, voiding well, passing flatus Objective Last 24 Hour Vital Signs Date Time Temp Pulse Resp B/P (MAP) Pulse Ox O2 Delivery O2 Flow Rate FiO2 09/25/18 12:00 97.8 66 19 168/75 (106) 96 09/25/18 09:00 158/77 09/25/18 09:00 75 158/77 09/25/18 09:00 75 158/77 09/25/18 09:00 Room Air 09/25/18 08:00 98.9 75 18 158/77 (104) 97 09/25/18 04:00 99.2 18 145/67 (93) 95 09/25/18 00:00 98.8 67 18 144/74 (97) 96 09/24/18 22:08 72 163/74 09/24/18 21:00 Room Air 09/24/18 20:00 99.1 72 18 163/74 (103) 96 09/24/18 17:45 99.4 09/24/18 17:15 66 156/71 09/24/18 16:00 99.4 66 18 156/71 (99) 99 I&O Intake and Output 09/24/18 09/25/18 19:00 07:00 Intake Total 640 ml 100 ml Balance 640 ml 100 ml Intake Oral 240 ml 100 ml IV Total 400 ml # Voids 3 Cardiovascular: RSR Respiratory: clear Abdomen: soft, non-tender, present bowel sounds, non-distended Extremities: no tenderness, no cyanosis Laboratory Tests Test 09/25/18 08:19 White Blood Count 6.2 K/UL (4.8-10.8) Red Blood Count 4.02 M/UL (4.20-5.40) L Hemoglobin 10.6 G/DL (12.0-16.0) L Hematocrit 35.5 % (37.0-47.0) L Mean Corpuscular Volume 88 FL (80-99) Mean Corpuscular Hemoglobin 26.4 PG (27.0-31.0) L Mean Corpuscular Hemoglobin Concent 29.9 G/DL (32.0-36.0) L Red Cell Distribution Width 16.0 % (11.6-14.8) H Platelet Count 83 K/UL (150-450) L Mean Platelet Volume 8.2 FL (6.5-10.1) Neutrophils (%) (Auto) % (45.0-75.0) Lymphocytes (%) (Auto) % (20.0-45.0) Monocytes (%) (Auto) % (1.0-10.0) Eosinophils (%) (Auto) % (0.0-3.0) Basophils (%) (Auto) % (0.0-2.0) Differential Total Cells Counted 100 Neutrophils % (Manual) 66 % (45-75) Lymphocytes % (Manual) 19 % (20-45) L Monocytes % (Manual) 11 % (1-10) H Eosinophils % (Manual) 4 % (0-3) H Basophils % (Manual) 0 % (0-2) Band Neutrophils 0 % (0-8) Platelet Estimate Decreased L Platelet Morphology Normal Hypochromasia 1+ Anisocytosis 1+ Sodium Level 135 MMOL/L (136-145) L Potassium Level 5.0 MMOL/L (3.5-5.1) Chloride Level 98 MMOL/L (98-107) Carbon Dioxide Level 24 MMOL/L (21-32) Anion Gap 13 mmol/L (5-15) Blood Urea Nitrogen 52 mg/dL (7-18) H Creatinine 8.1 MG/DL (0.55-1.30) H Estimat Glomerular Filtration Rate 5.2 mL/min (>60) Glucose Level 105 MG/DL (74-106) Calcium Level 9.0 MG/DL (8.5-10.1) Plan Problems: (1) Hyperkalemia, diminished renal excretion (2) ESRD (end stage renal disease) (3) Hypertensive kidney disease (4) Anemia in CKD (chronic kidney disease) (5) Status migrainosus (6) History of migraine headaches (7) Dehydration (8) Diarrhea Assessment & Plan: C diff negative possible dietary stop all softeners GI input noted will monitor (9) Electrolyte imbalance (10) Abdominal pain Assessment & Plan: cramping abdominal discomfort abd soft, nt/nd, bs + improved d/c ladonna from surgical standpoint thank you Jeffy Corona Sep 25, 2018 13:56
--- NOTE | 2018-09-25 16:11 | Discharge Summary ---
Discharge Summary Hospital Course Date of Admission Sep 16, 2018 at 14:29 Date of Discharge Admitting Diagnosis CHEST PAIN ,ACS,ESRD HPI Daina Guzman is a 53 year old female who was admitted on Sep 16, 2018 at 14: 29 for Chest Pain,Acute Coronary Syndrome,End Stage Renal Hospital Course 53 year old F with PMH of HTN and ESRD on HD admitted for fluid overload and hyperkalemia 2/2 missed HD session #Fluid overload 2/2 ESRD non complaince with HD - symptoms improved with HD #Hyperkalemia - resolved with HD #ESRD on HD -continue Renagel #Noninfectious diarrhea -monitor electrolytes -gi consult appreciated -colonoscopy and EGD unremarkable #HTN #HL -continue Coreg and Lipitor - cont norvasc 5 mg BID and Lisinopril #Type 2 DM -lispro SS #Depression -continue Zoloft Discharge Condition Upon Discharge: stable Discharge Disposition Patient was discharged to snf Discharge Instructions Discharge Instructions Follow up with: pcp Call MD/Return to Hospital if: fevers, intractable vomiting and pain Activity: resume normal activities Chloé Nam MD Sep 25, 2018 16:11
[2018-09-25] MEDS: HydrALAZINE 25mg tab ORAL PRN (17:03)
--- NOTE | 2018-09-25 17:23 | Hematology/Onc Progress Note ---
Assessment/Plan Assessment/Plan Assessment/Plan: # Pancytopenia - potential causes multifactorial, evaluate liver and viral etiologies to begin, also could be related to underlying medications patient has received. Appears to be chronic, hepatitis and hiv are noth negative. US abd to evaluate for cirrhosis and hsm ordered from prior admission shows no cirrhosis --> Peripheral smear ordered to evaluate for no blasts/schistocytes -none --> abx and other meds have been reviewed --> ok for ppx if plt >50k w/ either heparin or lovenox --> wbc 5.5-->4.4--> 5.3->6.2 --> Plt 93-->98k--> 89k->78k->83k # Anemia of chronic disease due to underlying chronic medical issues, multifactorial --> Ferritin 400 --> Anemia workup has been reviewed, rule out gi bleed --> No evidence of hemolysis is noted, peripheral smear has been reviewed. --> Hgb goal >7. Transfuse prn.HGB 11.3-->10.5->10.6 --> Epogen or iron at this time is not particularly indicated --> Medications have been reviewed --> low threshold for gi evaluation in case has occult + # Intractable headache, status migrainosus. --> admit to medical service --> supportive care with anti-emetics, Percocet prn --> Neurology eval requested # Nausea, vomiting and diarrhea, more chronic in duration --> check stool studies including C. difficile # ESRD on HD --> Nephrology is following, appreciate recs. Hd as per renal --> continue Renagel # HTN --> sbp goal <140 # HL --> continue Coreg and Lipitor # Type 2 DM --> lispro SS # Depression --> continue Zoloft The time note was entered does not reflect time patient was examined. GREATLY APPRECIATE CONSULTATION. Subjective HEENT: Denies: no symptoms, eye pain, blurred vision, tearing, double vision, ear pain, ear discharge, nose pain, nose congestion, throat pain, throat swelling, mouth pain, mouth swelling, other Cardiovascular: Denies: no symptoms, chest pain, edema, irregular heart rate, lightheadedness, palpitations, syncope, other Gastrointestinal/Abdominal: Denies: no symptoms, abdomen distended, abdominal pain, black stools, tarry stools, blood in stool, constipated, diarrhea, difficulty swallowing, nausea, poor appetite, poor fluid intake, rectal bleeding , vomiting, other Genitourinary: Denies: no symptoms, burning, discharge, frequency, flank pain, hematuria, incontinence, pain, urgency, other Endocrine: Denies: no symptoms, excessive sweating, flushing, intolerance to cold, intolerance to heat, increased hunger, increased thirst, increased urine, unexplained weight gain, unexplained weight loss, other Allergies: Coded Allergies: No Known Allergies (Unverified , 08/15/18) Subjective Subjective 09/20: pt resting in bed, no acute events. 09/21:vag bleed yesterday, no further bleeding. 09/22: no acute events. no further bleeding. 09/24: no events, no bleeding, set to get egd/colo today 09/25: stable for dc, labs reviewed, hgb stable Objective Objective Current Medications Medications (Trade) Dose Ordered Sig/Rogelio Route PRN Reason Start Time Stop Time Status Last Admin Dose Admin Acetaminophen (Tylenol) 650 mg Q6H PRN ORAL For Pain 09/17/18 17:15 10/16/18 17:14 09/22/18 06:10 Amlodipine Besylate (Norvasc) 5 mg BID ORAL 09/17/18 18:00 10/17/18 08:59 09/25/18 17:03 Aspirin (Ecotrin) 81 mg DAILY ORAL 09/18/18 09:00 10/17/18 08:59 09/25/18 09:15 Atorvastatin Calcium (Lipitor) 80 mg BEDTIME ORAL 09/17/18 21:00 10/17/18 20:59 09/24/18 22:08 Bupropion HCl (Wellbutrin XL) 150 mg DAILY ORAL 09/20/18 09:00 10/20/18 08:59 09/25/18 09:14 Carvedilol (Coreg) 12.5 mg EVERY 12 HOURS ORAL 09/17/18 21:00 10/17/18 20:59 09/24/18 22:08 Docusate Sodium (Colace) 100 mg TID ORAL 09/17/18 13:00 10/16/18 17:59 09/25/18 17:03 Gabapentin (Neurontin) 100 mg THREE TIMES A DAY ORAL 09/17/18 13:00 10/17/18 12:59 09/25/18 17:03 Hydralazine HCl (Apresoline) 25 mg Q6H PRN ORAL SBP>160 09/18/18 16:15 10/18/18 16:14 09/25/18 17:03 Lactobacillus Acidophilus (Culturelle) 1 tab THREE TIMES A DAY ORAL 09/19/18 13:00 10/19/18 12:59 09/25/18 17:03 Levothyroxine Sodium (Synthroid) 50 mcg DAILY@0630 ORAL 09/19/18 06:30 10/19/18 06:29 09/25/18 06:55 Lisinopril (Zestril) 20 mg DAILY ORAL 09/22/18 09:00 10/18/18 09:44 09/23/18 08:51 Loperamide HCl (Imodium) 2 mg Q4H PRN ORAL Diarrhea 09/20/18 11:00 10/20/18 10:59 09/22/18 08:41 Metoclopramide HCl (Reglan) 10 mg Q6H PRN IVP Nausea & Vomiting 09/17/18 17:00 10/16/18 16:59 Pantoprazole (Protonix) 40 mg Q12HR ORAL 09/17/18 21:00 10/17/18 08:59 09/25/18 09:14 Sertraline HCl (Zoloft) 150 mg DAILY ORAL 09/18/18 09:00 10/17/18 08:59 09/25/18 09:14 Sevelamer Carbonate (Renvela) 1,600 mg THREE TIMES A DAY ORAL 09/17/18 13:00 10/16/18 17:59 09/25/18 17:03 Vitamin B Complex/ Vit C/Folic Acid (Nephrovite) 1 tab DAILY ORAL 09/20/18 10:45 10/20/18 10:44 09/25/18 09:15 Last 24 Hour Vital Signs Date Time Temp Pulse Resp B/P (MAP) Pulse Ox O2 Delivery O2 Flow Rate FiO2 09/25/18 17:03 170/80 09/25/18 17:03 64 170/80 09/25/18 16:00 98.3 64 18 170/80 (110) 97 09/25/18 12:00 97.8 66 19 168/75 (106) 96 09/25/18 09:00 158/77 09/25/18 09:00 75 158/77 09/25/18 09:00 75 158/77 09/25/18 09:00 Room Air 09/25/18 08:00 98.9 75 18 158/77 (104) 97 09/25/18 04:00 99.2 18 145/67 (93) 95 09/25/18 00:00 98.8 67 18 144/74 (97) 96 09/24/18 22:08 72 163/74 09/24/18 21:00 Room Air 09/24/18 20:00 99.1 72 18 163/74 (103) 96 09/24/18 17:45 99.4 09/24/18 17:15 66 156/71 09/24/18 16:00 99.4 66 18 156/71 (99) 99 09/24/18 12:15 97.8 62 13 145/73 99 Nasal Cannula 3 09/24/18 12:05 63 14 148/71 100 Nasal Cannula 3 09/24/18 11:55 62 16 154/72 100 Simple Mask 6 09/24/18 11:50 61 15 152/73 100 Simple Mask 6 09/24/18 11:48 61 18 100 09/24/18 11:47 57 16 100 09/24/18 11:46 97.2 62 19 155/73 100 Simple Mask 6 09/24/18 09:00 150/65 09/24/18 09:00 67 150/65 09/24/18 09:00 Nasal Cannula 2.0 09/24/18 08:44 67 150/65 09/24/18 08:00 99.1 67 18 150/65 (93) 95 09/24/18 04:00 98.8 67 18 152/66 (94) 92 09/24/18 00:00 97.8 67 20 145/69 (94) 94 09/23/18 21:30 64 165/82 09/23/18 21:00 Room Air 09/23/18 20:00 97.3 64 18 165/82 (109) 98 Intake and Output 09/24/18 09/25/18 19:00 07:00 Intake Total 640 ml 100 ml Balance 640 ml 100 ml Intake Oral 240 ml 100 ml IV Total 400 ml # Voids 3 Labs Test 09/24/18 04:35 09/25/18 08:19 White Blood Count 4.9 K/UL (4.8-10.8) 6.2 K/UL (4.8-10.8) Red Blood Count 4.01 M/UL (4.20-5.40) 4.02 M/UL (4.20-5.40) Hemoglobin 10.5 G/DL (12.0-16.0) 10.6 G/DL (12.0-16.0) Hematocrit 35.2 % (37.0-47.0) 35.5 % (37.0-47.0) Mean Corpuscular Volume 88 FL (80-99) 88 FL (80-99) Mean Corpuscular Hemoglobin 26.3 PG (27.0-31.0) 26.4 PG (27.0-31.0) Mean Corpuscular Hemoglobin Concent 29.9 G/DL (32.0-36.0) 29.9 G/DL (32.0-36.0) Red Cell Distribution Width 16.0 % (11.6-14.8) 16.0 % (11.6-14.8) Platelet Count 78 K/UL (150-450) 83 K/UL (150-450) Mean Platelet Volume 10.0 FL (6.5-10.1) 8.2 FL (6.5-10.1) Neutrophils (%) (Auto) % (45.0-75.0) % (45.0-75.0) Lymphocytes (%) (Auto) % (20.0-45.0) % (20.0-45.0) Monocytes (%) (Auto) % (1.0-10.0) % (1.0-10.0) Eosinophils (%) (Auto) % (0.0-3.0) % (0.0-3.0) Basophils (%) (Auto) % (0.0-2.0) % (0.0-2.0) Prothrombin Time 12.6 SEC (9.30-11.50) Prothromb Time International Ratio 1.2 (0.9-1.1) Activated Partial Thromboplast Time 32 SEC (23-33) Sodium Level 137 MMOL/L (136-145) 135 MMOL/L (136-145) Potassium Level 4.9 MMOL/L (3.5-5.1) 5.0 MMOL/L (3.5-5.1) Chloride Level 99 MMOL/L (98-107) 98 MMOL/L (98-107) Carbon Dioxide Level 29 MMOL/L (21-32) 24 MMOL/L (21-32) Anion Gap 9 mmol/L (5-15) 13 mmol/L (5-15) Blood Urea Nitrogen 33 mg/dL (7-18) 52 mg/dL (7-18) Creatinine 6.5 MG/DL (0.55-1.30) 8.1 MG/DL (0.55-1.30) Estimat Glomerular Filtration Rate 6.7 mL/min (>60) 5.2 mL/min (>60) Glucose Level 76 MG/DL (74-106) 105 MG/DL (74-106) Calcium Level 8.9 MG/DL (8.5-10.1) 9.0 MG/DL (8.5-10.1) Phosphorus Level 3.9 MG/DL (2.5-4.9) Magnesium Level 2.3 MG/DL (1.8-2.4) Differential Total Cells Counted 100 Neutrophils % (Manual) 66 % (45-75) Lymphocytes % (Manual) 19 % (20-45) Monocytes % (Manual) 11 % (1-10) Eosinophils % (Manual) 4 % (0-3) Basophils % (Manual) 0 % (0-2) Band Neutrophils 0 % (0-8) Platelet Estimate Decreased Platelet Morphology Normal Hypochromasia 1+ Anisocytosis 1+ Height (Feet): 5 Height (Inches): 2.00 Weight (Pounds): 139 Objective PE General Appearance: no apparent distress, alert HEENT: atraumatic, anicteric Neck: normal alignment, supple Respiratory/Chest: lungs clear, normal breath sounds, no respiratory distress Cardiovascular/Chest: normal rate, regular rhythm Abdomen: soft, no organomegaly, other - Mild diffuse tenderness Extremities: non-tender, normal inspection Neurologic: chick sexer II-XII grossly normal, no motor/sensory deficits, alert, oriented x 3, responsive Mumtaz Herrera MD Sep 25, 2018 17:23
--- NOTE | 2018-09-25 18:00 | NUR ---
NURSE NOTES: Pt has D/C order, all discharge assessments and instructions done and pt verbally confirmed to understand all. pt is stable. Report given to [facility]. All belongings are with pt and checked with RN. Pt's med got from pharmacy and given to pt. waiting for ambulance to [facility] pt. RFA AV shunt dressing is intact. will continue to monitor.
--- NOTE | 2018-09-25 18:45 | Progress Note ---
DATE: 09/25/2018 SUBJECTIVE: The patient is [place]ian speaking. Presents with low energy, depressed mood. No suicidal or homicidal ideation. Calm and cooperative. She has multiple psychosocial stressors. MENTAL STATUS EXAMINATION: The patient is alert, oriented times self, place, and situation. Mood is dysphoric. Affect is constricted, congruent with mood. Thought process is concrete. Thought content, no suicidal or homicidal ideations. ASSESSMENT: Depression, anxiety. PLAN: 1. We will continue current medication. 2. Provide the patient with reality orientation and supportive therapy. Edward Jacobo M.D. DR: ANÍBAL JOB#: [id number] CC:
[2018-09-25] MEDS: Loperamide 2mg cap ORAL PRN (18:59)
--- NOTE | 2018-09-25 19:48 | NUR ---
HAND-OFF: Report given to MACIEJ RICHARDS.
--- NOTE | 2018-09-25 19:49 | NUR ---
NURSE NOTES: Received patient in no apparent distress. A&OX4. IV site patent and intact. Patient waiting for discharge. Patient's own wheel waker at bedside. Bed in lowest position. Call light within reach. Will continue to monitor.
[2018-09-25] MEDS: Atorvastatin 80mg tab ORAL SCH (21:04)
--- NOTE | 2018-09-25 21:45 | NUR ---
NURSE NOTES: Patient discharged to [facility] [place] with stable condition. Ambulance staff picked up patient. Belongings were sent with patient. IV and ID band removed.
--- NOTE | 2018-09-25 23:13 | Neurology Progress Note ---
Interim History Interim History ROS Limited/Unobtainable: No Complaints: RAMÍREZ improved Interim History no RAMÍREZ today, improved Objective Physical Exam Last Vital Signs Date Time Temp Pulse Resp B/P (MAP) Pulse Ox O2 Delivery O2 Flow Rate FiO2 09/25/18 21:04 73 172/82 09/25/18 21:00 Room Air 09/25/18 20:00 99.1 18 95 09/24/18 12:15 3 Laboratory Tests Test 09/25/18 08:19 White Blood Count 6.2 K/UL (4.8-10.8) Red Blood Count 4.02 M/UL (4.20-5.40) L Hemoglobin 10.6 G/DL (12.0-16.0) L Hematocrit 35.5 % (37.0-47.0) L Mean Corpuscular Volume 88 FL (80-99) Mean Corpuscular Hemoglobin 26.4 PG (27.0-31.0) L Mean Corpuscular Hemoglobin Concent 29.9 G/DL (32.0-36.0) L Red Cell Distribution Width 16.0 % (11.6-14.8) H Platelet Count 83 K/UL (150-450) L Mean Platelet Volume 8.2 FL (6.5-10.1) Neutrophils (%) (Auto) % (45.0-75.0) Lymphocytes (%) (Auto) % (20.0-45.0) Monocytes (%) (Auto) % (1.0-10.0) Eosinophils (%) (Auto) % (0.0-3.0) Basophils (%) (Auto) % (0.0-2.0) Differential Total Cells Counted 100 Neutrophils % (Manual) 66 % (45-75) Lymphocytes % (Manual) 19 % (20-45) L Monocytes % (Manual) 11 % (1-10) H Eosinophils % (Manual) 4 % (0-3) H Basophils % (Manual) 0 % (0-2) Band Neutrophils 0 % (0-8) Platelet Estimate Decreased L Platelet Morphology Normal Hypochromasia 1+ Anisocytosis 1+ Sodium Level 135 MMOL/L (136-145) L Potassium Level 5.0 MMOL/L (3.5-5.1) Chloride Level 98 MMOL/L (98-107) Carbon Dioxide Level 24 MMOL/L (21-32) Anion Gap 13 mmol/L (5-15) Blood Urea Nitrogen 52 mg/dL (7-18) H Creatinine 8.1 MG/DL (0.55-1.30) H Estimat Glomerular Filtration Rate 5.2 mL/min (>60) Glucose Level 105 MG/DL (74-106) Calcium Level 9.0 MG/DL (8.5-10.1) Impression/Recommendations Problems: (1) Status migrainosus (2) History of migraine headaches (3) Hyperkalemia, diminished renal excretion (4) ESRD (end stage renal disease) (5) Hypertensive kidney disease (6) Anemia in CKD (chronic kidney disease) Status: stable Diagnostic Impression Acute encephalopathy - improving Tension type headache PT OT Delirium precautions Tylenol PRn for RAMÍREZ Will follow peripherally Adriano Gaines MD Sep 25, 2018 23:13
== END 2018-09-25 21:50 | DRG 640 ==
LOC: EDBD 13:07 → EDBEDREQ 13:16 → EMR 13:33 → 2W 14:29 → EDBEDREQSVC 14:40 → EDBEDREQ 14:40 → 2W 18:10 → 4E 09-17 12:26
PROC: 5A1D70Z Performance of Urinary Filtration, Intermittent, Less than 6 Hours Per Day (ICD-10-PCS; principal; 2018-09-16)
PROC: 0DJD8ZZ Inspection of Lower Intestinal Tract, Via Natural or Artificial Opening Endoscopic (ICD-10-PCS; 2018-09-24 11:19)
PROC: 0DB78ZX Excision of Stomach, Pylorus, Via Natural or Artificial Opening Endoscopic, Diagnostic (ICD-10-PCS; 2018-09-24 11:19)
DX: E87.5 Hyperkalemia (principal); N18.6 End stage renal disease; I12.0 Hypertensive chronic kidney disease with stage 5 chronic kidney disease or end stage renal disease; D61.818 Other pancytopenia; G43.811 Other migraine, intractable, with status migrainosus; E87.79 Other fluid overload; F32.9 Major depressive disorder, single episode, unspecified; Z91.15 Patient's noncompliance with renal dialysis; D63.8 Anemia in other chronic diseases classified elsewhere; E11.22 Type 2 diabetes mellitus with diabetic chronic kidney disease; Z99.2 Dependence on renal dialysis; E86.0 Dehydration; E78.5 Hyperlipidemia, unspecified; R11.2 Nausea with vomiting, unspecified; R19.7 Diarrhea, unspecified; R10.9 Unspecified abdominal pain; K64.8 Other hemorrhoids
CPT/HCPCS: 36415; 71045; 74018; 80048; 80053; 80061; 82550; 82553; 82607; 82728; 82746; 82962; 82977; 83036; 83540; 83550; 83735; 83880; 84100; 84443; 84484; 84550; 85007; 85025; 85610; 85730; 86140; 86705; 86706; 86707; 86803; 87081; 87324; 90732; 93005; 93306; 94003; 94150; 96374; 96375; 99291; J2765

== ENCOUNTER 2018-10-11 15:59 | Emergency (ER) | payer MEDICARE, MEDICAID ==
[~2018-10-11] VITALS: Ht 160 cm; Wt 65.8 kg
[~2018-10-11 15:59] MED LIST changes: +AMLODIPINE BESYL5 MG ORAL; +ASPIRIN-LOW81 MG ORAL; +LOSARTAN POTASS50 MG ORAL; +PANTOPRAZOLE SO40 MG ORAL; +WELLBUTRIN XL150 M3 ORAL; +ZESTRIL10 M1 ORAL; +ZETIA10 MG ORAL; +ZOFRAN4 M1 ORAL
--- NOTE | 2018-10-11 16:15 | NUR ---
ED Nurse Note: pt brought by ambulance from SNF due to headache. pt slipped and fell last night. AAO x4. respirations even and non-labored noted. denies any n/v/blurred vision. will wait for the further order.
[2018-10-11 16:20] VITALS: BP 125/68
--- NOTE | 2018-10-11 16:46 | Diagnostic Imaging Report ---
Indications: Pain in back of head status post fall last night Technique: Spiral acquisitions obtained through the brain. Angled axial and coronal 5 x 5 mm slices were reconstructed. Total dose length product 1269.9 mGycm. CTDI vol(s) 70.38 mGy. Dose reduction achieved using automated exposure control Comparison: 08/15/2018 Findings: There is mild age-related prominence of the ventricles and extra axial CSF spaces. There is periventricular deep white matter low-attenuation which is somewhat advanced for age. No acute intracranial hemorrhage or edema, mass effect, nor midline shift. Normal hare-white differentiation. There is suggestion of prior cataract surgery on the left. The mastoids are clear. The visualized sinuses demonstrate minimal mucosal thickening of the left maxillary sinus. The calvarium is intact. Impression: Negative for acute intracranial bleed or mass effect Mild age-related volume loss. Periventricular deep white matter low attenuation, consistent with chronic microvascular ischemic changes, somewhat advanced for age. Minimal sinus disease The CT scanner at [facility] is accredited by the [employer] and the scans are performed using protocols designed to limit radiation exposure to as low as reasonably achievable to attain images of sufficient resolution adequate for diagnostic evaluation.
--- NOTE | 2018-10-11 17:27 | Emergency Room Report ---
History of Present Illness General Chief Complaint: Multiple Trauma/Fall Source: Patient, Medical Record, EMS Present Illness HPI 53-year-old female with history of diabetes, glaucoma currently controlled brought in by paramedics complaining of headache after falling the back of her head last night. Patient denies loss of consciousness, dizziness, blurry vision , nausea vomiting. Patient reports that due to her low vision due to glaucoma she lost balance and fell. Denies all other injuries, pain, tingling and numbness. Denies chest pain, shortness of breath, palpitation, abdominal pain, no other associated symptoms. Denies being on blood thinners, Allergies: Coded Allergies: No Known Allergies (Unverified , 08/15/18) Patient History Limited by: language barrier Past Medical History: see triage record Past Surgical History: unable to obtain Pertinent Family History: unable to obtain Last Menstrual Period: na Now: No Reviewed Nursing Documentation: PMH: Agreed; PSxH: Agreed Nursing Documentation-PMH Past Medical History: No History, Except For Hx Cardiac Problems: Yes Hx Hypertension: Yes Hx Diabetes: Yes Hx Cancer: No Hx Gastrointestinal Problems: No Hx Dialysis: Yes - M,W,F Hx Neurological Problems: No Hx Headaches: Yes Review of Systems All Other Systems: negative except mentioned in HPI Physical Exam Vital Signs Date Time Temp Pulse Resp B/P (MAP) Pulse Ox O2 Delivery O2 Flow Rate FiO2 10/11/18 16:05 98.1 60 20 125/68 (87) 98 Room Air Sp02 EP Interpretation: reviewed, normal General Appearance: well appearing, no apparent distress, alert, GCS 15 Head: normocephalic, atraumatic Eyes: bilateral eye normal inspection, bilateral eye PERRL ENT: hearing grossly normal, no angioedema Neck: normal inspection, full range of motion, supple Respiratory: normal inspection, chest non-tender, lungs clear, no rhonchi, no wheezing Cardiovascular #1: normal inspection, normal peripheral pulses, regular rate, rhythm, no edema, no gallop, no murmur Gastrointestinal: normal inspection, non tender, soft Rectal: deferred Genitourinary: no CVA tenderness Musculoskeletal: normal inspection, back normal, digits/nails normal, gait/ station normal Neurologic: normal inspection, alert, oriented x3, responsive, modeling teacher III-XII nml as tested Psychiatric: normal inspection, judgement/insight normal, memory normal Skin: no rash Lymphatic: normal inspection, no adenopathy Medical Decision Making PA Attestation All my diagnosis and treatment plans were reviewed ad discussed with my supervising physician Dr. Judd Diagnostic Impression: Primary Impression: Head contusion ER Course 53-year-old female with history of diabetes, glaucoma currently controlled brought in by paramedics complaining of headache after falling the back of her head last night. Patient denies loss of consciousness, dizziness, blurry vision , nausea vomiting. Patient reports that due to her low vision due to glaucoma she lost balance and fell. Denies all other injuries, pain, tingling and numbness. Denies chest pain, shortness of breath, palpitation, abdominal pain, no other associated symptoms. Denies being on blood thinners, Ddx considered but are not limited to: cerebral hematoma, concussion, skull fracture, head contusion Vital signs: are WNL, pt. is afebrile H&PE are most consistent with: Head contusion ORDERS: head CT no contrast ED INTERVENTIONS: None required at this time. DISCHARGE: At this time pt. is stable for d/c to home. Will provide printed patient care instructions, and any necessary prescriptions. Care plan and follow up instructions have been discussed with the patient prior to discharge. Patient to follow-up with a primary care provider after talking to Dr. Pratt by no further action needed patient to be sent home. CT/MRI/US Diagnostic Results CT/MRI/US Diagnostic Results : Imaging Test Ordered: head CT no contrast Impression No acute changes noted no sign of hematoma Last Vital Signs Date Time Temp Pulse Resp B/P (MAP) Pulse Ox O2 Delivery O2 Flow Rate FiO2 10/11/18 16:20 60 20 Room Air 10/11/18 16:20 98.1 125/68 98 Disposition: HOME, SELF-CARE Condition: Stable Referrals: Jaya Monique MD (PCP) Patient Instructions: Contusion, Ahrr-ox-Tuyn Donn Haney Oct 11, 2018 17:27
--- NOTE | 2018-10-11 18:04 | NUR ---
ED Nurse Note: Reports given to MACIEJ Hicks. at [facility].
[2018-10-11 18:34] VITALS: BP 127/76
--- NOTE | 2018-10-11 18:34 | NUR ---
ED Nurse Note: pt transferred back to SNF by [phone].
== END 2018-10-11 18:37 | disposition home or self-care (01) ==
LOC: EDBD 15:59 → EDUNIT# 15:59 → EMR 16:29
DX: S00.93XA Contusion of unspecified part of head, initial encounter (principal); W19.XXXA Unspecified fall, initial encounter; Y92.9 Unspecified place or not applicable; I10 Essential (primary) hypertension; E11.9 Type 2 diabetes mellitus without complications; H40.9 Unspecified glaucoma
CPT/HCPCS: 70450; 99284

== ENCOUNTER 2018-11-23 01:22 | Emergency (ER) | payer MEDICARE, MEDICAID ==
[~2018-11-23] VITALS: Ht 162.6 cm; Wt 59.0 kg
[2018-11-23 01:35] VITALS: BP 169/75
--- NOTE | 2018-11-23 01:35 | NUR ---
ED Nurse Note: Pt RETA ESCAMILLA from [facility] c/o bleeding in the tongue since 2029. Pt stated she was eating dinner and bit her tongue. No active bleeding. Pt on dialysis Tu, Thrs, Sat- shunt Rt arm.
[2018-11-23 01:47] VITALS: BP 169/75
--- NOTE | 2018-11-23 01:48 | NUR ---
ED Nurse Note: Pt cleared by health care Provider for discharge. DC instructions/prescription was given and explained to pt and verbalized understanding of teachings. All medical deviecs such as ID band removed. Pt is AAO x4, ambulatory and left with all personal belongings. Patient was transfered back to the [facility] rehab center via [id number].
--- NOTE | 2018-11-23 21:10 | Emergency Room Report ---
History of Present Illness General Chief Complaint: Laceration Present Illness Allergies: Coded Allergies: No Known Allergies (Unverified , 08/15/18) Patient History Last Menstrual Period: na Nursing Documentation-PMH Hx Cardiac Problems: Yes Hx Hypertension: Yes Hx Diabetes: Yes Hx Cancer: No Hx Gastrointestinal Problems: No Hx Dialysis: Yes - M,W,F Hx Neurological Problems: No Hx Headaches: Yes Physical Exam Vital Signs Date Time Temp Pulse Resp B/P (MAP) Pulse Ox O2 Delivery O2 Flow Rate FiO2 11/23/18 01:30 98.2 78 16 169/75 (106) 94 Room Air Medical Decision Making Diagnostic Impression: Primary Impression: Tongue laceration Additional Impression: no active bleeding Last Vital Signs Date Time Temp Pulse Resp B/P (MAP) Pulse Ox O2 Delivery O2 Flow Rate FiO2 11/23/18 01:47 98.2 16 169/75 94 Room Air 11/23/18 01:30 78 Status: improved Disposition: [facility] SNF Condition: Stable Referrals: Jaya Monique MD (PCP) Patient Instructions: Tongue Laceration Orlin Savage MD Nov 23, 2018 21:10
== END 2018-11-23 01:47 | disposition home or self-care (01) ==
LOC: EDUNIT# 01:22 → EDBD 01:22 → EMR 01:38
DX: S01.512A Laceration without foreign body of oral cavity, initial encounter (principal); I10 Essential (primary) hypertension; E11.9 Type 2 diabetes mellitus without complications; X58.XXXA Exposure to other specified factors, initial encounter; Y92.9 Unspecified place or not applicable
CPT/HCPCS: 99283

== ENCOUNTER 2018-12-02 19:01 | Inpatient (IN) | payer MEDICARE, MEDICAID ==
[~2018-12-02] VITALS: Ht 162.6 cm; Wt 60.1 kg
[2018-12-02] MEDS ORDERED: ZYPREXA2.5 MG ORAL (19:16)
[2018-12-02] MEDS ORDERED: VITAMIN C250 MG ORAL (19:16)
[2018-12-02] MEDS ORDERED: LUMIGAN2.5 ML BOTH EYES (19:16)
[2018-12-02] MEDS ORDERED: DiphenhydrAMINE 50mg/ml Inj IM ONE (19:30)
[2018-12-02] MEDS ORDERED: Haloperidol 5mg/ml Inj IM ONE (19:30)
[2018-12-02 21:00] VITALS: BP 155/69
--- NOTE | 2018-12-02 21:32 | Emergency Room Report ---
History of Present Illness General Chief Complaint: Multiple Trauma/Fall Source: Patient, Medical Record, EMS Present Illness HPI Patient 53-year-old female presented after a fall. Patient was noted to be having a prior history of chronic renal failure. She is normally dialyzed Sat. Last dialysis on sunday. Patient was sent in from custodial. Patient denies any current complaints. She was noted to be somewhat agitated initially.History is markedly limited by poor cooperation and agitation. Allergies: Coded Allergies: No Known Allergies (Unverified , 08/15/18) Patient History Past Medical History: see triage record Now: No Reviewed Nursing Documentation: PMH: Agreed; PSxH: Agreed Nursing Documentation-PMH Hx Cardiac Problems: Yes Hx Hypertension: Yes Hx Diabetes: Yes Hx Cancer: No Hx Gastrointestinal Problems: No Hx Dialysis: Yes - M,W,F Hx Neurological Problems: No Hx Headaches: Yes Review of Systems All Other Systems: negative except mentioned in HPI Physical Exam Vital Signs Date Time Temp Pulse Resp B/P (MAP) Pulse Ox O2 Delivery O2 Flow Rate FiO2 12/02/18 19:02 97.5 68 18 136/73 (94) 97 Room Air Sp02 EP Interpretation: reviewed, normal General Appearance: normal inspection, well appearing, no apparent distress, alert, GCS 15, Chronically Ill Head: atraumatic ENT: normal ENT inspection, hearing grossly normal, normal voice Neck: normal inspection, full range of motion, supple, no bony tend Respiratory: normal inspection, lungs clear, normal breath sounds, no respiratory distress, no retraction, no wheezing Cardiovascular #1: regular rate, rhythm, no edema Gastrointestinal: normal inspection, normal bowel sounds, non tender, soft, no guarding, no hernia Genitourinary: no CVA tenderness Musculoskeletal: normal inspection, back normal, normal range of motion Neurologic: normal inspection, alert, responsive, speech normal Psychiatric: mood/affect normal Medical Decision Making Diagnostic Impression: Primary Impression: ESRD (end stage renal disease) Additional Impressions: Hyperkalemia Fall ER Course Patient presented for a fall. Differential diagnosis include was not limited to head injury, renal disease, hyperkalemia, anemia among others. Because of complexity of patient's case laboratory tests and imaging studies were ordered. CT of the head showed no atrophic changes without evidence of acute intracranial hemorrhage. Laboratory testing showed some mild anemia consistent with patient's chronic renal disease. laboratory testing showed some hyperkalemia. Patient was given sedative medications due to agitation. Patient had apparently been having increased confusion over the past few days. Dr. Chris Evans was contacted for [facility]. Patient will be admitted for further evaluation and treatment.EKG interpreted by me showed normal sinus rhythm without acute ST or T wave changes. QTc was noted to be somewhat prolonged. Labs Test 12/02/18 21:15 White Blood Count 6.0 K/UL (4.8-10.8) Red Blood Count 4.26 M/UL (4.20-5.40) Hemoglobin 12.5 G/DL (12.0-16.0) Hematocrit 39.3 % (37.0-47.0) Mean Corpuscular Volume 92 FL (80-99) Mean Corpuscular Hemoglobin 29.4 PG (27.0-31.0) Mean Corpuscular Hemoglobin Concent 31.8 G/DL (32.0-36.0) Red Cell Distribution Width 15.2 % (11.6-14.8) Platelet Count 102 K/UL (150-450) Mean Platelet Volume 8.6 FL (6.5-10.1) Neutrophils (%) (Auto) 67.3 % (45.0-75.0) Lymphocytes (%) (Auto) 17.4 % (20.0-45.0) Monocytes (%) (Auto) 11.4 % (1.0-10.0) Eosinophils (%) (Auto) 2.8 % (0.0-3.0) Basophils (%) (Auto) 1.1 % (0.0-2.0) EKG Diagnostic Results Rate: normal Rhythm: NSR ST Segments: no acute changes Last Vital Signs Date Time Temp Pulse Resp B/P (MAP) Pulse Ox O2 Delivery O2 Flow Rate FiO2 12/02/18 19:02 97.5 68 18 136/73 (94) 97 Room Air Status: unchanged Disposition: ADMITTED INPATIENT Condition: Serious Referrals: Jaya Monique MD (PCP) Orlin Savage MD Dec 02, 2018 21:32
[2018-12-02 21:46] LABS: BASOPHILS % (AUTO) 1.1 % (0.0-2.0); EOSINOPHILS % (AUTO) 2.8 % (0.0-3.0); HEMATOCRIT 39.3 % (37.0-47.0); HEMOGLOBIN 12.5 G/DL (12.0-16.0); LYMPHOCYTES % (AUTO) 17.4 % (20.0-45.0); MEAN CORPUSCULAR VOLUME 92 FL (80-99); MONOCYTES % (AUTO) 11.4 % (1.0-10.0); NEUTROPHILS % (AUTO) 67.3 % (45.0-75.0); PLATELET COUNT 102 K/UL (150-450); RED BLOOD COUNT 4.26 M/UL (4.20-5.40); RED CELL DISTRIBUTION WIDTH 15.2 % (11.6-14.8)
[2018-12-02 22:00] LABS: ANION GAP 13 mmol/L (5-15); BLOOD UREA NITROGEN 59 mg/dL (7-18); CALCIUM 9.9 MG/DL (8.5-10.1); CARBON DIOXIDE 28 MMOL/L (21-32); CHLORIDE 93 MMOL/L (98-107); CREATININE 8.7 MG/DL (0.55-1.30); POTASSIUM 5.9 MMOL/L (3.5-5.1); SODIUM 133 MMOL/L (136-145)
[2018-12-02 22:04] LABS: ALANINE AMINOTRANSFERASE 17 U/L (12-78); ALBUMIN/GLOBULIN RATIO 0.9 (1.0-2.7); ALKALINE PHOSPHATASE 178 U/L (46-116); ASPARTATE AMINO TRANSFERASE 23 U/L (15-37)
[2018-12-02] MEDS ORDERED: Sodium Polystyrene Sulfonate 15gm Powder ORAL ONE (22:15)
--- NOTE | 2018-12-02 23:20 | Diagnostic Imaging Report ---
Indication: Altered mental status Technique: Contiguous 5 mm thick transaxial imaging of the head obtained in a Siemens Sensation [address] scanner. Soft tissue and bone windows generated. Automatic Exposure Control was utilized. Total Dose length Product (DLP): 2747.[address] Dose Index Volume (CTDIvol): 70.38,70.38 mGy Comparison: 10/11/2018 Findings: There is mild prominence of the ventricles, basal cisterns, and cerebral sulci consistent with atrophy. Mild, nonspecific, white matter hypoattenuation is noted throughout the brain consistent with chronic small vessel disease. There is no midline shift, edema, acute hemorrhage, mass effect, or abnormal extra-axial fluid collections. Bones are unremarkable. Impression: No acute intracranial bleed, mass effect or edema. Mild atrophy of the brain. Nonspecific white matter hypoattenuation probably due to chronic small vessel disease. [facility] has communicated the preliminary results to the Emergency Department. Their findings are largely concordant with this report. The CT scanner at [facility] is accredited by the [employer] and the scans are performed using dose optimization techniques as appropriate to a performed exam including Automatic Exposure control.
[2018-12-02 23:30] VITALS: BP 165/71
[2018-12-03] VITALS (7 sets, daily range): BP systolic 112–154; BP diastolic 56–91
[2018-12-03] MEDS ORDERED: Docusate 100mg cap ORAL PRN (03:45)
[2018-12-03] MEDS: NovoLOG Insulin Flexpen SUBQ SCH ×4 (06:30→21:00)
[2018-12-03 06:58] LABS: ANION GAP 15 mmol/L (5-15); BLOOD UREA NITROGEN 63 mg/dL (7-18); CALCIUM 9.2 MG/DL (8.5-10.1); CARBON DIOXIDE 26 MMOL/L (21-32); CHLORIDE 94 MMOL/L (98-107); CREATININE 9.2 MG/DL (0.55-1.30); POTASSIUM 5.6 MMOL/L (3.5-5.1); SODIUM 135 MMOL/L (136-145)
[2018-12-03 07:18] LABS: HEMATOCRIT 35.6 % (37.0-47.0); HEMOGLOBIN 11.4 G/DL (12.0-16.0); MEAN CORPUSCULAR VOLUME 93 FL (80-99); PLATELET COUNT 92 K/UL (150-450); RED BLOOD COUNT 3.82 M/UL (4.20-5.40); RED CELL DISTRIBUTION WIDTH 15.8 % (11.6-14.8); WHITE BLOOD COUNT 5.8 K/UL (4.8-10.8)
[2018-12-03] MEDS: Carvedilol 12.5mg tab ORAL SCH ×2 (09:00→21:40)
[2018-12-03] MEDS ORDERED: BuPROPion XL 150mg tab ORAL SCH (09:00)
[2018-12-03] MEDS ORDERED: Ascorbic Acid 500mg tab ORAL SCH (09:00)
--- NOTE | 2018-12-03 09:17 | History and Physical ---
History of Present Illness General Date patient seen: Dec 03, 2018 Reason for Hospitalization: Multiple Trauma/Fall Present Illness HPI 53-year-old female with history of end-stage renal disease on hemodialysis ( Sunday) was sent to the hospital to from her [facility] facility for evaluation of psychosis. Patient was having visual and auditory hallucinations and fell a few times due to disorientation. Patient is a poor historian due to mental status and information was gathered through reviewing the medical chart. In the ER she was agitated and received Haldol. Potassium was high and received Kayexalate. Hypoglycemic and received D50. She also has hypertension, type 2 diabetes and depression. Past medical and surgical history: As above Social history: Patient unable to tell Family history: Patient unable to tell due to mental status Allergies: Per chart review no known drug allergies Allergies: Coded Allergies: No Known Allergies (Unverified , 08/15/18) Medication History Scheduled Amlodipine Besylate* (Amlodipine Besylate*), 5 MG ORAL DAILY, (Reported) Ascorbic Acid* (Vitamin C*), 250 MG ORAL TWICE A DAY, (Reported) Aspirin (Aspirin EC), 81 MG ORAL DAILY, (Reported) Atorvastatin Calcium* (Lipitor*), 80 MG ORAL BEDTIME, (Reported) Bimatoprost (Lumigan), 1 DROP BOTH EYES DAILY, (Reported) Bupropion HCl (Bupropion Xl), 150 MG ORAL DAILY Calcium Acetate (Calcium Acetate), 1,334 MG PO TID, (Reported) Carvedilol* (Carvedilol*), 12.5 MG ORAL EVERY 12 HOURS, (Reported) Ezetimibe (Zetia*), 10 MG ORAL BEDTIME, (Reported) Gabapentin* (Gabapentin*), 400 MG ORAL THREE TIMES A DAY, (Reported) Isosorb Dinit/Hydralazine Hcl (Bidil Tablet), 1 EACH PO THREE TIMES A DAY, ( Reported) Lisinopril* (Zestril*), 20 MG ORAL DAILY Olanzapine* (Zyprexa*), 2.5 MG ORAL DAILY, (Reported) Pantoprazole* (Pantoprazole*), 40 MG ORAL Q12HR Sertraline Hcl* (Zoloft*), 150 MG ORAL DAILY, (Reported) Sevelamer Hcl (Renagel), 800 MG ORAL THREE TIMES A DAY, (Reported) Scheduled PRN Acetaminophen* (Acetaminophen 325MG Tablet*), 325 MG ORAL Q6H PRN for For Pain, (Reported) Docusate Sodium* (Docusate Sodium*), 100 MG ORAL TWICE A DAY PRN for Constipation, (Reported) Loperamide Hcl (Loperamide), 2 MG PO QID PRN for Diarrhea, (Reported) Metoclopramide Hcl* (Metoclopramide Hcl*), 5 MG ORAL EVERY 6 HOURS PRN for Nausea & Vomiting, (Reported) Ondansetron (Zofran), 4 MG ORAL Q6H PRN for Nausea & Vomiting, (Reported) Patient History History Provided By: Medical Record, EMS Healthcare decision maker Resuscitation status Full Code Advanced Directive on File Review of Systems ROS Narrative Unable to obtain due to patient's altered mental status Physical Exam Physical Exam Narrative General Appearance: no apparent distress, opens eyes to verbal commands. Does not follow commands HEENT: PERRL Respiratory: normal inspection, lungs clear, normal breath sounds, no respiratory distress, no retraction, no wheezing Cardiovascular : regular rate, rhythm, no m/r/g, no edema Gastrointestinal: normal inspection, normal bowel sounds, non tender, soft, no guarding, no hernia Genitourinary: no CVA tenderness Musculoskeletal: normal tone, R arm AVF Neurologic: Grossly normal, +twitching, alert and oriented to person only Psychiatric: unable to assess SKIN: No ulcers Last 24 Hour Vital Signs Date Time Temp Pulse Resp B/P (MAP) Pulse Ox O2 Delivery O2 Flow Rate FiO2 12/03/18 08:00 97.9 74 18 134/56 (82) 92 12/03/18 04:00 98.3 81 16 112/65 (81) 95 12/03/18 04:00 76 12/03/18 01:10 Room Air 12/03/18 01:09 98.3 74 18 129/70 (89) 96 12/03/18 01:08 75 12/03/18 00:45 98.3 88 16 154/91 96 Room Air 12/03/18 00:15 98.3 88 16 154/91 96 Room Air 12/02/18 23:30 98.3 81 18 165/71 95 Room Air 12/02/18 21:00 98.3 84 18 155/69 97 Room Air 12/02/18 19:15 68 18 Room Air 12/02/18 19:02 97.5 68 18 136/73 (94) 97 Room Air Laboratory Tests Test 12/02/18 21:15 12/03/18 05:40 White Blood Count 6.0 K/UL (4.8-10.8) 5.8 K/UL (4.8-10.8) Red Blood Count 4.26 M/UL (4.20-5.40) 3.82 M/UL (4.20-5.40) L Hemoglobin 12.5 G/DL (12.0-16.0) 11.4 G/DL (12.0-16.0) L Hematocrit 39.3 % (37.0-47.0) 35.6 % (37.0-47.0) L Mean Corpuscular Volume 92 FL (80-99) 93 FL (80-99) Mean Corpuscular Hemoglobin 29.4 PG (27.0-31.0) 29.9 PG (27.0-31.0) Mean Corpuscular Hemoglobin Concent 31.8 G/DL (32.0-36.0) L 32.0 G/DL (32.0-36.0) Red Cell Distribution Width 15.2 % (11.6-14.8) H 15.8 % (11.6-14.8) H Platelet Count 102 K/UL (150-450) L 92 K/UL (150-450) L Mean Platelet Volume 8.6 FL (6.5-10.1) 7.6 FL (6.5-10.1) Neutrophils (%) (Auto) 67.3 % (45.0-75.0) % (45.0-75.0) Lymphocytes (%) (Auto) 17.4 % (20.0-45.0) L % (20.0-45.0) Monocytes (%) (Auto) 11.4 % (1.0-10.0) H % (1.0-10.0) Eosinophils (%) (Auto) 2.8 % (0.0-3.0) % (0.0-3.0) Basophils (%) (Auto) 1.1 % (0.0-2.0) % (0.0-2.0) Sodium Level 133 MMOL/L (136-145) L 135 MMOL/L (136-145) L Potassium Level 5.9 MMOL/L (3.5-5.1) H 5.6 MMOL/L (3.5-5.1) H Chloride Level 93 MMOL/L (98-107) L 94 MMOL/L (98-107) L Carbon Dioxide Level 28 MMOL/L (21-32) 26 MMOL/L (21-32) Anion Gap 13 mmol/L (5-15) 15 mmol/L (5-15) Blood Urea Nitrogen 59 mg/dL (7-18) H 63 mg/dL (7-18) H Creatinine 8.7 MG/DL (0.55-1.30) H 9.2 MG/DL (0.55-1.30) H Estimat Glomerular Filtration Rate 4.7 mL/min (>60) 4.5 mL/min (>60) Glucose Level 90 MG/DL (74-106) 51 MG/DL (74-106) L Calcium Level 9.9 MG/DL (8.5-10.1) 9.2 MG/DL (8.5-10.1) Total Bilirubin 1.0 MG/DL (0.2-1.0) Aspartate Amino Transf (AST/SGOT) 23 U/L (15-37) Alanine Aminotransferase (ALT/SGPT) 17 U/L (12-78) Alkaline Phosphatase 178 U/L (46-116) H Total Protein 8.5 G/DL (6.4-8.2) H Albumin 4.0 G/DL (3.4-5.0) Globulin 4.5 g/dL Albumin/Globulin Ratio 0.9 (1.0-2.7) L Salicylates Level 1.5 ug/mL (2.8-20) L Acetaminophen Level < 2 MCG/ML (10-30) L Serum Alcohol < 3 mg/dL Neutrophils % (Manual) Pending Lymphocytes % (Manual) Pending Platelet Estimate Pending Platelet Morphology Pending Chest XR: mild pulmonary vascular congestion and cardiomegaly, no pleural effusions. Personally reviewed by me. EKG: NSR, non specific st-t changes, Qtc 501 Microbiology Date/Time Source Procedure Growth Status 12/03/18 00:00 Rectum Ordered Height (Feet): 5 Height (Inches): 4.00 Weight (Pounds): 130 Medications Current Medications Medications (Trade) Dose Ordered Sig/Rogelio Route PRN Reason Start Time Stop Time Status Last Admin Dose Admin Amlodipine Besylate (Norvasc) 5 mg DAILY ORAL 12/03/18 09:00 01/02/19 08:59 Ascorbic Acid (Vitamin C) 500 mg DAILY ORAL 12/03/18 09:00 01/02/19 08:59 Aspirin (Ecotrin) 81 mg DAILY ORAL 12/03/18 09:00 01/02/19 08:59 Atorvastatin Calcium (Lipitor) 80 mg BEDTIME ORAL 12/03/18 21:00 01/02/19 20:59 Bupropion HCl (Wellbutrin XL) 150 mg DAILY ORAL 12/03/18 09:00 01/02/19 08:59 Calcium Acetate (Phoslo) 1,334 mg TID ORAL 12/03/18 09:00 01/02/19 08:59 Carvedilol (Coreg) 12.5 mg EVERY 12 HOURS ORAL 12/03/18 09:00 01/02/19 08:59 Dextrose (Dextrose 50%) 25 ml Q30M PRN IV Hypoglycemia 12/03/18 04:00 01/02/19 03:59 Dextrose (Dextrose 50%) 50 ml Q30M PRN IV Hypoglycemia 12/03/18 04:00 01/02/19 03:59 12/03/18 06:17 Docusate Sodium (Colace) 100 mg TWICE A DAY PRN ORAL Constipation 12/03/18 03:45 01/02/19 03:44 EZETIMIBE (Zetia) 10 mg BEDTIME ORAL 12/03/18 21:00 01/02/19 20:59 Gabapentin (Neurontin) 100 mg DAILY ORAL 12/03/18 09:00 01/02/19 08:59 Insulin Aspart (NovoLOG) BEFORE MEALS AND HS SUBQ 12/03/18 06:30 01/02/19 06:29 Olanzapine (ZyPREXA) 2.5 mg DAILY ORAL 12/03/18 09:00 01/02/19 08:59 Pantoprazole (Protonix) 40 mg Q12HR ORAL 12/03/18 09:00 01/02/19 08:59 Sevelamer Carbonate (Renvela) 800 mg THREE TIMES A DAY ORAL 12/03/18 09:00 01/02/19 08:59 Assessment/Plan Problem List: (1) Hypertensive kidney disease ICD Codes: I12.9 - Hypertensive chronic kidney disease with stage 1 through stage 4 chronic kidney disease, or unspecified chronic kidney disease SNOMED: 56576294 (2) Anemia in CKD (chronic kidney disease) ICD Codes: N18.9 - Chronic kidney disease, unspecified; D63.1 - Anemia in chronic kidney disease SNOMED: 821569501 (3) Electrolyte imbalance ICD Codes: E87.8 - Other disorders of electrolyte and fluid balance, not elsewhere classified SNOMED: 364413941 (4) ESRD (end stage renal disease) ICD Codes: N18.6 - End stage renal disease SNOMED: 87617101 (5) Fall ICD Codes: W19.XXXA - Unspecified fall, initial encounter SNOMED: 0203703, 628145906 Status: stable, unchanged Assessment/Plan: 53 year old female with HTN, DM2, ESRD admitted with acute encephalopathy, toxic metabolic (uremic vs hypoglycemic vs infectious) vs. AMS due to psychosis. 1. Acute Encephalopathy -urgent hemodialysis, nephrology consult with Dr. Bower -Monitor electrolytes -rule out infectious causes, CXR negative, collect UA if patient makes urine. -Avoid hypoglycemia 2. ESRD/ Anemia associated with ESRD Hemodialysis. Resume Sevelamer, calcium acetate Ferrous sulfate Epogen per nephrology 3.?psychosis. Psychiatry consult continue olanzipine and ativan prn 4. HTN. controlled. Hold this morning before HD. then resume, Amlodipine, Bidil , Carvedilol, lisinopril 5. HLD. Continue Atorvastatin and Zetia 6. DmII. glucose currently controlled. insulin sliding scare. avoid hypoglycemia. keep glucose ranging 110-180 GI and vte ppx PT Fall precautions full code I spent 70 minutes on this encounter. 50% spent on counselling and care coordination. time of this note may not reflect time of encounter I spent 30 minutes reviewing previous charts and hospitalization Plan of care d/w rn, psychiatrist Dr. Jacobo and fishing tool supervisor Dr. Bower. Del Quintero M.D. Dec 03, 2018 09:17
[2018-12-03] MEDS: OLANZapine 2.5mg tab ORAL SCH (09:39)
[2018-12-03] MEDS: Aspirin EC 81mg tab ORAL SCH (09:39)
[2018-12-03] MEDS: Calcium Acetate 667mg Tab ORAL SCH ×3 (09:39→17:15)
[2018-12-03 10:26] LABS: ALANINE AMINOTRANSFERASE 13 U/L (12-78); ALBUMIN 3.5 G/DL (3.4-5.0); ALKALINE PHOSPHATASE 157 U/L (46-116); ASPARTATE AMINO TRANSFERASE 24 U/L (15-37); BILIRUBIN,DIRECT 0.3 MG/DL (0.0-0.3); BILIRUBIN,TOTAL 0.8 MG/DL (0.2-1.0)
--- NOTE | 2018-12-03 11:15 | Diagnostic Imaging Report ---
Indication: Dyspnea Comparison: 09/16/2018 A single view chest radiograph was obtained. Findings: Mild pulmonary vascular congestion suspected with cardiomegaly. No pleural effusion seen. Bones are osteopenic. IMPRESSION: Pulmonary vascular congestion
[2018-12-03] MEDS ORDERED: LORazepam 1mg tab ORAL PRN (12:00)
--- NOTE | 2018-12-03 16:00 | Consultation ---
Consult Note Consult Note 53 y Old female- under my care for out patient dialysis treatment and management ER: Patient 53-year-old female presented after a fall. Patient was noted to be having a prior history of chronic renal failure. She is normally dialyzed T Sat. Last dialysis on sunday. Patient was sent in from snf. Patient denies any current complaints. She was noted to be somewhat agitated initially.History is markedly limited by poor cooperation and agitation. No Known Allergies (Unverified , 08/15/18) Hx Cardiac Problems: Yes Hx Hypertension: Yes Hx Diabetes: Yes Hx Dialysis: Yes - Sun Hx Headaches: Yes examined data reviewed . Assessment/Plan (1) Hypertensive kidney disease (2) Anemia in CKD (chronic kidney disease) (3) ESRD (end stage renal disease) due dialysis today- Presents with high K (4) Hyperkalemia, (5) Fall HD today- adjust meds- Per orders James Bower MD Dec 03, 2018 16:00
[2018-12-03] MEDS ORDERED: HydrALAZINE 25mg tab ORAL PRN (16:15)
--- NOTE | 2018-12-03 16:30 | Consultation ---
DATE OF CONSULTATION: 12/03/2018 CONSULTING PHYSICIAN: Edward Jacobo M.D. REFERRING PHYSICIAN: Jaya Monique M.D. HISTORY OF PRESENT ILLNESS: This is a 53-year-old female with a history of hypertension, anemia, migraine headaches, diarrhea, end-stage renal disease, who has been admitted to the hospital for medical stabilization. The patient is [place] speaking. She is confused and agitated, trying to throw self out of the bed, not redirectable, has been up all night, and is uncooperative. PAST PSYCHIATRIC HISTORY: Significant for psychotic disorder. The patient has been treated with olanzapine and Zoloft outside of the hospital. PAST MEDICAL HISTORY: As above. ALLERGIES: No known drug allergies. SUBSTANCE ABUSE HISTORY: No known history of illicit drug use or alcohol. MENTAL STATUS EXAMINATION: The patient is alert, oriented times self. She knows she is in the hospital, [place] speaking. Mood is agitated. Affect is flat. Thought process is concrete. Thought content, no suicidal or homicidal ideations. ASSESSMENT: [place] I Psychotic disorder, not otherwise specified versus schizoaffective disorder. [place] II Deferred. [place] III As above. [place] IV Low. [place] V 20. PLAN: 1. The patient will be continued on olanzapine 2.5 mg in the morning. 2. We will start the patient on olanzapine 5 mg at bedtime. 3. Continue to follow, readjust the medications. 4. We will start the patient on Ativan p.r.n. 5. Raise the head 30 degrees. Edward Jacobo M.D. DR: MIGUEL JOB#: [id number] CC:
[2018-12-03] MEDS: Docusate 100mg cap ORAL SCH (17:14)
--- NOTE | 2018-12-03 18:10 | Cardiology Report ---
APPROVED REPORT EKG Measurement Heart [id number] CT 238P72 [id number] Sinus rhythm with 1st degree AV block Possible Left atrial enlargement Indeterminate axis Incomplete right bundle branch block Nonspecific ST abnormality Prolonged QT Abnormal ECG
[2018-12-03] MEDS ORDERED: TRAMADOL HCL50 MG ORAL (19:37)
[2018-12-03] MEDS ORDERED: FERROUS SULFAT325 MG ORAL (19:37)
[2018-12-03] MEDS ORDERED: BUPROPION XL300 M1 PO (19:37)
[2018-12-03] MEDS ORDERED: LISINOPRIL20 MG ORAL (19:37)
[2018-12-03] MEDS ORDERED: Atorvastatin 80mg tab ORAL SCH (21:00)
[2018-12-04 00:16] VITALS: BP 140/72
[2018-12-04 04:00] VITALS: BP 131/64
[2018-12-04] MEDS: NovoLOG Insulin Flexpen SUBQ SCH ×4 (06:24→21:00)
[2018-12-04 06:57] LABS: BASOPHILS % (AUTO) 0.7 % (0.0-2.0); EOSINOPHILS % (AUTO) 1.2 % (0.0-3.0); HEMATOCRIT 36.7 % (37.0-47.0); HEMOGLOBIN 11.7 G/DL (12.0-16.0); LYMPHOCYTES % (AUTO) 15.3 % (20.0-45.0); MEAN CORPUSCULAR VOLUME 92 FL (80-99); MONOCYTES % (AUTO) 10.8 % (1.0-10.0); PLATELET COUNT 101 K/UL (150-450); RED BLOOD COUNT 3.97 M/UL (4.20-5.40); RED CELL DISTRIBUTION WIDTH 16.2 % (11.6-14.8)
[2018-12-04 07:59] LABS: ALANINE AMINOTRANSFERASE 16 U/L (12-78); ALBUMIN 3.6 G/DL (3.4-5.0); ALBUMIN/GLOBULIN RATIO 0.8 (1.0-2.7); ALKALINE PHOSPHATASE 178 U/L (46-116); ANION GAP 13 mmol/L (5-15); ASPARTATE AMINO TRANSFERASE 28 U/L (15-37); BILIRUBIN,TOTAL 1.1 MG/DL (0.2-1.0); BLOOD UREA NITROGEN 48 mg/dL (7-18); CALCIUM 9.2 MG/DL (8.5-10.1); CARBON DIOXIDE 27 MMOL/L (21-32); CHLORIDE 93 MMOL/L (98-107); CHOLESTEROL 126 MG/DL (< 200); CREATINE KINASE 314 U/L (26-308); CREATININE 7.3 MG/DL (0.55-1.30); FERRITIN 1024 NG/ML (8-388); GAMMA GLUTAMYL TRANSPEPTIDASE 160 U/L (5-85); HDL CHOLESTEROL 79 MG/DL (40-60); PHOSPHORUS 5.3 MG/DL (2.5-4.9); POTASSIUM 5.1 MMOL/L (3.5-5.1); SODIUM 133 MMOL/L (136-145); TRIGLYCERIDES 56 MG/DL (30-150)
[2018-12-04 08:00] VITALS: BP 166/108
[2018-12-04 08:08] LABS: BILIRUBIN,DIRECT 0.4 MG/DL (0.0-0.3)
[2018-12-04 08:18] LABS: % IRON SATURATION 29 % (15-50); IRON 62 ug/dL (50-175); TOTAL IRON BINDING CAPACITY 211 ug/dL (250-450)
--- NOTE | 2018-12-04 08:32 | General Progress Note ---
Assessment/Plan Problem List: (1) Hypertensive kidney disease ICD Codes: I12.9 - Hypertensive chronic kidney disease with stage 1 through stage 4 chronic kidney disease, or unspecified chronic kidney disease SNOMED: 11580927 (2) Anemia in CKD (chronic kidney disease) ICD Codes: N18.9 - Chronic kidney disease, unspecified; D63.1 - Anemia in chronic kidney disease SNOMED: 601296915 (3) Electrolyte imbalance ICD Codes: E87.8 - Other disorders of electrolyte and fluid balance, not elsewhere classified SNOMED: 414416254 (4) ESRD (end stage renal disease) ICD Codes: N18.6 - End stage renal disease SNOMED: 13038983 (5) Fall ICD Codes: W19.XXXA - Unspecified fall, initial encounter SNOMED: 1409800, 534414088 Status: stable, unchanged Assessment/Plan: 53 year old female with HTN, DM2, ESRD admitted with acute encephalopathy, toxic metabolic (uremic vs hypoglycemic vs infectious) vs. AMS due to psychosis. 1. Acute Encephalopathy -urgent hemodialysis done 12/03, nephrology consult with Dr. Bower -Monitor electrolytes -rule out infectious causes, CXR negative, collect UA via straight cath, blood cultures -Avoid hypoglycemia, d51/2 ns at 50 ml/hr 2. ESRD/ Anemia associated with ESRD Hemodialysis. Resume Sevelamer, calcium acetate Ferrous sulfate Epogen per nephrology 3.?psychosis. Psychiatry consult Discontinue bupropion continue olanzipine 2.5mg AM, 5mg PM, Ativan prn 4. HTN. controlled. Hold this morning before HD. then resume, Amlodipine, Bidil , Carvedilol, lisinopril 5. HLD. Continue Atorvastatin and Zetia 6. DmII. glucose currently controlled. insulin sliding scare. avoid hypoglycemia. keep glucose ranging 110-180 GI and vte ppx PT Fall precautions full code I spent 40 minutes on this encounter. 50% spent on counselling and care coordination. time of this note may not reflect time of encounter Plan of care d/w rn, and supervisor gelatin plant Dr. Bower. Subjective Date patient seen: Dec 04, 2018 ROS Limited/Unobtainable: Yes Allergies: Coded Allergies: No Known Allergies (Unverified , 08/15/18) Subjective mental status waxing and waning. sister and nephew at beside and say this is new for her. Vital signs stable, no fever Objective Last 24 Hour Vital Signs Date Time Temp Pulse Resp B/P (MAP) Pulse Ox O2 Delivery O2 Flow Rate FiO2 12/04/18 04:00 96.9 73 18 131/64 (86) 97 12/04/18 04:00 73 12/04/18 00:16 97.3 75 18 140/72 (94) 94 12/04/18 00:00 73 12/03/18 21:40 81 124/79 12/03/18 21:00 Room Air 12/03/18 20:00 80 12/03/18 20:00 98.3 81 19 124/79 (94) 95 12/03/18 17:14 78 147/83 12/03/18 16:00 78 12/03/18 16:00 97.9 78 18 147/83 (104) 94 12/03/18 12:00 73 12/03/18 12:00 98.1 76 18 140/67 (91) 95 12/03/18 09:00 Room Air 12/03/18 09:00 74 134/56 12/03/18 09:00 74 134/56 Intake and Output 12/03/18 12/04/18 19:00 07:00 Intake Total 360 ml Balance 360 ml Intake Oral 360 ml Laboratory Tests 12/04/18 05:42: White Blood Count 7.0, Red Blood Count 3.97L, Hemoglobin 11.7L, Hematocrit 36.7L , Mean Corpuscular Volume 92, Mean Corpuscular Hemoglobin 29.4, Mean Corpuscular Hemoglobin Concent 31.8L, Red Cell Distribution Width 16.2H, Platelet Count 101L, Mean Platelet Volume 9.0, Neutrophils (%) (Auto) 72.0, Lymphocytes (%) (Auto) 15.3L, Monocytes (%) (Auto) 10.8H, Eosinophils (%) (Auto ) 1.2, Basophils (%) (Auto) 0.7, Sodium Level 133L, Potassium Level 5.1, Chloride Level 93L, Carbon Dioxide Level 27, Anion Gap 13, Blood Urea Nitrogen 48H, Creatinine 7.3H, Estimat Glomerular Filtration Rate 5.9, Glucose Level 57L , Hemoglobin A1c 4.9, Uric Acid 3.8, Calcium Level 9.2, Phosphorus Level 5.3H, Magnesium Level 2.6H, Iron Level 62, Total Iron Binding Capacity 211L, Percent Iron Saturation 29, Unsaturated Iron Binding 149, Ferritin 1024H, Total Bilirubin 1.1H, Direct Bilirubin 0.4H, Gamma Glutamyl Transpeptidase 160H, Aspartate Amino Transf (AST/SGOT) 28, Alanine Aminotransferase (ALT/SGPT) 16, Alkaline Phosphatase 178H, Total Creatine Kinase 314H, C-Reactive Protein, Quantitative 0.5, Pro-B-Type Natriuretic Peptide > 16006I, Total Protein 8.2, Albumin 3.6, Globulin 4.6, Albumin/Globulin Ratio 0.8L, Triglycerides Level 56, Cholesterol Level 126, LDL Cholesterol 36, HDL Cholesterol 79H, Cholesterol/HDL Ratio 1.6L, Vitamin B12 Level 516, Folate 15.3, Thyroid Stimulating Hormone (TSH ) 4.481H, Free Thyroxine 0.98, Free Triiodothyronine 2.0L Height (Feet): 5 Height (Inches): 4.00 Weight (Pounds): 132 Objective General Appearance: no apparent distress, opens eyes to verbal commands. Does not follow commands. confused HEENT: PERRL Respiratory: normal inspection, lungs clear, normal breath sounds, no respiratory distress, no retraction, no wheezing Cardiovascular : regular rate, rhythm, no m/r/g, no edema Gastrointestinal: normal inspection, normal bowel sounds, non tender, soft, no guarding, no hernia Genitourinary: no CVA tenderness Musculoskeletal: normal tone, R arm AVF Neurologic: Grossly normal, alert and oriented to person only , + tongue rolling Psychiatric: unable to assess SKIN: No ulcers Del Quintero M.D. Dec 04, 2018 08:32
[2018-12-04] MEDS: OLANZapine 2.5mg tab ORAL SCH (09:10)
[2018-12-04] MEDS: Docusate 100mg cap ORAL SCH ×3 (09:11→17:41)
[2018-12-04] MEDS: Calcium Acetate 667mg Tab ORAL SCH ×3 (09:11→17:40)
[2018-12-04] MEDS: Aspirin EC 81mg tab ORAL SCH (09:11)
[2018-12-04] MEDS: Carvedilol 12.5mg tab ORAL SCH ×2 (09:18→20:58)
[2018-12-04 10:41] LABS: APPEARANCE,URINE CLEAR; BILIRUBIN, URINE NEGATIVE (NEGATIVE); COLOR,URINE YELLOW; GLUCOSE, URINE (UA) NEGATIVE (NEGATIVE); KETONES,URINE NEGATIVE (NEGATIVE); LEUKOCYTE ESTERASE ,URINE 1+ (NEGATIVE); NITRITE,URINE NEGATIVE (NEGATIVE); PH,URINE 9 (4.5-8.0); PROTEIN,URINE 4+ (NEGATIVE); UROBILINOGEN,URINE NORMAL MG/DL (0.0-1.0)
[2018-12-04] MEDS: D5NS 1,000 ML IV SCH (11:19)
--- NOTE | 2018-12-04 11:26 | Nephrology Progress Note ---
Assessment/Plan Problem List: (1) ESRD (end stage renal disease) (2) Hypertensive kidney disease (3) Hyperkalemia Assessment: resolved after HD (4) Anemia in CKD (chronic kidney disease) (5) Encephalopathy acute Assessment: ? metabolic Assessment (1) Hypertensive kidney disease (2) Anemia in CKD (chronic kidney disease) (3) ESRD (end stage renal disease) due dialysis today- Presents with high K (4) Hyperkalemia, (5) Fall Plan HD in am- adjust BP meds- Per orders Subjective ROS Limited/Unobtainable: No Constitutional: Reports: malaise Objective Objective Last 24 Hour Vital Signs Date Time Temp Pulse Resp B/P (MAP) Pulse Ox O2 Delivery O2 Flow Rate FiO2 12/04/18 09:19 72 148/70 12/04/18 09:18 72 148/70 12/04/18 09:00 Room Air 12/04/18 08:00 97.9 72 22 166/108 (127) 99 12/04/18 08:00 73 12/04/18 04:00 96.9 73 18 131/64 (86) 97 12/04/18 04:00 73 12/04/18 00:16 97.3 75 18 140/72 (94) 94 12/04/18 00:00 73 12/03/18 21:40 81 124/79 12/03/18 21:00 Room Air 12/03/18 20:00 80 12/03/18 20:00 98.3 81 19 124/79 (94) 95 12/03/18 17:14 78 147/83 12/03/18 16:00 78 12/03/18 16:00 97.9 78 18 147/83 (104) 94 12/03/18 12:00 73 12/03/18 12:00 98.1 76 18 140/67 (91) 95 Intake and Output 12/03/18 12/04/18 19:00 07:00 Intake Total 360 ml Balance 360 ml Intake Oral 360 ml Laboratory Tests 12/04/18 05:42: White Blood Count 7.0, Red Blood Count 3.97L, Hemoglobin 11.7L, Hematocrit 36.7L , Mean Corpuscular Volume 92, Mean Corpuscular Hemoglobin 29.4, Mean Corpuscular Hemoglobin Concent 31.8L, Red Cell Distribution Width 16.2H, Platelet Count 101L, Mean Platelet Volume 9.0, Neutrophils (%) (Auto) 72.0, Lymphocytes (%) (Auto) 15.3L, Monocytes (%) (Auto) 10.8H, Eosinophils (%) (Auto ) 1.2, Basophils (%) (Auto) 0.7, Sodium Level 133L, Potassium Level 5.1, Chloride Level 93L, Carbon Dioxide Level 27, Anion Gap 13, Blood Urea Nitrogen 48H, Creatinine 7.3H, Estimat Glomerular Filtration Rate 5.9, Glucose Level 57L , Hemoglobin A1c 4.9, Uric Acid 3.8, Calcium Level 9.2, Phosphorus Level 5.3H, Magnesium Level 2.6H, Iron Level 62, Total Iron Binding Capacity 211L, Percent Iron Saturation 29, Unsaturated Iron Binding 149, Ferritin 1024H, Total Bilirubin 1.1H, Direct Bilirubin 0.4H, Gamma Glutamyl Transpeptidase 160H, Aspartate Amino Transf (AST/SGOT) 28, Alanine Aminotransferase (ALT/SGPT) 16, Alkaline Phosphatase 178H, Total Creatine Kinase 314H, C-Reactive Protein, Quantitative 0.5, Pro-B-Type Natriuretic Peptide > 61631S, Total Protein 8.2, Albumin 3.6, Globulin 4.6, Albumin/Globulin Ratio 0.8L, Triglycerides Level 56, Cholesterol Level 126, LDL Cholesterol 36, HDL Cholesterol 79H, Cholesterol/HDL Ratio 1.6L, Vitamin B12 Level 516, Folate 15.3, Thyroid Stimulating Hormone (TSH ) 4.481H, Free Thyroxine 0.98, Free Triiodothyronine 2.0L 12/04/18 10:10: Urine Color Yellow, Urine Appearance Clear, Urine pH 9, Urine Specific [place] 1.015, Urine Protein 4+H, Urine Glucose (UA) Negative, Urine Ketones Negative, Urine Blood 2+H, Urine Nitrite Negative, Urine Bilirubin Negative, Urine Urobilinogen Normal, Urine Leukocyte Esterase 1+H, Urine RBC 2-4H, Urine WBC 2-4 , Urine Squamous Epithelial Cells Occasional, Urine Bacteria Occasional, Ammonia [Pending] Height (Feet): 5 Height (Inches): 4.00 Weight (Pounds): 132 General Appearance: confused Cardiovascular: normal rate Respiratory/Chest: decreased breath sounds Abdomen: soft James Bower MD Dec 04, 2018 11:26
[2018-12-04 12:00] VITALS: BP 150/65
[2018-12-04] MEDS: Lactulose 20gm/30ml UDC ORAL SCH ×2 (13:28→17:39)
--- NOTE | 2018-12-04 14:19 | GI Initial Consult Note ---
History of Present Illness General Date patient seen: Dec 04, 2018 Time patient seen: 14:11 Reason for Hospitalization: Multiple Trauma/Fall Referring physician: ZACHARY YE Reason for Consultation: Encephalopathy Present Illness HPI Patient 53-year-old female presented after a fall. Patient was noted to be having a prior history of chronic renal failure. She is normally dialyzed T Th Sat. Last dialysis on sunday. Patient was [facility] in [facility]. Patient denies any current complaints. She was noted to be somewhat agitated initially.History is markedly limited by poor cooperation and agitation. GI consulted for encephalopathy and elevated ammonia levels. ROS limited, patient with AMS. Patient seen, asleep no apparent distress with no active signs or symptoms of nausea vomiting. Son at bedside. Patient has a history of chronic renal failure. The son states that the patient has no history of EtOH abuse. Her abdomen is soft, nontender, nondistended with no signs or guarding or rebounding. Significant labs; hemoglobin 11.7, hematocrit 36.7, sodium 133, creatinine 7.3, ferritin 1024, alkaline phosphatase 178, GGT 160, ammonia 55, hepatitis B negative, serum alcohol less than 3.. The son states the patient has a history of colonoscopy but does not know when or any significant findings. Home Meds Reported Medications Ferrous Sulfate* (FERROUS SULFATE*) 325 Mg Tablet, 325 MG ORAL TWICE A DAY, TAB 0 Refills 12/03/18 Tramadol Hcl* (ULTRAM*) 50 Mg Tablet, 50 MG ORAL Q6H PRN for For Pain, TAB 0 Refills 12/03/18 Lisinopril (LISINOPRIL*) 20 Mg Tablet, 20 MG ORAL DAILY, TAB 12/03/18 Bupropion HCl (Bupropion Xl) 300 Mg Tab.er.24h, 300 MG PO DAILY, TAB 12/03/18 Ascorbic Acid* (VITAMIN C*) 250 Mg Tablet, 250 MG ORAL TWICE A DAY, #60 TAB 0 Refills 12/02/18 Bimatoprost (LUMIGAN) 2.5 Ml Drops, 1 DROP BOTH EYES DAILY, #2.5 ML 0 Refills 12/02/18 Olanzapine* (ZYPREXA*) 2.5 Mg Tablet, 2.5 MG ORAL BID, #30 TAB 0 Refills 12/02/18 Ondansetron (Zofran) 4 Mg Tablet, 4 MG ORAL Q6H PRN for Nausea & Vomiting, TAB 09/16/18 Aspirin (Aspirin EC) 81 Mg Tablet.dr, 81 MG ORAL DAILY, TAB 09/16/18 Ezetimibe (ZETIA*) 10 Mg Tablet, 10 MG ORAL BEDTIME, TAB 09/16/18 Amlodipine Besylate* (AMLODIPINE BESYLATE*) 5 Mg Tablet, 5 MG ORAL DAILY, TAB 09/16/18 Isosorb Dinit/Hydralazine Hcl (BIDIL TABLET) 1 Each Tablet, 1 EACH PO THREE TIMES A DAY, TAB 08/17/18 Loperamide Hcl (LOPERAMIDE) 2 Mg Capsule, 2 MG PO QID PRN for Diarrhea, CAP 08/17/18 Metoclopramide Hcl* (METOCLOPRAMIDE HCL*) 5 Mg Tablet, 5 MG ORAL EVERY 6 HOURS PRN for Nausea & Vomiting, TAB 08/17/18 Sevelamer Hcl (RENAGEL) 800 Mg Tablet, 800 MG ORAL THREE TIMES A DAY, #90 TAB 0 Refills 08/17/18 Docusate Sodium* (DOCUSATE SODIUM*) 100 Mg Capsule, 100 MG ORAL TWICE A DAY PRN for Constipation, CAP 08/17/18 Calcium Acetate (CALCIUM ACETATE) 667 Mg Capsule, 1334 MG PO TID for supplement , CAP 08/17/18 Carvedilol* (CARVEDILOL*) 12.5 Mg Tablet, 12.5 MG ORAL EVERY 12 HOURS, TAB 08/15/18 Gabapentin* (GABAPENTIN*) 400 Mg Capsule, 400 MG ORAL THREE TIMES A DAY, CAP 0 Refills 08/15/18 Acetaminophen* (ACETAMINOPHEN 325MG TABLET*) 325 Mg Tablet, 325 MG ORAL Q6H PRN for For Pain, TAB 08/15/18 Atorvastatin Calcium* (LIPITOR*) 80 Mg Tablet, 80 MG ORAL BEDTIME, TAB 08/15/18 Discontinued Reported Medications Sertraline Hcl* (ZOLOFT*) 50 Mg Tablet, 150 MG ORAL DAILY, TAB 08/15/18 Discontinued Scripts Pantoprazole* (PANTOPRAZOLE*) 40 Mg Tablet.dr, 40 MG ORAL Q12HR for 15 Days, # 30 TAB Prov:Chloé Nam MD 09/25/18 Lisinopril* (ZESTRIL*) 10 Mg Tablet, 20 MG ORAL DAILY for 30 Days, #30 TAB Prov:Chloé Nam MD 09/25/18 Bupropion HCl (Bupropion Xl) 150 Mg Tab.er.24h, 150 MG ORAL DAILY for 30 Days, # 30 TAB Prov:Chloé Nam MD 09/25/18 Med list reviewed/reconciled: Yes Allergies: Coded Allergies: No Known Allergies (Unverified , 08/15/18) Patient History Limited by: medical condition History Provided By: Medical Record PMH Narrative Past Medical History: see triage record Now: No Reviewed Nursing Documentation: PMH: Agreed; PSxH: Agreed Nursing Documentation-PMH Hx Cardiac Problems: Yes Hx Hypertension: Yes Hx Diabetes: Yes Hx Cancer: No Hx Gastrointestinal Problems: No Hx Dialysis: Yes - M,W,F Hx Neurological Problems: No Hx Headaches: Yes Review of Systems All Other Systems: limited Physical Exam Vital Signs Date Time Temp Pulse Resp B/P (MAP) Pulse Ox O2 Delivery O2 Flow Rate FiO2 12/02/18 19:02 97.5 68 18 136/73 (94) 97 Room Air Sp02 EP Interpretation: reviewed, normal Labs Laboratory Tests Test 12/04/18 05:42 12/04/18 10:10 White Blood Count 7.0 K/UL (4.8-10.8) Red Blood Count 3.97 M/UL (4.20-5.40) L Hemoglobin 11.7 G/DL (12.0-16.0) L Hematocrit 36.7 % (37.0-47.0) L Mean Corpuscular Volume 92 FL (80-99) Mean Corpuscular Hemoglobin 29.4 PG (27.0-31.0) Mean Corpuscular Hemoglobin Concent 31.8 G/DL (32.0-36.0) L Red Cell Distribution Width 16.2 % (11.6-14.8) H Platelet Count 101 K/UL (150-450) L Mean Platelet Volume 9.0 FL (6.5-10.1) Neutrophils (%) (Auto) 72.0 % (45.0-75.0) Lymphocytes (%) (Auto) 15.3 % (20.0-45.0) L Monocytes (%) (Auto) 10.8 % (1.0-10.0) H Eosinophils (%) (Auto) 1.2 % (0.0-3.0) Basophils (%) (Auto) 0.7 % (0.0-2.0) Sodium Level 133 MMOL/L (136-145) L Potassium Level 5.1 MMOL/L (3.5-5.1) Chloride Level 93 MMOL/L (98-107) L Carbon Dioxide Level 27 MMOL/L (21-32) Anion Gap 13 mmol/L (5-15) Blood Urea Nitrogen 48 mg/dL (7-18) H Creatinine 7.3 MG/DL (0.55-1.30) H Estimat Glomerular Filtration Rate 5.9 mL/min (>60) Glucose Level 57 MG/DL (74-106) L Hemoglobin A1c 4.9 % (4.3-6.0) Uric Acid 3.8 MG/DL (2.6-7.2) Calcium Level 9.2 MG/DL (8.5-10.1) Phosphorus Level 5.3 MG/DL (2.5-4.9) H Magnesium Level 2.6 MG/DL (1.8-2.4) H Iron Level 62 ug/dL (50-175) Total Iron Binding Capacity 211 ug/dL (250-450) L Percent Iron Saturation 29 % (15-50) Unsaturated Iron Binding 149 ug/dL (112-346) Ferritin 1024 NG/ML (8-388) H Total Bilirubin 1.1 MG/DL (0.2-1.0) H Direct Bilirubin 0.4 MG/DL (0.0-0.3) H Gamma Glutamyl Transpeptidase 160 U/L (5-85) H Aspartate Amino Transf (AST/SGOT) 28 U/L (15-37) Alanine Aminotransferase (ALT/SGPT) 16 U/L (12-78) Alkaline Phosphatase 178 U/L (46-116) H Total Creatine Kinase 314 U/L (26-308) H C-Reactive Protein, Quantitative 0.5 mg/dL (0.00-0.90) Pro-B-Type Natriuretic Peptide > 31252 pg/mL (0-125) H Total Protein 8.2 G/DL (6.4-8.2) Albumin 3.6 G/DL (3.4-5.0) Globulin 4.6 g/dL Albumin/Globulin Ratio 0.8 (1.0-2.7) L Triglycerides Level 56 MG/DL (30-150) Cholesterol Level 126 MG/DL (< 200) LDL Cholesterol 36 mg/dL (<100) HDL Cholesterol 79 MG/DL (40-60) H Cholesterol/HDL Ratio 1.6 (3.3-4.4) L Vitamin B12 Level 516 PG/ML (193-986) Folate 15.3 NG/ML (8.6-58.9) Thyroid Stimulating Hormone (TSH) 4.481 uiU/mL (0.358-3.740) Free Thyroxine 0.98 NG/DL (0.76-1.46) Free Triiodothyronine 2.0 pg/mL (2.3-4.2) L Urine Color Yellow Urine Appearance Clear Urine pH 9 (4.5-8.0) Urine Specific [place] 1.015 (1.005-1.035) Urine Protein 4+ (NEGATIVE) H Urine Glucose (UA) Negative (NEGATIVE) Urine Ketones Negative (NEGATIVE) Urine Blood 2+ (NEGATIVE) H Urine Nitrite Negative (NEGATIVE) Urine Bilirubin Negative (NEGATIVE) Urine Urobilinogen Normal MG/DL (0.0-1.0) Urine Leukocyte Esterase 1+ (NEGATIVE) H Urine RBC 2-4 /HPF (0 - 2) H Urine WBC 2-4 /HPF (0 - 2) Urine Squamous Epithelial Cells Occasional /LPF Urine Bacteria Occasional /HPF (NONE) Ammonia 55 umol/L (11-32) H General Appearance: well appearing, no apparent distress, other - Altered mental status Head: normocephalic EENT: PERRL/EOMI, normal ENT inspection Neck: supple Respiratory: normal breath sounds, no respiratory distress Cardiovascular: normal rate Gastrointestinal: normal inspection, non tender, soft, normal bowel sounds, non -distended Rectal: deferred Genitourinary: no CVA tenderness Musculoskeletal: normal inspection, back normal Neurologic: normal inspection, alert, oriented x3, responsive Psychiatric: normal inspection, judgement/insight normal, memory normal Skin: normal inspection, normal color, no rash, warm/dry, palpation normal, well hydrated Lymphatic: normal inspection, no adenopathy Current Medications Current Medications Medications (Trade) Dose Ordered Sig/Rogelio Route PRN Reason Start Time Stop Time Status Last Admin Dose Admin Amlodipine Besylate (Norvasc) 5 mg BID ORAL 12/03/18 18:00 01/02/19 08:59 12/04/18 09:19 Aspirin (Ecotrin) 81 mg DAILY ORAL 12/03/18 09:00 01/02/19 08:59 12/04/18 09:11 Atorvastatin Calcium (Lipitor) 10 mg BEDTIME ORAL 12/03/18 21:00 01/02/19 20:59 12/03/18 21:40 Calcium Acetate (Phoslo) 1,334 mg TID ORAL 12/03/18 09:00 01/02/19 08:59 12/04/18 13:11 Carvedilol (Coreg) 12.5 mg EVERY 12 HOURS ORAL 12/03/18 09:00 01/02/19 08:59 12/04/18 09:18 Dextrose (Dextrose 50%) 25 ml Q30M PRN IV Hypoglycemia 12/03/18 04:00 01/02/19 03:59 Dextrose (Dextrose 50%) 50 ml Q30M PRN IV Hypoglycemia 12/03/18 04:00 01/02/19 03:59 12/03/18 06:17 Dextrose/Sodium Chloride 1,000 ml @ 50 mls/hr Q20H IV 12/04/18 11:15 01/03/19 11:14 12/04/18 11:19 Docusate Sodium (Colace) 100 mg TID ORAL 12/03/18 18:00 01/02/19 03:44 12/04/18 13:11 Gabapentin (Neurontin) 100 mg THREE TIMES A DAY ORAL 12/03/18 18:00 01/02/19 17:59 12/04/18 13:11 Hydralazine HCl (Apresoline) 25 mg Q4H PRN ORAL bp over 160 syst 12/03/18 16:15 01/02/19 16:14 Insulin Aspart (NovoLOG) BEFORE MEALS AND HS SUBQ 12/03/18 06:30 01/02/19 06:29 Lactulose (Cephulac) 30 gm BID ORAL 12/04/18 13:30 01/03/19 13:29 12/04/18 13:28 Levothyroxine Sodium (Synthroid) 50 mcg DAILY@0630 ORAL 12/04/18 06:30 01/03/19 06:29 12/04/18 06:23 Olanzapine (ZyPREXA) 2.5 mg DAILY ORAL 12/03/18 09:00 01/02/19 08:59 12/04/18 09:10 Olanzapine (ZyPREXA) 5 mg BEDTIME ORAL 12/03/18 21:00 01/02/19 20:59 Pantoprazole (Protonix) 40 mg EVERY 12 HOURS ORAL 12/03/18 21:00 01/02/19 20:59 12/04/18 09:10 Sevelamer Carbonate (Renvela) 1,600 mg THREE TIMES A DAY ORAL 12/03/18 18:00 01/02/19 08:59 12/04/18 13:11 GI: Plan Problems: (1) Encephalopathy acute (2) Anemia in CKD (chronic kidney disease) (3) Abdominal pain (4) Diarrhea (5) Dehydration Plan This is a 53-year-old female patient who was admitted for encephalopathy, noted with elevated ammonia levels. Most likely high ammonia levels secondary to chronic kidney failure. We will obtain abdominal ultrasound to evaluate the liver. Continue lactulose ATC, will consider Xifaxan if encephalopathy is hepatic. Occult blood stool to rule out any GI bleeding which may also cause elevated ammonia levels. Endoscopy if necessary. Monitor hemoglobin and hematocrit, transfuse as needed. PPI Electrolyte correction Follow-up labs Discussed with Dr. Go. Thank you for this patient referral, we will follow. The patient was seen and examined at bedside and all new and available data was reviewed in the patients chart. I agree with the above findings, impression and plan. (Patient seen earlier today. Signature stamp does not reflect patient encounter time.). - MD Marge [facility] TE[facility] Dec 04, 2018 14:19
[2018-12-04 16:00] VITALS: BP 160/66
--- NOTE | 2018-12-04 16:04 | Diagnostic Imaging Report ---
Indication: Abnormal liver function tests. Abnormal renal function tests Technique: A plantar grayscale and duplex Doppler imaging of the abdomen Comparison: 08/16/2018 Findings: Imaged portions of the pancreatic head unremarkable in appearance. The body and tail are not seen. Imaged portions of the abdominal aorta are normal in caliber. Liver is homogeneous in echogenicity and within the upper limits for normal size. Hepatic contour appears smooth. No focal hepatic mass lesions appreciated sonographically. The main portal vein is patent with normal direction of flow. Gallbladder is unremarkable in appearance. No gallstones or gallbladder sludge demonstrated. There is no gallbladder wall thickening or pericholecystic fluid. Sonographic Syed sign reported as negative. Right kidney measures 8.7 cm in length. Left kidney measures 7.9 cm in length. Both kidneys demonstrate subtle increased echogenicity suggesting intrinsic medical renal disease. There is no hydronephrosis or sonographically appreciable renal stone. Spleen normal in size. No ascites is demonstrated. IMPRESSION: Subtle increased echogenicity of the bilateral kidneys suggesting intrinsic medical renal disease.
[2018-12-04 20:00] VITALS: BP 144/65
[2018-12-05] VITALS: BP 137/88
--- NOTE | 2018-12-05 01:00 | Progress Note ---
DATE: 12/04/2018 SUBJECTIVE: The patient is Ukrainian speaking. According to daughter, the patient is more confused than baseline. The patient has episodes of agitation, poor insight, poor memory, concentration. Not able to be engaged during the evaluation. MENTAL STATUS EXAMINATION: The patient is alert, confused, disoriented. Mood is anxious. Affect is constricted, congruent with mood. Thought process is concrete. Thought content, no suicidal or homicidal ideation. Cognition is impaired. Insight and judgment is impaired. ASSESSMENT: Acute encephalopathy. PLAN: 1. We will continue the current psychotropic medication. 2. The patient lacks capacity to make decision. 3. Treat the underlying cause of delirium. Edward Jacobo M.D. DR: ANASTASIYA JOB#: [id number] CC: [email or web address]
[2018-12-05 04:00] VITALS: BP 127/71
[2018-12-05] MEDS: D5NS 1,000 ML IV SCH (05:28)
[2018-12-05] MEDS: NovoLOG Insulin Flexpen SUBQ SCH ×3 (05:30→16:30)
[2018-12-05 08:00] VITALS: BP 150/76
[2018-12-05] MEDS: Lactulose 20gm/30ml UDC ORAL SCH ×2 (08:39→17:46)
[2018-12-05] MEDS: Docusate 100mg cap ORAL SCH ×3 (08:40→17:46)
[2018-12-05] MEDS: OLANZapine 2.5mg tab ORAL SCH (08:40)
[2018-12-05] MEDS: Carvedilol 12.5mg tab ORAL SCH (08:40)
[2018-12-05] MEDS: Aspirin EC 81mg tab ORAL SCH (08:40)
[2018-12-05] MEDS: Calcium Acetate 667mg Tab ORAL SCH ×3 (08:40→17:47)
--- NOTE | 2018-12-05 09:17 | General Progress Note ---
Assessment/Plan Problem List: (1) Hypertensive kidney disease ICD Codes: I12.9 - Hypertensive chronic kidney disease with stage 1 through stage 4 chronic kidney disease, or unspecified chronic kidney disease SNOMED: 74111795 (2) Anemia in CKD (chronic kidney disease) ICD Codes: N18.9 - Chronic kidney disease, unspecified; D63.1 - Anemia in chronic kidney disease SNOMED: 270040749 (3) Electrolyte imbalance ICD Codes: E87.8 - Other disorders of electrolyte and fluid balance, not elsewhere classified SNOMED: 352948441 (4) ESRD (end stage renal disease) ICD Codes: N18.6 - End stage renal disease SNOMED: 40443244 (5) Fall ICD Codes: W19.XXXA - Unspecified fall, initial encounter SNOMED: 9956514, 803854273 Status: stable, progressing - much improved Assessment/Plan: 53 year old female with HTN, DM2, ESRD admitted with acute encephalopathy, toxic metabolic (uremic vs hypoglycemic vs infectious) vs. AMS due to psychosis. 1. Acute Encephalopathy- improving -urgent hemodialysis done 12/03, nephrology consult with Dr. Bower -Monitor electrolytes -rule out infectious causes, CXR negative, UA via straight cath: protein 4+, blood 2+, nitrite negative, LE 2+, rbc 2-4, wbc 2-4, bacteria occasional -blood cultures negative to date -Avoid hypoglycemia, d51/2 ns at 50 ml/hr -NH3, 55. Lactulose started. mental status imprved with bowel movements. US abdomen without any hepatobiliary pathology. Gi consult appreciated. 2. ESRD/ Anemia associated with ESRD Hemodialysis. Resume Sevelamer, calcium acetate Ferrous sulfate Epogen per nephrology 3.?psychosis. much improved Psychiatry consult Discontinued bupropion continue olanzipine 2.5mg AM, 5mg PM, Ativan prn 4. HTN. controlled. Hold this morning before HD. then resume, Amlodipine, Bidil , Carvedilol, lisinopril 5. HLD. Continue Atorvastatin (dose reduced) and Zetia discontinued 6. DmII. glucose currently controlled. insulin sliding scare. avoid hypoglycemia. keep glucose ranging 110-180 GI and vte ppx PT Fall precautions full code I spent 40 minutes on this encounter. 50% spent on counselling and care coordination. time of this note may not reflect time of encounter Plan of care d/w rn, and mobile home lot utility worker Dr. Bower and psychiatrist Dr. Jacobo Subjective Date patient seen: Dec 05, 2018 ROS Limited/Unobtainable: No Constitutional: Denies: no symptoms, chills, diaphoresis, fever, malaise, weakness, other HEENT: Denies: no symptoms, eye pain, blurred vision, tearing, double vision, ear pain, ear discharge, nose pain, nose congestion, throat pain, throat swelling, mouth pain, mouth swelling, other Cardiovascular: Denies: no symptoms, chest pain, edema, irregular heart rate, lightheadedness, palpitations, syncope, other Respiratory: Denies: no symptoms, cough, orthopnea, shortness of breath, SOB with excertion, SOB at rest, sputum, stridor, wheezing, other Gastrointestinal/Abdominal: Denies: no symptoms, abdomen distended, abdominal pain, black stools, tarry stools, blood in stool, constipated, diarrhea, difficulty swallowing, nausea, poor appetite, poor fluid intake, rectal bleeding , vomiting, other Genitourinary: Denies: no symptoms, burning, discharge, frequency, flank pain, hematuria, incontinence, pain, urgency, other Neurologic/Psychiatric: Denies: no symptoms, anxiety, depressed, emotional problems, headache, numbness, paresthesia, pre-existing deficit, seizure, tingling, tremors, weakness, other Endocrine: Denies: no symptoms, excessive sweating, flushing, intolerance to cold, intolerance to heat, increased hunger, increased thirst, increased urine, unexplained weight gain, unexplained weight loss, other Hematologic/Lymphatic: Denies: no symptoms, anemia, easy bleeding, easy bruising, other Allergies: Coded Allergies: No Known Allergies (Unverified , 08/15/18) Subjective mental status much better. on lactulose and having bowel movements no fevers Objective Last 24 Hour Vital Signs Date Time Temp Pulse Resp B/P (MAP) Pulse Ox O2 Delivery O2 Flow Rate FiO2 12/05/18 08:41 72 150/76 12/05/18 08:40 72 150/76 12/05/18 04:00 98.5 69 18 127/71 (89) 95 12/05/18 04:00 67 12/05/18 00:00 69 12/05/18 00:00 98.4 75 20 137/88 (104) 97 12/04/18 21:00 Room Air 12/04/18 20:58 69 144/65 12/04/18 20:00 98.3 69 18 144/65 (91) 94 12/04/18 20:00 68 12/04/18 17:40 68 160/66 12/04/18 16:00 68 12/04/18 16:00 98.0 69 22 160/66 (97) 92 12/04/18 12:00 98.4 68 22 150/65 (93) 97 12/04/18 12:00 69 12/04/18 09:19 72 148/70 12/04/18 09:18 72 148/70 Intake and Output 12/04/18 12/05/18 19:00 07:00 Intake Total 350 ml 532 ml Balance 350 ml 532 ml IV Total 350 ml 532 ml # Voids 1 6 # Bowel Movements 1 2 Laboratory Tests 12/04/18 10:10: Urine Color Yellow, Urine Appearance Clear, Urine pH 9, Urine Specific [place] 1.015, Urine Protein 4+H, Urine Glucose (UA) Negative, Urine Ketones Negative, Urine Blood 2+H, Urine Nitrite Negative, Urine Bilirubin Negative, Urine Urobilinogen Normal, Urine Leukocyte Esterase 1+H, Urine RBC 2-4H, Urine WBC 2-4 , Urine Squamous Epithelial Cells Occasional, Urine Bacteria Occasional, Ammonia 55H Height (Feet): 5 Height (Inches): 4.00 Weight (Pounds): 131 Objective General Appearance: no apparent distress, alert and oriented to person and place. Answers questions appropriately HEENT: PERRL Respiratory: normal inspection, lungs clear, normal breath sounds, no respiratory distress, no retraction, no wheezing Cardiovascular : regular rate, rhythm, no m/r/g, no edema Gastrointestinal: normal inspection, normal bowel sounds, non tender, soft, no guarding, no hernia Genitourinary: no CVA tenderness Musculoskeletal: normal tone, R arm AVF Neurologic: Grossly normal, alert and oriented to person and place Psychiatric: unable to assess SKIN: No ulcers Del Quintero M.D. Dec 05, 2018 09:16
--- NOTE | 2018-12-05 11:38 | Diagnostic Imaging Report ---
Indications: hip pain Findings: 2 views of both hips were obtained. No acute fracture is demonstrated. The bones are osteopenic. Alignment of the hip is within normal limits. Soft tissues are unremarkable. Impression: Negative examination of the hips.
[2018-12-05 12:00] VITALS: BP 162/77
--- NOTE | 2018-12-05 13:13 | GI Progress Note ---
Assessment/Plan Problems: (1) Abdominal pain ICD Codes: R10.9 - Unspecified abdominal pain SNOMED: 31177450 (2) Diarrhea ICD Codes: R19.7 - Diarrhea, unspecified SNOMED: 19202690 (3) Dehydration ICD Codes: E86.0 - Dehydration SNOMED: 49448525 (4) Encephalopathy acute ICD Codes: G93.40 - Encephalopathy, unspecified SNOMED: 99005345, 919027649 (5) Anemia in CKD (chronic kidney disease) ICD Codes: N18.9 - Chronic kidney disease, unspecified; D63.1 - Anemia in chronic kidney disease SNOMED: 621602502 (6) Electrolyte imbalance ICD Codes: E87.8 - Other disorders of electrolyte and fluid balance, not elsewhere classified SNOMED: 197999529 Status: unchanged Status Narrative Discussed with Dr. Go. Assessment/Plan abdominal US negative for any cirrhotic changes adv diet as tolerated cont lactulose Occult blood stool to rule out any GI bleeding which may also cause elevated ammonia levels. Endoscopy if necessary. Monitor hemoglobin and hematocrit, transfuse as needed. PPI Electrolyte correction Follow-up labs The patient was seen and examined at bedside and all new and available data was reviewed in the patients chart. I agree with the above findings, impression and plan. (Patient seen earlier today. Signature stamp does not reflect patient encounter time.). - Amor Go MD Subjective Subjective limited Objective Last 24 Hour Vital Signs Date Time Temp Pulse Resp B/P (MAP) Pulse Ox O2 Delivery O2 Flow Rate FiO2 12/05/18 09:00 Room Air 12/05/18 08:41 72 150/76 12/05/18 08:40 72 150/76 12/05/18 08:00 97.5 72 18 150/76 (100) 95 12/05/18 04:00 98.5 69 18 127/71 (89) 95 12/05/18 04:00 67 12/05/18 00:00 69 12/05/18 00:00 98.4 75 20 137/88 (104) 97 12/04/18 21:00 Room Air 12/04/18 20:58 69 144/65 12/04/18 20:00 98.3 69 18 144/65 (91) 94 12/04/18 20:00 68 12/04/18 17:40 68 160/66 12/04/18 16:00 68 12/04/18 16:00 98.0 69 22 160/66 (97) 92 Intake and Output 12/04/18 12/05/18 19:00 07:00 Intake Total 350 ml 532 ml Balance 350 ml 532 ml IV Total 350 ml 532 ml # Voids 1 6 # Bowel Movements 1 2 Height (Feet): 5 Height (Inches): 4.00 Weight (Pounds): 131 General Appearance: confused Cardiovascular: normal rate Respiratory/Chest: no respiratory distress, no accessory muscle use Abdominal Exam: soft Thomas Bird WATCHGUARD Dec 05, 2018 13:13
--- NOTE | 2018-12-05 13:30 | Nephrology Progress Note ---
Assessment/Plan Problem List: (1) ESRD (end stage renal disease) (2) Hypertensive kidney disease (3) Hyperkalemia Assessment: resolved after HD (4) Anemia in CKD (chronic kidney disease) (5) Encephalopathy acute Assessment: ? metabolic Assessment (1) Hypertensive kidney disease (2) Anemia in CKD (chronic kidney disease) (3) ESRD (end stage renal disease) due dialysis today- Presents with high K (4) Hyperkalemia, (5) Fall Plan HD starts shortly adjust BP meds- Per orders Subjective ROS Limited/Unobtainable: No Constitutional: Reports: malaise Objective Objective Last 24 Hour Vital Signs Date Time Temp Pulse Resp B/P (MAP) Pulse Ox O2 Delivery O2 Flow Rate FiO2 12/05/18 12:00 97.3 73 18 162/77 (105) 94 12/05/18 09:00 Room Air 12/05/18 08:41 72 150/76 12/05/18 08:40 72 150/76 12/05/18 08:00 97.5 72 18 150/76 (100) 95 12/05/18 04:00 98.5 69 18 127/71 (89) 95 12/05/18 04:00 67 12/05/18 00:00 69 12/05/18 00:00 98.4 75 20 137/88 (104) 97 12/04/18 21:00 Room Air 12/04/18 20:58 69 144/65 12/04/18 20:00 98.3 69 18 144/65 (91) 94 12/04/18 20:00 68 12/04/18 17:40 68 160/66 12/04/18 16:00 68 12/04/18 16:00 98.0 69 22 160/66 (97) 92 Intake and Output 12/04/18 12/05/18 19:00 07:00 Intake Total 350 ml 532 ml Balance 350 ml 532 ml IV Total 350 ml 532 ml # Voids 1 6 # Bowel Movements 1 2 Height (Feet): 5 Height (Inches): 4.00 Weight (Pounds): 132 General Appearance: no apparent distress, confused Neurologic: responsive Objective no change James Bower MD Dec 05, 2018 13:30
[2018-12-05 16:00] VITALS: BP 147/86
[2018-12-05] MEDS ORDERED: D5NS 1000ml IV ONE (18:48)
--- NOTE | 2018-12-05 20:04 | Discharge Summary ---
Discharge Summary Hospital Course Date of Admission Dec 02, 2018 at 23:00 Date of Discharge Dec 05, 2018 at 18:49 Admitting Diagnosis hyperkalemia HPI Daina Guzman is a 53 year old female who was admitted on Dec 02, 2018 at 23:00 for Hyperkalemia Consultations Nephrology: Dr. Bower GI: Dr. Go Psychiatry: Dr. Jacobo Hospital Course 53 year old female with HTN, DM2, ESRD admitted with acute encephalopathy, toxic metabolic (uremic vs hypoglycemic vs infectious) vs. AMS due to psychosis. 1. Acute Encephalopathy- much imroved -urgent hemodialysis done 12/03 and again 12/05, nephrology consult with Dr. Bower -Monitor electrolytes -rule out infectious causes, CXR negative, UA via straight cath: protein 4+, blood 2+, nitrite negative, LE 2+, rbc 2-4, wbc 2-4, bacteria occasional -blood cultures negative to date -Avoid hypoglycemia, d51/2 ns at 50 ml/hr -NH3, 55. Lactulose started. mental status improved with bowel movements. US abdomen without any hepatobiliary pathology. GI consult appreciated. 2. ESRD/ Anemia associated with ESRD Hemodialysis. Resume Sevelamer, calcium acetate Ferrous sulfate Epogen per nephrology 3.?psychosis. much improved Psychiatry consult Discontinued bupropion continue olanzipine 2.5mg AM, 5mg PM, Ativan prn 4. HTN. controlled. Hold this morning before HD. then resume, Amlodipine, Bidil , Carvedilol, lisinopril 5. HLD. Continue Atorvastatin (dose reduced) and Zetia discontinued 6. DmII. glucose currently controlled. insulin sliding scare. avoid hypoglycemia. keep glucose ranging 110-180 GI and vte ppx PT Fall precautions full code Plan of care d/w rn, and associate engineer Dr. Bower and psychiatrist Dr. Jacobo Unfortunately patient's son decided to sign his mother out AMA. Discharge Discharge Disposition Patient was discharged to AMA Discharge Diagnoses: (1) Encephalopathy acute Del Quintero M.D. Dec 05, 2018 20:04
== END 2018-12-05 18:49 | disposition left against medical advice (07) | DRG 640 ==
LOC: EDBD 19:01 → EMR 19:24 → EDBEDREQ 22:59 → 2E 23:00 → EDBEDREQ 23:21
PROC: 5A1D70Z Performance of Urinary Filtration, Intermittent, Less than 6 Hours Per Day (ICD-10-PCS; principal; 2018-12-03)
DX: E87.5 Hyperkalemia (principal); G93.41 Metabolic encephalopathy; N18.6 End stage renal disease; I12.0 Hypertensive chronic kidney disease with stage 5 chronic kidney disease or end stage renal disease; D63.1 Anemia in chronic kidney disease; Z99.2 Dependence on renal dialysis; Z91.81 History of falling; E78.5 Hyperlipidemia, unspecified; F29 Unspecified psychosis not due to a substance or known physiological condition; E86.0 Dehydration; E11.22 Type 2 diabetes mellitus with diabetic chronic kidney disease; R19.7 Diarrhea, unspecified
CPT/HCPCS: 36415; 70450; 71045; 73521; 76700; 80048; 80053; 80061; 80076; 80329; 81001; 82140; 82248; 82550; 82607; 82728; 82746; 82962; 82977; 83036; 83540; 83550; 83735; 83880; 84100; 84439; 84443; 84481; 84550; 85007; 85025; 86140; 87040; 87081; 87340; 93005; 96372; 99285